=== PATIENT | male | born 1940 | race Caucasian/White ===

== ENCOUNTER 2016-10-21 11:38 | Inpatient (IN) | payer MEDICARE, OTHER ==
--- NOTE | 2016-10-21 12:10 | ER Document Report ---
ED General - General Stated Complaint: DIFFICULTY BREATHING Time seen by provider: 12:08 Mode of Arrival: Wheelchair Information source: Patient Notes: This is a 75-year-old gentleman with a history of COPD exacerbation (status post trach for malignant neoplasm of the larynx), acute on chronic respiratory failure, atrial fibrillation, and diabetes. The patient presents to the emergency room with worsening shortness of breath, wheezing and cough over the past 4 days. Patient states his already had 4 nebulizer treatments today. TRAVEL OUTSIDE OF THE [place] IN LAST 30 DAYS: No - HPI Onset: Last week Onset/Duration: Gradual Quality of pain: No pain Severity: None Pain Level: Denies Associated symptoms: Nonproductive cough, Shortness of breath. denies: Chills, Fever Exacerbated by: Walking Relieved by: Denies Similar symptoms previously: Yes Recently seen / treated by doctor: Yes - Related Data Allergies/Adverse Reactions: Penicillins Allergy (Severe, Verified 11/30/15 10:46) Past Medical History - General Information source: Patient - Social History Smoking Status: Former Smoker Cigarette use (# per day): No Chew tobacco use (# tins/day): No Smoking Education Provided: No Frequency of alcohol use: None Drug Abuse: None Lives with: Alone Family History: DM, Hypertension, Malignancy - Past Medical History Cardiac Medical History: Reports: Hx Atrial Fibrillation Pulmonary Medical History: Reports: Hx Asthma, Hx COPD, Hx Pneumonia Endocrine Medical History: Reports: Hx Diabetes Mellitus Type 1, Hx Hyperthyroidism Past Surgical History: Reports: Hx Abdominal Surgery - G-tube, Hx Oral Surgery - Trach - Immunizations Hx Diphtheria, Pertussis, Tetanus Vaccination: Yes Hx Pneumococcal Vaccination: 10/18/11 Review of Systems - Review of Systems Constitutional: denies: Chills, Fever EENT: No symptoms reported Cardiovascular: See HPI Respiratory: No symptoms reported Gastrointestinal: No symptoms reported Genitourinary: No symptoms reported Male Genitourinary: No symptoms reported Musculoskeletal: No symptoms reported Skin: No symptoms reported Hematologic/Lymphatic: No symptoms reported Neurological/Psychological: No symptoms reported Physical Exam - Vital signs Vitals: Resp BP Pulse Ox 28 H 165/106 H 96 10/21/16 11:42 10/21/16 11:42 10/21/16 11:42 Notes: Physical exam: GENERAL: 76-year-old man, alert and oriented 3, moderate respiratory distress HEAD: Atraumatic, normocephalic. EYES: Pupils equal round and reactive to light, extraocular movements intact, sclera anicteric, conjunctiva are normal. ENT: oropharynx clear without exudates. Moist mucous membranes. NECK: Trach site clear and unobstructed, no stridor. LUNGS: Diffuse bilateral wheezing, moderate respiratory distress HEART: Regular rate and rhythm without murmurs, rubs or gallops. ABDOMEN: Soft, nontender, normoactive bowel sounds. No guarding, no rebound. No masses appreciated. EXTREMITIES: Normal range of motion, no pitting or edema. No clubbing or cyanosis. NEUROLOGICAL: Cranial nerves II through XII grossly intact. Patient is nonverbal but communicates well by writing on a pad. PSYCH: Normal mood, normal affect. SKIN: Warm, Dry, normal turgor, no rashes or lesions noted. Course - Re-evaluation Re-evalutation: 10/21/16 12:39 Patient given albuterol nebulizers and IV Solu-Medrol by EMS Albuterol and Atrovent nebulizer given in the emergency room. IV magnesium given in the emergency room 10/21/16 17:00 Note: EKG shows atrial fibrillation with a ventricular rate of [address]ressions in V2 through V5. I think this is strain secondary to his respiratory status is a hole. He denies any chest pain. We did repeat the EKG and this no significant changes. His troponin level is negative. His respiratory symptoms have been improving with treatment of his acute COPD exacerbation. 10/21/16 18:28 - Vital Signs Vital signs: Temp Pulse Resp BP Pulse Ox 99 F 113 H 26 H 138/88 H 97 10/21/16 11:45 10/21/16 11:45 10/21/16 12:01 10/21/16 12:01 10/21/16 12:01 - Laboratory Result Diagrams: 10/21/16 11:50 10/21/16 11:50 Laboratory results interpreted by me: 10/21/16 10/21/16 10/21/16 11:50 11:50 11:50 WBC 12.2 H RBC 4.30 L Hgb 13.4 L Lymphocytes % 11.8 L Eosinophils % 8.7 H Absolute Neutrophils 8.6 H Absolute Eosinophils 1.1 H VBG pH 7.27 L VBG pCO2 66.4 H* Glucose 137 H Creatine Kinase 36 L - Diagnostic Test Radiology reviewed: Image reviewed, Reports reviewed - No infiltrates - EKG Interpretation by Me Rhythm: A.Fib Critical Care Note - Critical Care Note Total time excluding time spent on procedures (mins): 60 Discharge - Discharge Clinical Impression: acute COPD exacerbation Condition: Serious Disposition: ADMITTED INPATIENT Admitting Provider: [facility] Admitted: [facility]
[2016-10-21] MEDS ORDERED: IPRATROPIUM/ALBUTEROL 0.5-2.5 MG/3 ML AMPUL NEB ONE (12:12)
[2016-10-21] MEDS ORDERED: LEVOFLOXACIN 750 MG/D5W RTU 150 ML IV ONE (12:13)
[2016-10-21 12:22] LABS: VENOUS BLOOD BASE EXCESS 1.1 mmol/L; VENOUS BLOOD HCO3 29.9 mmol/L (20-32); VENOUS BLOOD PH 7.27 (7.30-7.42)
[2016-10-21 12:23] LABS: VENOUS BLOOD PCO2 66.4 mmHg (35-63)
[2016-10-21 12:24] LABS: ABSOLUTE BASOPHILS # (AUTO) 0.2 10^3/uL (0.0-0.2); ABSOLUTE EOSINOPHILS # (AUTO) 1.1 10^3/uL (0.0-0.6); ABSOLUTE LYMPHOCYTES (AUTO) 1.4 10^3/uL (0.5-4.7); ABSOLUTE MONOCYTES (AUTO) 0.9 10^3/uL (0.1-1.4); ABSOLUTE NEUT (AUTO) 8.6 10^3/uL (1.7-8.2); BASOPHILS % (AUTO) 1.4 % (0-2); EOSINOPHILS % (AUTO) 8.7 % (0-6); HEMATOCRIT 41.2 % (37.9-51.0); HEMOGLOBIN 13.4 g/dL (13.5-17.0); LYMPHOCYTES % (AUTO) 11.8 % (13-45); MEAN CORPUSCULAR HEMOGLOBIN 31.3 pg (27.0-33.4); MEAN CORPUSCULAR HGB CONC 32.6 g/dL (32.0-36.0); MEAN CORPUSCULAR VOLUME 96 fl (80-97); MONOCYTES % (AUTO) 7.5 % (3-13); RED CELL DISTRIBUTION WIDTH 13.7 % (11.5-14.0); SEGMENTED NEUTROPHILS % (AUTO) 70.6 % (42-78); WHITE BLOOD COUNT 12.2 10^3/uL (4.0-10.5)
[2016-10-21 12:29] LABS: ALANINE AMINOTRANSFERASE 37 U/L (21-72); ALKALINE PHOSPHATASE 87 U/L (38-126); ANION GAP 13 (5-19); ASPARTATE AMINO TRANSFERASE 23 U/L (17-59); BILIRUBIN,TOTAL 0.7 mg/dL (0.2-1.3); BLOOD UREA NITROGEN 16 mg/dL (7-20); CALCIUM 9.3 mg/dL (8.4-10.2); CARBON DIOXIDE 28 mmol/L (22-30); CHLORIDE 101 mmol/L (98-107); CREATINE KINASE 36 U/L (55-170); CREATININE RESULT 0.76 mg/dL (0.52-1.25); GLUCOSE 137 mg/dL (75-110); POTASSIUM 4.7 mmol/L (3.6-5.0); SODIUM 141.8 mmol/L (137-145); TOTAL PROTEIN 6.7 g/dL (6.3-8.2)
[2016-10-21] MEDS: MAGNESIUM SULFATE/D5W 100 ML IV SCH ×2 (12:32→13:10)
[2016-10-21 12:41] LABS: CREATINE KINASE MB 2.28 ng/mL (<4.55)
[2016-10-21 12:47] LABS: TROPONIN I 0.056 ng/mL
[2016-10-21] MEDS ORDERED: NITROGLYCERIN 2% OINTMENT 1 GM PACKET TP ONE (12:54)
--- NOTE | 2016-10-21 15:41 | EKG REPORT ---
SEVERITY:- ABNORMAL ECG - ATRIAL FIBRILLATION VENTRICULAR PREMATURE COMPLEX LOW VOLTAGE IN FRONTAL LEADS REPOL ABNRM SUGGESTS ISCHEMIA, DIFFUSE LEADS : Confirmed by: Gerard Maldonado 21-Oct-2016 15:41:10
--- NOTE | 2016-10-21 15:42 | EKG REPORT ---
SEVERITY:- ABNORMAL ECG - ATRIAL FIBRILLATION LOW VOLTAGE IN FRONTAL LEADS REPOL ABNRM SUGGESTS ISCHEMIA, DIFFUSE LEADS VPC : Confirmed by: Gerard Maldonado 21-Oct-2016 15:41:37
[2016-10-21] MEDS ORDERED: ACETAMINOPHEN 325 MG TABLET PO PRN (18:03)
--- NOTE | 2016-10-21 18:24 | PDOC H&P ---
History of Present Illness Admission Date/PCP: 10/21/16 17:43 WENDY AYALA, Patient complains of: Shortness of breath with difficulty coughing up mucus. History of Present Illness: KARLA PARADA is a 76 year old male Past medical history of severe COPD atrial fibrillation diabetes and laryngeal cancer status post tracheostomy who was in his usual state of health until apparently 3 days ago when started having some shortness of breath with difficulty coughing up some mucus and some wheezing. He came into the emergency room to be evaluated. Past Medical History Cardiac Medical History: Reports: Atrial Fibrillation Pulmonary Medical History: Reports: Asthma, Chronic Obstructive Pulmonary Disease (COPD), Pneumonia, Respiratory Failure EENT Medical History: Reports: Throat EENT History Note: Laryngeal cancer status post tracheostomy Endocrine Medical History: Reports: Diabetes Mellitus Type 1, Hypothyroidism Malignancy Medical History: Reports: Other Malignancy History Note: Laryngeal cancer Hematology: Denies: Anemia, Sickle Cell Disease Past Surgical History Past Surgical History: Reports: Other - Laryngeal cancer resection with tracheostomy Social History Lives with: Alone Smoking Status: Former Smoker Frequency of Alcohol Use: Heavy Hx Recreational Drug Use: No Drugs: None Hx Prescription Drug Abuse: No - Advance Directive Resuscitation Status: Do Not Resuscitate Family History Family History: DM, Hypertension, Malignancy Parental Family History Reviewed: Yes Children Family History Reviewed: Yes Sibling(s) Family History Reviewed.: Yes Medication/Allergy Home Medications: Metformin HCl [Glucophage 500 mg Tablet] 1,000 mg PO QPM 03/05/12 Levothyroxine Sodium 150 mcg PO DAILY 11/30/15 Tramadol HCl 50 mg PO TID 01/19/16 Digoxin [Lanoxin 0.125 mg Tablet] 0.125 mg PO DAILY #30 tablet 03/28/16 Acetaminophen [Tylenol 325 mg Tablet] 650 mg PO Q4HP PRN #0 tablet 07/23/16 Diltiazem HCl [Cardizem 30 mg Tablet] 30 mg PO Q6 #0 tablet 07/23/16 Guaifenesin [Mucinex Sr 600 mg Tablet.sa] 600 mg PO Q12 #0 tablet.sa 07/23/16 Ipratropium/Albuterol Sulfate [Duoneb 3 ml Ampul] 3 ml NEB [id number] #0 vial.neb 07/23/16 Prednisone [Deltasone 20 mg Tablet] 40 mg PO DAILY #0 tablet 07/23/16 Tramadol HCl [Ultram 50 mg Tablet] 50 mg PO Q6HP PRN #0 tablet 07/23/16 Allergies/Adverse Reactions: Penicillins Allergy (Severe, Verified 11/30/15 10:46) Review of Systems All systems: reviewed and no additional remarkable complaints except as stated Physical Exam Vital Signs: Temp Pulse Resp BP Pulse Ox 99 F 113 H 26 H 138/88 H 97 10/21/16 11:45 10/21/16 11:45 10/21/16 12:01 10/21/16 12:01 10/21/16 12:01 General appearance: PRESENT: severe distress Head exam: PRESENT: other Eye exam: PRESENT: conjunctival injection Throat exam: PRESENT: other Neck exam: ABSENT: JVD Respiratory exam: PRESENT: accessory muscle use, decreased breath sounds, wheezes Cardiovascular exam: PRESENT: irregular rhythm Pulses: PRESENT: +1 pedal pulses bilateral GI/Abdominal exam: PRESENT: normal bowel sounds, soft Extremities exam: PRESENT: full ROM Musculoskeletal exam: PRESENT: ambulatory Neurological exam: PRESENT: alert, oriented to time Results Impressions: Chest X-Ray 10/21/16 12:11 IMPRESSION: Obstructive lung disease. No acute consolidations are identified. Other findings as noted above Assessment & Plan - Diagnosis (1) Diabetes mellitus Qualifiers: Diabetes mellitus type: type 2 Is this a current diagnosis for this admission?: YesPlan: We'll consider using insulin sliding scale due to steroid use (2) Acute on chronic respiratory failure with hypoxemia Is this a current diagnosis for this admission?: YesPlan: We'll start IV steroids, nebulization treatments and antibiotics (3) Atrial fibrillation Qualifiers: Atrial fibrillation type: chronic Qualified Code(s): I48.2 - Chronic atrial fibrillation Is this a current diagnosis for this admission?: YesPlan: We will continue with medications. (4) COPD exacerbation Is this a current diagnosis for this admission?: YesPlan: We'll use nebulization treatments and IV steroids and antibiotics (5) Do not resuscitate Is this a current diagnosis for this admission?: Yes (6) Abnormal laboratory test Is this a current diagnosis for this admission?: YesPlan: Elevated troponins with some EKG changes most probably ischemic due to an acute COPD exacerbation (7) Bacterial pneumonia Plan: Continue IV antibiotics
[2016-10-21] MEDS ORDERED: DEXTROSE 50%-WATER 25 GM/50 ML DISP.SYRIN IV PRN ×2 (18:25)
[2016-10-21] MEDS ORDERED: INSULIN LISPRO 100 UNIT/ML 3 ML VIAL SUBCUT PRN (18:25)
[2016-10-21] MEDS ORDERED: GLUCAGON,HUMAN RECOMB 1 MG INJ IM PRN (18:25)
[2016-10-21] MEDS ORDERED: DEXTROSE 40% GEL 15 GM TUBE PO PRN ×2 (18:25)
[2016-10-21 19:30] LABS: CREATINE KINASE MB 3.9 ng/mL (<4.55)
[2016-10-21 19:37] LABS: TROPONIN I 0.063 ng/mL
[2016-10-21] MEDS: IPRATROPIUM/ALBUTEROL 0.5-2.5 MG/3 ML AMPUL NEB SCH (19:48)
[2016-10-21] MEDS ORDERED: IPRATROPIUM/ALBUTEROL 0.5-2.5 MG/3 ML AMPUL NEB SCH (20:00)
[2016-10-21] MEDS: GUAIFENESIN 600 MG TABLET.SA PO SCH (21:35)
[2016-10-21] MEDS: METHYLPREDNISOLONE INJ 125 MG/2 ML SDV IV SCH (21:35)
[2016-10-21] MEDS: AZTREONAM 1 GM in DEXTROSE 5%-WATER 50 ML IV SCH (21:36)
[2016-10-22] MEDS ORDERED: METHYLPREDNISOLONE INJ 40 MG/1 ML SDV IV SCH
[2016-10-22] MEDS: DILTIAZEM HCL 30 MG TABLET PO SCH ×5 (00:25→23:21)
[2016-10-22] MEDS: NITROGLYCERIN 2% OINTMENT 1 GM PACKET TP SCH ×5 (00:25→23:22)
[2016-10-22 01:57] LABS: CREATINE KINASE MB 5.01 ng/mL (<4.55); TROPONIN I 0.053 ng/mL
[2016-10-22] MEDS: METHYLPREDNISOLONE INJ 125 MG/2 ML SDV IV SCH ×4 (02:50→21:05)
[2016-10-22] MEDS: IPRATROPIUM/ALBUTEROL 0.5-2.5 MG/3 ML AMPUL NEB PRN (04:03)
[2016-10-22] MEDS ORDERED: LACTULOSE SYRUP 20 GM/30 ML UDCUP PO ONE (04:15)
[2016-10-22] MEDS ORDERED: ONDANSETRON HCL INJ/PF 4 MG/2 ML SDV IV PRN (05:37)
[2016-10-22] MEDS ORDERED: ONDANSETRON HCL INJ/PF 4 MG/2 ML SDV ONE (05:41)
[2016-10-22] MEDS: LANSOPRAZOLE 30 MG TAB.RAP.DR PO SCH (05:57)
[2016-10-22] MEDS: AZTREONAM 1 GM in DEXTROSE 5%-WATER 50 ML IV SCH ×3 (05:57→21:05)
--- NOTE | 2016-10-22 07:55 | EKG REPORT ---
SEVERITY:- ABNORMAL ECG - ATRIAL FIBRILLATION VENTRICULAR PREMATURE COMPLEX REPOL ABNRM SUGGESTS ISCHEMIA, DIFFUSE LEADS : Confirmed by: Gerard Maldonado 22-Oct-2016 07:53:50
[2016-10-22 07:59] LABS: HEMATOCRIT 40.3 % (37.9-51.0); HEMOGLOBIN 13.7 g/dL (13.5-17.0); HGB HCT DIFFERENCE 0.8; MEAN CORPUSCULAR HEMOGLOBIN 31.8 pg (27.0-33.4); MEAN CORPUSCULAR HGB CONC 33.9 g/dL (32.0-36.0); MEAN CORPUSCULAR VOLUME 94 fl (80-97); RED CELL DISTRIBUTION WIDTH 13.5 % (11.5-14.0); WHITE BLOOD COUNT 12.4 10^3/uL (4.0-10.5)
[2016-10-22] MEDS ORDERED: MINERAL OIL ENEMA 133 ML PR ONE (08:00)
[2016-10-22 08:27] LABS: ANION GAP 14 (5-19); BLOOD UREA NITROGEN 25 mg/dL (7-20); CALCIUM 10.2 mg/dL (8.4-10.2); CARBON DIOXIDE 31 mmol/L (22-30); CHLORIDE 98 mmol/L (98-107); CREATINE KINASE 139 U/L (55-170); CREATININE RESULT 0.92 mg/dL (0.52-1.25); DIGOXIN 1.87 ng/mL (0.8-2.0); GLUCOSE 154 mg/dL (75-110); POTASSIUM 4.7 mmol/L (3.6-5.0); SODIUM 142.5 mmol/L (137-145)
[2016-10-22 08:30] LABS: BAND NEUTROPHILS % (MANUAL) 1 % (3-5); BASOPHILS % (MANUAL) 0 % (0-2); EOSINOPHILS % (MANUAL) 0 % (0-6); LYMPHOCYTES % (MANUAL) 4 % (13-45); RBC MORPHOLOGY COMMENT NORMO-CYTIC/CHROMIC; TOTAL CELLS COUNTED 100; TOXIC GRANULATION SLIGHT
[2016-10-22 08:36] LABS: CREATINE KINASE MB 6.66 ng/mL (<4.55); TROPONIN I 0.082 ng/mL
[2016-10-22] MEDS: IPRATROPIUM/ALBUTEROL 0.5-2.5 MG/3 ML AMPUL NEB SCH ×4 (08:48→19:53)
[2016-10-22] MEDS: TRAMADOL HCL 50 MG TABLET PO PRN ×2 (09:45→16:31)
[2016-10-22] MEDS: GUAIFENESIN 600 MG TABLET.SA PO SCH ×2 (09:46→21:05)
[2016-10-22] MEDS: DIGOXIN 0.25 MG TABLET PO SCH (09:46)
[2016-10-22] MEDS: LEVOTHYROXINE SODIUM 0.15 MG TABLET PO SCH (09:47)
[2016-10-22] MEDS: LEVOFLOXACIN 500 MG/D5W RTU 100 ML IV SCH (09:47)
[2016-10-22] MEDS: ENOXAPARIN SODIUM INJ 30 MG/0.3 ML DISP.SYRIN SUBCUT SCH (09:48)
[2016-10-22] MEDS ORDERED: LEVOTHYROXINE SODIUM 0.15 MG TABLET PO SCH (10:00)
[2016-10-22] MEDS ORDERED: TRAMADOL HCL 50 MG TABLET PO SCH (10:00)
[2016-10-22] MEDS ORDERED: DIGOXIN 0.125 MG TABLET PO SCH (10:00)
[2016-10-22] MEDS ORDERED: DILTIAZEM HCL 30 MG TABLET PO SCH (12:00)
--- NOTE | 2016-10-22 12:09 | PDOC PROGRESS REPORT ---
Subjective Progress Note for:: 10/22/16 Subjective:: The patient states to feel slightly better this morning. He had abdominal pain during the night and has been given some Zofran for vomiting. His x-ray showed him to be constipated. He did have a couple of bowel movements and has been given a mineral oil enema. Physical Exam Vital Signs: Temp Pulse Resp BP Pulse Ox 98.8 F 94 21 H 129/71 H 96 10/22/16 07:38 10/22/16 08:48 10/22/16 08:48 10/22/16 07:38 10/22/16 08:48 Intake & Output 10/21/16 10/22/16 10/23/16 06:59 06:59 06:59 Intake Total 225 Balance 225 Weight 67.5 kg General appearance: PRESENT: mild distress Eye exam: PRESENT: conjunctival injection Throat exam: PRESENT: other Neck exam: PRESENT: tracheostomy. ABSENT: carotid bruit, JVD Respiratory exam: PRESENT: accessory muscle use, decreased breath sounds, prolonged expiratory phas, wheezes Cardiovascular exam: PRESENT: irregular rhythm Pulses: PRESENT: +1 pedal pulses bilateral GI/Abdominal exam: PRESENT: normal bowel sounds, soft Musculoskeletal exam: PRESENT: ambulatory Neurological exam: PRESENT: alert, oriented to time Results Laboratory Results: 10/22/16 07:24 10/22/16 07:24 10/22/16 10/22/16 07:24 07:24 WBC 12.4 H RBC 4.30 L Hgb 13.7 Hct 40.3 MCV 94 MCH 31.8 MCHC 33.9 RDW 13.5 Plt Count 217 Seg Neutrophils % Not Reportable Lymphocytes % Not Reportable Monocytes % Not Reportable Eosinophils % Not Reportable Basophils % Not Reportable Absolute Neutrophils Not Reportable Absolute Lymphocytes Not Reportable Absolute Monocytes Not Reportable Absolute Eosinophils Not Reportable Absolute Basophils Not Reportable Sodium 142.5 Potassium 4.7 Chloride 98 Carbon Dioxide 31 H Anion Gap 14 BUN 25 H Creatinine 0.92 Est GFR ( Amer) > 60 Est GFR (Non-Af Amer) > 60 Glucose 154 H Calcium 10.2 10/21/16 10/21/16 10/22/16 19:00 19:00 01:00 Creatine Kinase 66 82 CK-MB (CK-2) 3.90 Troponin I 0.063 NT-Pro-B Natriuret Pep 10/22/16 10/22/16 10/22/16 01:00 07:24 07:24 Creatine Kinase 139 CK-MB (CK-2) 5.01 H 6.66 H Troponin I 0.053 0.082 NT-Pro-B Natriuret Pep 1530 H Impressions: Chest X-Ray 10/21/16 12:11 IMPRESSION: Obstructive lung disease. No acute consolidations are identified. Other findings as noted above Abdomen X-Ray 10/22/16 00:00 IMPRESSION: Fecal retention. No obstruction Assessment & Plan - Diagnosis (1) Diabetes mellitus Qualifiers: Diabetes mellitus type: type 2 Is this a current diagnosis for this admission?: Yes (2) Acute on chronic respiratory failure with hypoxemia Is this a current diagnosis for this admission?: YesPlan: Improved slightly and continue with steroids and nebulization treatments (3) Atrial fibrillation Qualifiers: Atrial fibrillation type: chronic Qualified Code(s): I48.2 - Chronic atrial fibrillation Is this a current diagnosis for this admission?: YesPlan: Stable continue present medications. (4) COPD exacerbation Plan: We'll use nebulization treatments and IV steroids and antibiotics (6) Abnormal laboratory test Plan: Improving her labs continue same treatment (7) Bacterial pneumonia Is this a current diagnosis for this admission?: YesPlan: Continue current antibiotics awaiting culture (8) Abdominal pain Qualifiers: Abdominal location: generalized Qualified Code(s): R10.84 - Generalized abdominal pain Is this a current diagnosis for this admission?: YesPlan: Reviewduetoconstipation.Wewillcontinuewithenemaandclearliquids (9) Vomiting Qualifiers: Nausea presence: with nausea Is this a current diagnosis for this admission?: YesPlan: We will continue with Zofran and place patient on clear liquids. The vomiting might have been secondary to fecal impaction and constipation
[2016-10-22] MEDS: METFORMIN HCL 500 MG TABLET PO SCH (17:29)
[2016-10-22] MEDS ORDERED: METFORMIN HCL 500 MG TABLET PO SCH ×2 (18:00→22:00)
[2016-10-22] MEDS: NORMAL SALINE 1000 ML 1,000 ML IV PRN (23:29)
[2016-10-23] MEDS: METHYLPREDNISOLONE INJ 125 MG/2 ML SDV IV SCH (02:35)
[2016-10-23] MEDS: LANSOPRAZOLE 30 MG TAB.RAP.DR PO SCH (05:32)
[2016-10-23] MEDS: AZTREONAM 1 GM in DEXTROSE 5%-WATER 50 ML IV SCH ×3 (05:32→22:03)
[2016-10-23] MEDS: NITROGLYCERIN 2% OINTMENT 1 GM PACKET TP SCH ×3 (05:32→17:51)
[2016-10-23] MEDS: DILTIAZEM HCL 30 MG TABLET PO SCH ×3 (05:33→17:51)
[2016-10-23 05:38] LABS: HEMATOCRIT 36.8 % (37.9-51.0); HEMOGLOBIN 12.3 g/dL (13.5-17.0); HGB HCT DIFFERENCE 0.1; MEAN CORPUSCULAR HEMOGLOBIN 31.6 pg (27.0-33.4); MEAN CORPUSCULAR HGB CONC 33.4 g/dL (32.0-36.0); MEAN CORPUSCULAR VOLUME 95 fl (80-97); RED CELL DISTRIBUTION WIDTH 13.7 % (11.5-14.0); WHITE BLOOD COUNT 20.6 10^3/uL (4.0-10.5)
[2016-10-23 05:41] LABS: ANION GAP 9 (5-19); BLOOD UREA NITROGEN 30 mg/dL (7-20); CALCIUM 9.2 mg/dL (8.4-10.2); CARBON DIOXIDE 29 mmol/L (22-30); CHLORIDE 102 mmol/L (98-107); CREATININE RESULT 0.85 mg/dL (0.52-1.25); GLUCOSE 135 mg/dL (75-110); POTASSIUM 4.2 mmol/L (3.6-5.0); SODIUM 140.1 mmol/L (137-145)
[2016-10-23 06:25] LABS: BASOPHILS % (MANUAL) 0 % (0-2); EOSINOPHILS % (MANUAL) 0 % (0-6); LYMPHOCYTES % (MANUAL) 5 % (13-45); TOTAL CELLS COUNTED 100
[2016-10-23 06:27] LABS: RBC MORPHOLOGY COMMENT NORMO-CYTIC/CHROMIC
[2016-10-23] MEDS: IPRATROPIUM/ALBUTEROL 0.5-2.5 MG/3 ML AMPUL NEB SCH ×4 (08:22→20:29)
[2016-10-23] MEDS: TRAMADOL HCL 50 MG TABLET PO PRN ×2 (09:26→17:49)
[2016-10-23] MEDS: LEVOTHYROXINE SODIUM 0.15 MG TABLET PO SCH (09:27)
[2016-10-23] MEDS: DIGOXIN 0.25 MG TABLET PO SCH (09:27)
[2016-10-23] MEDS: PREDNISONE 20 MG TABLET PO SCH ×2 (09:27→17:50)
[2016-10-23] MEDS: GUAIFENESIN 600 MG TABLET.SA PO SCH ×2 (09:27→22:03)
[2016-10-23] MEDS: ENOXAPARIN SODIUM INJ 30 MG/0.3 ML DISP.SYRIN SUBCUT SCH (09:28)
[2016-10-23] MEDS: LEVOFLOXACIN 500 MG/D5W RTU 100 ML IV SCH (09:28)
--- NOTE | 2016-10-23 10:31 | PDOC PROGRESS REPORT ---
Subjective Progress Note for:: 10/23/16 Subjective:: The patient states to feel better. He still have some shortness of breath. He had a couple of good bowel movements. He denies any nausea vomiting or abdominal pain Physical Exam Vital Signs: Temp Pulse Resp BP Pulse Ox 97.5 F 54 L 22 H 94/45 L 100 10/23/16 07:17 10/23/16 07:17 10/23/16 07:17 10/23/16 07:17 10/23/16 07:17 Intake & Output 10/22/16 10/23/16 10/24/16 06:59 06:59 06:59 Intake Total 225 1487 Balance 225 1487 Weight 67.5 kg 67.6 kg General appearance: PRESENT: mild distress Head exam: PRESENT: atraumatic Eye exam: PRESENT: conjunctival injection Neck exam: PRESENT: tracheostomy Respiratory exam: PRESENT: decreased breath sounds, wheezes Cardiovascular exam: PRESENT: irregular rhythm Pulses: PRESENT: +1 pedal pulses bilateral GI/Abdominal exam: PRESENT: normal bowel sounds, soft Extremities exam: PRESENT: full ROM Musculoskeletal exam: PRESENT: ambulatory Neurological exam: PRESENT: alert Results Laboratory Results: 10/23/16 04:56 10/23/16 04:56 10/23/16 10/23/16 04:56 04:56 WBC 20.6 H RBC 3.90 L Hgb 12.3 L Hct 36.8 L MCV 95 MCH 31.6 MCHC 33.4 RDW 13.7 Plt Count 215 Seg Neutrophils % Not Reportable Lymphocytes % Not Reportable Monocytes % Not Reportable Eosinophils % Not Reportable Basophils % Not Reportable Absolute Neutrophils Not Reportable Absolute Lymphocytes Not Reportable Absolute Monocytes Not Reportable Absolute Eosinophils Not Reportable Absolute Basophils Not Reportable Sodium 140.1 Potassium 4.2 Chloride 102 Carbon Dioxide 29 Anion Gap 9 BUN 30 H Creatinine 0.85 Est GFR ( Amer) > 60 Est GFR (Non-Af Amer) > 60 Glucose 135 H Calcium 9.2 10/21/16 10/21/16 10/22/16 19:00 19:00 01:00 Creatine Kinase 66 82 CK-MB (CK-2) 3.90 Troponin I 0.063 NT-Pro-B Natriuret Pep 10/22/16 10/22/16 10/22/16 01:00 07:24 07:24 Creatine Kinase 139 CK-MB (CK-2) 5.01 H 6.66 H Troponin I 0.053 0.082 NT-Pro-B Natriuret Pep 1530 H Impressions: Chest X-Ray 10/21/16 12:11 IMPRESSION: Obstructive lung disease. No acute consolidations are identified. Other findings as noted above Abdomen X-Ray 10/22/16 00:00 IMPRESSION: Fecal retention. No obstruction Assessment & Plan - Diagnosis (1) Diabetes mellitus Qualifiers: Diabetes mellitus type: type 2 Is this a current diagnosis for this admission?: YesPlan: We'll consider using insulin sliding scale due to steroid use (2) Acute on chronic respiratory failure with hypoxemia Is this a current diagnosis for this admission?: YesPlan: Improved slightly and continue with steroids and nebulization treatments (3) Atrial fibrillation Qualifiers: Atrial fibrillation type: chronic Qualified Code(s): I48.2 - Chronic atrial fibrillation Is this a current diagnosis for this admission?: YesPlan: Stable continue present medications. (4) COPD exacerbation Is this a current diagnosis for this admission?: YesPlan: We'll use nebulization treatments and IV steroids and antibiotics (5) Do not resuscitate Is this a current diagnosis for this admission?: Yes (6) Abnormal laboratory test Is this a current diagnosis for this admission?: Yes (7) Bacterial pneumonia Is this a current diagnosis for this admission?: YesPlan: Continue current antibiotics awaiting culture (8) Abdominal pain Qualifiers: Abdominal location: generalized Qualified Code(s): R10.84 - Generalized abdominal pain Is this a current diagnosis for this admission?: YesPlan: Resolved with good bowel movements and no more nausea vomiting (9) Vomiting Qualifiers: Nausea presence: with nausea Is this a current diagnosis for this admission?: Yes
[2016-10-23] MEDS: METFORMIN HCL 500 MG TABLET PO SCH (17:50)
[2016-10-23] MEDS: ACETYLCYSTEINE 20% SOLN 800 MG/4 ML VIAL.NEB IH SCH (20:28)
--- NOTE | 2016-10-23 21:08 | PROGRESS NOTE E ---
Progress Note NAME: KARLA PARADA : 1940 AGE: 76Y DATE: 10/23/2016 ROOM: 331 SUBJECTIVE: The patient states that he has no further abdominal pain, nausea, or vomiting. These symptoms, which were present yesterday, resolved after the patient had a couple of good bowel movements. The patient continues to be in atrial fibrillation with controlled ventricular response. There is no pedal edema. There is no PND. The patient still has orthopnea. He still has some shortness of breath which is slightly better. There are no TIA or CVA symptoms. OBJECTIVE: GENERAL: On examination, the patient appears to be chronically ill, of her normal build, but chronically ill. VITAL SIGNS: He is afebrile with a temperature of 98 degrees Fahrenheit. Pulse of 76 beats per minute. Blood pressure is 91/55. Respirations are 22 per minute. O2 sat is 100% on trachea collar with FiO2 of 40%. HEENT: Head is atraumatic, normocephalic. Eyes: Pupils are equal, round, regular, and reactive to light and accommodation. Extraocular movements are normal. There is no conjunctival pallor. There is no scleral icterus. ENT is negative except for a tracheostomy wound that is open. The patient is not able to talk but he can whisper and he can understand when spoken to. Trachea central. LUNGS: Show diminished air entry, prolonged expiration, and there is rhonchi and wheezing scattered all over. There are no rales of CHF. There is hyperresonance on percussion. HEART: S1 and S2 are heard. S1 is of a variable intensity. There is no S3 gallop. There is no S4 gallop. There is a systolic murmur in the left sternal border and the apex. There is no rub. ABDOMEN: Soft and nontender. There is no hepatosplenomegaly. Bowel sounds are well heard. EXTREMITIES: Femorals are diminished. There are no femoral bruits. Leg pulses are diminished. There is no pedal edema. There is no DVT or cellulitis. CENTRAL NERVOUS SYSTEM: The patient is conscious, awake, alert, and oriented x3 with no focal deficit. PSYCHIATRIC: The patient's judgment and insight seem to be intact. His affect is normal. LABORATORY DATA: The patient's white count is 20,600, hemoglobin 12.3, hematocrit 36.8, platelet count 215,000. The patient's sodium is 140.1, potassium 4.2, chloride 102, CO2 29. The patient's BUN is 30. Creatinine 0.85. GFR is greater than 60. His calcium is 9.2. IMPRESSION AND PLAN: 1. COPD WITH ACUTE EXACERBATION. The patient is on antibiotics. Continue antibiotics and continue nebulizer treatments. 2. CHRONIC ATRIAL FIBRILLATION WITH CONTROLLED VENTRICULAR RESPONSE. Note that the patient is not a candidate for long-term anticoagulation therapy since he had significant bleeding with anticoagulants the last admission. There are no TIA or CVA symptoms. Continue the patient's digoxin and Cardizem. 3. DIABETES MELLITUS, TYPE-2, [id number]. 4. ABDOMINAL PAIN WITH NAUSEA AND VOMITING, RELIEVED AFTER GOOD BOWEL MOVEMENT. 5. DNR. Note that the patient is a DNR. His son is the surrogate healthcare decision maker. Note, 30 minutes spent on this patient with more than 50% of time spent on direct patient care and reviewing the patient's medications and discussion with the patient and discussion with his attending physician, Dr. Grimes. We will follow with you. DICTATING PHYSICIAN: RADAMES GIRON M.D. [id number] PHY#: [id number] ID: [id number] JOB#: [id number] ACCT: [id number] cc: >
[2016-10-23] MEDS: NORMAL SALINE 1000 ML 1,000 ML IV PRN (22:03)
[2016-10-24] MEDS: DILTIAZEM HCL 30 MG TABLET PO SCH ×4 (01:07→17:25)
[2016-10-24] MEDS: NITROGLYCERIN 2% OINTMENT 1 GM PACKET TP SCH ×2 (01:09→05:03)
[2016-10-24] MEDS: AZTREONAM 1 GM in DEXTROSE 5%-WATER 50 ML IV SCH ×3 (05:03→21:33)
[2016-10-24] MEDS: LANSOPRAZOLE 30 MG TAB.RAP.DR PO SCH (05:03)
[2016-10-24] MEDS: IPRATROPIUM/ALBUTEROL 0.5-2.5 MG/3 ML AMPUL NEB PRN (06:08)
[2016-10-24 06:40] LABS: HEMATOCRIT 37.1 % (37.9-51.0); HEMOGLOBIN 12.4 g/dL (13.5-17.0); HGB HCT DIFFERENCE 0.1; MEAN CORPUSCULAR HEMOGLOBIN 31.5 pg (27.0-33.4); MEAN CORPUSCULAR HGB CONC 33.5 g/dL (32.0-36.0); MEAN CORPUSCULAR VOLUME 94 fl (80-97); RED BLOOD COUNT 3.95 10^6/uL (4.35-5.55); RED CELL DISTRIBUTION WIDTH 13.9 % (11.5-14.0); WHITE BLOOD COUNT 17.4 10^3/uL (4.0-10.5)
[2016-10-24 06:51] LABS: ANION GAP 10 (5-19); BLOOD UREA NITROGEN 35 mg/dL (7-20); CALCIUM 9.2 mg/dL (8.4-10.2); CARBON DIOXIDE 27 mmol/L (22-30); CHLORIDE 104 mmol/L (98-107); CREATININE RESULT 0.78 mg/dL (0.52-1.25); GLUCOSE 147 mg/dL (75-110); POTASSIUM 3.9 mmol/L (3.6-5.0); SODIUM 140.7 mmol/L (137-145)
[2016-10-24 07:19] LABS: BAND NEUTROPHILS % (MANUAL) 2 % (3-5); BASOPHILS % (MANUAL) 0 % (0-2); BURR CELLS SLIGHT; EOSINOPHILS % (MANUAL) 0 % (0-6); LYMPHOCYTES % (MANUAL) 3 % (13-45); OVALOCYTES SLIGHT; POIKILOCYTOSIS SLIGHT; TOTAL CELLS COUNTED 100; TOXIC GRANULATION 1+; TOXIC VACUOLATION PRESENT
[2016-10-24] MEDS: ACETYLCYSTEINE 20% SOLN 800 MG/4 ML VIAL.NEB IH SCH ×2 (08:22→20:01)
[2016-10-24] MEDS: IPRATROPIUM/ALBUTEROL 0.5-2.5 MG/3 ML AMPUL NEB SCH ×4 (08:23→20:02)
[2016-10-24] MEDS: LEVOFLOXACIN 500 MG/D5W RTU 100 ML IV SCH (09:14)
[2016-10-24] MEDS: ENOXAPARIN SODIUM INJ 30 MG/0.3 ML DISP.SYRIN SUBCUT SCH (09:14)
[2016-10-24] MEDS: LEVOTHYROXINE SODIUM 0.15 MG TABLET PO SCH (09:20)
[2016-10-24] MEDS: DIGOXIN 0.25 MG TABLET PO SCH (09:20)
[2016-10-24] MEDS: PREDNISONE 20 MG TABLET PO SCH ×2 (09:22→17:28)
[2016-10-24] MEDS: GUAIFENESIN 600 MG TABLET.SA PO SCH ×2 (09:22→21:30)
[2016-10-24] MEDS: TRAMADOL HCL 50 MG TABLET PO PRN (09:22)
[2016-10-24] MEDS ORDERED: BISACODYL 5 MG TABEC PO PRN (10:11)
--- NOTE | 2016-10-24 12:14 | PDOC PROGRESS REPORT ---
Subjective Progress Note for:: 10/24/16 Subjective:: Patient is still having thick tenacious secretions. Patient denies chest pain, abdominal pain, nausea, vomiting, fevers, chills, diarrhea, constipation, headache, new onset weakness. Patient had very small bowel movement today without hematochezia or melena. Denies new complaints. Physical Exam Vital Signs: Temp Pulse Resp BP Pulse Ox 97.8 F 76 18 110/56 L 92 10/24/16 03:54 10/24/16 06:10 10/24/16 06:10 10/24/16 03:54 10/24/16 03:54 Intake & Output 10/23/16 10/24/16 10/25/16 06:59 06:59 06:59 Intake Total 1487 1207 Balance 1487 1207 Weight 67.6 kg 69.3 kg Exam: General: Awake alert and oriented x3, no acute distress HEENT: AT/NC, PERRL, EOMI, oropharynx is moist, pink, no scleral icterus, no conjunctival injection Neck: No JVD, tracheostomy midline, creamy yellow secretions Chest: Rhonchi bilaterally CV: IRR, normal S1 and S2, no rub or gallop, 2/6 sm llsb Abdomen: Soft, nontender to palpation, nondistended, active bowel sounds; no rebound, rigidity, or guarding Extremities: No cyanosis; mild clubbing; trace edema Neuro: Cranial nerves II through XII are grossly intact without focal deficits; awake alert and oriented x3 Psych: Normal mood and affect Results Laboratory Results: 10/24/16 06:20 10/24/16 06:20 10/24/16 10/24/16 06:20 06:20 WBC 17.4 H RBC 3.95 L Hgb 12.4 L Hct 37.1 L MCV 94 MCH 31.5 MCHC 33.5 RDW 13.9 Plt Count 199 Seg Neutrophils % Not Reportable Lymphocytes % Not Reportable Monocytes % Not Reportable Eosinophils % Not Reportable Basophils % Not Reportable Absolute Neutrophils Not Reportable Absolute Lymphocytes Not Reportable Absolute Monocytes Not Reportable Absolute Eosinophils Not Reportable Absolute Basophils Not Reportable Sodium 140.7 Potassium 3.9 Chloride 104 Carbon Dioxide 27 Anion Gap 10 BUN 35 H Creatinine 0.78 Est GFR ( Amer) > 60 Est GFR (Non-Af Amer) > 60 Glucose 147 H Calcium 9.2 10/21/16 10/21/16 10/22/16 19:00 19:00 01:00 Creatine Kinase 66 82 CK-MB (CK-2) 3.90 Troponin I 0.063 NT-Pro-B Natriuret Pep 10/22/16 10/22/16 10/22/16 01:00 07:24 07:24 Creatine Kinase 139 CK-MB (CK-2) 5.01 H 6.66 H Troponin I 0.053 0.082 NT-Pro-B Natriuret Pep 1530 H Impressions: Chest X-Ray 10/21/16 12:11 IMPRESSION: Obstructive lung disease. No acute consolidations are identified. Other findings as noted above Abdomen X-Ray 10/22/16 00:00 IMPRESSION: Fecal retention. No obstruction Assessment & Plan - Diagnosis (1) Acute on chronic respiratory failure with hypoxemia Is this a current diagnosis for this admission?: YesPlan: Patient using trach collar. Copious secretions. (2) Bacterial pneumonia Is this a current diagnosis for this admission?: YesPlan: Continue patient on aztreonam and Levaquin secondary to his penicillin allergy. Yeast non-Kaela. Will obtain a repeat sputum. Continue aggressive pulmonary toileting. Patient's pneumonia is complicated by his previous history of laryngeal cancer and current tracheostomy status. (3) Diabetes mellitus Qualifiers: Diabetes mellitus type: type 2 Is this a current diagnosis for this admission?: YesPlan: On sliding scale and metformin. Blood sugars currently well-controlled. (4) Atrial fibrillation Qualifiers: Atrial fibrillation type: chronic Qualified Code(s): I48.2 - Chronic atrial fibrillation Is this a current diagnosis for this admission?: YesPlan: Continue diltiazem. Appreciate cardiology input. Patient is not a candidate for anticoagulation based on previous bleeding. (5) COPD exacerbation Is this a current diagnosis for this admission?: YesPlan: Feel that patient may benefit from a slight increase in his prednisone. Will increase to 30 mg by mouth twice a day. Will monitor for any changes in patient 's symptomatology. Continue scheduled nebulized treatments and aggressive pulmonary toileting. (6) Constipation Qualifiers: Constipation type: unspecified constipation type Qualified Code(s): K59.00 - Constipation, unspecified Is this a current diagnosis for this admission?: YesPlan: Dulcolax when necessary (7) Do not resuscitate Is this a current diagnosis for this admission?: Yes - Time Time Spent with patient: 25-34 minutes Medications reviewed and adjusted accordingly: Yes
[2016-10-24] MEDS: METFORMIN HCL 500 MG TABLET PO SCH (17:29)
--- NOTE | 2016-10-24 21:48 | PROGRESS NOTE E ---
Progress Note NAME: KARLA PARADA : 1940 AGE: 76Y DATE: 10/24/2016 ROOM: 331 SUBJECTIVE: Note that the patient has no further abdominal pain. There is no chest pain. The patient does have some shortness of breath and orthopnea. He states his breathing is slightly better but still the patient does have wheezing. There is no PND. There is no leg edema. The patient is in atrial fibrillation with controlled ventricular response. There is no ventricular arrhythmia seen. There is no chest pain or discomfort. OBJECTIVE: GENERAL: The patient is of normal build but appears chronically ill. VITAL SIGNS: He is afebrile with a temperature of 98.1 degrees Fahrenheit, pulse is 63 beats per minute, blood pressure is 98/57, respirations are 19 per minute, O2 saturations are 100% on tracheal collar with an FiO2 of 35%. HEAD: Atraumatic, normocephalic. EYES: Pupils are equal, round, regular, reactive to light and accommodation. Extraocular movements are normal. There is no conjunctival pallor. There is no scleral icterus. ENT is negative except for tracheostomy wound that is open. The patient is not able to talk but he can whisper and he can understand when spoken to and also he writes answers. Trachea is central. LUNGS: Show diminished air entry, prolonged expiration. There is rhonchi and wheezing scattered all over. There are no rales of CHF. There is hyperresonance on percussion. CARDIOVASCULAR: S1 and S2 are heard. S1 is of variable intensity. There is no S3 gallop. There is no S4 present. There is a systolic murmur in the left sternal border and the apex. There is no rub. ABDOMEN: Soft, nontender. There is no hepatosplenomegaly. Bowel sounds are well heard. EXTREMITIES: Femorals are diminished. There are no femoral bruits. Leg pulses are diminished. There is no pedal edema. There is no DVT or cellulitis. CENTRAL NERVOUS SYSTEM: The patient is conscious, awake, alert, oriented x3 with no focal deficits. PSYCHIATRIC: The patient's judgment and insight are intact. His affect is normal. LABORATORY: The patient's white count is 17,400, hemoglobin is 12.4, hematocrit is 37.1, and his platelet count is 199,000. The patient's sodium is 140.7, potassium is 3.9, chloride 104, CO2 is 27. The patient's BUN is 35, creatinine is 0.78. GFR is greater than 60, glucose is 147 and his calcium is 9.2. IMPRESSION/RECOMMENDATION: 1. COPD WITH ACUTE EXACERBATION. The patient is on antibiotics. 2. CHRONIC ATRIAL FIBRILLATION WITH CONTROLLED VENTRICULAR RESPONSE. The patient is not a candidate for long-term anticoagulation since he had significant GI bleed the last admission with the patient being on Coumadin; hence, Coumadin contraindicated. There are no TIA or CVA symptoms. Continue the patient's digoxin and Cardizem. We will check a digoxin level in the a.m. 3. DIABETES MELLITUS TYPE 2, NON-INSULIN DEPENDENT DIABETES. Blood sugar is slightly elevated. 4. ABDOMINAL PAIN, NAUSEA AND VOMITING, RELIVED AFTER A GOOD BOWEL MOVEMENT. No recurrence. 5. DNR. Note that the patient's son is his surrogate healthcare decision maker. The patient's cardiac status is stable. Will sign off. Please call me if my assistance is required. NOTE: Thirty five minutes spent on this patient with more than 50% of the time spent in direct patient care and reviewing the patient's medications and discussions with the patient and discussions with the hospitalist coverage, Dr. Grimes. Thanking you. DICTATING PHYSICIAN: RADAMES GIRON M.D. [id number] ALBERTOY#: [id number] ID: [id number] JOB#: [id number] ACCT: [id number] cc: >
[2016-10-25] MEDS: DILTIAZEM HCL 30 MG TABLET PO SCH ×4 (00:40→21:36)
[2016-10-25 06:27] LABS: HEMATOCRIT 40.5 % (37.9-51.0); HEMOGLOBIN 13.1 g/dL (13.5-17.0); HGB HCT DIFFERENCE -1.2; MEAN CORPUSCULAR HEMOGLOBIN 31.2 pg (27.0-33.4); MEAN CORPUSCULAR HGB CONC 32.5 g/dL (32.0-36.0); MEAN CORPUSCULAR VOLUME 96 fl (80-97); RED BLOOD COUNT 4.22 10^6/uL (4.35-5.55); WHITE BLOOD COUNT 14.3 10^3/uL (4.0-10.5)
[2016-10-25 06:45] LABS: ANION GAP 10 (5-19); BLOOD UREA NITROGEN 36 mg/dL (7-20); CALCIUM 9.5 mg/dL (8.4-10.2); CARBON DIOXIDE 26 mmol/L (22-30); CHLORIDE 106 mmol/L (98-107); CREATININE RESULT 0.74 mg/dL (0.52-1.25); GLUCOSE 110 mg/dL (75-110); MAGNESIUM 2.4 mg/dL (1.6-2.3); POTASSIUM 4.4 mmol/L (3.6-5.0); SODIUM 142.2 mmol/L (137-145)
[2016-10-25] MEDS: LANSOPRAZOLE 30 MG TAB.RAP.DR PO SCH (06:53)
[2016-10-25] MEDS: AZTREONAM 1 GM in DEXTROSE 5%-WATER 50 ML IV SCH ×3 (06:54→21:29)
[2016-10-25 06:57] LABS: BASOPHILS % (MANUAL) 0 % (0-2); EOSINOPHILS % (MANUAL) 1 % (0-6); LYMPHOCYTES % (MANUAL) 2 % (13-45); TOTAL CELLS COUNTED 100; TOXIC GRANULATION SLIGHT
[2016-10-25 06:58] LABS: ANISOCYTOSIS SLIGHT; PLATELET CLUMPS PRESENT
[2016-10-25] MEDS: IPRATROPIUM/ALBUTEROL 0.5-2.5 MG/3 ML AMPUL NEB SCH ×4 (08:16→20:40)
[2016-10-25] MEDS: ACETYLCYSTEINE 20% SOLN 800 MG/4 ML VIAL.NEB IH SCH ×2 (08:16→20:40)
[2016-10-25] MEDS: LEVOTHYROXINE SODIUM 0.15 MG TABLET PO SCH (11:35)
[2016-10-25] MEDS: GUAIFENESIN 600 MG TABLET.SA PO SCH ×2 (11:35→21:28)
[2016-10-25] MEDS: DIGOXIN 0.25 MG TABLET PO SCH (11:36)
[2016-10-25] MEDS: PREDNISONE 20 MG TABLET PO SCH ×2 (11:36→18:46)
[2016-10-25] MEDS: LEVOFLOXACIN 500 MG/D5W RTU 100 ML IV SCH (11:37)
[2016-10-25] MEDS: ENOXAPARIN SODIUM INJ 30 MG/0.3 ML DISP.SYRIN SUBCUT SCH (11:38)
[2016-10-25] MEDS: METFORMIN HCL 500 MG TABLET PO SCH (18:46)
[2016-10-25] MEDS: TRAMADOL HCL 50 MG TABLET PO PRN (18:54)
[2016-10-26] MEDS: AZTREONAM 1 GM in DEXTROSE 5%-WATER 50 ML IV SCH (05:42)
[2016-10-26] MEDS: LANSOPRAZOLE 30 MG TAB.RAP.DR PO SCH (05:45)
[2016-10-26] MEDS: DILTIAZEM HCL 30 MG TABLET PO SCH ×3 (05:52→21:37)
[2016-10-26] MEDS: IPRATROPIUM/ALBUTEROL 0.5-2.5 MG/3 ML AMPUL NEB SCH ×4 (08:34→20:44)
[2016-10-26] MEDS: ACETYLCYSTEINE 20% SOLN 800 MG/4 ML VIAL.NEB IH SCH ×2 (08:34→20:44)
--- NOTE | 2016-10-26 08:55 | PDOC PROGRESS REPORT ---
Subjective Progress Note for:: 10/26/16 Subjective:: The patient states to feel much better. He still has some thick mucus. She denies any shortness of breath. He is complaining of hematoma on his left elbow. We have stopped his anticoagulation in the past. He had a retroperitoneal hematoma Physical Exam Vital Signs: Temp Pulse Resp BP Pulse Ox 98.1 F 69 19 134/70 H 100 10/26/16 07:57 10/26/16 07:57 10/26/16 07:57 10/26/16 07:57 10/26/16 07:57 Intake & Output 10/25/16 10/26/16 10/27/16 06:59 06:59 06:59 Intake Total 1204 800 Balance 1204 800 Weight 69.7 kg 70 kg General appearance: PRESENT: mild distress Head exam: PRESENT: atraumatic Eye exam: PRESENT: conjunctival injection Neck exam: PRESENT: tracheostomy Respiratory exam: PRESENT: decreased breath sounds, rhonchi. ABSENT: wheezes Cardiovascular exam: PRESENT: irregular rhythm Pulses: PRESENT: +1 pedal pulses bilateral GI/Abdominal exam: PRESENT: normal bowel sounds, soft Extremities exam: PRESENT: full ROM Musculoskeletal exam: PRESENT: ambulatory Neurological exam: PRESENT: alert, oriented to person, oriented to time Skin exam: PRESENT: other Additional comments: Subcutaneous hematoma left elbow Results Laboratory Results: 10/25/16 06:12 10/25/16 06:12 10/21/16 10/21/16 10/22/16 19:00 19:00 01:00 Creatine Kinase 66 82 CK-MB (CK-2) 3.90 Troponin I 0.063 NT-Pro-B Natriuret Pep 10/22/16 10/22/16 10/22/16 01:00 07:24 07:24 Creatine Kinase 139 CK-MB (CK-2) 5.01 H 6.66 H Troponin I 0.053 0.082 NT-Pro-B Natriuret Pep 1530 H Impressions: Chest X-Ray 10/21/16 12:11 IMPRESSION: Obstructive lung disease. No acute consolidations are identified. Other findings as noted above Abdomen X-Ray 10/22/16 00:00 IMPRESSION: Fecal retention. No obstruction Assessment & Plan - Diagnosis (1) Diabetes mellitus Qualifiers: Diabetes mellitus type: type 2 Is this a current diagnosis for this admission?: YesPlan: Controlled with insulin. Might be slightly elevated because of use of prednisone (2) Acute on chronic respiratory failure with hypoxemia Is this a current diagnosis for this admission?: YesPlan: Improving with steroids nebulization and antibiotics. We will stop the IV and start by mouth medication (3) Atrial fibrillation Qualifiers: Atrial fibrillation type: chronic Qualified Code(s): I48.2 - Chronic atrial fibrillation Is this a current diagnosis for this admission?: YesPlan: The patient is slightly bradycardic during sleep. The Cardizem has been decreased to 30 mg every 8. His digoxin level is normal (4) COPD exacerbation Is this a current diagnosis for this admission?: YesPlan: Stable with nebulization and steroid treatments. (5) Do not resuscitate Is this a current diagnosis for this admission?: Yes (6) Abnormal laboratory test Is this a current diagnosis for this admission?: Yes (7) Bacterial pneumonia Is this a current diagnosis for this admission?: YesPlan: Continue current antibiotics awaiting culture (8) Abdominal pain Qualifiers: Abdominal location: generalized Qualified Code(s): R10.84 - Generalized abdominal pain Is this a current diagnosis for this admission?: Yes (9) Vomiting Qualifiers: Nausea presence: with nausea Is this a current diagnosis for this admission?: Yes
[2016-10-26] MEDS: DIGOXIN 0.25 MG TABLET PO SCH (10:38)
[2016-10-26] MEDS: LEVOTHYROXINE SODIUM 0.15 MG TABLET PO SCH (10:39)
[2016-10-26] MEDS: PREDNISONE 20 MG TABLET PO SCH ×2 (10:39→17:05)
[2016-10-26] MEDS: GUAIFENESIN 600 MG TABLET.SA PO SCH ×2 (10:40→21:27)
[2016-10-26] MEDS: LEVOFLOXACIN 500 MG TABLET PO SCH (10:40)
--- NOTE | 2016-10-26 10:44 | CONSULTATION REPORT E ---
Consultation Report NAME: KARLA PARADA : 1940 AGE: 76Y DATE: 10/22/2015 331 A TO: RADAMES GIRON M.D. FROM: WENDY AYALA M.D. Requesting Physician HISTORY: Patient is a 76-year-old male with known history of chronic atrial fibrillation, diabetes mellitus, hypothyroidism, and COPD admitted with a 4-day history of increasing shortness of breath, orthopnea without any PND or leg edema or chest pain, with a cough productive of yellow sputum. The patient has a history of COPD. He denies any palpitations, although he has chronic atrial fibrillation. Note that the patient is not on anticoagulation due to significant pelvic hematoma and rectus sheath hematoma in the past on Coumadin. He denies any chest pain or discomfort. There is no pleuritic chest pain. There is no hemoptysis. The patient denies any fever, chills or rigors. There are no TIA or CVA symptoms. There is no dizziness or syncope. PAST MEDICAL HISTORY: Positive for a history of COPD. The patient quit smoking a long time ago. There is no history of sleep apnea. There is no history of pulmonary embolism. He has no history of hypertension. There is no history of coronary artery disease, NC or anginal symptoms. There is no history of valvular heart disease. There is no history of rheumatic fever. He has a history of chronic atrial fibrillation. In 03/2016, he was admitted with significant drop in his hemoglobin when on Coumadin and was found to have a rectus sheath hematoma and also a pelvic hematoma, and hence the patient is off any anticoagulation. There is no history of TIA or CVA. The patient has a history of diabetes mellitus type 2, [id number]. He also has a history of hypothyroidism. No history of anxiety or depression. No history of chronic kidney disease. The patient has a past history of laryngeal cancer for which he has had tracheostomy, and there is a tracheostomy stoma present. PAST SURGICAL HISTORY: Positive for laryngectomy and tracheostomy. He has also had a G-tube placement in the past. He has also had vasectomy. ALLERGIES: He is allergic to PENICILLIN. SOCIAL HISTORY: He quit smoking many years ago. There is no history of ETOH abuse. FAMILY HISTORY: Positive for diabetes mellitus and hypertension and malignancy. No history of coronary artery disease. MEDICATIONS: Include Levaquin 750 mg IV piggyback x1. He is on digoxin 0.125 mg p.o. daily which has been increased to digoxin 0.25 mg p.o. daily. He is on Lovenox 30 mg subcutaneously q.a.m. He is on Mucinex 600 mg p.o. q. 12 hours. He did receive nitroglycerin 1 gm topically x1 and topically q. 6 hours, which has been discontinued. He is on Prevacid 30 mg p.o. q. 6:00 a.m. He is on methylprednisolone 60 mg IV q. 6 hours. He is on levothyroxine 0.15 mg p.o. daily. He is on tramadol 50 mg p.o. 3 times daily. He is on Zofran 4 mg IV p.r.n. nausea. He is on Levaquin 500 mg IV piggyback daily. He is on Accu-Cheks before meals 3 times daily and daily at bedtime with sliding-scale insulin coverage. He is on ipratropium/albuterol 3-mL nebulizer treatment q. 6 hours p.r.n. He is on ipratropium/albuterol 3-mL nebulizer treatment q. 4 hours while awake. He is on metformin 1000 mg p.o. every evening. He is also on hypoglycemic precautions with glutose 40% gel 15 gm p.o. p.r.n. hypoglycemia. He is also on hypoglycemic precautions with dextrose 50% 25 gm in 12.5 gm IV piggyback p.r.n. hypoglycemia. He is also on glucagon 1 mg IM p.r.n. hypoglycemia. REVIEW OF SYMPTOMS: CONSTITUTIONAL: Denies any fever, chills or rigors but complains of generalized weakness and fatigue. HEAD: Denies any headaches or head injury. No dizziness. EYES: No history of amblyopia or diplopia. No history of amaurosis fugax. EARS: No history of hearing loss. No history of tinnitus. No history of recurrent ear infections. NOSE: No history of nosebleed. No history of nasal polyps. No history of hay fever. MOUTH: No history of altered taste sensation. No history of ulcers in the mouth. No history of bleeding from the gums. THROAT: No history of odynophagia or dysphagia. No history of recurrent sore throats. SKIN: There is no pruritus. No yellowish discoloration of the skin. No psoriasis. NECK: There is no swelling in the neck. The patient has had a tracheostomy, and there is a tracheostomy stoma present which is open. This is after laryngectomy for laryngeal cancer. He also had a tracheostomy after that. There is no goiter. LUNGS: There is a history of COPD present. The patient quit smoking some time ago. The patient's recent symptoms suggest some orthopnea and also cough with sputum production which is yellowish in color and also wheezing, dyspnea on exertion to rest shortness of breath. Symptoms suggestive of acute exacerbation of COPD. Cannot exclude pneumonia, although the chest x-ray does not show pneumonia. There is no history of sleep apnea. No history of pulmonary embolism. No history of pleuritic chest pain. No history of hemoptysis. CARDIAC: No history of coronary artery disease, NC or anginal symptoms. History of chronic atrial fibrillation, not on anticoagulation due to significant bleeding complications of Coumadin in the past. No history of hypertension. No history of congestive heart failure. No history of leg edema. No history of PND. History of orthopnea present. No palpitations or rapid ventricular response to atrial fibrillation. No syncope. GASTROINTESTINAL: No history of GERD. No history of GI bleed, but the patient has had a pelvic hematoma and rectus sheath hematoma secondary to him being on Coumadin. Hence, he is not on any anticoagulation. No fatty food intolerance. There is a past history of G-tube placement present, but that has been taken out. There is no diarrhea. There is no jaundice. MUSCULOSKELETAL: Denies arthritis or collagen vascular disease. ENDOCRINE: History of diabetes mellitus type 2, [id number]. No history of polydipsia or polyuria. No history of heat or cold intolerance. History of hypothyroidism on replacement. RENAL: No history of renal insufficiency. No symptoms of enlarged prostate. No hematuria, pyuria or dysuria. No history of recurrent UTIs. CENTRAL NERVOUS SYSTEM: No history of TIA or CVA. No history of sleep apnea. No history of headaches, migraines or seizures. PSYCHIATRIC: No history of anxiety or depression. DISPOSITION: Note that the patient is a DNR. His son is his surrogate healthcare decision maker. PHYSICAL EXAMINATION: GENERAL: At present, the patient is in mild distress due to his shortness of breath, although there are no accessory muscles of respiration in use. He is well built and well nourished. VITAL SIGNS: He is afebrile with a temperature of 98.3 degrees Fahrenheit. His pulse is 84 beats per minute. Blood pressure 115/64. Respirations are 22 per minute. O2 sat is 100% on 40% FIO2 given through a tracheal collar. HEENT: Head is atraumatic and normocephalic. Eyes: Pupils are equal, round, regular, reactive to light and accommodation. Extraocular movements are normal. There is no conjunctival pallor. There is no scleral icterus. Ears: Tympanic membranes are intact. External auditory canals are clear. Nose: There is no deviated nasal septum. There is no inflammation of the nasal mucous membranes. Mouth: Mucous membranes of the mouth are moist. Tongue is moist. There are no ulcers. There is no bleeding from the gums. Throat: There is no redness of the oropharynx. There are no exudates. SKIN: There are no skin rashes. There are no petechiae or ecchymoses. There are no skin lesions. NECK: Supple. There is no JVD. Carotids are equal. There is no bruit. There is a tracheostomy stoma present. There is no lymphadenopathy. There is no goiter. LUNGS: No accessory muscles of respiration in use. There is diminished air entry, prolonged expiration, scattered rhonchi and wheezing bilaterally. There is hyperresonance on percussion. HEART: S1 and S2 are heard. S1 is of variable intensity. There is no S3 gallop. There is no S4 gallop. There is systolic murmur at left sternal border and the apex. There is no rub. ABDOMEN: Soft, nontender. There is no hepatosplenomegaly. Bowel sounds are well heard. There are no tender areas or masses. EXTREMITIES: Femorals are slightly diminished. Leg pulses are 1+. There is no pedal edema. There is no DVT or cellulitis. There are no femoral bruits. There is no cyanosis or clubbing. There is no calf tenderness. CENTRAL NERVOUS SYSTEM: The patient is conscious, awake, alert, oriented x3. Although the patient cannot talk, he can whisper and also nod his head for questions appropriately and also write answers on a paper with a pen if asked questions. Hence, he is very appropriate and oriented x3. There are no focal deficits. PSYCHIATRIC: The patient's judgment and insight are intact. His affect is normal. DIAGNOSTIC TEST RESULTS: The patient's chest x-ray is consistent with COPD with no evidence of pneumonia. His EKG shows atrial fibrillation with a ventricular response of 108 beats per minute. There is 1 PVC. Repolarization abnormalities suggest ischemia in diffuse leads. This may be rate related to the atrial fibrillation also. His abdomen x-ray shows no abnormal gas collections, abundant fecal material throughout the nondilated colon, no suspicious calcification, no gross mass or suggestion of organomegaly. No acute fracture in the bones. No worrisome bone lesions. No other significant findings. The patient's white count is 12,400. Hemoglobin is 13.7. Hematocrit is 40.3. His platelet count is 217,000. The patient's sodium is 142.5. Potassium is 4.7. Chloride is 98. CO2 is 31. The patient's BUN is 25. Creatinine 0.92. GFR is greater than 60. Glucose is 154. His NT-proBNP is 1530. His CPK-MB is elevated at 6.6. His troponin I is 0.082, which is indeterminate, and earlier was 0.056, 0.063, and 0.053, hence indeterminate/negative. IMPRESSION AND PLAN: 1. COPD with acute exacerbation. Continue respiratory treatments. Continue antibiotics. Chest x-ray does not show any evidence of pneumonia at present. 2. Chronic atrial fibrillation with fairly well controlled ventricular response. Note that the patient is not a candidate for long-term anticoagulation since the patient has had significant bleeding with Coumadin in the past. No TIA or CVA symptoms. Continue the patient's digoxin and the patient's Cardizem. 3. Diabetes mellitus type 2, [id number]. 4. Hypothyroidism. On replacement. Continue replacement. 5. History of laryngeal cancer status post laryngectomy and tracheostomy. The patient states that the cancer is cured. 6. DNR. Continue DNR status. Note: Forty minutes spent on this patient with more than 50% of time spent on direct patient care and reviewing the patient's medications, also discussions with the patient, and also discussions with the attending physician on the case. Will follow with you. DICTATING PHYSICIAN: RADAMES GIRON M.D. [id number] PHY#: [id number] ID: [id number] JOB#: [id number] ACCT: [id number] cc:RADAMES GIRON M.D. >
[2016-10-26] MEDS: METFORMIN HCL 500 MG TABLET PO SCH (17:06)
[2016-10-26] MEDS: TRAMADOL HCL 50 MG TABLET PO PRN (20:09)
[2016-10-27] MEDS: LANSOPRAZOLE 30 MG TAB.RAP.DR PO SCH (05:26)
[2016-10-27] MEDS: DILTIAZEM HCL 30 MG TABLET PO SCH (05:28)
[2016-10-27 08:12] VITALS: BP 120/64
[2016-10-27] MEDS: IPRATROPIUM/ALBUTEROL 0.5-2.5 MG/3 ML AMPUL NEB SCH (08:50)
[2016-10-27] MEDS: ACETYLCYSTEINE 20% SOLN 800 MG/4 ML VIAL.NEB IH SCH (08:51)
[2016-10-27] MEDS: GUAIFENESIN 600 MG TABLET.SA PO SCH (09:02)
[2016-10-27] MEDS: PREDNISONE 20 MG TABLET PO SCH (09:03)
[2016-10-27] MEDS: DIGOXIN 0.25 MG TABLET PO SCH (09:03)
[2016-10-27] MEDS: LEVOFLOXACIN 500 MG TABLET PO SCH (09:03)
[2016-10-27] MEDS: LEVOTHYROXINE SODIUM 0.15 MG TABLET PO SCH (09:03)
--- NOTE | 2016-10-27 13:03 | PDOC DISCHARGE SUMMARY ---
General - Admit/Disc Date/PCP Admission Date/Primary Care Provider: 10/21/16 17:58 WENDY PRASADRISHABHJOSE, Discharge Date: 10/27/16 - Discharge Diagnosis (1) Diabetes mellitus Is this a current diagnosis for this admission?: Yes (2) Acute on chronic respiratory failure with hypoxemia Is this a current diagnosis for this admission?: Yes (3) Atrial fibrillation Is this a current diagnosis for this admission?: Yes (4) COPD exacerbation Is this a current diagnosis for this admission?: YesSummary: We'll continue on discharge with nebulization treatments steroids and antibiotics (5) Do not resuscitate Is this a current diagnosis for this admission?: Yes (6) Abnormal laboratory test Is this a current diagnosis for this admission?: Yes (7) Bacterial pneumonia Is this a current diagnosis for this admission?: YesSummary: Continue antibiotics (8) Abdominal pain Is this a current diagnosis for this admission?: Yes (9) Vomiting Is this a current diagnosis for this admission?: Yes - Additional Information Resuscitation Status: Do Not Resuscitate Discharge Diet: As Tolerated Discharge Activity: Activity As Tolerated Home Medications: Digoxin [Lanoxin 0.25 mg Tablet] 1 tab PO DAILY 10/21/16 Diltiazem HCl [Cardizem 30 mg Tablet] 1 tab PO Q6 10/21/16 Ipratropium/Albuterol Sulfate [Duoneb 3 ml Ampul] 1 vial NEB Q4HWA 10/21/16 Levothyroxine Sodium [Synthroid 0.15 mg Tablet] 1 tab PO DAILY 10/21/16 Metformin HCl 2 tab PO QHS 10/21/16 Diltiazem HCl [Cardizem 30 mg Tablet] 30 mg PO Q8 #0 tablet 10/27/16 Levofloxacin [Levaquin 500 mg Tablet] 500 mg PO DAILY #7 tablet 10/27/16 Prednisone [Deltasone 20 mg Tablet] 30 mg PO BID #60 tablet 10/27/16 History of Present Illness History of Present Illness: KARLA PARADA is a 76 year old male Past medical history of severe COPD atrial fibrillation diabetes and laryngeal cancer status post tracheostomy who was in his usual state of health until apparently 3 days ago when started having some shortness of breath with difficulty coughing up some mucus and some wheezing. He came into the emergency room to be evaluated. Physical Exam Vital Signs: Temp Pulse Resp BP Pulse Ox 97.7 F 67 18 120/64 100 10/27/16 09:24 10/27/16 09:24 10/27/16 09:24 10/27/16 09:24 10/27/16 09:24 Intake & Output 10/26/16 10/27/16 10/28/16 06:59 06:59 06:59 Intake Total 800 759 Balance 800 759 Weight 70 kg 68.8 kg General appearance: PRESENT: mild distress Head exam: PRESENT: atraumatic Neck exam: PRESENT: tracheostomy Respiratory exam: PRESENT: rhonchi. ABSENT: wheezes Cardiovascular exam: PRESENT: irregular rhythm Pulses: PRESENT: +1 pedal pulses bilateral GI/Abdominal exam: PRESENT: normal bowel sounds, soft Musculoskeletal exam: PRESENT: ambulatory, full ROM Results Laboratory Results: 10/25/16 06:12 10/25/16 06:12 10/22/16 00:35 Tracheal Aspirate Gram Stain - Final 10/22/16 00:35 Tracheal Aspirate Sputum Culture - Final Yeast, Not Kaela Albicans Normal Nuria 10/21/16 10/21/16 10/22/16 19:00 19:00 01:00 Creatine Kinase 66 82 CK-MB (CK-2) 3.90 Troponin I 0.063 NT-Pro-B Natriuret Pep 10/22/16 10/22/16 10/22/16 01:00 07:24 07:24 Creatine Kinase 139 CK-MB (CK-2) 5.01 H 6.66 H Troponin I 0.053 0.082 NT-Pro-B Natriuret Pep 1530 H Impressions: Chest X-Ray 10/21/16 12:11 IMPRESSION: Obstructive lung disease. No acute consolidations are identified. Other findings as noted above Abdomen X-Ray 10/22/16 00:00 IMPRESSION: Fecal retention. No obstruction Plan Time Spent: Greater than 30 Minutes
== END 2016-10-27 10:00 | disposition home or self-care (01) | DRG 190 ==
LOC: ER 11:38 → UNDOADMIN 17:43 → EH 17:43 → 3S 10-22 03:13
PROVIDERS: ADMIT Internal Medicine; ATTEND Internal Medicine
PROC: 3E0F73Z Introduction of Anti-inflammatory into Respiratory Tract, Via Natural or Artificial Opening (ICD-10-PCS; principal; 2016-10-21)
DX: J44.1 Chronic obstructive pulmonary disease with (acute) exacerbation (principal); J96.21 Acute and chronic respiratory failure with hypoxia; J15.9 Unspecified bacterial pneumonia; E03.9 Hypothyroidism, unspecified; Z66 Do not resuscitate; I48.2 Chronic atrial fibrillation; K59.00 Constipation, unspecified; J45.909 Unspecified asthma, uncomplicated; E11.9 Type 2 diabetes mellitus without complications; Z93.0 Tracheostomy status; Z79.84 Long term (current) use of oral hypoglycemic drugs; Z79.899 Other long term (current) drug therapy; Z90.02 Acquired absence of larynx; Z87.891 Personal history of nicotine dependence; Z82.49 Family history of ischemic heart disease and other diseases of the circulatory system; Z88.0 Allergy status to penicillin; Z85.21 Personal history of malignant neoplasm of larynx
CPT/HCPCS: 36415; 71010; 74020; 80048; 80053; 80162; 82550; 82553; 82803; 82962; 83735; 83880; 84484; 85025; 87040; 87070; 87205; 93005; 93010; 94640; 96365; 96367; 99291; J1650; J1956; J2405; J2930; J3475; J3490; J7030; J7512; J7620

== ENCOUNTER → 2016-12-09 | Outpatient (CLI) | payer MEDICARE, OTHER ==
[2016-12-09 17:13] LABS: ABSOLUTE BASOPHILS # (AUTO) 0.3 10^3/uL (0.0-0.2); ABSOLUTE EOSINOPHILS # (AUTO) 0.7 10^3/uL (0.0-0.6); ABSOLUTE LYMPHOCYTES (AUTO) 1.5 10^3/uL (0.5-4.7); ABSOLUTE MONOCYTES (AUTO) 1.1 10^3/uL (0.1-1.4); ABSOLUTE NEUT (AUTO) 8.5 10^3/uL (1.7-8.2); BASOPHILS % (AUTO) 2.6 % (0-2); EOSINOPHILS % (AUTO) 5.7 % (0-6); HEMATOCRIT 44.6 % (37.9-51.0); HGB HCT DIFFERENCE 0.4; LYMPHOCYTES % (AUTO) 12.4 % (13-45); MEAN CORPUSCULAR HEMOGLOBIN 31.6 pg (27.0-33.4); MEAN CORPUSCULAR HGB CONC 33.6 g/dL (32.0-36.0); MEAN CORPUSCULAR VOLUME 94 fl (80-97); MONOCYTES % (AUTO) 8.7 % (3-13); RED BLOOD COUNT 4.75 10^6/uL (4.35-5.55); RED CELL DISTRIBUTION WIDTH 13.8 % (11.5-14.0); SEGMENTED NEUTROPHILS % (AUTO) 70.6 % (42-78); WHITE BLOOD COUNT 12.1 10^3/uL (4.0-10.5)
[2016-12-09 17:52] LABS: ERYTHROCYTE SEDIMENTATION RATE 43 mm/hr (0-20)
== END ==
LOC: OD 15:59
PROVIDERS: ATTEND Ophthalmology
DX: H47.012 Ischemic optic neuropathy, left eye (principal)
CPT/HCPCS: 36415; 85025; 85652; 86140

== ENCOUNTER 2016-12-15 08:21 | Day surgery (SDC) | payer MEDICARE, OTHER ==
[~2016-12-15 08:21] MED LIST: BUPIVACAINE HCL 0.25 % INJ/PF (2.5 MG/1 ML) 30 ML VIAL ONE; CLINDAMYCIN 300 MG/D5W RTU 300 MG/50 ML RTUPB IV PRN; DEXTROSE 5%-1/2 NORMAL SALINE 1,000 ML IV PRN; LIDOCAINE 0.5% INJ-PF (5 MG/ML) 50 ML SDV ONE
[2016-12-15] MEDS ORDERED: METOCLOPRAMIDE HCL INJ/PF 10 MG/2 ML SDV ONE (09:25)
[2016-12-15] MEDS ORDERED: ALBUTEROL SULFATE 0.083% NEB 2.5 MG/3 ML AMPUL NEB ONE (09:25)
[2016-12-15 09:32] LABS: HEMATOCRIT 42.2 % (37.9-51.0); HGB HCT DIFFERENCE -0.2; MEAN CORPUSCULAR HGB CONC 33.3 g/dL (32.0-36.0); MEAN CORPUSCULAR VOLUME 93 fl (80-97); RED BLOOD COUNT 4.53 10^6/uL (4.35-5.55); RED CELL DISTRIBUTION WIDTH 13.7 % (11.5-14.0); WHITE BLOOD COUNT 13.3 10^3/uL (4.0-10.5)
[2016-12-15 09:49] LABS: ANION GAP 12 (5-19); BLOOD UREA NITROGEN 25 mg/dL (7-20); CALCIUM 9.9 mg/dL (8.4-10.2); CARBON DIOXIDE 29 mmol/L (22-30); CHLORIDE 96 mmol/L (98-107); CREATININE RESULT 0.88 mg/dL (0.52-1.25); GLUCOSE 76 mg/dL (75-110); POTASSIUM 4.1 mmol/L (3.6-5.0); SODIUM 137.1 mmol/L (137-145)
[2016-12-15] MEDS ORDERED: MIDAZOLAM 2 MG/2 ML INJ ONE (10:14)
[2016-12-15] MEDS ORDERED: PROPOFOL INJ 200 MG/20 ML VIAL IV ONE (10:14)
[2016-12-15] MEDS ORDERED: FENTANYL CITRATE INJ/PF 100 MCG/2 ML AMPUL ONE (10:14)
[2016-12-15] MEDS ORDERED: DEXMEDETOMIDINE INJ 80 MCG/20 ML VIAL IV ONE (10:15)
--- NOTE | 2016-12-15 11:20 | PDOC DISCHARGE SUMMARY ---
Discharge Summary (SDC) - Discharge Final Diagnosis: #1 chronic left-sided headache. #2 diabetes mellitus. #3 atrial fibrillation. Date of Surgery: 12/15/16 Discharge Date: 12/15/16 Condition: Poor Treatment or Instructions: #1 activities within moderation encouraged. #2 follow up in my office by appointment in about 1 week. Call for appointment. #3 the wounds covered clean and dry until office visit. #4 hold off on school/work until evaluation in office. #5 may shower in 48 hours, keep operated area as dry as possible. #6 discharge from ambulatory when ASU criteria met. #7 medications per medication reconciliation sheet. #8 May have one Percocet up to every 2 hours when necessary for pain greater than 4 out of 10 while in the ASU Discharge Diet: As Tolerated Respiratory Treatments at Home: Deep Breathing/Coughing Report the Following to Your Physician Immediately: Unusual Bleeding
--- NOTE | 2016-12-15 11:22 | Operative Report ---
Operative Report DATE OF SURGERY: 12/15/16 PREOPERATIVE DIAGNOSIS: #1 chronic left-sided headache. #2 diabetes mellitus. #3 atrial fibrillation. POSTOPERATIVE DIAGNOSIS: #1 chronic left-sided headache. #2 diabetes mellitus. #3 atrial fibrillation. OPERATION: Left temporal artery biopsy. SURGEON: PIA WILLOUGHBY FLIGHT OPERATION COORDINATOR: TYRESE SALCEDO ANESTHESIA: LMAC TISSUE REMOVED OR ALTERED: Portion of left temporal artery about 1.5 cm long. COMPLICATIONS: None ESTIMATED BLOOD LOSS: 2 mL. INTRAOPERATIVE FINDINGS: Of a pulsatile, firm left temporal artery. Identified mostly with Doppler, difficult to palpate. Nice enrollment representative segment sent. PROCEDURE: PROCEDURE: The left temporal area was prepared with [chlorhexidine] and draped out with sterile linen. After the"universal time-out", in which it was confirmed that the patient [did not need antibiotic], the procedure commenced. The patient was appropriately anesthetized. The topographic location of the temporal artery was identified using a Doppler instrument and also palpation. It was marked in ink.. A dilute solution of local anesthesia was generously infiltrated in the skin and subcutaneous tissues above and around the area. An incision was made as marked. This went through to the subcutaneous tissues. Dissection now proceeded By spreading a hemostat to reveal the artery beneath the fascia. The artery was dissected out for a distance of about 2 cm. Both ends were clamped. The intervening section was excised and carefully submitted for pathology in formalin. Both ends were now suture ligated using 5-0 Prolene suture The wound was now closed using [a single layer of interrupted sutures. These were of 5-0 Prolene. A sterile dressing was applied and the procedure concluded. The assistant chief train dispatcher provided retraction, thus facilitating the operative view. Controlled bleeding. The assistant chief train dispatcher also followed the suturing, thus facilitating accurate suture placement. Sutured skin and applied dressings.
[2016-12-15] MEDS ORDERED: MORPHINE SULFATE 10 MG/ML INJ IV PRN (11:37)
[2016-12-15] MEDS ORDERED: FENTANYL CITRATE INJ/PF 100 MCG/2 ML AMPUL IV PRN ×3 (11:37)
[2016-12-15] MEDS ORDERED: PROMETHAZINE HCL INJ 25 MG/1 ML VIAL IV PRN ×2 (11:37)
[2016-12-15] MEDS ORDERED: MEPERIDINE HCL/PF INJ 25 MG/1 ML DISP.SYRIN IV PRN (11:37)
[2016-12-15] MEDS ORDERED: DIPHENHYDRAMINE HCL 50 MG/ML VIAL IV PRN (11:37)
[2016-12-15] MEDS ORDERED: OXYCODONE-ACETAMINOPHEN 5-325 MG TABLET PO PRN ×2 (11:37)
[2016-12-15] MEDS ORDERED: DEXAMETHASONE SOD PHOSPHATE INJ 4 MG/1 ML VIAL ONE (12:23)
[2016-12-15] MEDS ORDERED: ONDANSETRON HCL INJ/PF 4 MG/2 ML SDV ONE (12:23)
[2016-12-15 13:06] VITALS: BP 110/62
== END 2016-12-15 13:05 | disposition home or self-care (01) ==
LOC: OROUT 08:21
PROVIDERS: ATTEND Surgery
PROC: 03BT0ZX Excision of Left Temporal Artery, Open Approach, Diagnostic (ICD-10-PCS; principal; 2016-12-15 11:00)
DX: H53.9 Unspecified visual disturbance (principal); R51 Headache; E11.9 Type 2 diabetes mellitus without complications; I48.91 Unspecified atrial fibrillation; E05.90 Thyrotoxicosis, unspecified without thyrotoxic crisis or storm; M19.90 Unspecified osteoarthritis, unspecified site; Z85.21 Personal history of malignant neoplasm of larynx; Z93.0 Tracheostomy status; Z99.3 Dependence on wheelchair; Z79.899 Other long term (current) drug therapy; Z79.84 Long term (current) use of oral hypoglycemic drugs; Z87.891 Personal history of nicotine dependence; Z88.0 Allergy status to penicillin
CPT/HCPCS: 36415; 82962; 85027; 80048; 88305 ×2; 71010; 94640; 37609; J2250; J3490 ×3; J1100; J3010; J2765; J2405; J2704; A9270

== ENCOUNTER → 2017-03-04 | Outpatient (CLI) | payer MEDICARE, OTHER ==
[2017-03-04 10:15] LABS: ABSOLUTE BASOPHILS # (AUTO) 0.1 10^3/uL (0.0-0.2); ABSOLUTE EOSINOPHILS # (AUTO) 0.8 10^3/uL (0.0-0.6); ABSOLUTE LYMPHOCYTES (AUTO) 2.3 10^3/uL (0.5-4.7); ABSOLUTE MONOCYTES (AUTO) 0.9 10^3/uL (0.1-1.4); ABSOLUTE NEUT (AUTO) 4.5 10^3/uL (1.7-8.2); BASOPHILS % (AUTO) 1.3 % (0-2); EOSINOPHILS % (AUTO) 8.9 % (0-6); HEMATOCRIT 40.8 % (37.9-51.0); HEMOGLOBIN 13.6 g/dL (13.5-17.0); LYMPHOCYTES % (AUTO) 26.8 % (13-45); MEAN CORPUSCULAR HEMOGLOBIN 31.1 pg (27.0-33.4); MEAN CORPUSCULAR HGB CONC 33.3 g/dL (32.0-36.0); MEAN CORPUSCULAR VOLUME 93 fl (80-97); MONOCYTES % (AUTO) 10.5 % (3-13); RED BLOOD COUNT 4.37 10^6/uL (4.35-5.55); RED CELL DISTRIBUTION WIDTH 18.3 % (11.5-14.0); SEGMENTED NEUTROPHILS % (AUTO) 52.5 % (42-78); WHITE BLOOD COUNT 8.5 10^3/uL (4.0-10.5)
[2017-03-04 10:41] LABS: ALANINE AMINOTRANSFERASE 28 U/L (21-72); ALBUMIN 3.7 g/dL (3.5-5.0); ALKALINE PHOSPHATASE 74 U/L (38-126); ANION GAP 11 (5-19); ASPARTATE AMINO TRANSFERASE 18 U/L (17-59); BILIRUBIN,DIRECT 0.4 mg/dL (0.0-0.4); BILIRUBIN,TOTAL 0.7 mg/dL (0.2-1.3); BLOOD UREA NITROGEN 24 mg/dL (7-20); CALCIUM 9.5 mg/dL (8.4-10.2); CARBON DIOXIDE 26 mmol/L (22-30); CHLORIDE 100 mmol/L (98-107); CREATININE RESULT 0.96 mg/dL (0.52-1.25); Direct HDL 62 mg/dL (>40); GLUCOSE 92 mg/dL (75-110); MAGNESIUM 2.2 mg/dL (1.6-2.3); POTASSIUM 5.3 mmol/L (3.6-5.0); SODIUM 137.2 mmol/L (137-145); TOTAL PROTEIN 6.7 g/dL (6.3-8.2); TRIGLYCERIDES 63 mg/dL (<150)
[2017-03-04 10:52] LABS: DIRECT LDL 47 mg/dL (<100)
== END ==
LOC: OD 08:57
PROVIDERS: ATTEND Internal Medicine
DX: E11.9 Type 2 diabetes mellitus without complications (principal); R53.82 Chronic fatigue, unspecified; I48.0 Paroxysmal atrial fibrillation; N18.9 Chronic kidney disease, unspecified; J44.9 Chronic obstructive pulmonary disease, unspecified; R79.89 Other specified abnormal findings of blood chemistry
CPT/HCPCS: 36415; 80053; 80061; 83036; 83735; 84443; 85025

== ENCOUNTER 2017-04-17 11:47 | Inpatient (IN) | payer MEDICARE, OTHER ==
--- NOTE | 2017-04-17 12:06 | ER Document Report ---
ED Fever - General Stated Complaint: RESPIRATORY DISTRESS Time Seen by Provider: 04/17/17 11:53 Mode of Arrival: Medic Information source: Patient TRAVEL OUTSIDE OF THE [place] IN LAST 30 DAYS: No - HPI Patient complains to provider of: Fever, productive cough, urinary retention Onset: Other - 3 days Onset/Duration: Persistent Quality of pain: Fullness, Pressure Severity: Moderate Pain Level: 3 Associated symptoms: Productive cough, Fever, Shortness of breath Similar symptoms previously: Yes Recently seen / treated by doctor: No Notes: Patient is a 76-year-old male with a history of diabetes, COPD, atrial fibrillation, laryngectomy, hypothyroidism, who presents to the emergency room today via EMS for 24 hour history of urinary retention, with pain and pressure in the lower abdomen, a productive cough, with hypoxia on EMS arrival, and fever of 100.5 - Related Data Allergies/Adverse Reactions: Penicillins Allergy (Severe, Verified 11/30/15 10:46) Past Medical History - General Information source: Patient - Social History Smoking Status: Unknown if Ever Smoked Family History: DM, Hypertension, Malignancy - Past Medical History Cardiac Medical History: Reports: Hx Atrial Fibrillation, Hx Coronary Artery Disease Denies: Hx Heart Attack, Hx Hypertension Pulmonary Medical History: Reports: Hx Asthma, Hx COPD, Hx Pneumonia, Hx Respiratory Failure Denies: Hx Bronchitis Neurological Medical History: Denies: Hx Cerebrovascular Accident, Hx Seizures Endocrine Medical History: Reports: Hx Diabetes Mellitus Type 1, Hx Hyperthyroidism, Hx Hypothyroidism Musculoskeltal Medical History: Reports Hx Arthritis - GENERALIZED Past Surgical History: Reports: Hx Abdominal Surgery - G-tube, Hx Oral Surgery - Trach, Other - Laryngeal cancer resection with tracheostomy - Immunizations Hx Diphtheria, Pertussis, Tetanus Vaccination: Yes Hx Pneumococcal Vaccination: 10/18/11 Review of Systems - Review of Systems Constitutional: Fever EENT: No symptoms reported Cardiovascular: No symptoms reported Respiratory: See HPI Gastrointestinal: No symptoms reported Genitourinary: See HPI Male Genitourinary: No symptoms reported Musculoskeletal: No symptoms reported Skin: No symptoms reported Hematologic/Lymphatic: No symptoms reported Neurological/Psychological: No symptoms reported -: Yes All other systems reviewed and negative Physical Exam - Vital signs Vitals: Pulse Ox 100 04/17/17 11:49 Interpretation: Tachycardic - General General appearance: Alert In distress: None - HEENT Head: Normocephalic, Atraumatic Eyes: Normal Conjunctiva: Normal Eyelashes: Normal Pupils: PERRL Neck: Other - tracheostomy - Respiratory Respiratory status: No respiratory distress Chest status: Nontender Breath sounds: Normal Chest palpation: Normal - Cardiovascular Rhythm: Regular Heart sounds: Normal auscultation Murmur: No - Abdominal Inspection: Normal Distension: No distension Bowel sounds: Normal Tenderness: Tender - suprapubic fullness Organomegaly: No organomegaly - Back Back: Normal, Nontender - Extremities General upper extremity: Normal inspection, Nontender, Normal color, Normal ROM , Normal temperature General lower extremity: Normal inspection, Nontender, Edema, Normal color, Normal ROM, Normal temperature, Normal weight bearing. No: Akosua's sign - Neurological Neuro grossly intact: Yes Cognition: Normal Orientation: AAOx4 Katelyn Coma Scale Eye Opening: Spontaneous Katelyn Coma Scale Verbal: Oriented Katelyn Coma Scale Motor: Obeys Commands [place] Coma Scale Total: 15 Speech: Normal Motor strength normal: LUE, RUE, LLE, RLE Sensory: Normal - Psychological Associated symptoms: Normal affect, Normal mood - Skin Skin Temperature: Warm Skin Moisture: Dry Skin Color: Normal Course - Vital Signs Vital signs: Temp Pulse Resp BP Pulse Ox 99.5 F 75 23 H 111/75 95 04/17/17 11:52 04/17/17 11:52 04/17/17 15:01 04/17/17 15:00 04/17/17 15:01 - Laboratory Result Diagrams: 04/17/17 12:30 04/17/17 12:30 Laboratory results interpreted by me: 04/17/17 04/17/17 12:30 12:30 WBC 11.4 H RDW 16.4 H Seg Neutrophils % 79.4 H Lymphocytes % 8.9 L Absolute Neutrophils 9.0 H BUN 21 H Glucose 149 H Creatine Kinase 38 L - Diagnostic Test Radiology reviewed: Image reviewed, Reports reviewed - EKG Interpretation by Me Rate: Tachycardia Rhythm: A.Fib - Transfer of Care Care transferred to following provider: Dr Roman Discharge - Discharge Clinical Impression: Bacterial pneumonia, Acute urinary retention, pelvic seroma Atrial fibrillation Qualifiers: Atrial fibrillation type: chronic Qualified Code(s): I48.2 - Chronic atrial fibrillation Condition: Fair Disposition: ADMITTED INPATIENT Admitting Provider: Hospitalist Unit Admitted: IMCU Referrals: WENDY AYALA MD [Primary Care Provider] - Follow up as needed
--- NOTE | 2017-04-17 12:43 | RADIOLOGY REPORT (SQ) ---
EXAM DESCRIPTION: CHEST SINGLE VIEW COMPLETED DATE/TIME: 04/17/2017 12:09 pm REASON FOR STUDY: bed 12 db COMPARISON: 12/15/2016. NUMBER OF VIEWS: One view. TECHNIQUE: Single frontal radiographic view of the chest acquired. LIMITATIONS: None. FINDINGS: LUNGS AND PLEURA: Hyperinflated lungs. COPD. Chronic basilar scarring is suggested. Pro nounced bullous changes particularly in the right upper lobe, with some worsening right upper lobe as sociated airspace opacity. New since November. No discrete mass. No pneumothorax. No pleural flui d. MEDIASTINUM AND HILAR STRUCTURES: No masses. Contour normal. HEART AND VASCULAR STRUCTURES: Heart normal in size. Normal vasculature. BONES: No acute findings. HARDWARE: None in the chest. OTHER: No other significant finding. IMPRESSION: COPD. Bullous disease with some worsening airspace opacity in the right upper lobe, lik florence related to superimposed infection. Surveillance followup with treatment recommended. TECHNICAL DOCUMENTATION: JOB ID: [id number] [employer]- All Rights Reserved
[2017-04-17 12:50] LABS: ABSOLUTE BASOPHILS # (AUTO) 0.1 10^3/uL (0.0-0.2); ABSOLUTE EOSINOPHILS # (AUTO) 0.5 10^3/uL (0.0-0.6); ABSOLUTE MONOCYTES (AUTO) 0.8 10^3/uL (0.1-1.4); HEMATOCRIT 47.1 % (37.9-51.0); HEMOGLOBIN 15.4 g/dL (13.5-17.0); HGB HCT DIFFERENCE -0.9; LYMPHOCYTES % (AUTO) 8.9 % (13-45); MEAN CORPUSCULAR HEMOGLOBIN 31.3 pg (27.0-33.4); MEAN CORPUSCULAR HGB CONC 32.7 g/dL (32.0-36.0); MEAN CORPUSCULAR VOLUME 96 fl (80-97); MONOCYTES % (AUTO) 6.7 % (3-13); RED BLOOD COUNT 4.91 10^6/uL (4.35-5.55); RED CELL DISTRIBUTION WIDTH 16.4 % (11.5-14.0); SEGMENTED NEUTROPHILS % (AUTO) 79.4 % (42-78); VENOUS BLOOD BASE EXCESS 2.6 mmol/L; VENOUS BLOOD HCO3 28.7 mmol/L (20-32); VENOUS BLOOD PCO2 48.9 mmHg (35-63); VENOUS BLOOD PH 7.39 (7.30-7.42); WHITE BLOOD COUNT 11.4 10^3/uL (4.0-10.5)
[2017-04-17 12:54] LABS: PROTHROMBIN TIME 13.7 SEC (11.4-15.4)
[2017-04-17 13:12] LABS: ALANINE AMINOTRANSFERASE 34 U/L (21-72); ALBUMIN 4.2 g/dL (3.5-5.0); ALKALINE PHOSPHATASE 65 U/L (38-126); ANION GAP 13 (5-19); ASPARTATE AMINO TRANSFERASE 22 U/L (17-59); BILIRUBIN,DIRECT 0.3 mg/dL (0.0-0.4); BLOOD UREA NITROGEN 21 mg/dL (7-20); CARBON DIOXIDE 28 mmol/L (22-30); CHLORIDE 99 mmol/L (98-107); CREATINE KINASE 38 U/L (55-170); CREATININE RESULT 1.04 mg/dL (0.52-1.25); DIGOXIN 1.39 ng/mL (0.8-2.0); GLUCOSE 149 mg/dL (75-110); POTASSIUM 4.3 mmol/L (3.6-5.0); SODIUM 139.9 mmol/L (137-145); TOTAL PROTEIN 7.2 g/dL (6.3-8.2)
[2017-04-17 13:16] LABS: APPEARANCE,URINE CLEAR; BILIRUBIN,URINE NEGATIVE (NEGATIVE); GLUCOSE, URINE NEGATIVE (NEGATIVE); KETONES,URINE NEGATIVE (NEGATIVE); LEUKOCYTE ESTERASE,URINE NEGATIVE (NEGATIVE); NITRITE,URINE NEGATIVE (NEGATIVE); PROTEIN,URINE NEGATIVE (NEGATIVE); URINE SPECIFIC GRAVITY 1.008; UROBILINOGEN,URINE NEGATIVE mg/dL (<2.0)
[2017-04-17] MEDS ORDERED: LEVOFLOXACIN 750 MG/D5W RTU 150 ML IV ONE (13:24)
[2017-04-17 13:25] LABS: CREATINE KINASE MB 2.26 ng/mL (<4.55); TROPONIN I 0.033 ng/mL
--- NOTE | 2017-04-17 13:40 | EKG REPORT ---
SEVERITY:- ABNORMAL ECG - ATRIAL FIBRILLATION NONSPECIFIC REPOL ABNORMALITY, DIFFUSE LEADS : Confirmed by: Gerard Maldonado 17-Apr-2017 13:39:20
[2017-04-17] MEDS ORDERED: TRAMADOL HCL 50 MG TABLET PO ONE (13:57)
[2017-04-17] MEDS ORDERED: DILTIAZEM HCL INJ 25 MG/5 ML VIAL IV ONE (13:57)
--- NOTE | 2017-04-17 15:10 | RADIOLOGY REPORT (SQ) ---
EXAM DESCRIPTION: CT ABD/PELVIS WITH IV ONLY COMPLETED DATE/TIME: 04/17/2017 2:48 pm REASON FOR STUDY: urinary retention COMPARISON: 03/21/2016. TECHNIQUE: CT scan of the abdomen and pelvis performed using helical scanning technique with dynamic intravenous contrast injection. No oral contrast. Images reviewed with lung, soft tissue, and bone windows. Reconstructed coronal and sagittal MPR images reviewed. Delayed images for evaluation of the urinary system also acquired. All images stored on PACS. All CT scanners at this facility use dose modulation, iterative reconstruction, and/or weight based d osing when appropriate to reduce radiation dose to as low as reasonably achievable (ALARA). [facility]: Dose Right [facility]: CareDose [facility]: Dose Right [facility]: Teradose 4D [facility]: scanR CONTRAST TYPE AND DOSE: contrast/concentration: Isovue 370.00 mg/ml; Total Contrast Delivered: 79.0 ml; Total Saline Delivered: 68.0 ml RENAL FUNCTION: GFR > 60. RADIATION DOSE: Up-to-date CT equipment and radiation dose reduction techniques were employed. CTDIv ol: 8.3 - 12.5 mGy. DLP: 988 mGy-cm.. LIMITATIONS: None. FINDINGS: LOWER CHEST: Chronic changes, likely COPD and scar. LIVER: Normal size. No masses. No dilated ducts. SPLEEN: Normal size. No focal lesions. PANCREAS: No masses. No significant calcifications. No adjacent inflammation or peripancreatic fluid collections. Pancreatic duct not dilated. GALLBLADDER: No calcified stones. Mild distention. ADRENAL GLANDS: No significant masses or asymmetry. RIGHT KIDNEY AND URETER: No solid masses. No significant calcification. No hydronephrosis or hydroure ter. LEFT KIDNEY AND URETER: No solid masses. No significant calcification. No hydronephrosis or hydrouret er. AORTA AND VESSELS: No aneurysm. No dissection. Renal arteries, SMA, celiac without stenosis. RETROPERITONEUM: No retroperitoneal adenopathy, hemorrhage or masses. BOWEL AND PERITONEAL CAVITY: Moderate colonic stool. Mild fluid dilatation of left abdominal small b owel loops. No definitive point of transition to suggest mechanical obstruction, however. APPENDIX: Normal. PELVIS: Smith catheter largely decompresses the bladder. Ovoid 7 cm left cecilia pelvic potential compl icated cyst. This may represent a chronic seroma given the extensive previous pelvic hematoma noted last year. No significant mass effect on regional structures. ABDOMINAL WALL: No masses. No hernias. BONES: No significant or acute findings. OTHER: No other significant finding. IMPRESSION: 1. Probable mild ileus. No overt mechanical obstruction detected. 2. Patient appears to have history of significant pelvic hematoma. Probable persistent left cecilia pelvic small seroma. TECHNICAL DOCUMENTATION: JOB ID: [id number] Quality ID # [id number]: Final reports with documentation of one or more dose reduction techniques (e.g., Au tomated exposure control, adjustment of the mA and/or kV according to patient size, use of iterative reconstruction technique) 2010 [employer]- All Rights Reserved
[2017-04-17] MEDS ORDERED: TRAMADOL HCL 50 MG TABLET PO PRN (16:03)
[2017-04-17] MEDS ORDERED: ALBUTEROL SULFATE 0.083% NEB 2.5 MG/3 ML AMPUL NEB PRN (16:04)
[2017-04-17] MEDS ORDERED: ACETAMINOPHEN 325 MG TABLET PO PRN (16:04)
[2017-04-17] MEDS ORDERED: DEXTROSE 40% GEL 15 GM TUBE PO PRN ×2 (16:10)
[2017-04-17] MEDS ORDERED: INSULIN LISPRO 100 UNIT/ML 3 ML VIAL SUBCUT PRN (16:10)
[2017-04-17] MEDS ORDERED: DEXTROSE 50%-WATER 25 GM/50 ML DISP.SYRIN IV PRN ×2 (16:10)
[2017-04-17] MEDS ORDERED: GLUCAGON,HUMAN RECOMB 1 MG INJ IM PRN (16:10)
--- NOTE | 2017-04-17 16:43 | PDOC H&P ---
History of Present Illness Admission Date/PCP: 04/17/17 15:27 WENDY AYALA, Patient complains of: Urinary retention History of Present Illness: KARLA PARADA is a 76 year old male with past medical history of COPD-oxygen dependent, laryngeal cancer status post laryngectomy and tracheostomy, atrial fibrillation, diabetes, hypothyroid presents with 2 primary complaints. First complaint is of cough and increasing shortness of breath. Second complaint is of urinary retention. He has never had any prior urologic issues. He has felt feverish at times. Past Medical History Cardiac Medical History: Reports: Atrial Fibrillation, Coronary Artery Disease Denies: Myocardial Infarction, Hypertension Pulmonary Medical History: Reports: Asthma, Chronic Obstructive Pulmonary Disease (COPD), Pneumonia, Respiratory Failure Denies: Bronchitis Neurological Medical History: Denies: Seizures Endocrine Medical History: Reports: Diabetes Mellitus Type 2, Hypothyroidism Malignancy Medical History: Reports: Other - Laryngeal cancer Musculoskeltal Medical History: Reports: Arthritis - GENERALIZED Hematology: Denies: Anemia, Sickle Cell Disease Past Surgical History Past Surgical History: Reports: Other - Laryngeal cancer resection with tracheostomy Social History Information Source: Patient Lives with: Family Smoking Status: Former Smoker Frequency of Alcohol Use: Occasional Hx Recreational Drug Use: No Drugs: None Hx Prescription Drug Abuse: No - Advance Directive Resuscitation Status: Do Not Resuscitate Family History Family History: DM, Hypertension, Malignancy Parental Family History Reviewed: Yes Children Family History Reviewed: Yes Sibling(s) Family History Reviewed.: Yes Medication/Allergy Home Medications: Digoxin [Lanoxin 0.25 mg Tablet] 0.25 mg PO DAILY 04/17/17 Diltiazem HCl [Cardizem 60 mg Tablet] 60 mg PO Q8 04/17/17 Furosemide [Lasix] 40 mg PO DAILY 04/17/17 Levothyroxine Sodium [Synthroid] 150 mcg PO DAILY 04/17/17 Metformin HCl [Glucophage] 1,000 mg PO QHS 04/17/17 Simvastatin [Zocor 10 mg Tablet] 10 mg PO DAILY 04/17/17 Tramadol HCl [Ultram 50 mg Tablet] 50 mg PO TIDP PRN 04/17/17 Allergies/Adverse Reactions: Penicillins Allergy (Severe, Verified 11/30/15 10:46) Review of Systems Constitutional: PRESENT: chills, fatigue, fever(s). ABSENT: headache(s), weight gain, weight loss Eyes: ABSENT: visual disturbances Ears: ABSENT: hearing changes Cardiovascular: ABSENT: chest pain, dyspnea on exertion, edema, orthropnea, palpitations Respiratory: PRESENT: cough, dyspnea. ABSENT: hemoptysis Gastrointestinal: PRESENT: abdominal pain. ABSENT: constipation, diarrhea, hematemesis, hematochezia, nausea, vomiting Genitourinary: PRESENT: difficulty urinating. ABSENT: dysuria, hematuria Musculoskeletal: ABSENT: joint swelling Integumentary: ABSENT: rash, wounds Neurological: ABSENT: abnormal gait, abnormal speech, confusion, dizziness, focal weakness, syncope Psychiatric: ABSENT: anxiety, depression, homidical ideation, suicidal ideation Endocrine: ABSENT: cold intolerance, heat intolerance, polydipsia, polyuria Hematologic/Lymphatic: ABSENT: easy bleeding, easy bruising Physical Exam Vital Signs: Temp Pulse Resp BP Pulse Ox 98.7 F 75 20 110/69 96 04/17/17 15:40 04/17/17 11:52 04/17/17 16:00 04/17/17 16:00 04/17/17 15:59 PHYSICAL EXAM: GENERAL: Appears well, no acute distress HEENT: Normocephalic, no scleral icterus, conjunctiva clear, EOEM intact, PERRLA , moist mucous membranes, status post laryngectomy with tracheostomy NECK: trachea midline, no thyromegally RESPIRATORY: Rhonchi and wheezes in bilateral lung gray CARDIAC: Regular rate and rhythm, no murmur/marv/rub ABDOMEN: Soft, no distension, no tenderness, no guarding, normal bowel sounds, negative Rosas sign RECTAL: deferred : Smith catheter in place EXTREMITIES: No edema, cyanosis, clubbing MUSCULOSKELETAL: No joint swelling or deformity VASCULAR: normal peripheral pulses NEUROLOGIC: Alert, oriented to person/place/time, normal speech, cranial nerves grossly intact, 5/5 strength in all extremities, tactile sensation intact in all extremities SKIN: No rash, no wounds, no worrisome skin lesions PSYCHIATRIC: Normal mood, normal affect Results Laboratory Results: Labs- All tests 24 hr 04/17/17 04/17/17 04/17/17 12:30 12:30 12:30 WBC 11.4 H RBC 4.91 Hgb 15.4 Hct 47.1 MCV 96 MCH 31.3 MCHC 32.7 RDW 16.4 H Plt Count 253 Seg Neutrophils % 79.4 H Lymphocytes % 8.9 L Monocytes % 6.7 Eosinophils % 4.0 Basophils % 1.0 Absolute Neutrophils 9.0 H Absolute Lymphocytes 1.0 Absolute Monocytes 0.8 Absolute Eosinophils 0.5 Absolute Basophils 0.1 PT INR VBG pH VBG pCO2 VBG HCO3 VBG Base Excess Sodium 139.9 Potassium 4.3 Chloride 99 Carbon Dioxide 28 Anion Gap 13 BUN 21 H Creatinine 1.04 Est GFR ( Amer) > 60 Est GFR (Non-Af Amer) > 60 Glucose 149 H Lactic Acid Calcium 10.0 Total Bilirubin 1.0 Direct Bilirubin 0.3 Indirect Bilirubin Not Reportable Neonat Total Bilirubin Not Reportable AST 22 ALT 34 Alkaline Phosphatase 65 Creatine Kinase 38 L CK-MB (CK-2) 2.26 Troponin I 0.033 Total Protein 7.2 Albumin 4.2 TSH Urine Color Urine Appearance Urine pH Ur Specific [place] Urine Protein Urine Glucose (UA) Urine Ketones Urine Blood Urine Nitrite Urine Bilirubin Urine Urobilinogen Ur Leukocyte Esterase Urine WBC (Auto) Urine RBC (Auto) Urine Bacteria (Auto) Squamous Epi Cells Auto Urine Mucus (Auto) Urine Ascorbic Acid Digoxin 1.39 04/17/17 04/17/17 04/17/17 12:30 12:30 12:30 WBC RBC Hgb Hct MCV MCH MCHC RDW Plt Count Seg Neutrophils % Lymphocytes % Monocytes % Eosinophils % Basophils % Absolute Neutrophils Absolute Lymphocytes Absolute Monocytes Absolute Eosinophils Absolute Basophils PT 13.7 INR 0.98 VBG pH 7.39 VBG pCO2 48.9 VBG HCO3 28.7 VBG Base Excess 2.6 Sodium Potassium Chloride Carbon Dioxide Anion Gap BUN Creatinine Est GFR ( Amer) Est GFR (Non-Af Amer) Glucose Lactic Acid 2.0 Calcium Total Bilirubin Direct Bilirubin Indirect Bilirubin Neonat Total Bilirubin AST ALT Alkaline Phosphatase Creatine Kinase CK-MB (CK-2) Troponin I Total Protein Albumin TSH Urine Color Urine Appearance Urine pH Ur Specific [place] Urine Protein Urine Glucose (UA) Urine Ketones Urine Blood Urine Nitrite Urine Bilirubin Urine Urobilinogen Ur Leukocyte Esterase Urine WBC (Auto) Urine RBC (Auto) Urine Bacteria (Auto) Squamous Epi Cells Auto Urine Mucus (Auto) Urine Ascorbic Acid Digoxin 04/17/17 04/17/17 12:30 12:30 WBC RBC Hgb Hct MCV MCH MCHC RDW Plt Count Seg Neutrophils % Lymphocytes % Monocytes % Eosinophils % Basophils % Absolute Neutrophils Absolute Lymphocytes Absolute Monocytes Absolute Eosinophils Absolute Basophils PT INR VBG pH VBG pCO2 VBG HCO3 VBG Base Excess Sodium Potassium Chloride Carbon Dioxide Anion Gap BUN Creatinine Est GFR ( Amer) Est GFR (Non-Af Amer) Glucose Lactic Acid Calcium Total Bilirubin Direct Bilirubin Indirect Bilirubin Neonat Total Bilirubin AST ALT Alkaline Phosphatase Creatine Kinase CK-MB (CK-2) Troponin I Total Protein Albumin TSH 0.67 Urine Color YELLOW Urine Appearance CLEAR Urine pH 7.0 Ur Specific [place] 1.008 Urine Protein NEGATIVE Urine Glucose (UA) NEGATIVE Urine Ketones NEGATIVE Urine Blood NEGATIVE Urine Nitrite NEGATIVE Urine Bilirubin NEGATIVE Urine Urobilinogen NEGATIVE Ur Leukocyte Esterase NEGATIVE Urine WBC (Auto) 1 Urine RBC (Auto) 0 Urine Bacteria (Auto) TRACE Squamous Epi Cells Auto <1 Urine Mucus (Auto) RARE Urine Ascorbic Acid NEGATIVE Digoxin Impressions: Chest X-Ray 04/17/17 11:49 IMPRESSION: COPD. Bullous disease with some worsening airspace opacity in the right upper lobe, likely related to superimposed infection. Surveillance followup with treatment recommended. Abdomen/Pelvis CT 04/17/17 14:01 IMPRESSION: 1. Probable mild ileus. No overt mechanical obstruction detected. 2. Patient appears to have history of significant pelvic hematoma. Probable persistent left cecilia pelvic small seroma. Assessment & Plan - Diagnosis (1) Acute on chronic respiratory failure with hypoxemia Is this a current diagnosis for this admission?: YesPlan: Continue oxygen supplementation via aerosol trach collar. (2) Bacterial pneumonia Is this a current diagnosis for this admission?: YesPlan: Likely bacterial. Start patient on IV Levaquin and IV aztreonam. Check sputum culture and blood cultures. (3) COPD exacerbation Is this a current diagnosis for this admission?: YesPlan: IV Solu-Medrol. Bronchodilators. (4) Atrial fibrillation with RVR Is this a current diagnosis for this admission?: YesPlan: Continue home doses of digoxin and Cardizem. Check TSH. (5) Pelvic hematoma Is this a current diagnosis for this admission?: YesPlan: Continue Smith catheter. Avoid pharmacologic DVT prophylaxis. (6) Acute urinary retention Is this a current diagnosis for this admission?: YesPlan: Continue Smith catheter. Possibly secondary to pelvic hematoma. Outpatient urology evaluation. (7) Diabetes mellitus Qualifiers: Diabetes mellitus type: type 2 Is this a current diagnosis for this admission?: YesPlan: Hold metformin for now. Sliding scale insulin coverage. (8) Do not resuscitate Is this a current diagnosis for this admission?: Yes - Time Time Spent: Greater than 70 Minutes Anticipated discharge: Home with Homehealth
[2017-04-17] MEDS ORDERED: AZTREONAM 1 GM in DEXTROSE 5%-WATER 50 ML IV ONE (16:45)
[2017-04-17] MEDS ORDERED: DILTIAZEM HCL 60 MG TABLET PO ONE (16:45)
[2017-04-17] MEDS ORDERED: DIGOXIN 0.25 MG TABLET PO ONE (17:00)
[2017-04-17] MEDS ORDERED: LEVOTHYROXINE SODIUM 0.15 MG TABLET PO ONE (17:00)
[2017-04-17] MEDS ORDERED: METHYLPREDNISOLONE INJ 40 MG/1 ML SDV IV ONE (17:00)
[2017-04-17] MEDS: IPRATROPIUM/ALBUTEROL 0.5-2.5 MG/3 ML AMPUL NEB SCH (20:16)
[2017-04-17] MEDS: GUAIFENESIN 600 MG TABLET.SA PO SCH (22:37)
[2017-04-17] MEDS: DILTIAZEM HCL 60 MG TABLET PO SCH (22:37)
[2017-04-17] MEDS: SIMVASTATIN 10 MG TABLET PO SCH (22:38)
[2017-04-17] MEDS: METHYLPREDNISOLONE INJ 40 MG/1 ML SDV IV SCH (22:38)
[2017-04-17] MEDS: AZTREONAM 1 GM in DEXTROSE 5%-WATER 50 ML IV SCH (22:39)
[2017-04-18 05:13] LABS: ABSOLUTE MONOCYTES (AUTO) 0.3 10^3/uL (0.1-1.4); ABSOLUTE NEUT (AUTO) 11.8 10^3/uL (1.7-8.2); BASOPHILS % (AUTO) 0.2 % (0-2); EOSINOPHILS % (AUTO) 0.2 % (0-6); HEMATOCRIT 45.2 % (37.9-51.0); HEMOGLOBIN 14.6 g/dL (13.5-17.0); HGB HCT DIFFERENCE -1.4; LYMPHOCYTES % (AUTO) 7.3 % (13-45); MEAN CORPUSCULAR HEMOGLOBIN 31.3 pg (27.0-33.4); MEAN CORPUSCULAR HGB CONC 32.3 g/dL (32.0-36.0); MEAN CORPUSCULAR VOLUME 97 fl (80-97); MONOCYTES % (AUTO) 2.6 % (3-13); RED BLOOD COUNT 4.67 10^6/uL (4.35-5.55); SEGMENTED NEUTROPHILS % (AUTO) 89.7 % (42-78); WHITE BLOOD COUNT 13.1 10^3/uL (4.0-10.5)
[2017-04-18 05:25] LABS: ANION GAP 10 (5-19); BLOOD UREA NITROGEN 27 mg/dL (7-20); CARBON DIOXIDE 28 mmol/L (22-30); CHLORIDE 101 mmol/L (98-107); CREATININE RESULT 1.02 mg/dL (0.52-1.25); GLUCOSE 153 mg/dL (75-110); SODIUM 139.1 mmol/L (137-145)
[2017-04-18 05:55] LABS: POTASSIUM 5.5 mmol/L (3.6-5.0)
[2017-04-18] MEDS: AZTREONAM 1 GM in DEXTROSE 5%-WATER 50 ML IV SCH ×3 (06:37→21:21)
[2017-04-18] MEDS: DILTIAZEM HCL 60 MG TABLET PO SCH ×3 (06:37→21:23)
[2017-04-18] MEDS: METHYLPREDNISOLONE INJ 40 MG/1 ML SDV IV SCH ×3 (06:40→21:24)
[2017-04-18] MEDS: IPRATROPIUM/ALBUTEROL 0.5-2.5 MG/3 ML AMPUL NEB SCH ×3 (08:00→20:12)
--- NOTE | 2017-04-18 08:32 | PDOC PROGRESS REPORT ---
Subjective Progress Note for:: 04/18/17 Subjective:: Patient is no better or worse than yesterday. He continues to have dyspnea and purulent secretions from tracheostomy. Patient denies fever, chills, headache, new focal weakness, chest pain, abdominal pain, nausea, vomiting, diarrhea, constipation. Physical Exam Vital Signs: Temp Pulse Resp BP Pulse Ox 98.0 F 57 L 24 H 108/67 100 04/18/17 04:33 04/18/17 04:33 04/18/17 04:33 04/18/17 04:33 04/18/17 04:33 Intake & Output 04/17/17 04/18/17 04/19/17 06:59 06:59 06:59 Intake Total 447 Output Total 1075 Balance -628 Weight 78.2 kg GENERAL: Appears well, no acute distress HEENT: Normocephalic, no scleral icterus, conjunctiva clear, EOEM intact, PERRLA , moist mucous membranes, status post laryngectomy with tracheostomy NECK: tracheostomy midline, no thyromegally RESPIRATORY: Rhonchi and wheezes in bilateral lung gray CARDIAC: Regular rate and rhythm, no murmur/marv/rub ABDOMEN: Soft, no distension, no tenderness, no guarding, normal bowel sounds, negative Rosas sign : Smith catheter in place EXTREMITIES: No edema, cyanosis, clubbing NEUROLOGIC: Alert, oriented to person/place/time, normal speech, cranial nerves grossly intact, 5/5 strength in all extremities, tactile sensation intact in all extremities SKIN: No rash, no wounds, no worrisome skin lesions PSYCHIATRIC: Normal mood, normal affect Results Laboratory Results: 04/18/17 05:00 04/18/17 05:00 04/18/17 04/18/17 05:00 05:00 WBC 13.1 H RBC 4.67 Hgb 14.6 Hct 45.2 MCV 97 MCH 31.3 MCHC 32.3 RDW 16.0 H Plt Count 236 Seg Neutrophils % 89.7 H Lymphocytes % 7.3 L Monocytes % 2.6 L Eosinophils % 0.2 Basophils % 0.2 Absolute Neutrophils 11.8 H Absolute Lymphocytes 1.0 Absolute Monocytes 0.3 Absolute Eosinophils 0.0 Absolute Basophils 0.0 Sodium 139.1 Potassium 5.5 H D Chloride 101 Carbon Dioxide 28 Anion Gap 10 BUN 27 H Creatinine 1.02 Est GFR ( Amer) > 60 Est GFR (Non-Af Amer) > 60 Glucose 153 H Calcium 10.0 Impressions: Chest X-Ray 04/17/17 11:49 IMPRESSION: COPD. Bullous disease with some worsening airspace opacity in the right upper lobe, likely related to superimposed infection. Surveillance followup with treatment recommended. Abdomen/Pelvis CT 04/17/17 14:01 IMPRESSION: 1. Probable mild ileus. No overt mechanical obstruction detected. 2. Patient appears to have history of significant pelvic hematoma. Probable persistent left cecilia pelvic small seroma. Assessment & Plan - Diagnosis (1) Acute on chronic respiratory failure with hypoxemia Is this a current diagnosis for this admission?: YesPlan: Continue oxygen supplementation via aerosol trach collar. (2) Bacterial pneumonia Is this a current diagnosis for this admission?: YesPlan: Likely bacterial. Continue IV Levaquin and IV aztreonam pending sputum culture and blood cultures. (3) COPD exacerbation Is this a current diagnosis for this admission?: YesPlan: IV Solu-Medrol. Bronchodilators. (4) Atrial fibrillation with RVR Is this a current diagnosis for this admission?: YesPlan: Continue home doses of digoxin and Cardizem. Currently not on anticoagulation secondary to pelvic hematoma. (5) Pelvic hematoma Is this a current diagnosis for this admission?: YesPlan: Continue Smith catheter. Avoid pharmacologic DVT prophylaxis and other anticoagulation. This was present on prior CT scan. Patient will need outpatient urology follow-up. (6) Acute urinary retention Is this a current diagnosis for this admission?: YesPlan: Continue Smith catheter. Possibly secondary to pelvic hematoma. Outpatient urology evaluation. (7) Diabetes mellitus Qualifiers: Diabetes mellitus type: type 2 Is this a current diagnosis for this admission?: YesPlan: Hold metformin for now secondary to IV contrast administration on 04/17/2017, restarted on 04/19/2017. Sliding scale insulin coverage. (8) Do not resuscitate Is this a current diagnosis for this admission?: Yes - Time Time Spent with patient: 35 or more minutes
[2017-04-18] MEDS ORDERED: DIGOXIN 0.25 MG TABLET PO SCH (10:00)
[2017-04-18] MEDS ORDERED: ENOXAPARIN SODIUM INJ 40 MG/0.4 ML DISP.SYRIN SUBCUT SCH (10:00)
[2017-04-18] MEDS: GUAIFENESIN 600 MG TABLET.SA PO SCH ×2 (11:34→21:22)
[2017-04-18] MEDS: LEVOTHYROXINE SODIUM 0.15 MG TABLET PO SCH (11:34)
[2017-04-18] MEDS: FUROSEMIDE 40 MG TABLET PO SCH (11:34)
[2017-04-18] MEDS ORDERED: LEVOFLOXACIN 750 MG/D5W RTU 150 ML IV SCH (14:00)
[2017-04-18] MEDS: METFORMIN HCL 500 MG TABLET PO SCH (21:22)
[2017-04-18] MEDS: SIMVASTATIN 10 MG TABLET PO SCH (21:22)
[2017-04-19] MEDS: DILTIAZEM HCL 60 MG TABLET PO SCH (05:16)
[2017-04-19] MEDS: AZTREONAM 1 GM in DEXTROSE 5%-WATER 50 ML IV SCH ×2 (05:18→14:04)
[2017-04-19 05:24] LABS: ANION GAP 11 (5-19); BLOOD UREA NITROGEN 45 mg/dL (7-20); CALCIUM 9.5 mg/dL (8.4-10.2); CARBON DIOXIDE 24 mmol/L (22-30); CHLORIDE 103 mmol/L (98-107); CREATININE RESULT 1.22 mg/dL (0.52-1.25); GLUCOSE 147 mg/dL (75-110); POTASSIUM 4.9 mmol/L (3.6-5.0); SODIUM 137.9 mmol/L (137-145)
[2017-04-19 05:37] LABS: HEMATOCRIT 42.3 % (37.9-51.0); HEMOGLOBIN 13.7 g/dL (13.5-17.0); HGB HCT DIFFERENCE -1.2; MEAN CORPUSCULAR HEMOGLOBIN 31.2 pg (27.0-33.4); MEAN CORPUSCULAR HGB CONC 32.3 g/dL (32.0-36.0); MEAN CORPUSCULAR VOLUME 97 fl (80-97); RED BLOOD COUNT 4.38 10^6/uL (4.35-5.55); RED CELL DISTRIBUTION WIDTH 16.3 % (11.5-14.0); WHITE BLOOD COUNT 16.2 10^3/uL (4.0-10.5)
[2017-04-19 05:40] LABS: BAND NEUTROPHILS % (MANUAL) 1 % (3-5); BASOPHILS % (MANUAL) 0 % (0-2); EOSINOPHILS % (MANUAL) 0 % (0-6); LYMPHOCYTES % (MANUAL) 7 % (13-45); TOTAL CELLS COUNTED 100
[2017-04-19 05:41] LABS: ANISOCYTOSIS SLIGHT
[2017-04-19] MEDS: IPRATROPIUM/ALBUTEROL 0.5-2.5 MG/3 ML AMPUL NEB SCH ×3 (08:00→19:47)
[2017-04-19] MEDS: LEVOTHYROXINE SODIUM 0.15 MG TABLET PO SCH (08:20)
[2017-04-19] MEDS ORDERED: DILTIAZEM HCL 120 MG CAP.SR.24H PO SCH (10:00)
[2017-04-19] MEDS: DIGOXIN 0.25 MG TABLET PO SCH (10:50)
[2017-04-19] MEDS: METHYLPREDNISOLONE INJ 40 MG/1 ML SDV IV SCH (10:53)
[2017-04-19] MEDS: DILTIAZEM HCL 120 MG CAP.SR.24H PO SCH (10:53)
[2017-04-19] MEDS: GUAIFENESIN 600 MG TABLET.SA PO SCH ×2 (10:54→21:17)
[2017-04-19] MEDS: FUROSEMIDE 40 MG TABLET PO SCH (10:54)
--- NOTE | 2017-04-19 17:16 | PDOC PROGRESS REPORT ---
Subjective Progress Note for:: 04/19/17 Subjective:: Patient feels much better today in terms of dyspnea. Tracheal secretions are improving. Patient denies fever, chills, headache, new focal weakness, chest pain, abdominal pain, nausea, vomiting, diarrhea, constipation. Physical Exam Vital Signs: Temp Pulse Resp BP Pulse Ox 98.4 F 71 16 104/56 L 100 04/19/17 16:26 04/19/17 16:26 04/19/17 16:26 04/19/17 16:26 04/19/17 16:26 Intake & Output 04/18/17 04/19/17 04/20/17 06:59 06:59 06:59 Intake Total 447 1227 400 Output Total 1075 1650 300 Balance -628 -423 100 Weight 78.2 kg 77.2 kg GENERAL: Appears well, no acute distress HEENT: Normocephalic, no scleral icterus, conjunctiva clear, EOEM intact, PERRLA , moist mucous membranes, status post laryngectomy with tracheostomy NECK: tracheostomy midline, no thyromegally RESPIRATORY: Rhonchi and wheezes in bilateral lung gray CARDIAC: Regular rate and rhythm, no murmur/marv/rub ABDOMEN: Soft, no distension, no tenderness, no guarding, normal bowel sounds, negative Rosas sign : Smith catheter in place EXTREMITIES: No edema, cyanosis, clubbing NEUROLOGIC: Alert, oriented to person/place/time, normal speech, cranial nerves grossly intact, 5/5 strength in all extremities, tactile sensation intact in all extremities SKIN: No rash, no wounds, no worrisome skin lesions PSYCHIATRIC: Normal mood, normal affect Results Laboratory Results: 04/19/17 04:03 04/19/17 04:03 04/19/17 04/19/17 04:03 04:03 WBC 16.2 H RBC 4.38 Hgb 13.7 Hct 42.3 MCV 97 MCH 31.2 MCHC 32.3 RDW 16.3 H Plt Count 233 Seg Neutrophils % Not Reportable Lymphocytes % Not Reportable Monocytes % Not Reportable Eosinophils % Not Reportable Basophils % Not Reportable Absolute Neutrophils Not Reportable Absolute Lymphocytes Not Reportable Absolute Monocytes Not Reportable Absolute Eosinophils Not Reportable Absolute Basophils Not Reportable Sodium 137.9 Potassium 4.9 Chloride 103 Carbon Dioxide 24 Anion Gap 11 BUN 45 H Creatinine 1.22 Est GFR ( Amer) > 60 Est GFR (Non-Af Amer) 58 L Glucose 147 H Calcium 9.5 Impressions: Chest X-Ray 04/17/17 11:49 IMPRESSION: COPD. Bullous disease with some worsening airspace opacity in the right upper lobe, likely related to superimposed infection. Surveillance followup with treatment recommended. Abdomen/Pelvis CT 04/17/17 14:01 IMPRESSION: 1. Probable mild ileus. No overt mechanical obstruction detected. 2. Patient appears to have history of significant pelvic hematoma. Probable persistent left cecilia pelvic small seroma. Assessment & Plan - Diagnosis (1) Acute on chronic respiratory failure with hypoxemia Is this a current diagnosis for this admission?: YesPlan: Continue oxygen supplementation via aerosol trach collar. (2) Bacterial pneumonia Is this a current diagnosis for this admission?: YesPlan: Likely bacterial. Cultures negative. Patient afebrile and clinically improving. Discontinue IV antibiotics. Start oral Levaquin. Discharge home in a.m. if stable. (3) COPD exacerbation Is this a current diagnosis for this admission?: YesPlan: Discontinue IV Solu-Medrol. Start prednisone 40 mg daily. Bronchodilators. (4) Atrial fibrillation with RVR Is this a current diagnosis for this admission?: YesPlan: Continue home doses of digoxin and Cardizem. Currently not on anticoagulation secondary to pelvic hematoma. (5) Pelvic hematoma Is this a current diagnosis for this admission?: YesPlan: Continue Smith catheter. Avoid pharmacologic DVT prophylaxis and other anticoagulation. This was present on prior CT scan. Patient will need outpatient urology follow-up. (6) Acute urinary retention Is this a current diagnosis for this admission?: YesPlan: Continue Smith catheter. Possibly secondary to pelvic hematoma. Outpatient urology evaluation. (7) Diabetes mellitus Qualifiers: Diabetes mellitus type: type 2 Is this a current diagnosis for this admission?: YesPlan: Resume metformin. Sliding scale insulin coverage. (8) Do not resuscitate Is this a current diagnosis for this admission?: Yes - Time Time Spent with patient: 35 or more minutes Anticipated discharge: Home Within: within 24 hours
[2017-04-19] MEDS: METFORMIN HCL 500 MG TABLET PO SCH (21:17)
[2017-04-19] MEDS: SIMVASTATIN 10 MG TABLET PO SCH (21:17)
[2017-04-20] MEDS: IPRATROPIUM/ALBUTEROL 0.5-2.5 MG/3 ML AMPUL NEB SCH (07:50)
[2017-04-20] MEDS: LEVOTHYROXINE SODIUM 0.15 MG TABLET PO SCH (08:21)
[2017-04-20 09:24] LABS: ANION GAP 10 (5-19); BLOOD UREA NITROGEN 52 mg/dL (7-20); CALCIUM 9.9 mg/dL (8.4-10.2); CARBON DIOXIDE 29 mmol/L (22-30); CHLORIDE 102 mmol/L (98-107); CREATININE RESULT 0.94 mg/dL (0.52-1.25); GLUCOSE 131 mg/dL (75-110); POTASSIUM 4.2 mmol/L (3.6-5.0); SODIUM 141.3 mmol/L (137-145)
[2017-04-20] MEDS: FUROSEMIDE 40 MG TABLET PO SCH (09:58)
[2017-04-20] MEDS: DIGOXIN 0.25 MG TABLET PO SCH (09:58)
[2017-04-20] MEDS ORDERED: LEVOFLOXACIN 750 MG TABLET PO SCH (10:00)
[2017-04-20] MEDS ORDERED: MAGNESIUM CITRATE 296 ML BOTTLE PO ONE (10:00)
[2017-04-20] MEDS ORDERED: PREDNISONE 20 MG TABLET PO SCH ×2 (10:00)
[2017-04-20] MEDS: DILTIAZEM HCL 120 MG CAP.SR.24H PO SCH (10:03)
[2017-04-20] MEDS: GUAIFENESIN 600 MG TABLET.SA PO SCH (10:03)
[2017-04-20 12:51] VITALS: BP 93/60
--- NOTE | 2017-04-20 14:46 | PDOC DISCHARGE SUMMARY ---
General - Admit/Disc Date/PCP Admission Date/Primary Care Provider: 04/17/17 16:04 WENDY PRASADRISHABHJOSE, Discharge Date: 04/20/17 - Discharge Diagnosis (1) Acute urinary retention Is this a current diagnosis for this admission?: Yes (2) Bacterial pneumonia Is this a current diagnosis for this admission?: Yes (3) Pelvic hematoma Is this a current diagnosis for this admission?: Yes (4) Acute on chronic respiratory failure with hypoxemia Is this a current diagnosis for this admission?: Yes (5) Atrial fibrillation with RVR Is this a current diagnosis for this admission?: Yes (6) COPD exacerbation Is this a current diagnosis for this admission?: Yes (7) Diabetes mellitus Is this a current diagnosis for this admission?: Yes (8) Do not resuscitate Is this a current diagnosis for this admission?: Yes - Additional Information Resuscitation Status: Do Not Resuscitate Discharge Diet: Regular Discharge Activity: Activity As Tolerated Home Medications: Digoxin [Lanoxin 0.25 mg Tablet] 0.25 mg PO DAILY 04/17/17 Diltiazem HCl [Cardizem 60 mg Tablet] 60 mg PO Q8 04/17/17 Furosemide [Lasix] 40 mg PO DAILY 04/17/17 Levothyroxine Sodium [Synthroid] 150 mcg PO DAILY 04/17/17 Metformin HCl [Glucophage] 1,000 mg PO QHS 04/17/17 Simvastatin [Zocor 10 mg Tablet] 10 mg PO DAILY 04/17/17 Tramadol HCl [Ultram 50 mg Tablet] 50 mg PO TIDP PRN 04/17/17 Levofloxacin [Levaquin 750 mg Tablet] 750 mg PO DAILY #7 tablet 04/20/17 Prednisone [Deltasone 20 mg Tablet] 40 mg PO BID #21 tablet 04/20/17 History of Present Illness History of Present Illness: KARLA PARADA is a 76 year old male with past medical history of COPD-oxygen dependent, laryngeal cancer status post laryngectomy and tracheostomy, atrial fibrillation, diabetes, hypothyroid presents with 2 primary complaints. First complaint is of cough and increasing shortness of breath. Second complaint is of urinary retention. He has never had any prior urologic issues. He has felt feverish at times. Hospital Course Hospital Course: Patient was initially placed on IV Solu-Medrol which was transitioned to oral prednisone. Placed on Levaquin with improvement of his symptoms. Patient had a Smith catheter placed which relieved his acute urinary retention. CT of the abdomen was performed on presentation on 04/17/2017 which revealed a pelvic hematoma which was likely the cause of his acute urinary retention. Previously been on Coumadin and had been found to be supratherapeutic prior to this admission according to patient. His coumadin had been stopped prior to admission and he has been advised not to resume this medication. Has been instructed to continue using Smith catheter and home health has been set up for him until he is able to see urology as an outpatient. Patient is also instructed to follow with his primary care physician within 1 week of discharge. Patient overall felt that his breathing was about the same. No complaints and feels stable for discharge. Physical Exam Vital Signs: Temp Pulse Resp BP Pulse Ox 98.2 F 63 20 93/60 L 100 04/20/17 11:15 04/20/17 11:15 04/20/17 11:15 04/20/17 11:15 04/20/17 11:15 Intake & Output 04/19/17 04/20/17 04/21/17 06:59 06:59 06:59 Intake Total 1227 1180 50 Output Total 1650 1625 400 Balance -423 -445 -350 Weight 77.2 kg 77.1 kg Exam: GENERAL: Appears well, no acute distress HEENT: Normocephalic, no scleral icterus, conjunctiva clear, EOEM intact, PERRLA , moist mucous membranes, status post laryngectomy with tracheostomy NECK: tracheostomy midline, no thyromegally RESPIRATORY: Expiratory phase, prolonged; coarse bilaterally CARDIAC: IRR, +2/6 SM LLSB ABDOMEN: Soft, no distension, no tenderness, no guarding, normal bowel sounds, negative Rosas sign : Smith catheter in place EXTREMITIES: No edema, cyanosis, clubbing NEUROLOGIC: Alert, oriented to person/place/time, CN grossly intact without focal deficits (unable to test speech) SKIN: No rash, no wounds, no worrisome skin lesions PSYCHIATRIC: Normal mood, normal affect Results Laboratory Results: 04/19/17 04:03 04/20/17 08:42 04/20/17 08:42 Sodium 141.3 Potassium 4.2 Chloride 102 Carbon Dioxide 29 Anion Gap 10 BUN 52 H Creatinine 0.94 Est GFR ( Amer) > 60 Est GFR (Non-Af Amer) > 60 Glucose 131 H Calcium 9.9 Impressions: Chest X-Ray 04/17/17 11:49 IMPRESSION: COPD. Bullous disease with some worsening airspace opacity in the right upper lobe, likely related to superimposed infection. Surveillance followup with treatment recommended. Abdomen/Pelvis CT 04/17/17 14:01 IMPRESSION: 1. Probable mild ileus. No overt mechanical obstruction detected. 2. Patient appears to have history of significant pelvic hematoma. Probable persistent left cecilia pelvic small seroma. Qualifiers PATEINT BEING DISCHARGED WITH ANY OF THE FOLLOWING DIAGNOSIS?: No Plan Discharge Plan: 35 minutes of time including review of electronic medical record, evaluation of patient, discussion with patient, physical exam, and formulation of this plan. Time Spent: Greater than 30 Minutes
== END 2017-04-20 14:00 | disposition home or self-care (01) | DRG 190 ==
LOC: ER 11:47 → EH 15:27 → UNDOADMIN 15:27 → EH 16:04 → 3N 17:03
DX: J44.0 Chronic obstructive pulmonary disease with (acute) lower respiratory infection (principal); J15.9 Unspecified bacterial pneumonia; J44.1 Chronic obstructive pulmonary disease with (acute) exacerbation; I48.91 Unspecified atrial fibrillation; R33.8 Other retention of urine; E03.9 Hypothyroidism, unspecified; T45.515A Adverse effect of anticoagulants, initial encounter; N50.1 Vascular disorders of male genital organs; E11.9 Type 2 diabetes mellitus without complications; M19.90 Unspecified osteoarthritis, unspecified site; I25.10 Atherosclerotic heart disease of native coronary artery without angina pectoris; Z80.9 Family history of malignant neoplasm, unspecified; Z79.84 Long term (current) use of oral hypoglycemic drugs; Z88.0 Allergy status to penicillin; Z66 Do not resuscitate; Z99.81 Dependence on supplemental oxygen; Z85.21 Personal history of malignant neoplasm of larynx; Z87.891 Personal history of nicotine dependence; Z93.0 Tracheostomy status; Z90.02 Acquired absence of larynx; Z82.49 Family history of ischemic heart disease and other diseases of the circulatory system; Z83.3 Family history of diabetes mellitus
CPT/HCPCS: 36415; 51702; 71010; 74177; 80048; 80053; 80162; 81001; 82550; 82553; 82803; 82962; 83605; 84443; 84484; 85025; 85610; 87040; 87086; 93005; 93010; 94640; 96365; 96375; 99285; J1956; J2920; J3490; J7512; J7620

== ENCOUNTER → 2017-05-28 | Outpatient (CLI) | payer MEDICARE, OTHER ==
[2017-05-28 09:08] LABS: HEMATOCRIT 45.8 % (37.9-51.0); HEMOGLOBIN 15.1 g/dL (13.5-17.0); HGB HCT DIFFERENCE -0.5; MEAN CORPUSCULAR HEMOGLOBIN 31.6 pg (27.0-33.4); MEAN CORPUSCULAR VOLUME 96 fl (80-97); RED BLOOD COUNT 4.78 10^6/uL (4.35-5.55); RED CELL DISTRIBUTION WIDTH 14.9 % (11.5-14.0); WHITE BLOOD COUNT 16.5 10^3/uL (4.0-10.5)
[2017-05-28 09:31] LABS: BASOPHILS % (MANUAL) 0 % (0-2); EOSINOPHILS % (MANUAL) 1 % (0-6); LYMPHOCYTES % (MANUAL) 22 % (13-45); TOTAL CELLS COUNTED 100
[2017-05-28 09:35] LABS: ANISOCYTOSIS 1+
[2017-05-28 09:41] LABS: ALANINE AMINOTRANSFERASE 26 U/L (21-72); ALBUMIN 3.8 g/dL (3.5-5.0); ALKALINE PHOSPHATASE 77 U/L (38-126); ANION GAP 12 (5-19); ASPARTATE AMINO TRANSFERASE 19 U/L (17-59); BILIRUBIN,DIRECT 0.4 mg/dL (0.0-0.4); BILIRUBIN,TOTAL 0.5 mg/dL (0.2-1.3); BLOOD UREA NITROGEN 16 mg/dL (7-20); CALCIUM 9.4 mg/dL (8.4-10.2); CARBON DIOXIDE 29 mmol/L (22-30); CHLORIDE 101 mmol/L (98-107); CREATININE RESULT 0.86 mg/dL (0.52-1.25); GLUCOSE 90 mg/dL (75-110); MAGNESIUM 2.1 mg/dL (1.6-2.3); POTASSIUM 4.1 mmol/L (3.6-5.0); SODIUM 142.4 mmol/L (137-145); TOTAL PROTEIN 6.4 g/dL (6.3-8.2)
== END ==
LOC: OD 07:48
PROVIDERS: ATTEND Internal Medicine
DX: E87.70 Fluid overload, unspecified (principal); E11.9 Type 2 diabetes mellitus without complications; I48.0 Paroxysmal atrial fibrillation; I12.9 Hypertensive chronic kidney disease with stage 1 through stage 4 chronic kidney disease, or unspecified chronic kidney disease; N18.9 Chronic kidney disease, unspecified
CPT/HCPCS: 36415; 80053; 83036; 83735; 84443; 85025

== ENCOUNTER 2017-07-12 08:42 | Emergency (ER) | payer MEDICARE, OTHER ==
[2017-07-12] MEDS ORDERED: ALBUTEROL SULFATE 0.083% NEB 2.5 MG/3 ML AMPUL NEB ONE ×2 (08:58→10:49)
--- NOTE | 2017-07-12 08:59 | ER Document Report ---
ED Respiratory Problem - General Mode of Arrival: Medic Information source: Patient, Emergency Med Personnel TRAVEL OUTSIDE OF THE [place] IN LAST 30 DAYS: No - HPI Patient complains to provider of: Short of breath Onset: Other - x2 days Duration: Worse/persistent Associated symptoms: Other - see narrative <CINTHYA BOCANEGRA - Last Filed: 07/12/17 15:51> <MARISSA EDUARDO - Last Filed: 07/12/17 16:11> - General Stated Complaint: SHORTNESS OF BREATH Time Seen by Provider: 07/12/17 08:45 Notes: Patient is a 76-year-old male that presents to the emergency department today with complaints of shortness of breath 2 days. Patient has a past medical history significant for laryngeal cancer with history of trach placement. Patient states that he is on 6L of home oxygen daily. EMS states on their arrival, the patient was saturating at 98% with oxygen, without oxygen saturating at 92%. Patient mentions that he has not had a bowel movement in 2 days and has not urinated in 1 day. Patient states he has a history of urinary retention and has had to be catheterized in the past and has been sent home with a Smith cath in place in the past. Patient does take Flomax daily and states he has not missed any dosages. Patient denies a history of small bowel obstruction. Patient states he has been passing gas. Patient was given 1 albuterol and Atrovent and 125 mg Solu-Medrol in route. Patient mentions he has had a non-productive cough with associated sweats and chills. Patient denies any abdominal pain or chest pain. (CINTHYA BOCANEGRA) - Related Data Allergies/Adverse Reactions: Penicillins Allergy (Severe, Verified 07/12/17 11:51) Home Medications: Current Home Medications Besifloxacin HCl [Besivance 0.6% Oph Susp 5 ml] 1 drop OU Q12 07/12/17 [History] Digoxin [Lanoxin] 250 mcg PO DAILY 07/12/17 [History] Furosemide [Lasix 40 mg Tablet] 40 mg PO DAILY 07/12/17 [History] Levothyroxine Sodium [Synthroid] 200 mcg PO DAILY 07/12/17 [History] Metformin HCl [Metformin HCl ER] 1,000 mg PO QHS 07/12/17 [History] Simvastatin [Zocor 10 mg Tablet] 10 mg PO DAILY 07/12/17 [History] Past Medical History - General Information source: Patient, Emergency Med Personnel, [facility], [facility] Records - Social History Smoking Status: Former Smoker Cigarette use (# per day): No Frequency of alcohol use: None Drug Abuse: None Lives with: Family Family History: DM, Hypertension, Malignancy - Past Medical History Cardiac Medical History: Reports: Hx Atrial Fibrillation, Hx Coronary Artery Disease Pulmonary Medical History: Reports: Hx Asthma, Hx COPD, Hx Pneumonia, Hx Respiratory Failure Endocrine Medical History: Reports: Hx Diabetes Mellitus Type 1, Hx Diabetes Mellitus Type 2, Hx Hyperthyroidism, Hx Hypothyroidism Musculoskeltal Medical History: Reports Hx Arthritis - GENERALIZED Past Surgical History: Reports: Hx Abdominal Surgery - G-tube, Hx Oral Surgery - Trach, Other - Laryngeal cancer resection with tracheostomy - Immunizations Hx Diphtheria, Pertussis, Tetanus Vaccination: Yes Hx Pneumococcal Vaccination: 10/18/11 <CINTHYA BOCANEGRA - Last Filed: 07/12/17 15:51> Review of Systems - Review of Systems Constitutional: See HPI, Chills, Diaphoresis EENT: No symptoms reported Cardiovascular: denies: Chest pain Respiratory: See HPI, Cough, Short of breath, Wheezing Gastrointestinal: See HPI, Constipation. denies: Abdominal pain Genitourinary: See HPI, Retention Male Genitourinary: No symptoms reported Musculoskeletal: No symptoms reported Skin: No symptoms reported Hematologic/Lymphatic: No symptoms reported Neurological/Psychological: No symptoms reported -: Yes All other systems reviewed and negative <CINTHYA BOCANEGRA - Last Filed: 07/12/17 15:51> Physical Exam <CINTHYA BOCANEGRA - Last Filed: 07/12/17 15:51> <MARISSA EDUARDO - Last Filed: 07/12/17 16:11> - Vital signs Vitals: Resp Pulse Ox 29 H 98 07/12/17 08:57 07/12/17 08:57 - Notes Notes: PHYSICAL EXAM GENERAL: Alert, interacts well by writing on white board which is baseline for patient, consistent with history of laryngeal cancer. Appears mildly uncomfortable. HEAD: Normocephalic, atraumatic. EYES: Pupils equal, round, and reactive to light. Extraocular movements intact. ENT: Oral mucosa moist, tongue midline. NECK: Full range of motion. Supple. Trachea midline, stoma patent and well- healed. LUNGS: Diffuse expiratory wheezing bilaterally, tachypneic, rhonchi in the right lower lobe, appears short of breath, no rales. Mild respiratory distress. HEART: Slightly tachycardic, regular rhythm. No murmurs, gallops, or rubs. ABDOMEN: Bladder distension, generalized mild abdominal tenderness with palpation. Bowel sounds present in all 4 quadrants. EXTREMITIES: Moves all 4 extremities spontaneously. No cyanosis. 2+ pitting edema at the level of the ankles bilaterally. NEUROLOGICAL: Alert and oriented x3. Does not speak, communicates by writing on white board consistent with history. PSYCH: Normal affect, normal mood. SKIN: Warm, dry, normal turgor. No rashes or lesions noted. (CINTHYA BOCANEGRA) Course - Laboratory Result Diagrams: 07/12/17 09:07 07/12/17 09:07 <CINTHYA BOCANEGRA - Last Filed: 07/12/17 15:51> - Laboratory Result Diagrams: 07/12/17 09:07 07/12/17 09:07 <MARISSA EDUARDO - Last Filed: 07/12/17 16:11> - Re-evaluation Re-evalutation: 07/12/17 10:[address] draining clear orange urine. Continues to wheeze. 07/12/17 12:44 Patient reexamined, states he is feeling better, still wheezing, main complaint is now lower abdominal pain which feels like his constipation. Patient requesting an enema. (CINTHYA BOCANEGRA) 07/12/17 14:54 CBC shows leukocytosis of 14.6, otherwise unremarkable, CMP shows elevated glucose otherwise unremarkable, no renal failure, and lactic acid normal, venous blood gas unremarkable, urinalysis unremarkable, acute abdominal series shows a large amount of stool, chest x-ray shows obstructive lung disease and mildly increased interstitial markings at both bases, on physical examination there are no crackles, no evidence of interstitial edema. Patient feels much better after a Smith catheter has been placed, after he has had an enema with a bowel movement and 3 breathing treatments have been given. He was given Solu-Medrol via EMS and has also had prednisone here. Which he is he has now completely resolved. Patient is agreeable to going home with antibiotics and steroids for an acute bacterial exacerbation of COPD, a leg bag for his Smith and he artery takes Flomax and magnesium citrate for the constipation. (MARISSA EDUARDO) - Vital Signs Vital signs: Temp Pulse Resp BP Pulse Ox 26 H 138/91 H 96 07/12/17 12:01 07/12/17 12:01 07/12/17 12:01 - Laboratory Laboratory results interpreted by me: 07/12/17 07/12/17 07/12/17 09:07 09:07 10:30 WBC 14.6 H RDW 15.7 H Lymphocytes % 12.8 L Eosinophils % 13.2 H Absolute Neutrophils 9.7 H Absolute Eosinophils 1.9 H Glucose 130 H Calcium 10.3 H AST 15 L Urine Ascorbic Acid 20 H Discharge <CINTHYA BOCANEGRA - Last Filed: 07/12/17 15:51> <MARISSA EDUARDO - Last Filed: 07/12/17 16:11> - Discharge Clinical Impression: Acute urinary retention, COPD exacerbation Constipation Qualifiers: Constipation type: drug induced constipation Qualified Code(s): K59.03 - Drug induced constipation Hypertension Qualifiers: Hypertension type: essential hypertension Qualified Code(s): I10 - Essential ( primary) hypertension Condition: Stable Disposition: HOME, SELF-CARE Additional Instructions: Take the prednisone 3 tabs a day until it is gone. Use your breathing treatments every 4 hours as needed. Take the azithromycin as directed for your breathing trouble. Please dissolve 1 scoop of MiraLAX in a glass of water once a day to treat constipation. You may increase to twice a day if needed to create soft bowel movements and you may decrease to every other day if you develop diarrhea. Prescriptions: Azithromycin 250 mg PO DAILY #4 tablet Magnesium Citrate 296 ml PO NOW #1 solution Prednisone [Deltasone 20 mg Tablet] 60 mg PO DAILY #12 tablet Scribe Attestation: 07/12/17 16:11 I personally performed the services described in the documentation, reviewed and edited the documentation which was dictated to the scribe in my presence, and it accurately records my words and actions. (MARISSA EDUARDO) Scribe Documentation - Scribe Written by Omari:: omari Pfeiffer, 07/12/2017 0933 acting as scribe for :: Darek <CINTHYA BOCANEGRA - Last Filed: 07/12/17 15:51>
[2017-07-12 09:25] LABS: ABSOLUTE BASOPHILS # (AUTO) 0.2 10^3/uL (0.0-0.2); ABSOLUTE EOSINOPHILS # (AUTO) 1.9 10^3/uL (0.0-0.6); ABSOLUTE LYMPHOCYTES (AUTO) 1.9 10^3/uL (0.5-4.7); ABSOLUTE MONOCYTES (AUTO) 0.9 10^3/uL (0.1-1.4); ABSOLUTE NEUT (AUTO) 9.7 10^3/uL (1.7-8.2); BASOPHILS % (AUTO) 1.1 % (0-2); EOSINOPHILS % (AUTO) 13.2 % (0-6); HEMATOCRIT 44.3 % (37.9-51.0); HEMOGLOBIN 14.9 g/dL (13.5-17.0); HGB HCT DIFFERENCE 0.4; LYMPHOCYTES % (AUTO) 12.8 % (13-45); MEAN CORPUSCULAR HEMOGLOBIN 31.8 pg (27.0-33.4); MEAN CORPUSCULAR HGB CONC 33.5 g/dL (32.0-36.0); MEAN CORPUSCULAR VOLUME 95 fl (80-97); MONOCYTES % (AUTO) 6.1 % (3-13); RED BLOOD COUNT 4.68 10^6/uL (4.35-5.55); RED CELL DISTRIBUTION WIDTH 15.7 % (11.5-14.0); SEGMENTED NEUTROPHILS % (AUTO) 66.8 % (42-78); WHITE BLOOD COUNT 14.6 10^3/uL (4.0-10.5)
[2017-07-12 09:26] LABS: VENOUS BLOOD BASE EXCESS -2.2 mmol/L; VENOUS BLOOD HCO3 22.5 mmol/L (20-32); VENOUS BLOOD PCO2 38.8 mmHg (35-63); VENOUS BLOOD PH 7.38 (7.30-7.42)
[2017-07-12 09:39] LABS: ALANINE AMINOTRANSFERASE 23 U/L (21-72); ALBUMIN 3.9 g/dL (3.5-5.0); ALKALINE PHOSPHATASE 81 U/L (38-126); ANION GAP 13 (5-19); ASPARTATE AMINO TRANSFERASE 15 U/L (17-59); BILIRUBIN,DIRECT 0.4 mg/dL (0.0-0.4); BILIRUBIN,TOTAL 0.9 mg/dL (0.2-1.3); BLOOD UREA NITROGEN 15 mg/dL (7-20); CALCIUM 10.3 mg/dL (8.4-10.2); CARBON DIOXIDE 23 mmol/L (22-30); CHLORIDE 105 mmol/L (98-107); CREATININE RESULT 0.92 mg/dL (0.52-1.25); GLUCOSE 130 mg/dL (75-110); POTASSIUM 4.2 mmol/L (3.6-5.0); SODIUM 140.7 mmol/L (137-145); TOTAL PROTEIN 6.6 g/dL (6.3-8.2)
--- NOTE | 2017-07-12 09:55 | RADIOLOGY REPORT (SQ) ---
EXAM DESCRIPTION: ABDOMEN 2 VIEWS COMPLETED DATE/TIME: 07/12/2017 9:42 am REASON FOR STUDY: no BM x 2 days COMPARISON: Supine and erect views of the abdomen 10/22/2016 KUB 03/21/2016 CT abdomen pelvis 04/17/2017 NUMBER OF VIEWS: Two views. TECHNIQUE: Supine and upright radiographic images of the abdomen acquired. LIMITATIONS: None. FINDINGS: FREE AIR: None. No abnormal gas collections. LUNG BASES: Clear. BOWEL GAS PATTERN: Large amount of stool in the ascending colon, splenic flexure and descending colon . No dilated small bowel loops. Stomach decompressed. CALCIFICATIONS: No suspicious calcifications. SOFT TISSUES: No gross mass or suggestion of organomegaly. HARDWARE: None in the abdomen. BONES: Advanced arthritis both hips. OTHER: No other significant finding. IMPRESSION: Constipation TECHNICAL DOCUMENTATION: JOB ID: [id number] [employer]- All Rights Reserved
--- NOTE | 2017-07-12 09:57 | RADIOLOGY REPORT (SQ) ---
EXAM DESCRIPTION: CHEST PA/LAT COMPLETED DATE/TIME: 07/12/2017 9:42 am REASON FOR STUDY: cough, SOB, wheeze COMPARISON: Chest films 04/27/2017, 12/15/2016, 10/21/2016, 08/13/2016 EXAM PARAMETERS: NUMBER OF VIEWS: two views TECHNIQUE: Digital Frontal and Lateral radiographic views of the chest acquired. RADIATION DOSE: NA LIMITATIONS: none FINDINGS: LUNGS AND PLEURA: Obstructive lung disease with enlarged airspaces in the upper lobes bila terally. There is airspace disease in the right upper lobe, along the right upper lobe bulla or bleb. This is less prominent than on 04/17/2017. There are increased interstitial markings in the right and left lateral costophrenic sulci, which may represent interstitial pulmonary edema rather than pulmonary fibrosis. No pneumothorax. No pleural effusions. No dense lobar consolidation. MEDIASTINUM AND HILAR STRUCTURES: No masses or contour abnormalities. HEART AND VASCULAR STRUCTURES: Heart normal size. No evidence for failure. BONES: No acute findings. HARDWARE: None in the chest. OTHER: No other significant finding. IMPRESSION: Obstructive lung disease Mild increased interstitial markings at both bases, question mild interstitial edema versus underlyin g pulmonary fibrosis Bandlike airspace disease in the right upper lobe is less prominent than on 04/17/2017, likely atelecta sis or scarring on today's study. TECHNICAL DOCUMENTATION: JOB ID: [id number]- All Rights Reserved
[2017-07-12 10:57] LABS: APPEARANCE,URINE CLEAR; BILIRUBIN,URINE NEGATIVE (NEGATIVE); GLUCOSE, URINE NEGATIVE (NEGATIVE); KETONES,URINE NEGATIVE (NEGATIVE); LEUKOCYTE ESTERASE,URINE NEGATIVE (NEGATIVE); NITRITE,URINE NEGATIVE (NEGATIVE); PROTEIN,URINE NEGATIVE (NEGATIVE); URINE SPECIFIC GRAVITY 1.014; UROBILINOGEN,URINE NEGATIVE mg/dL (<2.0)
[2017-07-12] MEDS ORDERED: MINERAL OIL 30 ML UDCUP PR ONE (12:40)
[2017-07-12] MEDS ORDERED: IPRATROPIUM/ALBUTEROL 0.5-2.5 MG/3 ML AMPUL NEB ONE (12:41)
[2017-07-12] MEDS ORDERED: PREDNISONE 20 MG TABLET PO ONE (12:42)
[2017-07-12] MEDS ORDERED: TRAMADOL HCL 50 MG TABLET PO ONE (13:32)
[2017-07-12] MEDS ORDERED: AZITHROMYCIN 250 MG TABLET PO ONE (15:03)
[2017-07-12 16:15] VITALS: BP 124/89
== END 2017-07-12 15:45 | disposition home or self-care (01) ==
LOC: ER 08:42
DX: J44.1 Chronic obstructive pulmonary disease with (acute) exacerbation (principal); R33.9 Retention of urine, unspecified; K59.03 Drug induced constipation; I10 Essential (primary) hypertension; R06.02 Shortness of breath; Z99.81 Dependence on supplemental oxygen; Z79.899 Other long term (current) drug therapy; Z87.891 Personal history of nicotine dependence
CPT/HCPCS: 94640 ×2; 99285; 51702; 36415; 87040; 85025; 80053; 81001; 82803; 83605; 74020; 71020; A9270 ×5; J3490; J7512; J7620

== ENCOUNTER 2017-11-08 23:58 | Inpatient (IN) | payer MEDICARE, OTHER ==
[2017-11-09] MEDS ORDERED: ALBUTEROL SULFATE 0.083% NEB 2.5 MG/3 ML AMPUL NEB ONE (00:08)
[2017-11-09] MEDS ORDERED: NORMAL SALINE 1000 ML 1,000 ML IV ONE (00:09)
--- NOTE | 2017-11-09 00:11 | ER Document Report ---
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 History is difficult to obtain as patient is nonverbal, only able to write with a marker board and pen. EMS reports that when they arrived the patient was saturating 95% on 5 L via trach collar. In route to the hospital he received Solu-Medrol as well as several nebulizers but continued to have respiratory distress. At time of arrival patient states that he continues to feel very short of breath, has not felt any significant improvement after the albuterol treatment provided by EMS. He denies any ongoing smoking. He is uncertain what triggered his exacerbation today but states it feels very similar to when he has had a very severe COPD exacerbation in the past. He has not seen his primary doctor regarding today's concerns. He denies any fever, vomiting or diarrhea. He has been taking all her medications as prescribed. TRAVEL OUTSIDE OF THE [place] IN LAST 30 DAYS: No - Related Data Allergies/Adverse Reactions: ceftriaxone [From Rocephin] Allergy (Severe, Verified 08/19/17 02:07) Penicillins Allergy (Severe, Verified 07/12/17 11:51) Past Medical History - General Information source: Patient, Emergency Med Personnel - Social History Smoking Status: Former Smoker Frequency of alcohol use: None Drug Abuse: None Lives with: Family Family History: DM, Hypertension, Malignancy - Past Medical History Cardiac Medical History: Reports: Hx Atrial Fibrillation, Hx Coronary Artery Disease Denies: Hx Heart Attack, Hx Hypertension Pulmonary Medical History: Reports: Hx Asthma, Hx COPD, Hx Pneumonia, Hx Respiratory Failure Denies: Hx Bronchitis Neurological Medical History: Denies: Hx Cerebrovascular Accident, Hx Seizures Endocrine Medical History: Reports: Hx Diabetes Mellitus Type 1, Hx Diabetes Mellitus Type 2, Hx Hyperthyroidism, Hx Hypothyroidism Musculoskeltal Medical History: Reports Hx Arthritis - GENERALIZED Psychiatric Medical History: Denies: Hx Depression Past Surgical History: Reports: Hx Abdominal Surgery - G-tube, Hx Oral Surgery - Trach, Other - Laryngeal cancer resection with tracheostomy - Immunizations Hx Diphtheria, Pertussis, Tetanus Vaccination: Yes Hx Pneumococcal Vaccination: 10/18/11 Review of Systems - Review of Systems Notes: Constitutional: Negative for fever. HENT: Negative for sore throat. Eyes: Negative for visual changes. Cardiovascular: Negative for chest pain. Respiratory: Positive for shortness of breath. Gastrointestinal: Negative for abdominal pain, vomiting or diarrhea. Genitourinary: Negative for dysuria. Musculoskeletal: Negative for back pain. Skin: Negative for rash. Neurological: Negative for headaches, weakness or numbness. 10 point ROS negative except as marked above and in HPI. Physical Exam - Vital signs Vitals: Temp Pulse Resp BP Pulse Ox 99.5 F 117 H 21 H 176/126 H 99 11/09/17 00:01 11/09/17 00:01 11/09/17 00:01 11/09/17 00:01 11/09/17 00:01 Interpretation: Tachycardic, Tachypneic Notes: PHYSICAL EXAMINATION: GENERAL: Chronically ill in appearance, in moderate respiratory distress HEAD: Atraumatic, normocephalic. EYES: Pupils equal round and reactive to light, extraocular movements intact, sclera anicteric, conjunctiva are normal. ENT: nares patent, oropharynx clear without exudates. Dry mucous membranes. NECK: Tracheostomy present with a high-pitched wheezing LUNGS: Poor air movement in all lung gray with diffuse expiratory wheezing throughout. Intercostal and subclavicular retractions. HEART: Regular tachycardia without murmurs ABDOMEN: Soft, nontender, normoactive bowel sounds. No guarding, no rebound. No masses appreciated. EXTREMITIES: Normal range of motion, no pitting or edema. No cyanosis. NEUROLOGICAL: No focal neurological deficits. Moves all extremities spontaneously and on command. PSYCH: Normal mood, normal affect. SKIN: Warm, Dry, normal turgor, no rashes or lesions noted. Course - Re-evaluation Re-evalutation: 11/09/17 00:10 Patient presents in moderate respiratory distress, breathing approximately 30 times per minute with pronounced wheezing and diminished air movement in all lung gray. He has a tracheostomy does not currently have a trach tube in place. He states he removed it himself because he feels like it worsens his breathing in the setting of an acute COPD exacerbation. He received Solu- Medrol and one nebulizer prior to arrival which EMS reports has improved his work of breathing and respiratory rate but the patient himself states that he continues to feel very poorly. Continuous nebulizers will be started. He continues on trach collar at this time 5 L of oxygen which is normal home level of oxygen and maintaining sats at 98-100%. Will also begin IV magnesium. Also start IV fluids for rehydration in the setting. Patient is critically ill given his work of breathing will require frequent reassessments. 11/09/17 0030 Patient continues with pronounced wheezing, moderate respiratory distress, retractions but is maintaining saturations at 98% on a trach collar. Will continue to reassess frequently. 0100-patient continues with increased work of breathing, breathing approximately 25 times per minute at this time, overall much improved but continues with some mild respiratory distress 11/09/17 02:06 Patient's work of breathing is overall much improved, no further signs of distress although he remains tachycardic and tight with associated wheezing. He is no longer having retractions. He remains slightly tachycardic at 116 bpm. Patient's received a total of 20 mg of albuterol, 2 g of magnesium and 125 mg of Solu-Medrol. Given his active wheezing and tachycardia he will be hospitalized. I discussed with Dr. Johnson who is accepted the patient for admission - Vital Signs Vital signs: Temp Pulse Resp BP Pulse Ox 99.5 F 117 H 24 H 160/99 H 99 11/09/17 00:01 11/09/17 00:01 11/09/17 01:01 11/09/17 01:01 11/09/17 01:01 - Laboratory Result Diagrams: 11/09/17 00:09 11/09/17 00:09 Laboratory results interpreted by me: 11/09/17 11/09/17 00:09 00:09 WBC 14.0 H RDW 16.0 H Eosinophils % 6.1 H Absolute Neutrophils 9.1 H Absolute Eosinophils 0.9 H Potassium 5.1 H Chloride 95 L BUN 23 H Glucose 143 H - Diagnostic Test Radiology reviewed: Image reviewed, Reports reviewed Radiology results interpreted by me: 11/09/17 02:09 Chest x-ray: No acute infiltrate or pneumothorax - EKG Interpretation by Me Additional EKG results interpreted by me: 11/09/17 02:14 Sinus tachycardia. Rate 118. No ST elevations or depressions. QTC is 365. Critical Care Note - Critical Care Note Total time excluding time spent on procedures (mins): 36 Comments: Critical care time spent obtaining history from patient or surrogate, discussions with consultants, development of treatment plan with patient or surrogate, evaluation of patient's response to treatment, examination of patient , ordering and performing treatments and interventions, ordering and review of laboratory studies, re-evaluation of patient's condition, ordering and review of radiographic studies and review of old charts Discharge - Discharge Clinical Impression: Respiratory distress, COPD exacerbation Condition: Fair Disposition: ADMITTED INPATIENT Admitting Provider: [place] [facility] Unit Admitted: Telemetry
[2017-11-09 00:24] LABS: ABSOLUTE BASOPHILS # (AUTO) 0.1 10^3/uL (0.0-0.2); ABSOLUTE EOSINOPHILS # (AUTO) 0.9 10^3/uL (0.0-0.6); ABSOLUTE LYMPHOCYTES (AUTO) 2.6 10^3/uL (0.5-4.7); ABSOLUTE MONOCYTES (AUTO) 1.4 10^3/uL (0.1-1.4); ABSOLUTE NEUT (AUTO) 9.1 10^3/uL (1.7-8.2); BASOPHILS % (AUTO) 0.9 % (0-2); EOSINOPHILS % (AUTO) 6.1 % (0-6); HEMATOCRIT 49.3 % (37.9-51.0); LYMPHOCYTES % (AUTO) 18.3 % (13-45); MEAN CORPUSCULAR HEMOGLOBIN 30.7 pg (27.0-33.4); MEAN CORPUSCULAR HGB CONC 32.5 g/dL (32.0-36.0); MEAN CORPUSCULAR VOLUME 94 fl (80-97); MONOCYTES % (AUTO) 9.6 % (3-13); PLATELET COUNT 297 10^3/uL (150-450); RED BLOOD COUNT 5.23 10^6/uL (4.35-5.55); SEGMENTED NEUTROPHILS % (AUTO) 65.1 % (42-78); TOTAL CELLS COUNTED % (AUTO) 100 %
[2017-11-09] MEDS: MAGNESIUM SULFATE/D5W 1 GM/100 ML RTUPB IV SCH ×2 (00:28→01:07)
--- NOTE | 2017-11-09 00:43 | RADIOLOGY REPORT (SQ) ---
EXAM DESCRIPTION: CHEST SINGLE VIEW CLINICAL HISTORY: sob COMPARISON: 08/18/2017 FINDINGS: Single frontal view of the chest. Atherosclerotic calcification and tortuosity of the thoracic aorta. Heart is not enlarged. No consolidation, pneumothorax, or pleural effusion. No acute osseous abnormality. Leads overlie the chest. Upper abdominal soft tissues are unremarkable. Bullous changes in the right lung apex are stable. IMPRESSION: 1. No acute pulmonary process identified.
[2017-11-09 00:49] LABS: BLOOD UREA NITROGEN 23 mg/dL (7-20); CALCIUM 9.6 mg/dL (8.4-10.2); CHLORIDE 95 mmol/L (98-107); GLUCOSE 143 mg/dL (75-110)
[2017-11-09 00:51] LABS: VENOUS BLOOD BASE EXCESS -3.5 mmol/L; VENOUS BLOOD HCO3 22.7 mmol/L (20-32); VENOUS BLOOD PH 7.32 (7.30-7.42)
[2017-11-09 00:56] LABS: ANION GAP 17 (5-19); CARBON DIOXIDE 25 mmol/L (22-30); POTASSIUM 5.1 mmol/L (3.6-5.0); SODIUM 137.3 mmol/L (137-145)
[2017-11-09] MEDS ORDERED: ACETAMINOPHEN 325 MG TABLET PO PRN (02:06)
[2017-11-09] MEDS ORDERED: HYDRALAZINE HCL INJ/PF 20 MG/1 ML SDV IV PRN (02:06)
[2017-11-09] MEDS ORDERED: TRAMADOL HCL 50 MG TABLET PO PRN (02:07)
[2017-11-09] MEDS ORDERED: GLUCAGON,HUMAN RECOMB 1 MG INJ IM PRN (02:08)
[2017-11-09] MEDS ORDERED: DEXTROSE 50%-WATER 25 GM/50 ML DISP.SYRIN IV PRN ×2 (02:08)
[2017-11-09] MEDS ORDERED: DEXTROSE 40% GEL 15 GM TUBE PO PRN ×2 (02:08)
[2017-11-09] MEDS ORDERED: IPRATROPIUM/ALBUTEROL 0.5-2.5 MG/3 ML AMPUL NEB PRN (02:08)
[2017-11-09] MEDS ORDERED: GUAIFENESIN SYRP 200 MG/10 ML UDC PO PRN (02:08)
[2017-11-09] MEDS ORDERED: INSULIN LISPRO 100 UNIT/ML 3 ML VIAL SUBCUT PRN (02:08)
[2017-11-09] MEDS ORDERED: LACTULOSE SYRUP 20 GM/30 ML UDCUP PO ONE (02:30)
[2017-11-09] MEDS ORDERED: DIGOXIN 0.25 MG TABLET PO ONE (02:30)
[2017-11-09] MEDS ORDERED: FLUTICASONE NASAL SPRAY 50 MCG/SPRY 120 SPRAY/16 GM NASL ONE (02:30)
[2017-11-09] MEDS ORDERED: CHLORPHENIRAMINE MALEATE 4 MG TABLET PO ONE (02:30)
[2017-11-09] MEDS ORDERED: METHYLPREDNISOLONE INJ 125 MG/2 ML SDV IV ONE (02:30)
[2017-11-09 02:37] LABS: CREATINE KINASE MB 7.17 ng/mL (<4.55); TROPONIN I 0.025 ng/mL
--- NOTE | 2017-11-09 03:25 | PDOC H&P ---
History of Present Illness Admission Date/PCP: 11/09/17 02:17 Patient complains of: Shortness of breath History of Present Illness: KARLA PARADA is a 77 year old male with a past medical history of oxygen dependent COPD, laryngeal cancer status post laryngectomy and tracheostomy, paroxysmal atrial fibrillation, diabetes and hypothyroidism. Patient presents after 3 days of wheeze, shortness of breath, rhinorrhea and productive cough with trach suctioning. In the emergency room he is found to have uncontrolled hypertension, tachycardia, tachypnea and leukocytosis. He receives albuterol, Atrovent, supplemental oxygen via mask to trach and referred to the hospitalist for admission. Patient denies recent antibiotic use or infectious contacts. Past Medical History Cardiac Medical History: Reports: Atrial Fibrillation, Coronary Artery Disease Denies: Myocardial Infarction, Hypertension Pulmonary Medical History: Reports: Asthma, Chronic Obstructive Pulmonary Disease (COPD), Pneumonia, Respiratory Failure Denies: Bronchitis Neurological Medical History: Denies: Seizures Endocrine Medical History: Reports: Diabetes Mellitus Type 1, Diabetes Mellitus Type 2, Hyperthyroidism, Hypothyroidism Musculoskeltal Medical History: Reports: Arthritis - GENERALIZED Psychiatric Medical History: Denies: Depression, Tobacco Dependency Hematology: Denies: Anemia, Sickle Cell Disease Past Surgical History Past Surgical History: Reports: Other - Laryngeal cancer resection with tracheostomy Social History Information Source: Patient, [facility] Records Lives with: Family Smoking Status: Former Smoker Frequency of Alcohol Use: None Hx Recreational Drug Use: No Drugs: None Hx Prescription Drug Abuse: No - Advance Directive Resuscitation Status: Full Code Family History Family History: DM, Hypertension, Malignancy Parental Family History Reviewed: Yes Children Family History Reviewed: Yes Sibling(s) Family History Reviewed.: Yes Medication/Allergy Home Medications: Digoxin [Lanoxin] 250 mcg PO DAILY 08/18/17 Diltiazem HCl [Cardizem 60 mg Tablet] 60 mg PO Q8 08/18/17 Finasteride [Proscar 5 mg Tablet] 5 mg PO DAILY 08/18/17 Furosemide [Lasix 40 mg Tablet] 40 mg PO DAILY 08/18/17 Gabapentin [Neurontin 300 mg Capsule] 300 mg PO Q8 08/18/17 Levothyroxine Sodium [Synthroid] 200 mcg PO DAILY 08/18/17 Metformin HCl [Metformin HCl ER] 1,000 mg PO QHS 08/18/17 Simvastatin [Zocor 10 mg Tablet] 10 mg PO DAILY 08/18/17 Tramadol HCl [Ultram 50 mg Tablet] 50 mg PO Q8HP PRN 08/18/17 Levofloxacin [Levaquin 500 mg Tablet] 500 mg PO DAILY #7 tablet 08/23/17 Prednisone [Deltasone 20 mg Tablet] 20 mg PO BID #20 tablet 08/23/17 Allergies/Adverse Reactions: ceftriaxone [From Rocephin] Allergy (Severe, Verified 08/19/17 02:07) Penicillins Allergy (Severe, Verified 07/12/17 11:51) Review of Systems Constitutional: PRESENT: as per HPI, fatigue Eyes: ABSENT: visual disturbances Ears: ABSENT: hearing changes Cardiovascular: PRESENT: dyspnea on exertion, other. ABSENT: chest pain, edema , orthropnea, palpitations Respiratory: PRESENT: as per HPI, cough, dyspnea, sputum Gastrointestinal: ABSENT: abdominal pain, constipation, diarrhea, hematemesis, hematochezia, nausea, vomiting Genitourinary: ABSENT: dysuria, hematuria Musculoskeletal: ABSENT: joint swelling Integumentary: ABSENT: rash, wounds Neurological: ABSENT: abnormal gait, abnormal speech, confusion, dizziness, focal weakness, syncope Psychiatric: ABSENT: anxiety, depression, homidical ideation, suicidal ideation Endocrine: ABSENT: cold intolerance, heat intolerance, polydipsia, polyuria Hematologic/Lymphatic: ABSENT: easy bleeding, easy bruising Physical Exam Vital Signs: Temp Pulse Resp BP Pulse Ox 99.5 F 117 H 24 H 149/97 H 97 11/09/17 00:01 11/09/17 00:01 11/09/17 02:01 11/09/17 02:01 11/09/17 02:01 General appearance: PRESENT: cooperative, disheveled, severe distress, thin Head exam: PRESENT: atraumatic, normocephalic Eye exam: PRESENT: conjunctiva pink, EOMI, PERRLA. ABSENT: scleral icterus Ear exam: PRESENT: normal external ear exam Mouth exam: PRESENT: moist, tongue midline Neck exam: PRESENT: tracheostomy. ABSENT: carotid bruit, JVD, lymphadenopathy, thyromegaly Respiratory exam: PRESENT: accessory muscle use, decreased breath sounds, prolonged expiratory phas, rales, retraction, symmetrical, tachypnea, wheezes Cardiovascular exam: PRESENT: RRR. ABSENT: diastolic murmur, rubs, systolic murmur Pulses: PRESENT: normal dorsalis pedis pul Vascular exam: PRESENT: normal capillary refill GI/Abdominal exam: PRESENT: normal bowel sounds, soft. ABSENT: distended, guarding, mass, organolmegaly, rebound, tenderness Rectal exam: PRESENT: deferred Extremities exam: PRESENT: full ROM. ABSENT: calf tenderness, clubbing, pedal edema Neurological exam: PRESENT: alert, awake, oriented to person, oriented to place , oriented to time, oriented to situation, CN II-XII grossly intact. ABSENT: motor sensory deficit Psychiatric exam: PRESENT: appropriate affect, normal mood. ABSENT: homicidal ideation, suicidal ideation Skin exam: PRESENT: dry, intact, warm. ABSENT: cyanosis, rash Results Impressions: Chest X-Ray 11/09/17 00:09 IMPRESSION: 1. No acute pulmonary process identified. Assessment & Plan - Diagnosis (1) COPD exacerbation Is this a current diagnosis for this admission?: Yes Plan: Supplemental oxygen mask to trach, albuterol and Atrovent, trial prednisone. Patient requires Shiley valve at bedside in case of emergent need for ventilator support. (2) Acute exacerbation of chronic bronchitis Is this a current diagnosis for this admission?: Yes Plan: Empiric antibiotics, follow-up culture, aggressive pulmonary toilet, consider additional imaging. (3) Constipation Is this a current diagnosis for this admission?: Yes Plan: Lactulose and bowel regiment (4) Hyperkalemia Is this a current diagnosis for this admission?: Yes Plan: Lactulose and follow-up chemistry. - Time Time Spent: 30 to 50 Minutes - Inpatient Certification Medical Necessity: Need Close Monitoring Due to Risk of Patient Decompensation
[2017-11-09] MEDS ORDERED: CHLORPHENIRAMINE MALEATE 4 MG TABLET ONE (03:40)
[2017-11-09] MEDS: DILTIAZEM HCL 60 MG TABLET PO SCH ×3 (04:12→17:16)
[2017-11-09] MEDS ORDERED: HEPARIN SOD (PORCINE) 5,000 UNIT/ML 1 ML SYRINGE SUBCUT SCH (06:00)
[2017-11-09] MEDS ORDERED: LEVOTHYROXINE SODIUM 0.1 MG TABLET PO SCH (06:00)
[2017-11-09] MEDS: HEPARIN SOD (PORCINE) 5,000 UNIT/ML 1 ML SYRINGE SUBCUT SCH ×3 (06:08→21:58)
[2017-11-09] MEDS: LANSOPRAZOLE 30 MG TAB.RAP.DR PO SCH ×2 (06:08→17:16)
[2017-11-09] MEDS: GABAPENTIN 300 MG CAPSULE PO SCH ×3 (06:08→21:57)
[2017-11-09 06:28] LABS: CREATINE KINASE MB 10.1 ng/mL (<4.55); TROPONIN I 0.028 ng/mL
[2017-11-09] MEDS: LEVOTHYROXINE SODIUM 0.1 MG TABLET PO SCH (06:36)
[2017-11-09] MEDS: IPRATROPIUM/ALBUTEROL 0.5-2.5 MG/3 ML AMPUL NEB SCH ×3 (08:17→23:44)
[2017-11-09] MEDS: FLUTICASONE NASAL SPRAY 50 MCG/SPRY 120 SPRAY/16 GM NASL SCH ×2 (09:52→23:27)
[2017-11-09] MEDS: FUROSEMIDE 40 MG TABLET PO SCH (10:03)
[2017-11-09] MEDS: FINASTERIDE 5 MG TABLET PO SCH (10:03)
[2017-11-09] MEDS: DIGOXIN 0.25 MG TABLET PO SCH (10:03)
[2017-11-09] MEDS: GUAIFENESIN 600 MG TABLET.SA PO SCH ×2 (10:04→21:56)
[2017-11-09] MEDS: PREDNISONE 20 MG TABLET PO SCH ×2 (10:04→17:16)
[2017-11-09] MEDS: LEVOFLOXACIN 750 MG/D5W RTU 750 MG/150 ML RTUPB IV SCH (10:05)
--- NOTE | 2017-11-09 13:14 | EKG REPORT ---
SEVERITY:- ABNORMAL ECG - SINUS TACHYCARDIA REPOL ABNRM SUGGESTS ISCHEMIA, DIFFUSE LEADS : Confirmed by: Dang Ferreira MD 09-Nov-2017 13:13:50
[2017-11-09 13:15] LABS: CREATINE KINASE MB 9.97 ng/mL (<4.55); TROPONIN I 0.022 ng/mL
--- NOTE | 2017-11-09 15:36 | Physician Advisory Note ---
Physician Advisor ProgressNote .: Pursuant to the plan for [facility], I have reviewed the medical record for this patient. Physician Advisor Statement: Please consider documenting, if you agree: 1. "Chronic Hypoxemic Respiratory Failure, requiring 2L O2 at baseline" 2. Medical necessity: Please continue to document, each day including today, the clinical reasons pt cannot be safely d/c'd home later that day, such as: "respiratory status not back to baseline", "continued hemodynamic instability/ tachycardia/tachypnea", "continuing to need more O2 than at baseline", "I AM CONCERNED about " Status determination: 77yo Medicare pt with chr resp failure, trach due to laryngeal CA, CAD, paroxysmal [employer], DM, ... presented in severe distress just after MN. This is not just a typical routine COPD exacerbation that has a reasonable chance of d/c home after 1MN of hospital care. The attending is so concerned, he has documented this pt "requires Shiley valve at bedside in case of emergent need for vent support" - indicating strong chance for enough further decompensation in the next 1-2 days that pt may need artificial ventilator support. This pt is severely ill, with no reasonable chance of quick response & d/c within the next 24-36 hrs, prior to 2 MNs. Appropriate for Inpatient status. Thanks for all you do! CK
[2017-11-09] MEDS: SIMVASTATIN 10 MG TABLET PO SCH (21:56)
[2017-11-10] MEDS: DILTIAZEM HCL 60 MG TABLET PO SCH ×3 (01:40→18:12)
[2017-11-10] MEDS: LEVOTHYROXINE SODIUM 0.1 MG TABLET PO SCH (06:22)
[2017-11-10] MEDS: LANSOPRAZOLE 30 MG TAB.RAP.DR PO SCH ×2 (06:23→18:12)
[2017-11-10] MEDS: GABAPENTIN 300 MG CAPSULE PO SCH ×3 (06:23→21:35)
[2017-11-10] MEDS: HEPARIN SOD (PORCINE) 5,000 UNIT/ML 1 ML SYRINGE SUBCUT SCH ×3 (06:26→21:35)
[2017-11-10 07:22] LABS: HEMOGLOBIN 14.9 g/dL (13.5-17.0); MEAN CORPUSCULAR HEMOGLOBIN 30.8 pg (27.0-33.4); MEAN CORPUSCULAR HGB CONC 33.2 g/dL (32.0-36.0); MEAN CORPUSCULAR VOLUME 93 fl (80-97); PLATELET COUNT 276 10^3/uL (150-450); RED BLOOD COUNT 4.84 10^6/uL (4.35-5.55); RED CELL DISTRIBUTION WIDTH 16.2 % (11.5-14.0); WHITE BLOOD COUNT 18.4 10^3/uL (4.0-10.5)
[2017-11-10 07:33] LABS: ANION GAP 8 (5-19); BLOOD UREA NITROGEN 33 mg/dL (7-20); CALCIUM 9.7 mg/dL (8.4-10.2); CARBON DIOXIDE 27 mmol/L (22-30); CHLORIDE 103 mmol/L (98-107); GLUCOSE 157 mg/dL (75-110); POTASSIUM 4.7 mmol/L (3.6-5.0); SODIUM 138.2 mmol/L (137-145)
[2017-11-10 07:50] LABS: ABSOLUTE LYMPHOCYTES# (MANUAL) 0.7 10^3/uL (0.5-4.7); ABSOLUTE MONOCYTES # (MANUAL) 1.1 10^3/uL (0.1-1.4); ABSOLUTE NEUTROPHILS# (MANUAL) 16.4 10^3/uL (1.7-8.2); ANISOCYTOSIS 1+; BAND NEUTROPHILS % (MANUAL) 2 % (3-5); BASOPHILS % (MANUAL) 0 % (0-2); EOSINOPHILS % (MANUAL) 1 % (0-6); HYPOCHROMASIA SLIGHT; LYMPHOCYTES % (MANUAL) 2 % (13-45); MONOCYTES % (MANUAL) 6 % (3-13); PLATELET COMMENT ADEQUATE; SEGMENTED NEUTROPHILS % (MAN) 87 % (42-78); TOTAL CELLS COUNTED 100; TOXIC GRANULATION SLIGHT; TOXIC VACUOLATION PRESENT
[2017-11-10] MEDS: IPRATROPIUM/ALBUTEROL 0.5-2.5 MG/3 ML AMPUL NEB SCH ×2 (08:24→16:36)
[2017-11-10] MEDS: LEVOFLOXACIN 750 MG/D5W RTU 750 MG/150 ML RTUPB IV SCH (10:05)
[2017-11-10] MEDS: FINASTERIDE 5 MG TABLET PO SCH (10:11)
[2017-11-10] MEDS: PREDNISONE 20 MG TABLET PO SCH ×2 (10:12→18:14)
[2017-11-10] MEDS: FUROSEMIDE 40 MG TABLET PO SCH (10:12)
[2017-11-10] MEDS: DIGOXIN 0.25 MG TABLET PO SCH (10:12)
[2017-11-10] MEDS: GUAIFENESIN 600 MG TABLET.SA PO SCH ×2 (10:13→21:35)
[2017-11-10] MEDS: FLUTICASONE NASAL SPRAY 50 MCG/SPRY 120 SPRAY/16 GM NASL SCH ×2 (10:14→21:35)
[2017-11-10] MEDS: SIMVASTATIN 10 MG TABLET PO SCH (21:35)
[2017-11-11] MEDS: IPRATROPIUM/ALBUTEROL 0.5-2.5 MG/3 ML AMPUL NEB SCH ×4 (00:15→23:42)
[2017-11-11] MEDS: DILTIAZEM HCL 60 MG TABLET PO SCH ×3 (01:34→18:09)
[2017-11-11] MEDS: LEVOTHYROXINE SODIUM 0.1 MG TABLET PO SCH (05:21)
[2017-11-11] MEDS: HEPARIN SOD (PORCINE) 5,000 UNIT/ML 1 ML SYRINGE SUBCUT SCH ×3 (05:21→22:15)
[2017-11-11] MEDS: GABAPENTIN 300 MG CAPSULE PO SCH ×3 (05:21→22:15)
[2017-11-11] MEDS: LANSOPRAZOLE 30 MG TAB.RAP.DR PO SCH ×2 (05:21→18:09)
[2017-11-11] MEDS: FINASTERIDE 5 MG TABLET PO SCH (10:57)
[2017-11-11] MEDS: GUAIFENESIN 600 MG TABLET.SA PO SCH ×2 (10:57→22:15)
[2017-11-11] MEDS: LEVOFLOXACIN 750 MG/D5W RTU 750 MG/150 ML RTUPB IV SCH (10:58)
[2017-11-11] MEDS: PREDNISONE 20 MG TABLET PO SCH ×2 (10:58→18:09)
[2017-11-11] MEDS: FUROSEMIDE 40 MG TABLET PO SCH (10:58)
[2017-11-11] MEDS: DIGOXIN 0.25 MG TABLET PO SCH (11:00)
[2017-11-11] MEDS: FLUTICASONE NASAL SPRAY 50 MCG/SPRY 120 SPRAY/16 GM NASL SCH ×2 (11:00→22:10)
--- NOTE | 2017-11-11 12:37 | Physician Advisory Note ---
Physician Advisor ProgressNote .: Pursuant to the plan for [facility], I have reviewed the medical record for this patient. Physician Advisor Statement: A note should be available on the chart for each patient each day. - If wanting to avoid signing a note temporarily, please save it as a "DRAFT" ( which allows others to read it) rather than "pending" (which makes it look to all others like there is no note yet done). This will help covering providers in an emergency, and help support Inpatient status without unnecessary calls. Thanks for your help! CK
[2017-11-11] MEDS: SIMVASTATIN 10 MG TABLET PO SCH (22:14)
[2017-11-12] MEDS: DILTIAZEM HCL 60 MG TABLET PO SCH ×3 (01:58→18:19)
[2017-11-12] MEDS: HEPARIN SOD (PORCINE) 5,000 UNIT/ML 1 ML SYRINGE SUBCUT SCH ×3 (06:28→22:54)
[2017-11-12] MEDS: LANSOPRAZOLE 30 MG TAB.RAP.DR PO SCH ×2 (06:28→18:15)
[2017-11-12] MEDS: LEVOTHYROXINE SODIUM 0.1 MG TABLET PO SCH (06:28)
[2017-11-12] MEDS: GABAPENTIN 300 MG CAPSULE PO SCH ×3 (06:28→22:54)
[2017-11-12] MEDS: IPRATROPIUM/ALBUTEROL 0.5-2.5 MG/3 ML AMPUL NEB SCH ×2 (08:34→16:25)
[2017-11-12] MEDS: LEVOFLOXACIN 750 MG/D5W RTU 750 MG/150 ML RTUPB IV SCH (10:03)
[2017-11-12] MEDS: PREDNISONE 20 MG TABLET PO SCH ×2 (10:05→18:15)
[2017-11-12] MEDS: GUAIFENESIN 600 MG TABLET.SA PO SCH ×2 (10:06→22:54)
[2017-11-12] MEDS: FUROSEMIDE 40 MG TABLET PO SCH (10:06)
[2017-11-12] MEDS: FINASTERIDE 5 MG TABLET PO SCH (10:06)
[2017-11-12] MEDS: FLUTICASONE NASAL SPRAY 50 MCG/SPRY 120 SPRAY/16 GM NASL SCH ×2 (10:10→23:57)
[2017-11-12] MEDS: DIGOXIN 0.25 MG TABLET PO SCH (10:10)
--- NOTE | 2017-11-12 12:12 | PDOC PROGRESS REPORT ---
Subjective Progress Note for:: 11/12/17 Subjective:: The patient states to feel better. His breathing has improved with supplemental oxygen and neb treatments. Reason For Visit: COPD EXACERBATION ACUTE ON CHRONIC BRONCHITIS Physical Exam Vital Signs: Temp Pulse Resp BP Pulse Ox 97.7 F 56 L 18 119/71 96 11/12/17 08:21 11/12/17 08:34 11/12/17 08:34 11/12/17 08:21 11/12/17 08:34 Intake & Output 11/11/17 11/12/17 11/13/17 06:59 06:59 06:59 Intake Total 1289 1280 Balance 1289 1280 Weight 79.7 kg 79.9 kg General appearance: PRESENT: mild distress Head exam: PRESENT: atraumatic Eye exam: PRESENT: conjunctival injection Neck exam: PRESENT: tracheostomy Respiratory exam: PRESENT: rhonchi, wheezes Cardiovascular exam: PRESENT: irregular rhythm, +S1, +S2 GI/Abdominal exam: PRESENT: normal bowel sounds, soft Extremities exam: PRESENT: tenderness Musculoskeletal exam: PRESENT: tenderness Neurological exam: PRESENT: alert, awake Results Laboratory Results: 11/10/17 07:07 11/10/17 07:07 11/09/17 11/09/17 11/09/17 05:45 05:45 12:33 Creatine Kinase 219 H 186 H CK-MB (CK-2) 10.10 H Troponin I 0.028 11/09/17 12:33 Creatine Kinase CK-MB (CK-2) 9.97 H Troponin I 0.022 Impressions: Chest X-Ray 11/09/17 00:09 IMPRESSION: 1. No acute pulmonary process identified. Assessment & Plan - Diagnosis (1) Acute exacerbation of chronic bronchitis Is this a current diagnosis for this admission?: Yes Plan: We will continue steroids and nebulization treatments (2) COPD exacerbation Is this a current diagnosis for this admission?: Yes Plan: Continue steroids nebulization treatments and antibiotics (3) Acute on chronic respiratory failure with hypoxemia Is this a current diagnosis for this admission?: Yes Plan: Continue O2 and steroids (4) Atrial fibrillation with RVR Is this a current diagnosis for this admission?: Yes Plan: Continue current medications. (5) Diabetes mellitus Qualifiers: Diabetes mellitus type: type 2 Diabetes mellitus complication status: with neurologic complications Diabetes mellitus complication detail: with unspecified neuropathy Is this a current diagnosis for this admission?: Yes Plan: Continue sliding-scale insulin (6) Do not resuscitate Is this a current diagnosis for this admission?: Yes Plan: Because of patient's prior history he does not want CPR or any life support.
[2017-11-12] MEDS: SIMVASTATIN 10 MG TABLET PO SCH (22:54)
[2017-11-13] MEDS: IPRATROPIUM/ALBUTEROL 0.5-2.5 MG/3 ML AMPUL NEB SCH ×3 (00:26→16:03)
[2017-11-13] MEDS: DILTIAZEM HCL 60 MG TABLET PO SCH ×3 (02:34→17:40)
[2017-11-13] MEDS: LANSOPRAZOLE 30 MG TAB.RAP.DR PO SCH ×2 (06:09→17:40)
[2017-11-13] MEDS: GABAPENTIN 300 MG CAPSULE PO SCH ×3 (06:09→21:32)
[2017-11-13] MEDS: LEVOTHYROXINE SODIUM 0.1 MG TABLET PO SCH (06:09)
[2017-11-13] MEDS: HEPARIN SOD (PORCINE) 5,000 UNIT/ML 1 ML SYRINGE SUBCUT SCH ×3 (06:10→21:32)
[2017-11-13 07:19] LABS: ALANINE AMINOTRANSFERASE 42 U/L (21-72); ALBUMIN 3.9 g/dL (3.5-5.0); ALKALINE PHOSPHATASE 72 U/L (38-126); ANION GAP 9 (5-19); ASPARTATE AMINO TRANSFERASE 21 U/L (17-59); BILIRUBIN,DIRECT 0.2 mg/dL (0.0-0.4); BILIRUBIN,TOTAL 0.6 mg/dL (0.2-1.3); BLOOD UREA NITROGEN 42 mg/dL (7-20); CALCIUM 10.1 mg/dL (8.4-10.2); CARBON DIOXIDE 29 mmol/L (22-30); CHLORIDE 98 mmol/L (98-107); GLUCOSE 145 mg/dL (75-110); MAGNESIUM 2.3 mg/dL (1.6-2.3); POTASSIUM 4.8 mmol/L (3.6-5.0); SODIUM 136.2 mmol/L (137-145); TOTAL PROTEIN 6.5 g/dL (6.3-8.2)
--- NOTE | 2017-11-13 10:10 | RADIOLOGY REPORT (SQ) ---
EXAM DESCRIPTION: CHEST PA/LAT COMPLETED DATE/TIME: 11/13/2017 9:56 am REASON FOR STUDY: copd COMPARISON: Chest x-ray 11/09/2017, 07/12/2017. EXAM PARAMETERS: NUMBER OF VIEWS: two views TECHNIQUE: Digital Frontal and Lateral radiographic views of the chest acquired. RADIATION DOSE: NA LIMITATIONS: none FINDINGS: LUNGS AND PLEURA: Hyperlucent lungs, suggestive of emphysema. Mild ground-glass opacities are seen at the lung bases. No sizable pleural effusion or pneumothorax. MEDIASTINUM AND HILAR STRUCTURES: No masses or contour abnormalities. HEART AND VASCULAR STRUCTURES: Heart normal size. No evidence for failure. BONES: No acute findings. HARDWARE: None in the chest. IMPRESSION: Emphysema. Mild bibasilar ground-glass opacities, may represent atelectasis or pneumoni a. TECHNICAL DOCUMENTATION: JOB ID: [id number] 2010 [employer]- All Rights Reserved
[2017-11-13] MEDS: FINASTERIDE 5 MG TABLET PO SCH (10:18)
[2017-11-13] MEDS: DIGOXIN 0.25 MG TABLET PO SCH (10:18)
[2017-11-13] MEDS: FUROSEMIDE 40 MG TABLET PO SCH (10:18)
[2017-11-13] MEDS: AZITHROMYCIN 250 MG TABLET PO SCH (10:18)
[2017-11-13] MEDS: PREDNISONE 20 MG TABLET PO SCH ×2 (10:18→17:40)
[2017-11-13] MEDS: GUAIFENESIN 600 MG TABLET.SA PO SCH ×2 (10:19→21:32)
[2017-11-13] MEDS: LEVOFLOXACIN 750 MG/D5W RTU 750 MG/150 ML RTUPB IV SCH (10:19)
[2017-11-13] MEDS: FLUTICASONE NASAL SPRAY 50 MCG/SPRY 120 SPRAY/16 GM NASL SCH ×2 (10:23→23:33)
--- NOTE | 2017-11-13 20:16 | PDOC PROGRESS REPORT ---
Subjective Progress Note for:: 11/13/17 Subjective:: Pt states that he is having right side chest pain. Reason For Visit: COPD EXACERBATION ACUTE ON CHRONIC BRONCHITIS Physical Exam Vital Signs: Temp Pulse Resp BP Pulse Ox 98.7 F 61 22 H 109/59 L 98 11/13/17 16:32 11/13/17 16:32 11/13/17 16:32 11/13/17 16:32 11/13/17 16:32 Intake & Output 11/12/17 11/13/17 11/14/17 06:59 06:59 06:59 Intake Total 1280 1005 1412 Output Total 2 Balance 1280 1003 1412 Weight 79.9 kg 78.7 kg General appearance: PRESENT: no acute distress, well-developed, well-nourished Head exam: PRESENT: atraumatic, normocephalic Eye exam: PRESENT: conjunctiva pink, EOMI. ABSENT: scleral icterus Ear exam: PRESENT: normal external ear exam Mouth exam: PRESENT: moist, tongue midline Neck exam: ABSENT: carotid bruit, JVD, lymphadenopathy, thyromegaly Respiratory exam: PRESENT: rhonchi, wheezes Cardiovascular exam: PRESENT: RRR. ABSENT: diastolic murmur, rubs, systolic murmur Pulses: PRESENT: normal dorsalis pedis pul Vascular exam: PRESENT: normal capillary refill GI/Abdominal exam: PRESENT: normal bowel sounds, soft. ABSENT: distended, guarding, mass, organolmegaly, rebound, tenderness Rectal exam: PRESENT: deferred Extremities exam: PRESENT: full ROM. ABSENT: calf tenderness, clubbing, pedal edema Neurological exam: PRESENT: alert, awake, oriented to person, oriented to place , oriented to time. ABSENT: motor sensory deficit Psychiatric exam: PRESENT: appropriate affect, normal mood. ABSENT: homicidal ideation, suicidal ideation Skin exam: PRESENT: dry, intact, warm. ABSENT: cyanosis, rash Results Laboratory Results: 11/10/17 07:07 11/13/17 05:59 11/13/17 05:59 Sodium 136.2 L Potassium 4.8 Chloride 98 Carbon Dioxide 29 Anion Gap 9 BUN 42 H Creatinine 1.10 Est GFR ( Amer) > 60 Est GFR (Non-Af Amer) > 60 Glucose 145 H Calcium 10.1 Magnesium 2.3 Total Bilirubin 0.6 AST 21 ALT 42 Alkaline Phosphatase 72 Total Protein 6.5 Albumin 3.9 11/09/17 11/09/17 11/09/17 05:45 05:45 12:33 Creatine Kinase 219 H 186 H CK-MB (CK-2) 10.10 H Troponin I 0.028 11/09/17 12:33 Creatine Kinase CK-MB (CK-2) 9.97 H Troponin I 0.022 Impressions: Chest X-Ray 11/13/17 00:00 IMPRESSION: Emphysema. Mild bibasilar ground-glass opacities, may represent atelectasis or pneumonia. Assessment & Plan - Diagnosis (1) Acute exacerbation of chronic bronchitis Is this a current diagnosis for this admission?: Yes Plan: Will continue current treatment. (2) COPD exacerbation Is this a current diagnosis for this admission?: Yes Plan: Will continue current treatment. (3) Atrial fibrillation with RVR Is this a current diagnosis for this admission?: Yes (4) Diabetes mellitus Qualifiers: Diabetes mellitus type: type 2 Diabetes mellitus complication status: with neurologic complications Diabetes mellitus complication detail: with unspecified neuropathy Is this a current diagnosis for this admission?: Yes Plan: Will continue current treatment. (5) Hyponatremia Is this a current diagnosis for this admission?: Yes Plan: Will continue to monitor. (6) Do not resuscitate Is this a current diagnosis for this admission?: Yes - Time Time Spent with patient: 15-24 minutes
[2017-11-13] MEDS: SIMVASTATIN 10 MG TABLET PO SCH (21:32)
[2017-11-14] MEDS: IPRATROPIUM/ALBUTEROL 0.5-2.5 MG/3 ML AMPUL NEB SCH ×3 (00:28→16:24)
[2017-11-14] MEDS: DILTIAZEM HCL 60 MG TABLET PO SCH ×3 (02:20→18:26)
[2017-11-14] MEDS: LEVOTHYROXINE SODIUM 0.1 MG TABLET PO SCH (06:19)
[2017-11-14] MEDS: HEPARIN SOD (PORCINE) 5,000 UNIT/ML 1 ML SYRINGE SUBCUT SCH ×3 (06:19→22:23)
[2017-11-14] MEDS: GABAPENTIN 300 MG CAPSULE PO SCH ×3 (06:19→22:23)
[2017-11-14] MEDS: LANSOPRAZOLE 30 MG TAB.RAP.DR PO SCH ×2 (06:19→18:25)
[2017-11-14] MEDS: LEVOFLOXACIN 750 MG/D5W RTU 750 MG/150 ML RTUPB IV SCH (10:41)
[2017-11-14] MEDS: AZITHROMYCIN 250 MG TABLET PO SCH (10:45)
[2017-11-14] MEDS: DIGOXIN 0.25 MG TABLET PO SCH (10:46)
[2017-11-14] MEDS: GUAIFENESIN 600 MG TABLET.SA PO SCH ×2 (10:46→22:23)
[2017-11-14] MEDS: FINASTERIDE 5 MG TABLET PO SCH (10:46)
[2017-11-14] MEDS: PREDNISONE 20 MG TABLET PO SCH ×2 (10:47→18:26)
[2017-11-14] MEDS: FLUTICASONE NASAL SPRAY 50 MCG/SPRY 120 SPRAY/16 GM NASL SCH ×2 (10:51→22:39)
[2017-11-14] MEDS: FUROSEMIDE 40 MG TABLET PO SCH (13:08)
[2017-11-14] MEDS ORDERED: ACETYLCYSTEINE 10% NEB 400 MG/4 ML VIAL NEB PRN (13:39)
[2017-11-14 15:08] LABS: HEMATOCRIT 50.8 % (37.9-51.0); HEMOGLOBIN 16.8 g/dL (13.5-17.0); MEAN CORPUSCULAR HEMOGLOBIN 31.1 pg (27.0-33.4); MEAN CORPUSCULAR HGB CONC 33.1 g/dL (32.0-36.0); MEAN CORPUSCULAR VOLUME 94 fl (80-97); PLATELET COUNT 257 10^3/uL (150-450); RED BLOOD COUNT 5.41 10^6/uL (4.35-5.55); RED CELL DISTRIBUTION WIDTH 16.5 % (11.5-14.0); WHITE BLOOD COUNT 17.8 10^3/uL (4.0-10.5)
--- NOTE | 2017-11-14 18:03 | PDOC PROGRESS REPORT ---
Subjective Progress Note for:: 11/14/17 Subjective:: Patient states that he is having a difficult time coughing up phlegm. Reason For Visit: COPD EXACERBATION ACUTE ON CHRONIC BRONCHITIS Physical Exam Vital Signs: Temp Pulse Resp BP Pulse Ox 98.6 F 72 18 112/73 96 11/14/17 15:30 11/14/17 16:24 11/14/17 16:24 11/14/17 15:30 11/14/17 16:24 Intake & Output 11/13/17 11/14/17 11/15/17 06:59 06:59 06:59 Intake Total 1005 1896 150 Output Total 2 1400 Balance 1003 496 150 Weight 78.7 kg 78.7 kg General appearance: PRESENT: no acute distress, thin Eye exam: PRESENT: conjunctiva pink, EOMI. ABSENT: scleral icterus Ear exam: PRESENT: normal external ear exam Mouth exam: PRESENT: dry mucosa Neck exam: PRESENT: other - Trach in place Respiratory exam: PRESENT: prolonged expiratory phas, rhonchi, wheezes. ABSENT : rales Cardiovascular exam: PRESENT: RRR. ABSENT: diastolic murmur, rubs, systolic murmur Pulses: PRESENT: normal dorsalis pedis pul Vascular exam: PRESENT: normal capillary refill GI/Abdominal exam: PRESENT: normal bowel sounds, soft. ABSENT: distended, guarding, mass, organolmegaly, rebound, tenderness Rectal exam: PRESENT: deferred Extremities exam: PRESENT: full ROM. ABSENT: calf tenderness, clubbing, pedal edema Musculoskeletal exam: PRESENT: full ROM Neurological exam: PRESENT: alert, awake, oriented to person, oriented to place , oriented to time, oriented to situation, CN II-XII grossly intact. ABSENT: motor sensory deficit Psychiatric exam: PRESENT: appropriate affect, normal mood. ABSENT: homicidal ideation, suicidal ideation Skin exam: PRESENT: dry, intact, warm. ABSENT: cyanosis, rash Results Laboratory Results: 11/14/17 14:10 11/13/17 05:59 11/14/17 14:10 WBC 17.8 H RBC 5.41 Hgb 16.8 Hct 50.8 MCV 94 MCH 31.1 MCHC 33.1 RDW 16.5 H Plt Count 257 11/09/17 11/09/17 11/09/17 05:45 05:45 12:33 Creatine Kinase 219 H 186 H CK-MB (CK-2) 10.10 H Troponin I 0.028 11/09/17 12:33 Creatine Kinase CK-MB (CK-2) 9.97 H Troponin I 0.022 Impressions: Chest X-Ray 11/13/17 00:00 IMPRESSION: Emphysema. Mild bibasilar ground-glass opacities, may represent atelectasis or pneumonia. Assessment & Plan - Diagnosis (1) Acute exacerbation of chronic bronchitis Is this a current diagnosis for this admission?: Yes Plan: Will continue current treatment. (2) COPD exacerbation Is this a current diagnosis for this admission?: Yes Plan: Will continue current treatment. (3) Atrial fibrillation with RVR Is this a current diagnosis for this admission?: Yes Plan: Patient's diltiazem has been held due to low blood pressure. Have given parameters to give if blood pressure is 110 mmHg (4) Diabetes mellitus Qualifiers: Diabetes mellitus type: type 2 Diabetes mellitus complication status: with neurologic complications Diabetes mellitus complication detail: with unspecified neuropathy Is this a current diagnosis for this admission?: Yes Plan: Will continue current treatment. (5) Hyponatremia Is this a current diagnosis for this admission?: Yes Plan: Will continue to monitor. (6) Hypotension Qualifiers: Hypotension type: unspecified hypotension type Qualified Code(s): I95.9 - Hypotension, unspecified Is this a current diagnosis for this admission?: Yes Plan: Patient has had episodes of hypotension therefore Lasix has been held. Patient' s diltiazem has orders to give if SBP greater than 110 mmHg. (7) Do not resuscitate Is this a current diagnosis for this admission?: Yes - Time Time Spent with patient: 15-24 minutes
[2017-11-14] MEDS: SIMVASTATIN 10 MG TABLET PO SCH (22:23)
[2017-11-15] MEDS: IPRATROPIUM/ALBUTEROL 0.5-2.5 MG/3 ML AMPUL NEB SCH ×2 (00:44→08:03)
[2017-11-15] MEDS: DILTIAZEM HCL 60 MG TABLET PO SCH ×2 (02:37→09:04)
[2017-11-15] MEDS: LEVOTHYROXINE SODIUM 0.1 MG TABLET PO SCH (05:27)
[2017-11-15] MEDS: LANSOPRAZOLE 30 MG TAB.RAP.DR PO SCH (05:27)
[2017-11-15] MEDS: GABAPENTIN 300 MG CAPSULE PO SCH (05:27)
[2017-11-15] MEDS: HEPARIN SOD (PORCINE) 5,000 UNIT/ML 1 ML SYRINGE SUBCUT SCH (05:28)
[2017-11-15 06:28] LABS: HEMATOCRIT 49.2 % (37.9-51.0); HEMOGLOBIN 16.2 g/dL (13.5-17.0); MEAN CORPUSCULAR VOLUME 94 fl (80-97); PLATELET COUNT 215 10^3/uL (150-450); RED BLOOD COUNT 5.23 10^6/uL (4.35-5.55); WHITE BLOOD COUNT 15.9 10^3/uL (4.0-10.5)
[2017-11-15 06:40] LABS: ALANINE AMINOTRANSFERASE 45 U/L (21-72); ALBUMIN 3.6 g/dL (3.5-5.0); ALKALINE PHOSPHATASE 73 U/L (38-126); ANION GAP 8 (5-19); ASPARTATE AMINO TRANSFERASE 28 U/L (17-59); BILIRUBIN,DIRECT 0.3 mg/dL (0.0-0.4); BILIRUBIN,TOTAL 0.7 mg/dL (0.2-1.3); BLOOD UREA NITROGEN 49 mg/dL (7-20); CALCIUM 9.7 mg/dL (8.4-10.2); CARBON DIOXIDE 27 mmol/L (22-30); CHLORIDE 99 mmol/L (98-107); GLUCOSE 171 mg/dL (75-110); MAGNESIUM 2.2 mg/dL (1.6-2.3); POTASSIUM 4.9 mmol/L (3.6-5.0); SODIUM 134.1 mmol/L (137-145); TOTAL PROTEIN 6.1 g/dL (6.3-8.2)
[2017-11-15 06:52] LABS: ABSOLUTE LYMPHOCYTES# (MANUAL) 1.1 10^3/uL (0.5-4.7); ABSOLUTE MONOCYTES # (MANUAL) 0.6 10^3/uL (0.1-1.4); ABSOLUTE NEUTROPHILS# (MANUAL) 14.2 10^3/uL (1.7-8.2); BASOPHILS % (MANUAL) 0 % (0-2); EOSINOPHILS % (MANUAL) 0 % (0-6); LYMPHOCYTES % (MANUAL) 7 % (13-45); MONOCYTES % (MANUAL) 4 % (3-13); SEGMENTED NEUTROPHILS % (MAN) 89 % (42-78); TOTAL CELLS COUNTED 100
[2017-11-15 06:54] LABS: ANISOCYTOSIS 1+; POIKILOCYTOSIS 1+; TOXIC GRANULATION 1+
[2017-11-15 06:55] LABS: BURR CELLS SLIGHT; OVALOCYTES SLIGHT; PLATELET COMMENT ADEQUATE; SCHISTOCYTES 1+; TEAR DROP CELLS SLIGHT
--- NOTE | 2017-11-15 08:39 | PDOC DISCHARGE SUMMARY ---
General - Admit/Disc Date/PCP Admission Date/Primary Care Provider: 11/09/17 02:17 Discharge Date: 11/15/17 - Discharge Diagnosis (1) Acute exacerbation of chronic bronchitis Is this a current diagnosis for this admission?: Yes Summary: Continue nebulization treatments and steroids (2) COPD exacerbation Is this a current diagnosis for this admission?: Yes Summary: Continue nebulization treatment and steroids (3) Acute on chronic respiratory failure with hypoxemia Is this a current diagnosis for this admission?: Yes (4) Atrial fibrillation with RVR Is this a current diagnosis for this admission?: Yes Summary: Continue current treatment (5) Diabetes mellitus Is this a current diagnosis for this admission?: Yes Summary: Continue current treatment (6) Do not resuscitate Is this a current diagnosis for this admission?: Yes Summary: Continue DNR status - Additional Information Resuscitation Status: Full Code Discharge Activity: Activity As Tolerated Prescriptions: Prednisone [Deltasone 20 mg Tablet] 10 mg PO BID #60 tablet Home Medications: Digoxin [Lanoxin] 0.25 mg PO DAILY 11/09/17 Diltiazem HCl [Cardizem 60 mg Tablet] 60 mg PO Q8 11/09/17 Finasteride [Proscar 5 mg Tablet] 5 mg PO DAILY 11/09/17 Furosemide [Lasix 40 mg Tablet] 40 mg PO DAILY 11/09/17 Gabapentin [Neurontin 300 mg Capsule] 300 mg PO Q8 11/09/17 Levothyroxine Sodium [Synthroid] 0.2 mg PO DAILY 11/09/17 Metformin HCl [Metformin HCl ER] 1,000 mg PO QHS 11/09/17 Simvastatin 10 mg PO QHS 11/09/17 Tramadol HCl [Ultram 50 mg Tablet] 50 mg PO Q8HP PRN 11/09/17 Prednisone [Deltasone 20 mg Tablet] 10 mg PO BID #60 tablet 11/15/17 History of Present Illness History of Present Illness: KARLA PARADA is a 77 year old male Hospital Course Hospital Course: The patient did well after the hospitalization. He was placed on high dose of steroids and nebulization treatments. His symptomatology has improved. He was slowly weaned off the IV steroids and placed on p.o. steroids. He is tolerating medications well. On the day of discharge he appeared comfortable in no acute distress Physical Exam Vital Signs: Temp Pulse Resp BP Pulse Ox 97.9 F 75 16 116/68 94 11/15/17 03:42 11/15/17 08:03 11/15/17 08:03 11/15/17 03:42 11/15/17 08:03 Intake & Output 11/14/17 11/15/17 11/16/17 06:59 06:59 06:59 Intake Total 1896 1903 Output Total 1400 900 Balance 496 1003 Weight 78.7 kg 79.4 kg General appearance: PRESENT: no acute distress Head exam: PRESENT: atraumatic Eye exam: PRESENT: conjunctiva pink Neck exam: PRESENT: tracheostomy Respiratory exam: PRESENT: rhonchi. ABSENT: wheezes Cardiovascular exam: PRESENT: irregular rhythm, +S1, +S2 Pulses: PRESENT: +1 pedal pulses bilateral GI/Abdominal exam: PRESENT: normal bowel sounds, soft Extremities exam: PRESENT: full ROM, pedal edema Musculoskeletal exam: PRESENT: tenderness. ABSENT: ambulatory Neurological exam: PRESENT: alert Results Laboratory Results: 11/15/17 05:53 11/15/17 05:53 11/14/17 11/15/17 11/15/17 14:10 05:53 05:53 WBC 17.8 H 15.9 H RBC 5.41 5.23 Hgb 16.8 16.2 Hct 50.8 49.2 MCV 94 94 MCH 31.1 31.0 MCHC 33.1 33.0 RDW 16.5 H 16.0 H Plt Count 257 215 Seg Neutrophils % Not Reportable Lymphocytes % Not Reportable Monocytes % Not Reportable Eosinophils % Not Reportable Basophils % Not Reportable Absolute Neutrophils Not Reportable Absolute Lymphocytes Not Reportable Absolute Monocytes Not Reportable Absolute Eosinophils Not Reportable Absolute Basophils Not Reportable Sodium 134.1 L Potassium 4.9 Chloride 99 Carbon Dioxide 27 Anion Gap 8 BUN 49 H Creatinine 1.15 Est GFR ( Amer) > 60 Est GFR (Non-Af Amer) > 60 Glucose 171 H Calcium 9.7 Magnesium 2.2 Total Bilirubin 0.7 AST 28 ALT 45 Alkaline Phosphatase 73 Total Protein 6.1 L Albumin 3.6 11/09/17 11/09/17 11/09/17 05:45 05:45 12:33 Creatine Kinase 219 H 186 H CK-MB (CK-2) 10.10 H Troponin I 0.028 11/09/17 12:33 Creatine Kinase CK-MB (CK-2) 9.97 H Troponin I 0.022 Impressions: Chest X-Ray 11/13/17 00:00 IMPRESSION: Emphysema. Mild bibasilar ground-glass opacities, may represent atelectasis or pneumonia.
[2017-11-15 08:43] VITALS: BP 105/63
[2017-11-15] MEDS: AZITHROMYCIN 250 MG TABLET PO SCH (09:02)
[2017-11-15] MEDS: FINASTERIDE 5 MG TABLET PO SCH (09:02)
[2017-11-15] MEDS: DIGOXIN 0.25 MG TABLET PO SCH (09:02)
[2017-11-15] MEDS: PREDNISONE 20 MG TABLET PO SCH (09:02)
[2017-11-15] MEDS: GUAIFENESIN 600 MG TABLET.SA PO SCH (09:02)
[2017-11-15] MEDS: FLUTICASONE NASAL SPRAY 50 MCG/SPRY 120 SPRAY/16 GM NASL SCH (09:04)
== END 2017-11-15 11:13 | disposition home or self-care (01) | DRG 190 ==
LOC: ER 23:58 → EH 11-09 02:17 → 3W 11-10 11:13
PROVIDERS: ADMIT Internal Medicine; ATTEND Internal Medicine
PROC: 3E0F73Z Introduction of Anti-inflammatory into Respiratory Tract, Via Natural or Artificial Opening (ICD-10-PCS; principal; 2017-11-09)
DX: J44.1 Chronic obstructive pulmonary disease with (acute) exacerbation (principal); J96.21 Acute and chronic respiratory failure with hypoxia; E87.1 Hypo-osmolality and hyponatremia; I48.0 Paroxysmal atrial fibrillation; E11.9 Type 2 diabetes mellitus without complications; Z66 Do not resuscitate; Z93.0 Tracheostomy status; K59.00 Constipation, unspecified; I25.10 Atherosclerotic heart disease of native coronary artery without angina pectoris; E03.9 Hypothyroidism, unspecified; E87.5 Hyperkalemia; M19.90 Unspecified osteoarthritis, unspecified site; Z85.21 Personal history of malignant neoplasm of larynx; Z79.84 Long term (current) use of oral hypoglycemic drugs; Z79.899 Other long term (current) drug therapy; Z99.81 Dependence on supplemental oxygen; Z90.49 Acquired absence of other specified parts of digestive tract; Z87.891 Personal history of nicotine dependence; Z83.3 Family history of diabetes mellitus; Z80.9 Family history of malignant neoplasm, unspecified; Z82.49 Family history of ischemic heart disease and other diseases of the circulatory system
CPT/HCPCS: 36415; 71045; 71046; 80048; 80053; 82550; 82553; 82803; 82962; 83735; 84484; 85025; 85027; 93005; 93010; 94640; 96365; 99291; J1644; J1815; J1956; J2930; J3475; J3490; J7030; J7512; J7620

== ENCOUNTER 2017-12-12 09:44 | Inpatient (IN) | payer MEDICARE, OTHER ==
[2017-12-12] MEDS ORDERED: VANCOMYCIN HCL INJ 1000 MG VIAL IV ONE (10:01)
[2017-12-12] MEDS ORDERED: CLINDAMYCIN 900 MG/D5W RTU 50 ML IV ONE (10:02)
[2017-12-12] MEDS ORDERED: NORMAL SALINE 1000 ML 1,000 ML IV ONE (10:02)
--- NOTE | 2017-12-12 10:09 | ER Document Report ---
ED General - General Stated Complaint: RESPIRATORY DISTRESS Time Seen by Provider: 12/12/17 10:00 Mode of Arrival: Medic Information source: Patient, Emergency Med Personnel, [facility] Records Notes: Patient is a 75-year-old male with a trach who supposedly lives alone at home who presents by EMS with complaints of pain and swelling and redness to his left leg that he states started yesterday as well as some mild shortness of breath with a fast heart rate. Patient has an extensive past medical history. This includes trach, COPD, and diabetes. Temperature of 103.7. Patient is able to nod his head yes and no and denies any headache, neck pain, chest pain, abdominal pain, back pain, or nausea. He states all his pain is to his left lower leg. TRAVEL OUTSIDE OF THE [place] IN LAST 30 DAYS: No - HPI Onset: Other - See above Onset/Duration: Gradual Quality of pain: Achy Severity: Moderate Pain Level: 2 Associated symptoms: Other - See above Exacerbated by: Movement Relieved by: Denies Similar symptoms previously: No Recently seen / treated by doctor: Yes - Related Data Allergies/Adverse Reactions: ceftriaxone [From Rocephin] Allergy (Severe, Verified 08/19/17 02:07) Penicillins Allergy (Severe, Verified 07/12/17 11:51) Past Medical History - General Information source: Patient - Social History Smoking Status: Former Smoker Cigarette use (# per day): No Chew tobacco use (# tins/day): No Smoking Education Provided: No Frequency of alcohol use: None Drug Abuse: None Family History: DM, Hypertension, Malignancy - Past Medical History Cardiac Medical History: Reports: Hx Atrial Fibrillation, Hx Coronary Artery Disease Denies: Hx Heart Attack, Hx Hypertension Pulmonary Medical History: Reports: Hx Asthma, Hx COPD, Hx Pneumonia, Hx Respiratory Failure Denies: Hx Bronchitis Neurological Medical History: Denies: Hx Cerebrovascular Accident, Hx Seizures Endocrine Medical History: Reports: Hx Diabetes Mellitus Type 1, Hx Diabetes Mellitus Type 2, Hx Hyperthyroidism, Hx Hypothyroidism Renal/ Medical History: Denies: Hx Peritoneal Dialysis Musculoskeltal Medical History: Reports Hx Arthritis - GENERALIZED Psychiatric Medical History: Denies: Hx Depression Past Surgical History: Reports: Hx Abdominal Surgery - G-tube, Hx Oral Surgery - Trach, Other - Laryngeal cancer resection with tracheostomy - Immunizations Hx Diphtheria, Pertussis, Tetanus Vaccination: Yes Hx Pneumococcal Vaccination: 10/18/11 Review of Systems - Review of Systems Constitutional: Fever EENT: denies: Eye discharge, Nose discharge Cardiovascular: denies: Chest pain Respiratory: Short of breath. denies: Cough Gastrointestinal: Vomiting. denies: Diarrhea, Nausea Genitourinary: denies: Flank pain Musculoskeletal: Leg swelling Skin: Rash Neurological/Psychological: Other - no slurred speech -: Yes All other systems reviewed and negative Physical Exam - Vital signs Vitals: Temp 103.2 F H 12/12/17 09:51 Notes: Reviewed vital signs and nursing note as charted by RN. CONSTITUTIONAL: Alert and nods head appropriately HEAD: Normocephalic; atraumatic EYES: PERRL ENT: Normal nose; no rhinorrhea; moist mucous membranes; trach in place with no obvious exudate or discharge NECK: Supple without meningismus CARD: Tachycardic and irregular; no cardiac murmurs present RESP: Mild tachypnea. Wheezing bilaterally. No appreciated rhonchi ABD/GI: Normal bowel sounds; non-distended; soft, non-tender BACK: The back appears normal and is non-tender to palpation EXT: Patient has some redness and tenderness to the left distal lateral fibular region. Very tender to touch. Edema to the foot. No calf pain or swelling SKIN: See above NEURO: Moves all extremities equally; Motor and sensory function intact PSYCH: The patient's mood and manner are appropriate. Grooming and personal hygiene are appropriate. Course - Re-evaluation Re-evalutation: 12/12/17 10:08 Given the history and physical examination in this very complicated patient, we will obtain basic labs, sepsis labs, provide liquid Tylenol, obtain an x-ray of the chest, and x-ray of the tibia/fibular region to evaluate for osteomyelitis, and reassess. I will attempt antipyretics and fluids before providing any heart lowering medications given that the patient may be tachycardic secondary also to his sepsis. Patient has an allergic reaction to penicillin so I will provide vancomycin and clindamycin initially. 12/12/17 10:18 EKG shows a heart rate of 152, atrial fibrillation with rapid ventricular response, normal axis, no obvious ST elevation, minimal ST depression V3 through V6 as well as II, III. 12/12/17 10:40 White blood cell count and coagulation profile as recorded. Labs as recorded thus far. Chemistry and lactic acid are pending. X-ray of the chest on my preliminary read shows a normal heart size with no increased lung markings with no obvious infiltrates present. Patient is still wheezing. I have ordered another repeat duoneb. 12/12/17 10:55 Labs as recorded. Lactic acid as recorded. Initial liter of fluid has been infused. I have ordered a second liter of fluid. I started the patient on a small bolus of Cardizem with a Cardizem drip. A duo nebulizer has been provided. Formal x-ray of the chest shows no obvious infiltrates. X-ray of the leg shows no obvious osteomyelitis. Patient will be admitted to the ICU. 12/12/17 11:02 Patient has a strong dopplerable pulse to the left lower foot. Extensive edema present. Antibiotics have been provided. - Vital Signs Vital signs: Temp Pulse Resp BP Pulse Ox 103.2 F H 12/12/17 09:51 - Laboratory Result Diagrams: 12/12/17 09:50 12/12/17 09:50 Laboratory results interpreted by me: 12/12/17 12/12/17 12/12/17 09:50 09:50 09:50 RDW 17.2 H VBG pH Sodium 134.6 L Chloride 94 L Glucose 111 H Lactic Acid 2.9 H Total Protein 6.2 L 12/12/17 09:50 RDW VBG pH 7.43 H Sodium Chloride Glucose Lactic Acid Total Protein Critical Care Note - Critical Care Note Total time excluding time spent on procedures (mins): 35 Discharge - Discharge Clinical Impression: Sepsis affecting skin, Atrial fibrillation with rapid ventricular response, Tachycardia Dyspnea Qualifiers: Dyspnea type: unspecified Qualified Code(s): R06.00 - Dyspnea, unspecified
[2017-12-12] MEDS ORDERED: HYDROMORPHONE HCL INJ/PF 2 MG/ML AMPULE IV ONE ×2 (10:13→10:53)
[2017-12-12] MEDS ORDERED: MORPHINE SULFATE 10 MG/ML INJ IV ONE (10:13)
[2017-12-12 10:21] LABS: ABSOLUTE BASOPHILS # (AUTO) 0.1 10^3/uL (0.0-0.2); ABSOLUTE LYMPHOCYTES (AUTO) 2.5 10^3/uL (0.5-4.7); ABSOLUTE MONOCYTES (AUTO) 0.4 10^3/uL (0.1-1.4); BASOPHILS % (AUTO) 0.7 % (0-2); EOSINOPHILS % (AUTO) 0.4 % (0-6); HEMATOCRIT 50.9 % (37.9-51.0); HEMOGLOBIN 16.9 g/dL (13.5-17.0); LYMPHOCYTES % (AUTO) 24.9 % (13-45); MEAN CORPUSCULAR HEMOGLOBIN 31.8 pg (27.0-33.4); MEAN CORPUSCULAR HGB CONC 33.2 g/dL (32.0-36.0); MEAN CORPUSCULAR VOLUME 96 fl (80-97); MONOCYTES % (AUTO) 4.4 % (3-13); PLATELET COUNT 187 10^3/uL (150-450); RED BLOOD COUNT 5.32 10^6/uL (4.35-5.55); RED CELL DISTRIBUTION WIDTH 17.2 % (11.5-14.0); SEGMENTED NEUTROPHILS % (AUTO) 69.6 % (42-78); TOTAL CELLS COUNTED % (AUTO) 100 %; WHITE BLOOD COUNT 10.1 10^3/uL (4.0-10.5)
[2017-12-12 10:22] LABS: VENOUS BLOOD BASE EXCESS 2.4 mmol/L; VENOUS BLOOD HCO3 26.9 mmol/L (20-32); VENOUS BLOOD PCO2 41.1 mmHg (35-63); VENOUS BLOOD PH 7.43 (7.30-7.42)
[2017-12-12 10:24] LABS: INTERNATIONAL RATION (INR) 0.89; PROTHROMBIN TIME 12.7 SEC (11.4-15.4)
[2017-12-12 10:43] LABS: ALANINE AMINOTRANSFERASE 51 U/L (21-72); ALBUMIN 3.9 g/dL (3.5-5.0); ALKALINE PHOSPHATASE 62 U/L (38-126); ANION GAP 14 (5-19); ASPARTATE AMINO TRANSFERASE 28 U/L (17-59); BILIRUBIN,DIRECT 0.4 mg/dL (0.0-0.4); BILIRUBIN,TOTAL 0.8 mg/dL (0.2-1.3); BLOOD UREA NITROGEN 19 mg/dL (7-20); CALCIUM 9.1 mg/dL (8.4-10.2); CARBON DIOXIDE 27 mmol/L (22-30); CHLORIDE 94 mmol/L (98-107); GLUCOSE 111 mg/dL (75-110); POTASSIUM 4.8 mmol/L (3.6-5.0); SODIUM 134.6 mmol/L (137-145); TOTAL PROTEIN 6.2 g/dL (6.3-8.2)
--- NOTE | 2017-12-12 10:46 | RADIOLOGY REPORT (SQ) ---
EXAM DESCRIPTION: CHEST SINGLE VIEW COMPLETED DATE/TIME: 12/12/2017 10:38 am REASON FOR STUDY: bed 9 sepsis protocol COMPARISON: 11/13/2017 EXAM PARAMETERS: NUMBER OF VIEWS: One view. TECHNIQUE: Single frontal radiographic view of the chest acquired. RADIATION DOSE: NA LIMITATIONS: None. FINDINGS: LUNGS AND PLEURA: Stable chronic lung change without new opacities, masses or pneumothorax . No pleural effusion. MEDIASTINUM AND HILAR STRUCTURES: No masses. Contour normal. HEART AND VASCULAR STRUCTURES: Heart stable in size. Normal vasculature. BONES: No acute findings. HARDWARE: None in the chest. OTHER: No other significant finding. IMPRESSION: NO ACUTE RADIOGRAPHIC FINDING IN THE CHEST. TECHNICAL DOCUMENTATION: JOB ID: [id number] [employer]- All Rights Reserved Reading location - IP/workstation name: [email or web address]
--- NOTE | 2017-12-12 10:46 | RADIOLOGY REPORT (SQ) ---
EXAM DESCRIPTION: TIBIA FIBULA RIGHT COMPLETED DATE/TIME: 12/12/2017 10:38 am REASON FOR STUDY: 9; redness and swelling COMPARISON: None. NUMBER OF VIEWS: Two views. TECHNIQUE: Two radiographic images acquired of the right tibia and fibula to include the knee and an kle in at least one projection. LIMITATIONS: None. FINDINGS: MINERALIZATION: Normal. BONES: No acute fracture or dislocation. No worrisome bone lesions. SOFT TISSUES: No obvious swelling or foreign body. OTHER: No other significant finding. IMPRESSION: NEGATIVE STUDY OF THE RIGHT TIBIA AND FIBULA. NO RADIOGRAPHIC EVIDENCE OF ACUTE INJURY. TECHNICAL DOCUMENTATION: JOB ID: [id number] [employer]- All Rights Reserved Reading location - IP/workstation name: [email or web address]
[2017-12-12] MEDS ORDERED: DILTIAZEM HCL INJ 25 MG/5 ML VIAL IV ONE (10:48)
[2017-12-12] MEDS ORDERED: DILTIAZEM HCL/D5W 125 MG/125 ML RTUINJ IV PRN ×2 (10:49→11:23)
[2017-12-12] MEDS: IPRATROPIUM/ALBUTEROL 0.5-2.5 MG/3 ML AMPUL NEB SCH ×4 (10:51→19:31)
[2017-12-12] MEDS ORDERED: ALBUTEROL SULFATE 0.083% NEB 2.5 MG/3 ML AMPUL NEB PRN (11:23)
[2017-12-12] MEDS ORDERED: ONDANSETRON HCL INJ/PF 4 MG/2 ML SDV IV PRN (11:23)
[2017-12-12] MEDS ORDERED: ACETAMINOPHEN 325 MG TABLET PO PRN (11:23)
[2017-12-12] MEDS ORDERED: ZOLPIDEM TARTRATE 5 MG TABLET PO PRN (11:23)
[2017-12-12] MEDS ORDERED: METHYLPREDNISOLONE INJ 40 MG/1 ML SDV IV SCH (11:30)
[2017-12-12] MEDS ORDERED: DEXTROSE 40% GEL 15 GM TUBE PO PRN ×2 (11:33)
[2017-12-12] MEDS ORDERED: GLUCAGON,HUMAN RECOMB 1 MG INJ IM PRN (11:33)
[2017-12-12] MEDS ORDERED: DEXTROSE 50%-WATER 25 GM/50 ML DISP.SYRIN IV PRN ×2 (11:33)
[2017-12-12] MEDS: OXYCODONE-ACETAMINOPHEN 5-325 MG TABLET PO PRN ×3 (12:00→22:34)
[2017-12-12 12:11] LABS: APPEARANCE,URINE SLIGHTLY-CLOUDY; BILIRUBIN,URINE NEGATIVE (NEGATIVE); COLOR,URINE YELLOW; GLUCOSE, URINE NEGATIVE (NEGATIVE); KETONES,URINE NEGATIVE (NEGATIVE); LEUKOCYTE ESTERASE,URINE MODERATE (NEGATIVE); NITRITE,URINE NEGATIVE (NEGATIVE); PROTEIN,URINE NEGATIVE (NEGATIVE); URINE SPECIFIC GRAVITY 1.011; UROBILINOGEN,URINE NEGATIVE mg/dL (<2.0)
[2017-12-12] MEDS: FUROSEMIDE INJ/PF 20 MG/2 ML SDV IV SCH ×2 (13:46→22:38)
[2017-12-12] MEDS ORDERED: CLINDAMYCIN 600 MG/D5W RTU 600 MG/50 ML RTUPB IV SCH (14:00)
[2017-12-12] MEDS: METHYLPREDNISOLONE INJ 40 MG/1 ML SDV IV SCH ×2 (15:10→22:35)
[2017-12-12] MEDS: HEPARIN SOD (PORCINE) 5,000 UNIT/ML 1 ML SYRINGE SUBCUT SCH ×2 (15:11→22:35)
--- NOTE | 2017-12-12 15:46 | PDOC H&P ---
History of Present Illness Admission Date/PCP: December 12, [address] Grimes Patient complains of: Shortness of breath and leg swelling for the past 5 days worse today History of Present Illness: KARLA PARADA is a 77 year old maleArrived to ED via ambulance complaining of worsening shortness of breath today. Patient states that he has been having shortness of breath for the past 5 days as well he noticed a swelling of his legs. Patient denies fever, chills, chest pain. While in route he was administered DuoNeb's. On arrival to emergency room he was found to be febrile and he was on atrial fibrillation with rapid ventricular response. Rate was 143. It is not worth it to mention that he does suffer from paroxysmal atrial fibrillation and is treated for that purpose as outpatient.Patient also has a history of laryngeal cancer status post laryngectomy and tracheostomy. Communication is difficult because he does not have a voice box. I was notified by the ED physician that he started patient on vancomycin and clindamycin and was administered 2 L of IV fluids and Cardizem drip. Due to presentation our service was contacted since we are covering for Dr. Grimes Past Medical History Cardiac Medical History: Reports: Atrial Fibrillation, Coronary Artery Disease Denies: Myocardial Infarction, Hypertension Pulmonary Medical History: Reports: Asthma, Chronic Obstructive Pulmonary Disease (COPD), Pneumonia, Respiratory Failure Denies: Bronchitis EENT Medical History: Reports: None Neurological Medical History: Reports: None Denies: Seizures Endocrine Medical History: Reports: Diabetes Mellitus Type 2, Hypothyroidism Renal/ Medical History: Reports: None Malignancy Medical History: Reports: None GI Medical History: Reports: None Musculoskeltal Medical History: Reports: Arthritis - GENERALIZED Skin Medical History: Reports: None Psychiatric Medical History: Denies: Depression Traumatic Medical History: Reports: None Hematology: Denies: Anemia, Sickle Cell Disease Infectious Medical History: Reports: None Past Surgical History Past Surgical History: Reports: Other - Laryngeal cancer resection with tracheostomy Social History Information Source: Patient Smoking Status: Former Smoker Frequency of Alcohol Use: None Hx Recreational Drug Use: No Drugs: None Hx Prescription Drug Abuse: No - Advance Directive Resuscitation Status: Full Code Family History Family History: DM, Hypertension, Malignancy Parental Family History Reviewed: Yes Children Family History Reviewed: Yes Sibling(s) Family History Reviewed.: Yes Medication/Allergy Home Medications: Diltiazem HCl [Cardizem 30 mg Tablet] 30 mg PO Q6 12/12/17 Levothyroxine Sodium [Synthroid] 150 mcg PO DAILY 12/12/17 Metformin HCl [Glucophage] 1,000 mg PO QHS 12/12/17 Prednisone [Deltasone 10 mg Tablet] 10 mg PO BID 12/12/17 Tramadol HCl [Ultram 50 mg Tablet] 50 mg PO Q8HP PRN 12/12/17 Allergies/Adverse Reactions: ceftriaxone [From Rocephin] Allergy (Severe, Verified 08/19/17 02:07) Penicillins Allergy (Severe, Verified 07/12/17 11:51) Review of Systems Constitutional: ABSENT: fatigue, fever(s), headache(s), weakness Eyes: ABSENT: visual disturbances Ears: ABSENT: hearing changes Nose, Mouth, and Throat: ABSENT: mouth pain, sore throat Cardiovascular: ABSENT: chest pain Respiratory: PRESENT: dyspnea Gastrointestinal: ABSENT: nausea, vomiting Neurological: PRESENT: dizziness Physical Exam Vital Signs: Temp Pulse Resp BP Pulse Ox 103.2 F H 15 98/74 L 80 L 12/12/17 09:51 12/12/17 11:02 12/12/17 11:02 12/12/17 11:02 Intake & Output 12/11/17 12/12/17 12/13/17 06:59 06:59 06:59 Weight 91.671 kg General appearance: PRESENT: cooperative, thin Head exam: PRESENT: atraumatic, normocephalic Eye exam: PRESENT: conjunctiva pink, EOMI, PERRLA Ear exam: PRESENT: normal external ear exam Mouth exam: PRESENT: moist Neck exam: PRESENT: full ROM. ABSENT: JVD, lymphadenopathy, tenderness Respiratory exam: PRESENT: crackles, decreased breath sounds, tachypnea, wheezes Cardiovascular exam: PRESENT: irregular rhythm. ABSENT: diastolic murmur, systolic murmur Vascular exam: PRESENT: normal capillary refill GI/Abdominal exam: PRESENT: normal bowel sounds, soft. ABSENT: tenderness Extremities exam: PRESENT: full ROM, other - 4+ pitting edema bilaterally. There is erythema noted to left lower extremity Musculoskeletal exam: PRESENT: ambulatory Neurological exam: PRESENT: alert, awake, oriented to person, oriented to place , oriented to time, oriented to situation, CN II-XII grossly intact Psychiatric exam: PRESENT: appropriate affect, normal mood Skin exam: PRESENT: erythema - To left lower extremity Results Laboratory Results: 12/12/17 09:50 12/12/17 09:50 12/12/17 12/12/17 12/12/17 09:50 09:50 09:50 WBC 10.1 RBC 5.32 Hgb 16.9 Hct 50.9 MCV 96 MCH 31.8 MCHC 33.2 RDW 17.2 H Plt Count 187 Seg Neutrophils % 69.6 Lymphocytes % 24.9 Monocytes % 4.4 Eosinophils % 0.4 Basophils % 0.7 Absolute Neutrophils 7.0 Absolute Lymphocytes 2.5 Absolute Monocytes 0.4 Absolute Eosinophils 0.0 Absolute Basophils 0.1 VBG pH VBG pCO2 VBG HCO3 VBG Base Excess Sodium 134.6 L Potassium 4.8 Chloride 94 L Carbon Dioxide 27 Anion Gap 14 BUN 19 Creatinine 1.16 Est GFR ( Amer) > 60 Est GFR (Non-Af Amer) > 60 Glucose 111 H Lactic Acid 2.9 H Calcium 9.1 Total Bilirubin 0.8 AST 28 ALT 51 Alkaline Phosphatase 62 Total Protein 6.2 L Albumin 3.9 12/12/17 09:50 WBC RBC Hgb Hct MCV MCH MCHC RDW Plt Count Seg Neutrophils % Lymphocytes % Monocytes % Eosinophils % Basophils % Absolute Neutrophils Absolute Lymphocytes Absolute Monocytes Absolute Eosinophils Absolute Basophils VBG pH 7.43 H VBG pCO2 41.1 VBG HCO3 26.9 VBG Base Excess 2.4 Sodium Potassium Chloride Carbon Dioxide Anion Gap BUN Creatinine Est GFR ( Amer) Est GFR (Non-Af Amer) Glucose Lactic Acid Calcium Total Bilirubin AST ALT Alkaline Phosphatase Total Protein Albumin Impressions: Chest X-Ray 12/12/17 09:46 IMPRESSION: NO ACUTE RADIOGRAPHIC FINDING IN THE CHEST. Tibia/Fibula X-Ray 12/12/17 10:00 IMPRESSION: NEGATIVE STUDY OF THE RIGHT TIBIA AND FIBULA. NO RADIOGRAPHIC EVIDENCE OF ACUTE INJURY. Assessment & Plan - Diagnosis (1) Acute and chronic respiratory failure Qualifiers: Respiratory failure complication: hypoxia Qualified Code(s): J96.21 - Acute and chronic respiratory failure with hypoxia Is this a current diagnosis for this admission?: Yes Plan: Will continue oxygen supplementation. (2) Cellulitis of left lower extremity Is this a current diagnosis for this admission?: Yes Plan: Will place on Zyvox IV and Levaquin oral due to good oral absorption (3) Acute exacerbation of chronic obstructive pulmonary disease (COPD) Is this a current diagnosis for this admission?: Yes Plan: Patient will be placed on nebulizer treatments, IV steroids and Mucomyst (4) Pulmonary hypertension Is this a current diagnosis for this admission?: Yes Plan: Will place patient on Lasix IV and will watch blood pressure closely since had been placed on Cardizem drip. Will order echocardiogram (5) Atrial fibrillation with RVR Is this a current diagnosis for this admission?: Yes Plan: Rate improve and will start digoxin IV 1 dose and low-dose Cardizem oral. Will defer to primary to consider anticoagulation for stroke prevention (6) Sepsis affecting skin Is this a current diagnosis for this admission?: Yes Plan: Lactic acid elevated however I am concerned that would be spuriously elevated due to tissue hypoxia due to respiratory issues. Will trend (7) Diabetes Qualifiers: Diabetes mellitus type: type 2 Diabetes mellitus complication status: with unspecified complications Diabetes mellitus senior care insulin use: without senior care use Qualified Code(s): E11.8 - Type 2 diabetes mellitus with unspecified complications Is this a current diagnosis for this admission?: Yes Plan: Will place patient on bedside glucose before meals at bedtime and cover with Humalog sliding scale - Time Time Spent: 50 to 70 Minutes Medications reviewed and adjusted accordingly: Yes Anticipated discharge: Home with Homehealth Within: within 72 hours - Inpatient Certification Based on my medical assessment, after consideration of the patient's comorbidities, presenting symptoms, or acuity I expect that the services needed warrant INPATIENT care.: Yes I certify that my determination is in accordance with my understanding of Medicare's requirements for reasonable and necessary INPATIENT services [42 CFR 412.3e].: Yes Medical Necessity: Need Close Monitoring Due to Risk of Patient Decompensation, Need For Continuous Telemetry Monitoring, Need for Nebulizer Therapy and Monitoring of Response, Need for IV Antibiotics
--- NOTE | 2017-12-12 16:05 | EKG REPORT ---
SEVERITY:- ABNORMAL ECG - ATRIAL FIBRILLATION WITH RAPID V-RATE REPOLARIZATION ABNORMALITY, PROB RATE RELATED : Confirmed by: Marin Madera MD 12-Dec-2017 16:05:01
--- NOTE | 2017-12-12 16:06 | RADIOLOGY REPORT (SQ) ---
EXAM DESCRIPTION: CT CHEST WITH COMPLETED DATE/TIME: 12/12/2017 3:54 pm REASON FOR STUDY: dyspnea COMPARISON: Correlation made to chest radiographs from 12/12/2017, 11/09/2017, and 08/18/2017. TECHNIQUE: CT scan of the chest performed using helical scanning technique with dynamic intravenous contrast injection. Images reviewed with lung, soft tissue and bone windows. Reconstructed coronal and sagittal MPR images reviewed. All images stored on PACS. All CT scanners at this facility use dose modulation, iterative reconstruction, and/or weight based d osing when appropriate to reduce radiation dose to as low as reasonably achievable (ALARA). [facility]: Dose Right [facility]: CareDose [facility]: Dose Right [facility]: Teradose 4D [facility]: [employer] CONTRAST TYPE AND DOSE: contrast/concentration: Isovue 370.00 mg/ml; Total Contrast Delivered: 80.0 ml; Total Saline Delivered: 55.0 ml RENAL FUNCTION: Creatinine measures 1.16 RADIATION DOSE: CT Rad equipment meets quality standard of care and radiation dose reduction techniq ues were employed. CTDIvol: 9.8 mGy. DLP: 434 mGy-cm. . LIMITATIONS: None. FINDINGS: LUNGS AND PLEURA: Severe centrilobular emphysema most notably involving the upper lobes wi th stable scarring in the right upper lobe. HILAR AND MEDIASTINAL STRUCTURES: No identified masses or abnormal nodes. HEART AND VASCULAR STRUCTURES: Atherosclerotic calcifications including coronary artery calcification s. No aneurysm or dissection. No central pulmonary emboli. No pericardial effusion. HARDWARE: None in the chest. UPPER ABDOMEN: No significant findings. Limited exam. THYROID AND OTHER SOFT TISSUES: No masses. No adenopathy. BONES: No significant finding. OTHER: No other significant finding. IMPRESSION: NO ACUTE INTRATHORACIC PROCESS. EMPHYSEMA WITH SCARRING RIGHT UPPER LOBE. CORONARY ARTERY DISEASE. TECHNICAL DOCUMENTATION: JOB ID: [id number] Quality ID # [id number]: Final reports with documentation of one or more dose reduction techniques (e.g., Au tomated exposure control, adjustment of the mA and/or kV according to patient size, use of iterative reconstruction technique) 2010 [employer]- All Rights Reserved Reading location - IP/workstation name: [email or web address]
[2017-12-12] MEDS ORDERED: DIGOXIN INJ 0.5 MG/2 ML AMPULE IV ONE (16:45)
[2017-12-12] MEDS ORDERED: DILTIAZEM HCL 30 MG TABLET PO ONE (16:45)
[2017-12-12] MEDS: ACETYLCYSTEINE 20% SOLN 800 MG/4 ML VIAL.NEB NEB SCH (19:32)
[2017-12-12] MEDS ORDERED: LINEZOLID IV ONE (19:35)
[2017-12-12] MEDS: LINEZOLID 300 ML IV SCH (19:49)
[2017-12-12] MEDS ORDERED: OXYCODONE-ACETAMINOPHEN 5-325 MG TABLET PO PRN (21:38)
[2017-12-13 05:03] LABS: ANION GAP 14 (5-19); BLOOD UREA NITROGEN 27 mg/dL (7-20); CALCIUM 8.5 mg/dL (8.4-10.2); CARBON DIOXIDE 25 mmol/L (22-30); CHLORIDE 93 mmol/L (98-107); GLUCOSE 202 mg/dL (75-110); PHOSPHORUS 4.5 mg/dL (2.5-4.5); POTASSIUM 4.5 mmol/L (3.6-5.0); SODIUM 131.7 mmol/L (137-145)
[2017-12-13 05:08] LABS: HEMATOCRIT 44.3 % (37.9-51.0); HEMOGLOBIN 14.8 g/dL (13.5-17.0); MEAN CORPUSCULAR HEMOGLOBIN 31.7 pg (27.0-33.4); MEAN CORPUSCULAR HGB CONC 33.4 g/dL (32.0-36.0); MEAN CORPUSCULAR VOLUME 95 fl (80-97); PLATELET COUNT 150 10^3/uL (150-450); RED BLOOD COUNT 4.67 10^6/uL (4.35-5.55); RED CELL DISTRIBUTION WIDTH 17.4 % (11.5-14.0); WHITE BLOOD COUNT 16.8 10^3/uL (4.0-10.5)
[2017-12-13 05:11] LABS: ABSOLUTE LYMPHOCYTES# (MANUAL) 0.8 10^3/uL (0.5-4.7); ABSOLUTE MONOCYTES # (MANUAL) 1.2 10^3/uL (0.1-1.4); ABSOLUTE NEUTROPHILS# (MANUAL) 14.8 10^3/uL (1.7-8.2); BAND NEUTROPHILS % (MANUAL) 2 % (3-5); BASOPHILS % (MANUAL) 0 % (0-2); EOSINOPHILS % (MANUAL) 0 % (0-6); LYMPHOCYTES % (MANUAL) 5 % (13-45); MONOCYTES % (MANUAL) 7 % (3-13); SEGMENTED NEUTROPHILS % (MAN) 86 % (42-78); TOTAL CELLS COUNTED 100
[2017-12-13 05:12] LABS: ANISOCYTOSIS 1+; PLATELET COMMENT ADEQUATE; PLATELET LARGE PRESENT; SCHISTOCYTES SLIGHT; TOXIC GRANULATION 2+
[2017-12-13] MEDS: IPRATROPIUM/ALBUTEROL 0.5-2.5 MG/3 ML AMPUL NEB SCH ×4 (07:31→19:53)
[2017-12-13] MEDS: HEPARIN SOD (PORCINE) 5,000 UNIT/ML 1 ML SYRINGE SUBCUT SCH ×3 (07:34→21:04)
[2017-12-13] MEDS: METHYLPREDNISOLONE INJ 40 MG/1 ML SDV IV SCH ×3 (07:34→21:05)
[2017-12-13] MEDS: LINEZOLID 300 ML IV SCH ×2 (07:34→17:33)
[2017-12-13] MEDS: ACETYLCYSTEINE 20% SOLN 800 MG/4 ML VIAL.NEB NEB SCH ×3 (08:52→19:51)
[2017-12-13] MEDS: LEVOFLOXACIN 750 MG TABLET PO SCH (09:27)
[2017-12-13] MEDS: OXYCODONE-ACETAMINOPHEN 5-325 MG TABLET PO PRN (10:27)
--- NOTE | 2017-12-13 11:42 | PDOC PROGRESS REPORT ---
Subjective Progress Note for:: 12/13/17 Subjective:: The patient is still having a lot of pain and swelling in his left lower extremity. He is having difficulty coughing up sputum because of it being very thick. He is presently getting nebulization treatments. Reason For Visit: ACUTE RESPIRATORY FAILURE,CHF Physical Exam Vital Signs: Temp Pulse Resp BP Pulse Ox 97.7 F 66 18 98/55 L 95 12/13/17 03:38 12/13/17 07:32 12/13/17 07:32 12/13/17 03:38 12/13/17 07:32 Intake & Output 12/12/17 12/13/17 12/14/17 06:59 06:59 06:59 Intake Total 110 Output Total 1775 Balance -1665 Weight 89.7 kg General appearance: PRESENT: severe distress Head exam: PRESENT: atraumatic Eye exam: PRESENT: conjunctival injection Mouth exam: PRESENT: dry mucosa Neck exam: PRESENT: carotid bruit, JVD Respiratory exam: PRESENT: decreased breath sounds, rhonchi Cardiovascular exam: PRESENT: irregular rhythm, +S1, +S2 Extremities exam: PRESENT: tenderness Additional comments: Left lower extremity mid tibial shaft erythema swelling and tenderness Results Laboratory Results: 12/13/17 03:54 12/13/17 03:54 12/12/17 12/12/17 12/13/17 14:21 16:02 03:54 WBC 16.8 H RBC 4.67 Hgb 14.8 D Hct 44.3 MCV 95 MCH 31.7 MCHC 33.4 RDW 17.4 H Plt Count 150 Seg Neutrophils % Not Reportable Lymphocytes % Not Reportable Monocytes % Not Reportable Eosinophils % Not Reportable Basophils % Not Reportable Absolute Neutrophils Not Reportable Absolute Lymphocytes Not Reportable Absolute Monocytes Not Reportable Absolute Eosinophils Not Reportable Absolute Basophils Not Reportable Sodium Potassium Chloride Carbon Dioxide Anion Gap BUN Creatinine Est GFR ( Amer) Est GFR (Non-Af Amer) Glucose Lactic Acid 3.6 H 8.7 H Calcium Phosphorus Magnesium 12/13/17 03:54 WBC RBC Hgb Hct MCV MCH MCHC RDW Plt Count Seg Neutrophils % Lymphocytes % Monocytes % Eosinophils % Basophils % Absolute Neutrophils Absolute Lymphocytes Absolute Monocytes Absolute Eosinophils Absolute Basophils Sodium 131.7 L Potassium 4.5 Chloride 93 L Carbon Dioxide 25 Anion Gap 14 BUN 27 H Creatinine 1.15 Est GFR ( Amer) > 60 Est GFR (Non-Af Amer) > 60 Glucose 202 H Lactic Acid Calcium 8.5 Phosphorus 4.5 Magnesium 2.2 12/12/17 12/12/17 16:02 16:42 Troponin I Cancelled 0.049 Impressions: Chest CT 12/12/17 00:00 IMPRESSION: NO ACUTE INTRATHORACIC PROCESS. EMPHYSEMA WITH SCARRING RIGHT UPPER LOBE. CORONARY ARTERY DISEASE. Chest X-Ray 12/12/17 09:46 IMPRESSION: NO ACUTE RADIOGRAPHIC FINDING IN THE CHEST. Tibia/Fibula X-Ray 12/12/17 10:00 IMPRESSION: NEGATIVE STUDY OF THE RIGHT TIBIA AND FIBULA. NO RADIOGRAPHIC EVIDENCE OF ACUTE INJURY. Assessment & Plan - Diagnosis (1) Acute exacerbation of chronic obstructive pulmonary disease (COPD) Is this a current diagnosis for this admission?: Yes Plan: We will continue with nebulization treatment and steroids and consult pulmonology (2) Atrial fibrillation with RVR Is this a current diagnosis for this admission?: Yes Plan: Presently off the Cardizem drip rate controlled. Will continue with Cardizem p.o. (3) Cellulitis of left lower extremity Is this a current diagnosis for this admission?: Yes Plan: Keep leg elevated. Will obtain a venous Doppler. Will consult surgery (4) Diabetes Qualifiers: Diabetes mellitus type: type 2 Diabetes mellitus complication status: with unspecified complications Diabetes mellitus extermination inspector insulin use: without residential use Qualified Code(s): E11.8 - Type 2 diabetes mellitus with unspecified complications Is this a current diagnosis for this admission?: Yes Plan: Continue current coverage (5) Sepsis affecting skin Is this a current diagnosis for this admission?: Yes Plan: Continue antibiotics and fluids keep elevated.
[2017-12-13] MEDS: FUROSEMIDE INJ/PF 20 MG/2 ML SDV IV SCH ×2 (12:44→22:40)
[2017-12-13] MEDS: DILTIAZEM HCL 30 MG TABLET PO SCH ×3 (12:44→23:34)
--- NOTE | 2017-12-13 14:38 | RADIOLOGY REPORT (SQ) ---
EXAM DESCRIPTION: VENOUS UNILATERAL LOWER COMPLETED DATE/TIME: 12/13/2017 2:14 pm REASON FOR STUDY: LLE swelling COMPARISON: CT chest 12/12/2017 TECHNIQUE: Dynamic and static moreno scale and color images acquired of the left leg venous system. Se lected spectral images acquired with additional compression and augmentation maneuvers. The contralat eral common femoral vein and saphenofemoral junction were also imaged. Images stored on PACS. LIMITATIONS: None. FINDINGS: LEFT COMMON FEMORAL: Normal phasicity, compression and augmentation. No visualized echogenic material on g ray scale. No defects on color images. FEMORAL: Normal compression and augmentation. No visualized echogenic material on moreno scale. No defe cts on color images. POPLITEAL: Normal compression, augmentation. No visualized echogenic material on moreno scale. No defec ts on color images. CALF VESSELS: Normal compression, augmentation. No visualized echogenic material on moreno scale. No de fects on color images. GSV and SSV: Normal compression, augmentation. No visualized echogenic material on moreno scale. No def ects on color images. ANY DEEP VENOUS INSUFFICIENCY: Not evaluated. ANY EVIDENCE OF POPLITEAL CYST: No. OTHER: No other significant finding. RIGHT COMMON FEMORAL VEIN AND SAPHENOFEMORAL JUNCTION: Normal phasicity, compression and augmentation. No visualized echogenic material on moreno scale. No de fects on color images. IMPRESSION: NO EVIDENCE OF DVT OR SVT IN THE LEFT LEG. TECHNICAL DOCUMENTATION: JOB ID: [id number] [employer]- All Rights Reserved Reading location - IP/workstation name: [facility] [[email or web address]]
--- NOTE | 2017-12-13 20:38 | XCELERA REPORT ---
[address] [address] Transthoracic Echocardiogram Report Name: KARLA PARADA Age: 77 yrs Gender: Male : 1940 Patient Status: Inpatient Patient Location: [address] [place], [place] [address] Study Date: 12/13/2017 11:56 AM Height: 74 in Weight: 202 lb BSA: 2.2 m2 Procedure: A complete two-dimensional transthoracic echocardiogram was performed (2D, M-mode, spectral and color flow Doppler). The study was technically difficult with many images being suboptimal in quality. Reason For Study: chf Ordering Physician: CELESTE DENNY Performed By: Sveta Lujan Interpretation Summary The study was technically difficult with many images being suboptimal in quality. The left ventricular ejection fraction is normal. There is borderline concentric left ventricular hypertrophy. The left ventricle is grossly normal size. Wall motion cannot be accurately commented on, but no definite regional wall motion abnormalities noted. LV diastolic function could not be adequately assessed due to atrial fibrilation. The right ventricle is mild to moderately dilated. The right ventricular systolic function is normal. The right atrium is mildly dilated. The left atrium is moderately dilated. There is no mitral valve stenosis. There is a trace to mild amount of mitral regurgitation No aortic regurgitation is present. There is no aortic valve stenosis There is a trace or physiologic amount of tricuspid regurgitation Tricuspid regurgitation jet envelope not well defined to measure RV systolic pressure accurately. The aortic root is not well visualized but is probably normal size. The inferior vena cava was not well visualized There is no pericardial effusion. MMode/2D Measurements & Calculations RVDd: 3.3 cm LVIDd: 5.2 cm FS: 30.3 % Ao root diam: 3.6 cm IVSd: 0.88 cm LVIDs: 3.6 cm EDV(Teich): 129.0 ml LVPWd: 0.90 cm ESV(Teich): 55.2 ml Ao root area: 10.0 cm2 EF(Teich): 57.3 % LA dimension: 4.9 cm LVOT diam: 2.2 cm LVOT area: 3.9 cm2 Doppler Measurements & Calculations MV E max ross: MV P1/2t max ross: Ao V2 max: LV V1 max P.9 cm/sec 67.6 cm/sec 93.0 cm/sec 2.0 mmHg MV P1/2t: 76.0 msec Ao max PG: LV V1 max: MVA(P1/2t): 2.9 cm2 3.5 mmHg 71.6 cm/sec MV dec slope: JENNIE(V,D): 3.0 cm2 260.4 cm/sec2 PA V2 max: TR max ross: 112.5 cm/sec 236.7 cm/sec PA max P.1 mmHgTR max P.4 mmHg Left Ventricle The left ventricle is grossly normal size. There is borderline concentric left ventricular hypertrophy. The left ventricular ejection fraction is normal. LV diastolic function could not be adequately assessed due to atrial fibrilation. Wall motion cannot be accurately commented on, but no definite regional wall motion abnormalities noted. Right Ventricle The right ventricle is mild to moderately dilated. There is normal right ventricular wall thickness. The right ventricular systolic function is normal. Atria The right atrium is mildly dilated. The left atrium is moderately dilated. Interarterial septum not well visualized and not well dopplered. Cannot comment on ASD/PFO presence. Mitral Valve The mitral valve is grossly normal. There is no mitral valve stenosis. There is a trace to mild amount of mitral regurgitation. Aortic Valve The aortic valve is not well visualized secondary to technical limitations. There is no aortic valve stenosis. No aortic regurgitation is present. Tricuspid Valve The tricuspid valve is not well visualized secondary to technical limitations. There is no tricuspid stenosis. There is a trace or physiologic amount of tricuspid regurgitation. Tricuspid regurgitation jet envelope not well defined to measure RV systolic pressure accurately. Pulmonic Valve The pulmonic valve is not well visualized. Great Vessels The aortic root is not well visualized but is probably normal size. The inferior vena cava was not well visualized. Effusions There is no pericardial effusion. : CELESTE DENNY > Gerard Maldonado
[2017-12-13] MEDS: METFORMIN HCL 500 MG TABLET PO SCH (21:05)
[2017-12-13] MEDS: TRAMADOL HCL 50 MG TABLET PO PRN (22:40)
[2017-12-14] MEDS: OXYCODONE-ACETAMINOPHEN 5-325 MG TABLET PO PRN (03:48)
[2017-12-14] MEDS: DILTIAZEM HCL 30 MG TABLET PO SCH ×4 (05:00→23:23)
[2017-12-14] MEDS: LEVOTHYROXINE SODIUM 0.15 MG TABLET PO SCH (05:00)
[2017-12-14] MEDS: LINEZOLID 300 ML IV SCH ×2 (05:00→18:53)
[2017-12-14] MEDS: METHYLPREDNISOLONE INJ 40 MG/1 ML SDV IV SCH ×3 (05:01→22:06)
[2017-12-14] MEDS: HEPARIN SOD (PORCINE) 5,000 UNIT/ML 1 ML SYRINGE SUBCUT SCH ×3 (05:01→22:04)
[2017-12-14 05:57] LABS: HEMATOCRIT 43.6 % (37.9-51.0); HEMOGLOBIN 14.4 g/dL (13.5-17.0); MEAN CORPUSCULAR HEMOGLOBIN 31.5 pg (27.0-33.4); MEAN CORPUSCULAR HGB CONC 33.1 g/dL (32.0-36.0); MEAN CORPUSCULAR VOLUME 95 fl (80-97); PLATELET COUNT 170 10^3/uL (150-450); RED BLOOD COUNT 4.58 10^6/uL (4.35-5.55); RED CELL DISTRIBUTION WIDTH 17.3 % (11.5-14.0); WHITE BLOOD COUNT 20.8 10^3/uL (4.0-10.5)
[2017-12-14 06:24] LABS: ALANINE AMINOTRANSFERASE 47 U/L (21-72); ALBUMIN 3.4 g/dL (3.5-5.0); ALKALINE PHOSPHATASE 55 U/L (38-126); ANION GAP 8 (5-19); ASPARTATE AMINO TRANSFERASE 29 U/L (17-59); BILIRUBIN,DIRECT 0.4 mg/dL (0.0-0.4); BILIRUBIN,TOTAL 0.5 mg/dL (0.2-1.3); BLOOD UREA NITROGEN 37 mg/dL (7-20); CALCIUM 8.7 mg/dL (8.4-10.2); CARBON DIOXIDE 27 mmol/L (22-30); CHLORIDE 101 mmol/L (98-107); GLUCOSE 189 mg/dL (75-110); SODIUM 135.6 mmol/L (137-145); TOTAL PROTEIN 6.1 g/dL (6.3-8.2)
[2017-12-14 06:47] LABS: ABSOLUTE LYMPHOCYTES# (MANUAL) 0.6 10^3/uL (0.5-4.7); ABSOLUTE MONOCYTES # (MANUAL) 0.6 10^3/uL (0.1-1.4); ABSOLUTE NEUTROPHILS# (MANUAL) 19.6 10^3/uL (1.7-8.2); BAND NEUTROPHILS % (MANUAL) 1 % (3-5); BASOPHILS % (MANUAL) 0 % (0-2); EOSINOPHILS % (MANUAL) 0 % (0-6); LYMPHOCYTES % (MANUAL) 3 % (13-45); MONOCYTES % (MANUAL) 3 % (3-13); SEGMENTED NEUTROPHILS % (MAN) 93 % (42-78); TOTAL CELLS COUNTED 100
[2017-12-14 06:49] LABS: TOXIC GRANULATION 2+
[2017-12-14 06:50] LABS: ANISOCYTOSIS 1+; PLATELET COMMENT ADEQUATE; PLATELET LARGE PRESENT; POIKILOCYTOSIS SLIGHT; TEAR DROP CELLS SLIGHT
[2017-12-14] MEDS: IPRATROPIUM/ALBUTEROL 0.5-2.5 MG/3 ML AMPUL NEB SCH ×4 (07:51→20:02)
--- NOTE | 2017-12-14 08:37 | PDOC PROGRESS REPORT ---
Subjective Progress Note for:: 12/14/17 Subjective:: The patient states to feel slightly better. The venous Doppler of the left lower extremity was negative. His breathing has improved slightly. Reason For Visit: ACUTE RESPIRATORY FAILURE,CHF Physical Exam Vital Signs: Temp Pulse Resp BP Pulse Ox 98.7 F 77 21 H 107/71 98 12/14/17 03:43 12/14/17 03:43 12/14/17 03:43 12/14/17 03:43 12/14/17 00:00 Intake & Output 12/13/17 12/14/17 12/15/17 06:59 06:59 06:59 Intake Total 110 2114 Output Total 1775 3500 Balance -1665 -1386 Weight 89.7 kg 88.2 kg General appearance: PRESENT: mild distress Head exam: PRESENT: atraumatic Eye exam: PRESENT: conjunctival injection Respiratory exam: PRESENT: rhonchi. ABSENT: wheezes Cardiovascular exam: PRESENT: irregular rhythm, +S2 GI/Abdominal exam: PRESENT: normal bowel sounds, soft Extremities exam: PRESENT: other Musculoskeletal exam: PRESENT: other Neurological exam: PRESENT: alert, awake Results Laboratory Results: 12/14/17 04:49 12/14/17 04:49 12/14/17 12/14/17 12/14/17 04:49 04:49 04:49 WBC 20.8 H RBC 4.58 Hgb 14.4 Hct 43.6 MCV 95 MCH 31.5 MCHC 33.1 RDW 17.3 H Plt Count 170 Seg Neutrophils % Not Reportable Lymphocytes % Not Reportable Monocytes % Not Reportable Eosinophils % Not Reportable Basophils % Not Reportable Absolute Neutrophils Not Reportable Absolute Lymphocytes Not Reportable Absolute Monocytes Not Reportable Absolute Eosinophils Not Reportable Absolute Basophils Not Reportable Sodium 135.6 L Potassium 4.0 Chloride 101 Carbon Dioxide 27 Anion Gap 8 BUN 37 H Creatinine 1.07 Est GFR ( Amer) > 60 Est GFR (Non-Af Amer) > 60 Glucose 189 H Calcium 8.7 Total Bilirubin 0.5 AST 29 ALT 47 Alkaline Phosphatase 55 Total Protein 6.1 L Albumin 3.4 L TSH 0.30 L 12/12/17 12/12/17 16:02 16:42 Troponin I Cancelled 0.049 Impressions: Chest CT 12/12/17 00:00 IMPRESSION: NO ACUTE INTRATHORACIC PROCESS. EMPHYSEMA WITH SCARRING RIGHT UPPER LOBE. CORONARY ARTERY DISEASE. Chest X-Ray 12/12/17 09:46 IMPRESSION: NO ACUTE RADIOGRAPHIC FINDING IN THE CHEST. Tibia/Fibula X-Ray 12/12/17 10:00 IMPRESSION: NEGATIVE STUDY OF THE RIGHT TIBIA AND FIBULA. NO RADIOGRAPHIC EVIDENCE OF ACUTE INJURY. Venous Doppler Study 12/13/17 00:00 IMPRESSION: NO EVIDENCE OF DVT OR SVT IN THE LEFT LEG. Assessment & Plan - Diagnosis (1) Acute exacerbation of chronic obstructive pulmonary disease (COPD) Is this a current diagnosis for this admission?: Yes Plan: We will continue with nebulization treatment and steroids and consult pulmonology (2) Atrial fibrillation with RVR Is this a current diagnosis for this admission?: Yes Plan: Presently off the Cardizem drip rate controlled. Will continue with Cardizem p.o. (3) Cellulitis of left lower extremity Is this a current diagnosis for this admission?: Yes Plan: Keep leg elevated. Will obtain a venous Doppler. Will consult surgery (4) Diabetes Qualifiers: Diabetes mellitus type: type 2 Diabetes mellitus complication status: with unspecified complications Diabetes mellitus fci insulin use: without fci use Qualified Code(s): E11.8 - Type 2 diabetes mellitus with unspecified complications Is this a current diagnosis for this admission?: Yes Plan: Continue current coverage (5) Sepsis affecting skin Is this a current diagnosis for this admission?: Yes Plan: Continue antibiotics and fluids keep elevated.
[2017-12-14] MEDS: LEVOFLOXACIN 750 MG TABLET PO SCH (10:03)
[2017-12-14] MEDS: TRAMADOL HCL 50 MG TABLET PO PRN ×2 (14:11→22:05)
--- NOTE | 2017-12-14 14:18 | PDOC CONSULTATION ---
Consultation Consult Date: 12/13/17 Attending physician:: WENDY AYALA Consult reason:: Bronchitis/pneumonia History of Present Illness Admission Date/PCP: 12/12/17 13:09 History of Present Illness: KARLA PARADA is a 77 year old male. Patient states that he has been having shortness of breath for the past 5 days as well he noticed a swelling of his legs. Patient denies fever, chills, chest pain. While in route he was administered DuoNeb's. On arrival to emergency room he was in atrial fibrillation with rapid ventricular response. Rate was 143. 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 Past Medical History Cardiac Medical History: Reports: Atrial Fibrillation, Coronary Artery Disease Denies: Myocardial Infarction, Hypertension Pulmonary Medical History: Reports: Asthma, Chronic Obstructive Pulmonary Disease (COPD), Pneumonia, Respiratory Failure Denies: Bronchitis EENT Medical History: Reports: None Neurological Medical History: Reports: None Denies: Seizures Endocrine Medical History: Reports: Diabetes Mellitus Type 1, Diabetes Mellitus Type 2, Hyperthyroidism, Hypothyroidism Renal/ Medical History: Reports: None Malignancy Medical History: Reports: None GI Medical History: Reports: None Musculoskeltal Medical History: Reports: Arthritis - GENERALIZED Skin Medical History: Reports: None Psychiatric Medical History: Denies: Depression Traumatic Medical History: Reports: None Hematology: Denies: Anemia, Sickle Cell Disease Infectious Medical History: Reports: None Past Surgical History Past Surgical History: Reports: Other - Laryngeal cancer resection with tracheostomy Social History Smoking Status: Former Smoker Last Time Smoked: 3 Passive smoke exposure as: Both Frequency of Alcohol Use: None Hx Recreational Drug Use: No Drugs: None Hx Prescription Drug Abuse: No - Advance Directive Resuscitation Status: Full Code Family History Family History: DM, Hypertension, Malignancy Parental Family History Reviewed: No Children Family History Reviewed: No Sibling(s) Family History Reviewed.: No Medication/Allergy Home Medications: Diltiazem HCl [Cardizem 30 mg Tablet] 30 mg PO Q6 12/12/17 Levothyroxine Sodium [Synthroid] 150 mcg PO DAILY 12/12/17 Metformin HCl [Glucophage] 1,000 mg PO QHS 12/12/17 Prednisone [Deltasone 10 mg Tablet] 10 mg PO BID 12/12/17 Tramadol HCl [Ultram 50 mg Tablet] 50 mg PO Q8HP PRN 12/12/17 Allergies/Adverse Reactions: ceftriaxone [From Rocephin] Allergy (Severe, Verified 08/19/17 02:07) Penicillins Allergy (Severe, Verified 07/12/17 11:51) Review of Systems ROS unobtainable: Other - Physical disability Physical Exam Vital Signs: Temp Pulse Resp BP Pulse Ox 98.0 F 66 20 90/52 L 100 12/13/17 15:32 12/13/17 15:32 12/13/17 15:32 12/13/17 15:32 12/13/17 15:32 Intake & Output 12/12/17 12/13/17 12/14/17 06:59 06:59 06:59 Intake Total 110 350 Output Total 1775 500 Balance -1665 -150 Weight 89.7 kg General appearance: PRESENT: no acute distress, cooperative, disheveled, thin Head exam: PRESENT: atraumatic, normocephalic Eye exam: PRESENT: conjunctiva pale, EOMI. ABSENT: nystagmus, periorbital swelling, scleral icterus Mouth exam: PRESENT: dry mucosa, neck supple, tongue midline Neck exam: PRESENT: tracheostomy - Recently placed. ABSENT: carotid bruit, JVD , lymphadenopathy, thyromegaly, tracheal deviation Respiratory exam: PRESENT: decreased breath sounds, prolonged expiratory phas, rhonchi, symmetrical, unlabored. ABSENT: rales, retraction, stridor, tachypnea , wheezes Cardiovascular exam: PRESENT: RRR, +S1, +S2, tachycardia Pulses: PRESENT: normal radial pulses GI/Abdominal exam: PRESENT: diminished bowel sounds, soft Extremities exam: PRESENT: full ROM. ABSENT: calf tenderness, clubbing Musculoskeletal exam: PRESENT: full ROM. ABSENT: deformity, dislocation Neurological exam: PRESENT: alert, awake Skin exam: PRESENT: dry, warm Results Laboratory Results: 12/13/17 03:54 12/13/17 03:54 12/12/17 12/13/17 12/13/17 16:02 03:54 03:54 WBC 16.8 H RBC 4.67 Hgb 14.8 D Hct 44.3 MCV 95 MCH 31.7 MCHC 33.4 RDW 17.4 H Plt Count 150 Seg Neutrophils % Not Reportable Lymphocytes % Not Reportable Monocytes % Not Reportable Eosinophils % Not Reportable Basophils % Not Reportable Absolute Neutrophils Not Reportable Absolute Lymphocytes Not Reportable Absolute Monocytes Not Reportable Absolute Eosinophils Not Reportable Absolute Basophils Not Reportable Sodium 131.7 L Potassium 4.5 Chloride 93 L Carbon Dioxide 25 Anion Gap 14 BUN 27 H Creatinine 1.15 Est GFR ( Amer) > 60 Est GFR (Non-Af Amer) > 60 Glucose 202 H Lactic Acid 8.7 H Calcium 8.5 Phosphorus 4.5 Magnesium 2.2 12/12/17 12/12/17 16:02 16:42 Troponin I Cancelled 0.049 Impressions: Chest CT 12/12/17 00:00 IMPRESSION: NO ACUTE INTRATHORACIC PROCESS. EMPHYSEMA WITH SCARRING RIGHT UPPER LOBE. CORONARY ARTERY DISEASE. Chest X-Ray 12/12/17 09:46 IMPRESSION: NO ACUTE RADIOGRAPHIC FINDING IN THE CHEST. Tibia/Fibula X-Ray 12/12/17 10:00 IMPRESSION: NEGATIVE STUDY OF THE RIGHT TIBIA AND FIBULA. NO RADIOGRAPHIC EVIDENCE OF ACUTE INJURY. Venous Doppler Study 12/13/17 00:00 IMPRESSION: NO EVIDENCE OF DVT OR SVT IN THE LEFT LEG. Assessment & Plan - Diagnosis (1) Acute and chronic respiratory failure Qualifiers: Respiratory failure complication: hypoxia Qualified Code(s): J96.21 - Acute and chronic respiratory failure with hypoxia Is this a current diagnosis for this admission?: Yes Plan: Stable no wheezing currently no need for supplemental intervention (2) Atrial fibrillation with RVR Is this a current diagnosis for this admission?: Yes Plan: Controlled currently in normal sinus (3) Pulmonary hypertension Is this a current diagnosis for this admission?: Yes Plan: Stable (4) Acute exacerbation of chronic obstructive pulmonary disease (COPD) Is this a current diagnosis for this admission?: Yes Plan: Antibiotics and bronchodilators as well as a mucolytic agent which you are doing initiate chest percussion and postural drainage
[2017-12-14] MEDS: FUROSEMIDE INJ/PF 20 MG/2 ML SDV IV SCH ×2 (14:20→22:55)
--- NOTE | 2017-12-14 14:23 | PDOC PROGRESS REPORT ---
Subjective Progress Note for:: 12/14/17 Subjective:: Appears to be feeling about the same Reason For Visit: ACUTE RESPIRATORY FAILURE,CHF Physical Exam Vital Signs: Temp Pulse Resp BP Pulse Ox 99.0 F 43 L 16 91/46 L 98 12/14/17 12:52 12/14/17 12:52 12/14/17 12:52 12/14/17 12:52 12/14/17 12:52 Intake & Output 12/13/17 12/14/17 12/15/17 06:59 06:59 06:59 Intake Total 110 2114 750 Output Total 1775 3500 350 Balance -8462 -3913 400 Weight 89.7 kg 88.2 kg General appearance: PRESENT: no acute distress, cooperative, disheveled, thin Head exam: PRESENT: normocephalic Eye exam: PRESENT: conjunctiva pale, EOMI. ABSENT: nystagmus, periorbital swelling Mouth exam: PRESENT: dry mucosa, neck supple, tongue midline Neck exam: PRESENT: tracheostomy. ABSENT: carotid bruit, JVD, lymphadenopathy, thyromegaly, tracheal deviation Respiratory exam: PRESENT: decreased breath sounds, prolonged expiratory phas, rhonchi, symmetrical, unlabored. ABSENT: crackles, rales, retraction, stridor, tachypnea Cardiovascular exam: PRESENT: RRR, +S1, +S2, tachycardia Pulses: PRESENT: normal radial pulses GI/Abdominal exam: PRESENT: diminished bowel sounds, soft Extremities exam: ABSENT: calf tenderness, clubbing, joint swelling Musculoskeletal exam: ABSENT: deformity, dislocation Neurological exam: PRESENT: alert, awake Skin exam: PRESENT: dry, warm Results Laboratory Results: 12/14/17 04:49 12/14/17 04:49 12/14/17 12/14/17 12/14/17 04:49 04:49 04:49 WBC 20.8 H RBC 4.58 Hgb 14.4 Hct 43.6 MCV 95 MCH 31.5 MCHC 33.1 RDW 17.3 H Plt Count 170 Seg Neutrophils % Not Reportable Lymphocytes % Not Reportable Monocytes % Not Reportable Eosinophils % Not Reportable Basophils % Not Reportable Absolute Neutrophils Not Reportable Absolute Lymphocytes Not Reportable Absolute Monocytes Not Reportable Absolute Eosinophils Not Reportable Absolute Basophils Not Reportable Sodium 135.6 L Potassium 4.0 Chloride 101 Carbon Dioxide 27 Anion Gap 8 BUN 37 H Creatinine 1.07 Est GFR ( Amer) > 60 Est GFR (Non-Af Amer) > 60 Glucose 189 H Calcium 8.7 Total Bilirubin 0.5 AST 29 ALT 47 Alkaline Phosphatase 55 Total Protein 6.1 L Albumin 3.4 L TSH 0.30 L 12/12/17 12/12/17 16:02 16:42 Troponin I Cancelled 0.049 Impressions: Chest CT 12/12/17 00:00 IMPRESSION: NO ACUTE INTRATHORACIC PROCESS. EMPHYSEMA WITH SCARRING RIGHT UPPER LOBE. CORONARY ARTERY DISEASE. Chest X-Ray 12/12/17 09:46 IMPRESSION: NO ACUTE RADIOGRAPHIC FINDING IN THE CHEST. Tibia/Fibula X-Ray 12/12/17 10:00 IMPRESSION: NEGATIVE STUDY OF THE RIGHT TIBIA AND FIBULA. NO RADIOGRAPHIC EVIDENCE OF ACUTE INJURY. Venous Doppler Study 12/13/17 00:00 IMPRESSION: NO EVIDENCE OF DVT OR SVT IN THE LEFT LEG. Assessment & Plan - Diagnosis (1) Acute and chronic respiratory failure Qualifiers: Respiratory failure complication: hypoxia Qualified Code(s): J96.21 - Acute and chronic respiratory failure with hypoxia Is this a current diagnosis for this admission?: Yes Plan: Stable no wheezing currently no need for supplemental intervention (2) Atrial fibrillation with RVR Is this a current diagnosis for this admission?: Yes Plan: Controlled currently in normal sinus (3) Pulmonary hypertension Is this a current diagnosis for this admission?: Yes Plan: Stable (4) Acute exacerbation of chronic obstructive pulmonary disease (COPD) Is this a current diagnosis for this admission?: Yes Plan: Antibiotics and bronchodilators as well as a mucolytic agent which you are doing initiate chest percussion and postural drainage
[2017-12-14] MEDS: ACETYLCYSTEINE 20% SOLN 800 MG/4 ML VIAL.NEB NEB SCH (20:02)
[2017-12-14] MEDS: INSULIN LISPRO 100 UNIT/ML 3 ML VIAL SUBCUT PRN (22:01)
[2017-12-14] MEDS: METFORMIN HCL 500 MG TABLET PO SCH (22:06)
[2017-12-15] MEDS: OXYCODONE-ACETAMINOPHEN 5-325 MG TABLET PO PRN ×2 (03:35→14:47)
[2017-12-15] MEDS: HEPARIN SOD (PORCINE) 5,000 UNIT/ML 1 ML SYRINGE SUBCUT SCH ×3 (05:07→21:03)
[2017-12-15] MEDS: DILTIAZEM HCL 30 MG TABLET PO SCH ×4 (05:08→23:41)
[2017-12-15] MEDS: LEVOTHYROXINE SODIUM 0.15 MG TABLET PO SCH (05:08)
[2017-12-15] MEDS: METHYLPREDNISOLONE INJ 40 MG/1 ML SDV IV SCH (05:08)
[2017-12-15] MEDS: LINEZOLID 300 ML IV SCH ×2 (05:09→17:47)
[2017-12-15] MEDS: INSULIN LISPRO 100 UNIT/ML 3 ML VIAL SUBCUT PRN ×2 (07:37→22:31)
[2017-12-15] MEDS ORDERED: ONDANSETRON 4 MG TAB.RAPDIS PO PRN (08:13)
--- NOTE | 2017-12-15 08:20 | PDOC PROGRESS REPORT ---
Subjective Progress Note for:: 12/15/17 Subjective:: The patient states to feel better. He still having pain in his left foot. The swelling and the redness have improved. His breathing is slightly better. Reason For Visit: ACUTE RESPIRATORY FAILURE,CHF Physical Exam Vital Signs: Temp Pulse Resp BP Pulse Ox 98.6 F 70 18 106/66 99 12/15/17 03:28 12/15/17 07:00 12/15/17 03:28 12/15/17 03:28 12/15/17 03:28 Intake & Output 12/14/17 12/15/17 12/16/17 06:59 06:59 06:59 Intake Total 2114 2633 Output Total 3500 2050 Balance -1386 583 Weight 88.2 kg 89.5 kg General appearance: PRESENT: mild distress Head exam: PRESENT: atraumatic Eye exam: PRESENT: conjunctival injection Neck exam: ABSENT: JVD Respiratory exam: PRESENT: rhonchi. ABSENT: wheezes Cardiovascular exam: PRESENT: irregular rhythm, +S1, +S2 GI/Abdominal exam: PRESENT: normal bowel sounds, soft Extremities exam: PRESENT: tenderness Musculoskeletal exam: PRESENT: tenderness Neurological exam: PRESENT: alert, awake Skin exam: PRESENT: erythema Additional comments: Mid tibia Results Laboratory Results: 12/14/17 04:49 12/14/17 04:49 12/12/17 12/12/17 16:02 16:42 Troponin I Cancelled 0.049 Impressions: Chest CT 12/12/17 00:00 IMPRESSION: NO ACUTE INTRATHORACIC PROCESS. EMPHYSEMA WITH SCARRING RIGHT UPPER LOBE. CORONARY ARTERY DISEASE. Chest X-Ray 12/12/17 09:46 IMPRESSION: NO ACUTE RADIOGRAPHIC FINDING IN THE CHEST. Tibia/Fibula X-Ray 12/12/17 10:00 IMPRESSION: NEGATIVE STUDY OF THE RIGHT TIBIA AND FIBULA. NO RADIOGRAPHIC EVIDENCE OF ACUTE INJURY. Venous Doppler Study 12/13/17 00:00 IMPRESSION: NO EVIDENCE OF DVT OR SVT IN THE LEFT LEG. Assessment & Plan - Diagnosis (1) Acute exacerbation of chronic obstructive pulmonary disease (COPD) Is this a current diagnosis for this admission?: Yes Plan: We will continue with current medications. Will switch from IV steroids to p.o. (2) Atrial fibrillation with RVR Is this a current diagnosis for this admission?: Yes Plan: Continue rate control with Cardizem (3) Cellulitis of left lower extremity Is this a current diagnosis for this admission?: Yes Plan: Continue IV and p.o. antibiotics (4) Diabetes Qualifiers: Diabetes mellitus type: type 2 Diabetes mellitus complication status: with unspecified complications Diabetes mellitus moth exterminator insulin use: without fdc use Qualified Code(s): E11.8 - Type 2 diabetes mellitus with unspecified complications Is this a current diagnosis for this admission?: Yes Plan: Adjust metformin. Will consider starting insulin basal (5) Sepsis affecting skin Is this a current diagnosis for this admission?: Yes Plan: Continue antibiotics and fluids keep elevated.
[2017-12-15] MEDS: ACETYLCYSTEINE 20% SOLN 800 MG/4 ML VIAL.NEB NEB SCH ×2 (08:31→20:38)
[2017-12-15] MEDS: IPRATROPIUM/ALBUTEROL 0.5-2.5 MG/3 ML AMPUL NEB SCH ×4 (08:32→20:38)
[2017-12-15] MEDS: PREDNISONE 20 MG TABLET PO SCH ×2 (09:13→17:46)
[2017-12-15] MEDS: FUROSEMIDE 20 MG TABLET PO SCH (09:13)
[2017-12-15] MEDS: TRAMADOL HCL 50 MG TABLET PO PRN (09:13)
[2017-12-15] MEDS: LEVOFLOXACIN 750 MG TABLET PO SCH (09:13)
[2017-12-15] MEDS ORDERED: METFORMIN HCL 500 MG TABLET PO ONE (10:00)
--- NOTE | 2017-12-15 11:26 | PDOC PROGRESS REPORT ---
Subjective Progress Note for:: 12/15/17 Subjective:: Little better able to cough up more sputum Reason For Visit: ACUTE RESPIRATORY FAILURE,CHF Physical Exam Vital Signs: Temp Pulse Resp BP Pulse Ox 98.5 F 75 20 111/65 97 12/15/17 08:24 12/15/17 08:32 12/15/17 08:32 12/15/17 08:24 12/15/17 08:32 Intake & Output 12/14/17 12/15/17 12/16/17 06:59 06:59 06:59 Intake Total 2114 2633 Output Total 3500 2050 Balance -1386 583 Weight 88.2 kg 89.5 kg General appearance: PRESENT: no acute distress, cooperative, disheveled, thin Head exam: PRESENT: atraumatic, normocephalic Eye exam: PRESENT: conjunctiva pale. ABSENT: nystagmus, periorbital swelling Mouth exam: PRESENT: dry mucosa, neck supple, tongue midline Neck exam: PRESENT: tracheostomy. ABSENT: carotid bruit, JVD, lymphadenopathy, thyromegaly, tracheal deviation Respiratory exam: PRESENT: decreased breath sounds, prolonged expiratory phas, rhonchi, symmetrical, unlabored. ABSENT: retraction, stridor, tachypnea Cardiovascular exam: PRESENT: RRR, +S1, +S2 Pulses: PRESENT: normal radial pulses GI/Abdominal exam: PRESENT: diminished bowel sounds, soft Extremities exam: ABSENT: clubbing, joint swelling Musculoskeletal exam: ABSENT: deformity, dislocation Neurological exam: PRESENT: alert, awake Psychiatric exam: PRESENT: normal mood Skin exam: PRESENT: dry, warm Results Laboratory Results: 12/14/17 04:49 12/14/17 04:49 12/12/17 12/12/17 16:02 16:42 Troponin I Cancelled 0.049 Impressions: Chest CT 12/12/17 00:00 IMPRESSION: NO ACUTE INTRATHORACIC PROCESS. EMPHYSEMA WITH SCARRING RIGHT UPPER LOBE. CORONARY ARTERY DISEASE. Chest X-Ray 12/12/17 09:46 IMPRESSION: NO ACUTE RADIOGRAPHIC FINDING IN THE CHEST. Tibia/Fibula X-Ray 12/12/17 10:00 IMPRESSION: NEGATIVE STUDY OF THE RIGHT TIBIA AND FIBULA. NO RADIOGRAPHIC EVIDENCE OF ACUTE INJURY. Venous Doppler Study 12/13/17 00:00 IMPRESSION: NO EVIDENCE OF DVT OR SVT IN THE LEFT LEG. Assessment & Plan - Diagnosis (1) Acute and chronic respiratory failure Qualifiers: Respiratory failure complication: hypoxia Qualified Code(s): J96.21 - Acute and chronic respiratory failure with hypoxia Is this a current diagnosis for this admission?: Yes Plan: Stable no wheezing currently no need for supplemental intervention (2) Atrial fibrillation with RVR Is this a current diagnosis for this admission?: Yes Plan: Controlled currently in normal sinus (3) Pulmonary hypertension Is this a current diagnosis for this admission?: Yes (4) Acute exacerbation of chronic obstructive pulmonary disease (COPD) Is this a current diagnosis for this admission?: Yes Plan: Improving continue chest physiotherapy
[2017-12-15] MEDS: METFORMIN HCL 500 MG TABLET PO SCH (17:46)
[2017-12-16] MEDS: TRAMADOL HCL 50 MG TABLET PO PRN ×3 (01:31→21:59)
[2017-12-16] MEDS: LINEZOLID 300 ML IV SCH (05:03)
[2017-12-16] MEDS: HEPARIN SOD (PORCINE) 5,000 UNIT/ML 1 ML SYRINGE SUBCUT SCH ×3 (05:04→21:28)
[2017-12-16] MEDS: DILTIAZEM HCL 30 MG TABLET PO SCH ×4 (05:04→23:29)
[2017-12-16] MEDS: LEVOTHYROXINE SODIUM 0.15 MG TABLET PO SCH (05:04)
[2017-12-16 05:14] LABS: HEMATOCRIT 41.7 % (37.9-51.0); HEMOGLOBIN 13.9 g/dL (13.5-17.0); MEAN CORPUSCULAR HEMOGLOBIN 31.7 pg (27.0-33.4); MEAN CORPUSCULAR HGB CONC 33.3 g/dL (32.0-36.0); MEAN CORPUSCULAR VOLUME 95 fl (80-97); PLATELET COUNT 182 10^3/uL (150-450); RED BLOOD COUNT 4.38 10^6/uL (4.35-5.55); RED CELL DISTRIBUTION WIDTH 17.5 % (11.5-14.0); WHITE BLOOD COUNT 12.2 10^3/uL (4.0-10.5)
[2017-12-16 05:53] LABS: ALANINE AMINOTRANSFERASE 47 U/L (21-72); ALBUMIN 3.3 g/dL (3.5-5.0); ALKALINE PHOSPHATASE 53 U/L (38-126); ANION GAP 13 (5-19); ASPARTATE AMINO TRANSFERASE 24 U/L (17-59); BILIRUBIN,DIRECT 0.2 mg/dL (0.0-0.4); BILIRUBIN,TOTAL 0.3 mg/dL (0.2-1.3); BLOOD UREA NITROGEN 42 mg/dL (7-20); CALCIUM 9.6 mg/dL (8.4-10.2); CARBON DIOXIDE 25 mmol/L (22-30); CHLORIDE 100 mmol/L (98-107); GLUCOSE 213 mg/dL (75-110); SODIUM 137.5 mmol/L (137-145); TOTAL PROTEIN 5.7 g/dL (6.3-8.2)
[2017-12-16 06:01] LABS: ABSOLUTE LYMPHOCYTES# (MANUAL) 0.2 10^3/uL (0.5-4.7); ABSOLUTE MONOCYTES # (MANUAL) 0.5 10^3/uL (0.1-1.4); ABSOLUTE NEUTROPHILS# (MANUAL) 11.3 10^3/uL (1.7-8.2); BAND NEUTROPHILS % (MANUAL) 1 % (3-5); BASOPHILS % (MANUAL) 0 % (0-2); EOSINOPHILS % (MANUAL) 1 % (0-6); LYMPHOCYTES % (MANUAL) 2 % (13-45); MONOCYTES % (MANUAL) 4 % (3-13); SEGMENTED NEUTROPHILS % (MAN) 92 % (42-78); TOTAL CELLS COUNTED 100
[2017-12-16 06:03] LABS: OVALOCYTES 1+; PLATELET COMMENT ADEQUATE; POIKILOCYTOSIS SLIGHT; TOXIC GRANULATION SLIGHT; TOXIC VACUOLATION PRESENT
[2017-12-16] MEDS: METFORMIN HCL 500 MG TABLET PO SCH ×2 (08:07→16:40)
[2017-12-16] MEDS: IPRATROPIUM/ALBUTEROL 0.5-2.5 MG/3 ML AMPUL NEB SCH ×4 (08:15→19:34)
[2017-12-16] MEDS: ACETYLCYSTEINE 20% SOLN 800 MG/4 ML VIAL.NEB NEB SCH ×2 (08:15→19:34)
[2017-12-16] MEDS: OXYCODONE-ACETAMINOPHEN 5-325 MG TABLET PO PRN ×2 (08:16→19:36)
--- NOTE | 2017-12-16 08:17 | PDOC PROGRESS REPORT ---
Subjective Progress Note for:: 12/16/17 Subjective:: The patient states to feel better. His left leg cellulitis seem to be improving. His breathing is improving. Reason For Visit: ACUTE RESPIRATORY FAILURE,CHF Physical Exam Vital Signs: Temp Pulse Resp BP Pulse Ox 98.3 F 68 16 102/58 L 98 12/16/17 03:21 12/16/17 07:00 12/16/17 03:21 12/16/17 03:21 12/16/17 04:00 Intake & Output 12/15/17 12/16/17 12/17/17 06:59 06:59 06:59 Intake Total 2633 2815 Output Total 2050 1275 Balance 583 1540 Weight 89.5 kg 90.9 kg General appearance: PRESENT: mild distress Head exam: PRESENT: atraumatic Eye exam: PRESENT: conjunctiva pink Neck exam: PRESENT: tracheostomy Respiratory exam: PRESENT: rhonchi. ABSENT: wheezes Cardiovascular exam: PRESENT: irregular rhythm, +S1, +S2 Pulses: PRESENT: +1 pedal pulses bilateral GI/Abdominal exam: PRESENT: normal bowel sounds, soft Extremities exam: PRESENT: tenderness Neurological exam: PRESENT: awake Results Laboratory Results: 12/16/17 04:14 12/16/17 04:14 12/16/17 12/16/17 04:14 04:14 WBC 12.2 H RBC 4.38 Hgb 13.9 Hct 41.7 MCV 95 MCH 31.7 MCHC 33.3 RDW 17.5 H Plt Count 182 Seg Neutrophils % Not Reportable Lymphocytes % Not Reportable Monocytes % Not Reportable Eosinophils % Not Reportable Basophils % Not Reportable Absolute Neutrophils Not Reportable Absolute Lymphocytes Not Reportable Absolute Monocytes Not Reportable Absolute Eosinophils Not Reportable Absolute Basophils Not Reportable Sodium 137.5 Potassium 4.0 Chloride 100 Carbon Dioxide 25 Anion Gap 13 BUN 42 H Creatinine 1.00 Est GFR ( Amer) > 60 Est GFR (Non-Af Amer) > 60 Glucose 213 H Calcium 9.6 Total Bilirubin 0.3 AST 24 ALT 47 Alkaline Phosphatase 53 Total Protein 5.7 L Albumin 3.3 L 12/12/17 12/12/17 16:02 16:42 Troponin I Cancelled 0.049 Impressions: Chest CT 12/12/17 00:00 IMPRESSION: NO ACUTE INTRATHORACIC PROCESS. EMPHYSEMA WITH SCARRING RIGHT UPPER LOBE. CORONARY ARTERY DISEASE. Chest X-Ray 12/12/17 09:46 IMPRESSION: NO ACUTE RADIOGRAPHIC FINDING IN THE CHEST. Tibia/Fibula X-Ray 12/12/17 10:00 IMPRESSION: NEGATIVE STUDY OF THE RIGHT TIBIA AND FIBULA. NO RADIOGRAPHIC EVIDENCE OF ACUTE INJURY. Venous Doppler Study 12/13/17 00:00 IMPRESSION: NO EVIDENCE OF DVT OR SVT IN THE LEFT LEG. Assessment & Plan - Diagnosis (1) Acute exacerbation of chronic obstructive pulmonary disease (COPD) Is this a current diagnosis for this admission?: Yes Plan: We will continue with current medications. Will switch from IV steroids to p.o. (2) Atrial fibrillation with RVR Is this a current diagnosis for this admission?: Yes Plan: Continue rate control with Cardizem (3) Cellulitis of left lower extremity Is this a current diagnosis for this admission?: Yes Plan: Continue IV and p.o. antibiotics (4) Diabetes Qualifiers: Diabetes mellitus type: type 2 Diabetes mellitus complication status: with unspecified complications Diabetes mellitus terminal operations manager insulin use: without terminal operations manager use Qualified Code(s): E11.8 - Type 2 diabetes mellitus with unspecified complications Is this a current diagnosis for this admission?: Yes Plan: We will add Amaryl (5) Sepsis affecting skin Is this a current diagnosis for this admission?: Yes Plan: Continue antibiotics and fluids keep elevated.
[2017-12-16] MEDS: FUROSEMIDE 20 MG TABLET PO SCH (09:31)
[2017-12-16] MEDS: PREDNISONE 20 MG TABLET PO SCH ×2 (09:31→17:46)
[2017-12-16] MEDS: GLIMEPIRIDE 1 MG TABLET PO SCH (09:32)
[2017-12-16] MEDS: LEVOFLOXACIN 750 MG TABLET PO SCH (09:32)
[2017-12-16] MEDS: LINEZOLID 600 MG TABLET PO SCH (17:45)
[2017-12-17] MEDS: OXYCODONE-ACETAMINOPHEN 5-325 MG TABLET PO PRN ×2 (03:41→18:20)
[2017-12-17] MEDS: HEPARIN SOD (PORCINE) 5,000 UNIT/ML 1 ML SYRINGE SUBCUT SCH ×3 (05:10→21:47)
[2017-12-17] MEDS: DILTIAZEM HCL 30 MG TABLET PO SCH ×3 (05:11→17:00)
[2017-12-17] MEDS: LINEZOLID 600 MG TABLET PO SCH (05:11)
[2017-12-17] MEDS: LEVOTHYROXINE SODIUM 0.15 MG TABLET PO SCH (05:11)
[2017-12-17] MEDS: METFORMIN HCL 500 MG TABLET PO SCH ×2 (07:41→17:01)
--- NOTE | 2017-12-17 08:22 | PDOC PROGRESS REPORT ---
Subjective Progress Note for:: 12/17/17 Subjective:: The patient states to feel relatively the same. He has been out of bed to chair. He is complaining of his chest feeling tight. He is presently in a positive balance of fluid. Discussed the need to readjust the medication and fluid intake. He denies any cough or wheezing Reason For Visit: ACUTE RESPIRATORY FAILURE,CHF Physical Exam Vital Signs: Temp Pulse Resp BP Pulse Ox 98.4 F 69 14 109/54 L 97 12/17/17 03:47 12/17/17 06:59 12/17/17 03:47 12/17/17 03:47 12/17/17 04:00 Intake & Output 12/16/17 12/17/17 12/18/17 06:59 06:59 06:59 Intake Total 2815 1098 Output Total 1275 1400 Balance 1540 -302 Weight 90.9 kg 91.9 kg General appearance: PRESENT: mild distress Head exam: PRESENT: atraumatic Eye exam: PRESENT: conjunctiva pink Neck exam: ABSENT: JVD Respiratory exam: PRESENT: rhonchi. ABSENT: wheezes Cardiovascular exam: PRESENT: irregular rhythm, +S1, +S2 GI/Abdominal exam: PRESENT: normal bowel sounds, soft Extremities exam: PRESENT: tenderness Musculoskeletal exam: ABSENT: ambulatory Neurological exam: PRESENT: alert, awake Results Laboratory Results: 12/16/17 04:14 12/16/17 04:14 12/12/17 12/12/17 16:02 16:42 Troponin I Cancelled 0.049 Impressions: Chest CT 12/12/17 00:00 IMPRESSION: NO ACUTE INTRATHORACIC PROCESS. EMPHYSEMA WITH SCARRING RIGHT UPPER LOBE. CORONARY ARTERY DISEASE. Chest X-Ray 12/12/17 09:46 IMPRESSION: NO ACUTE RADIOGRAPHIC FINDING IN THE CHEST. Tibia/Fibula X-Ray 12/12/17 10:00 IMPRESSION: NEGATIVE STUDY OF THE RIGHT TIBIA AND FIBULA. NO RADIOGRAPHIC EVIDENCE OF ACUTE INJURY. Venous Doppler Study 12/13/17 00:00 IMPRESSION: NO EVIDENCE OF DVT OR SVT IN THE LEFT LEG. Assessment & Plan - Diagnosis (1) Acute exacerbation of chronic obstructive pulmonary disease (COPD) Is this a current diagnosis for this admission?: Yes Plan: Improving we will continue with current medications (2) Atrial fibrillation with RVR Is this a current diagnosis for this admission?: Yes Plan: Continue rate control with Cardizem (3) Cellulitis of left lower extremity Is this a current diagnosis for this admission?: Yes Plan: Improved. Cultures are negative. We will stop the Zyvox (4) Diabetes Qualifiers: Diabetes mellitus type: type 2 Diabetes mellitus complication status: with unspecified complications Diabetes mellitus information director insulin use: without custodial use Qualified Code(s): E11.8 - Type 2 diabetes mellitus with unspecified complications Is this a current diagnosis for this admission?: Yes Plan: We will add Amaryl (5) Sepsis affecting skin Is this a current diagnosis for this admission?: Yes Plan: We will stop Zyvox (6) Physical deconditioning Plan: Because of tracheostomy and multiple medical other problems would consider possibly rehab. The patient categorically refuses to go to the rehab (7) Do not resuscitate Plan: We will continue DNR
[2017-12-17] MEDS: IPRATROPIUM/ALBUTEROL 0.5-2.5 MG/3 ML AMPUL NEB SCH ×4 (08:41→19:46)
[2017-12-17] MEDS: ACETYLCYSTEINE 20% SOLN 800 MG/4 ML VIAL.NEB NEB SCH ×2 (08:41→19:46)
[2017-12-17] MEDS: FUROSEMIDE 20 MG TABLET PO SCH (09:27)
[2017-12-17] MEDS: GLIMEPIRIDE 1 MG TABLET PO SCH (09:27)
[2017-12-17] MEDS: PREDNISONE 20 MG TABLET PO SCH ×2 (09:27→17:01)
[2017-12-17] MEDS: LEVOFLOXACIN 750 MG TABLET PO SCH (09:28)
[2017-12-17] MEDS: TRAMADOL HCL 50 MG TABLET PO PRN (15:18)
[2017-12-18] MEDS: TRAMADOL HCL 50 MG TABLET PO PRN ×3 (00:03→18:42)
[2017-12-18] MEDS: DILTIAZEM HCL 30 MG TABLET PO SCH ×5 (00:03→23:56)
[2017-12-18] MEDS: OXYCODONE-ACETAMINOPHEN 5-325 MG TABLET PO PRN ×2 (03:28→21:28)
[2017-12-18 04:36] LABS: HEMATOCRIT 43.6 % (37.9-51.0); HEMOGLOBIN 14.5 g/dL (13.5-17.0); MEAN CORPUSCULAR HEMOGLOBIN 31.7 pg (27.0-33.4); MEAN CORPUSCULAR HGB CONC 33.4 g/dL (32.0-36.0); MEAN CORPUSCULAR VOLUME 95 fl (80-97); PLATELET COUNT 183 10^3/uL (150-450); RED BLOOD COUNT 4.59 10^6/uL (4.35-5.55); RED CELL DISTRIBUTION WIDTH 17.2 % (11.5-14.0); WHITE BLOOD COUNT 7.7 10^3/uL (4.0-10.5)
[2017-12-18 05:03] LABS: ANION GAP 5 (5-19); BLOOD UREA NITROGEN 48 mg/dL (7-20); CALCIUM 8.9 mg/dL (8.4-10.2); CARBON DIOXIDE 23 mmol/L (22-30); CHLORIDE 103 mmol/L (98-107); GLUCOSE 167 mg/dL (75-110); POTASSIUM 4.6 mmol/L (3.6-5.0); SODIUM 131.1 mmol/L (137-145)
[2017-12-18 05:20] LABS: ABSOLUTE LYMPHOCYTES# (MANUAL) 0.6 10^3/uL (0.5-4.7); ABSOLUTE MONOCYTES # (MANUAL) 0.3 10^3/uL (0.1-1.4); ABSOLUTE NEUTROPHILS# (MANUAL) 6.8 10^3/uL (1.7-8.2); BASOPHILS % (MANUAL) 0 % (0-2); EOSINOPHILS % (MANUAL) 0 % (0-6); LYMPHOCYTES % (MANUAL) 8 % (13-45); MONOCYTES % (MANUAL) 4 % (3-13); SEGMENTED NEUTROPHILS % (MAN) 88 % (42-78); TOTAL CELLS COUNTED 100
[2017-12-18 05:21] LABS: ANISOCYTOSIS 1+; POIKILOCYTOSIS SLIGHT; TOXIC GRANULATION SLIGHT
[2017-12-18 05:22] LABS: OVALOCYTES 1+; PLATELET COMMENT ADEQUATE
[2017-12-18] MEDS: LEVOTHYROXINE SODIUM 0.15 MG TABLET PO SCH (06:35)
[2017-12-18] MEDS: HEPARIN SOD (PORCINE) 5,000 UNIT/ML 1 ML SYRINGE SUBCUT SCH ×3 (06:36→21:28)
[2017-12-18] MEDS: IPRATROPIUM/ALBUTEROL 0.5-2.5 MG/3 ML AMPUL NEB SCH ×4 (08:10→20:36)
[2017-12-18] MEDS: ACETYLCYSTEINE 20% SOLN 800 MG/4 ML VIAL.NEB NEB SCH ×2 (08:10→20:36)
[2017-12-18] MEDS: FUROSEMIDE 20 MG TABLET PO SCH (11:01)
[2017-12-18] MEDS: METFORMIN HCL 500 MG TABLET PO SCH ×2 (11:02→18:42)
[2017-12-18] MEDS: GLIMEPIRIDE 1 MG TABLET PO SCH (11:02)
[2017-12-18] MEDS: LEVOFLOXACIN 750 MG TABLET PO SCH (11:02)
[2017-12-18] MEDS: PREDNISONE 20 MG TABLET PO SCH ×2 (11:02→18:42)
--- NOTE | 2017-12-18 17:10 | PDOC PROGRESS REPORT ---
Subjective Progress Note for:: 12/18/17 Subjective:: Patient feeling relatively well today. A little bit tired. He states that for about a week he has had worsening burning pain in his mouth. Feeling of dryness and burning. Other than that he can give me a better description. No sores in the mouth. No difficulty swallowing. No chest pain. No difficulty breathing. No constipation or diarrhea. No fevers or chills. Reason For Visit: ACUTE RESPIRATORY FAILURE,CHF Physical Exam Vital Signs: Temp Pulse Resp BP Pulse Ox 98.4 F 59 L 18 120/66 100 12/18/17 11:53 12/18/17 16:29 12/18/17 16:29 12/18/17 11:53 12/18/17 16:29 Intake & Output 12/17/17 12/18/17 12/19/17 06:59 06:59 06:59 Intake Total 1098 1194 480 Output Total 1400 3400 600 Balance -302 -2206 -120 Weight 91.9 kg 89.3 kg General appearance: PRESENT: no acute distress, cooperative Head exam: PRESENT: atraumatic Eye exam: PRESENT: conjunctiva pink Ear exam: PRESENT: normal external ear exam Mouth exam: PRESENT: dry mucosa, other - Some whitish and brown discoloration over the tongue. Neck exam: PRESENT: other - Tracheotomy present. Well-healed. Trach collar in place. Respiratory exam: PRESENT: decreased breath sounds, unlabored. ABSENT: rales, rhonchi, wheezes Pulses: PRESENT: normal radial pulses GI/Abdominal exam: PRESENT: normal bowel sounds, soft. ABSENT: distended, tenderness Rectal exam: PRESENT: deferred Extremities exam: ABSENT: pedal edema Neurological exam: PRESENT: alert, awake, oriented to person, oriented to place Psychiatric exam: PRESENT: appropriate affect. ABSENT: anxious Skin exam: PRESENT: dry, warm Results Laboratory Results: 12/18/17 03:43 12/18/17 03:43 12/18/17 12/18/17 03:43 03:43 WBC 7.7 RBC 4.59 Hgb 14.5 Hct 43.6 MCV 95 MCH 31.7 MCHC 33.4 RDW 17.2 H Plt Count 183 Seg Neutrophils % Not Reportable Lymphocytes % Not Reportable Monocytes % Not Reportable Eosinophils % Not Reportable Basophils % Not Reportable Absolute Neutrophils Not Reportable Absolute Lymphocytes Not Reportable Absolute Monocytes Not Reportable Absolute Eosinophils Not Reportable Absolute Basophils Not Reportable Sodium 131.1 L Potassium 4.6 Chloride 103 Carbon Dioxide 23 Anion Gap 5 BUN 48 H Creatinine 0.95 Est GFR ( Amer) > 60 Est GFR (Non-Af Amer) > 60 Glucose 167 H Calcium 8.9 12/12/17 12/12/17 16:02 16:42 Troponin I Cancelled 0.049 Impressions: Chest CT 12/12/17 00:00 IMPRESSION: NO ACUTE INTRATHORACIC PROCESS. EMPHYSEMA WITH SCARRING RIGHT UPPER LOBE. CORONARY ARTERY DISEASE. Chest X-Ray 12/12/17 09:46 IMPRESSION: NO ACUTE RADIOGRAPHIC FINDING IN THE CHEST. Tibia/Fibula X-Ray 12/12/17 10:00 IMPRESSION: NEGATIVE STUDY OF THE RIGHT TIBIA AND FIBULA. NO RADIOGRAPHIC EVIDENCE OF ACUTE INJURY. Venous Doppler Study 12/13/17 00:00 IMPRESSION: NO EVIDENCE OF DVT OR SVT IN THE LEFT LEG. Assessment & Plan - Diagnosis (1) Acute exacerbation of chronic obstructive pulmonary disease (COPD) Is this a current diagnosis for this admission?: Yes Plan: Patient is much improved. No wheezing. One final day of Levaquin and then that medication will be discontinued. (2) Atrial fibrillation with RVR Is this a current diagnosis for this admission?: Yes Plan: Rate is well controlled with diltiazem. Unclear as to why patient is not anticoagulated. Will follow up on that tomorrow. (3) Cellulitis of left lower extremity Is this a current diagnosis for this admission?: Yes Plan: Resolved. Zyvox discontinued. (4) Diabetes Qualifiers: Diabetes mellitus type: type 2 Diabetes mellitus complication status: with unspecified complications Diabetes mellitus assisted insulin use: without intermediate frame tender use Qualified Code(s): E11.8 - Type 2 diabetes mellitus with unspecified complications Is this a current diagnosis for this admission?: Yes Plan: CBGs reasonably well controlled. 129 before lunch. Continue current care. (5) Physical deconditioning Is this a current diagnosis for this admission?: Yes Plan: Patient's primary doctor recommends rehab but patient refuses. Patient states the plan is for discharge on Wednesday. (6) Thrush, oral Is this a current diagnosis for this admission?: Yes Plan: She has some whitish plaquing on his tongue. There is a burning feeling. I am starting nystatin and swallow and will reevaluate tomorrow. - Time Time Spent with patient: 15-24 minutes - Inpatient Certification Based on my medical assessment, after consideration of the patient's comorbidities, presenting symptoms, or acuity I expect that the services needed warrant INPATIENT care.: Yes I certify that my determination is in accordance with my understanding of Medicare's requirements for reasonable and necessary INPATIENT services [42 CFR 412.3e].: Yes Medical Necessity: Significant Comorbidiites Make Outpatient Treatment Too Risky , Need Close Monitoring Due to Risk of Patient Decompensation, Risk of Complication if Not Cared For in Hospital
[2017-12-18] MEDS: NYSTATIN 500000 UNIT/5 ML UDCUP PO SCH (18:57)
[2017-12-19] MEDS: TRAMADOL HCL 50 MG TABLET PO PRN ×2 (04:05→18:09)
[2017-12-19 05:24] LABS: ANION GAP 13 (5-19); BLOOD UREA NITROGEN 49 mg/dL (7-20); CALCIUM 9.3 mg/dL (8.4-10.2); CARBON DIOXIDE 22 mmol/L (22-30); CHLORIDE 100 mmol/L (98-107); GLUCOSE 125 mg/dL (75-110); POTASSIUM 4.7 mmol/L (3.6-5.0); SODIUM 134.9 mmol/L (137-145)
[2017-12-19] MEDS: LEVOTHYROXINE SODIUM 0.15 MG TABLET PO SCH (06:51)
[2017-12-19] MEDS: DILTIAZEM HCL 30 MG TABLET PO SCH ×3 (06:51→18:53)
[2017-12-19] MEDS: HEPARIN SOD (PORCINE) 5,000 UNIT/ML 1 ML SYRINGE SUBCUT SCH ×2 (06:58→14:15)
[2017-12-19] MEDS: ACETYLCYSTEINE 20% SOLN 800 MG/4 ML VIAL.NEB NEB SCH ×2 (07:55→19:37)
[2017-12-19] MEDS: IPRATROPIUM/ALBUTEROL 0.5-2.5 MG/3 ML AMPUL NEB SCH ×4 (07:55→19:38)
[2017-12-19] MEDS: METFORMIN HCL 500 MG TABLET PO SCH ×2 (09:39→18:53)
[2017-12-19] MEDS: PREDNISONE 20 MG TABLET PO SCH ×2 (09:39→18:53)
[2017-12-19] MEDS: GLIMEPIRIDE 1 MG TABLET PO SCH (09:40)
[2017-12-19] MEDS: LEVOFLOXACIN 750 MG TABLET PO SCH (09:40)
[2017-12-19] MEDS: FUROSEMIDE 20 MG TABLET PO SCH (09:41)
[2017-12-19] MEDS: NYSTATIN 500000 UNIT/5 ML UDCUP PO SCH ×3 (11:11→18:53)
[2017-12-19] MEDS ORDERED: ZOLPIDEM TARTRATE 5 MG TABLET PO PRN (12:20)
--- NOTE | 2017-12-19 13:51 | PDOC PROGRESS REPORT ---
Subjective Progress Note for:: 12/19/17 Subjective:: Patient's mouth pain is not worse and may be a little bit better. He is breathing closer to normal. Energy level is improving. Appetite is reasonably good. Reason For Visit: ACUTE RESPIRATORY FAILURE,CHF Physical Exam Vital Signs: Temp Pulse Resp BP Pulse Ox 98.6 F 80 18 120/76 100 12/19/17 11:05 12/19/17 12:00 12/19/17 12:00 12/19/17 11:05 12/19/17 12:00 Intake & Output 12/18/17 12/19/17 12/20/17 06:59 06:59 06:59 Intake Total 1194 620 Output Total 3400 2775 400 Balance -2206 -2155 -400 Weight 89.3 kg 89 kg General appearance: PRESENT: no acute distress, cooperative, thin Eye exam: PRESENT: conjunctiva pink Mouth exam: PRESENT: moist, neck supple Neck exam: PRESENT: other - Tracheotomy well-healed, trach collar in place. ABSENT: lymphadenopathy Respiratory exam: PRESENT: clear to auscultation carmencita, unlabored. ABSENT: rales , rhonchi, wheezes Cardiovascular exam: PRESENT: RRR. ABSENT: systolic murmur Pulses: PRESENT: normal radial pulses GI/Abdominal exam: PRESENT: normal bowel sounds, soft. ABSENT: distended, tenderness Rectal exam: PRESENT: deferred Gentrourinary exam: PRESENT: indwelling catheter Neurological exam: PRESENT: awake, oriented to person, oriented to situation Psychiatric exam: PRESENT: appropriate affect. ABSENT: anxious Skin exam: PRESENT: dry, warm Results Laboratory Results: 12/18/17 03:43 12/19/17 03:59 12/19/17 03:59 Sodium 134.9 L Potassium 4.7 Chloride 100 Carbon Dioxide 22 Anion Gap 13 BUN 49 H Creatinine 0.99 Est GFR ( Amer) > 60 Est GFR (Non-Af Amer) > 60 Glucose 125 H Calcium 9.3 12/12/17 12/12/17 16:02 16:42 Troponin I Cancelled 0.049 Impressions: Chest CT 12/12/17 00:00 IMPRESSION: NO ACUTE INTRATHORACIC PROCESS. EMPHYSEMA WITH SCARRING RIGHT UPPER LOBE. CORONARY ARTERY DISEASE. Chest X-Ray 12/12/17 09:46 IMPRESSION: NO ACUTE RADIOGRAPHIC FINDING IN THE CHEST. Tibia/Fibula X-Ray 12/12/17 10:00 IMPRESSION: NEGATIVE STUDY OF THE RIGHT TIBIA AND FIBULA. NO RADIOGRAPHIC EVIDENCE OF ACUTE INJURY. Venous Doppler Study 12/13/17 00:00 IMPRESSION: NO EVIDENCE OF DVT OR SVT IN THE LEFT LEG. Assessment & Plan - Diagnosis (1) Acute exacerbation of chronic obstructive pulmonary disease (COPD) Is this a current diagnosis for this admission?: Yes Plan: Continue bronchodilators. Continue prednisone 20 mg p.o. twice daily with plan to titrate down to his 10 mg p.o. twice daily hopefully on discharge. Overall improved. (2) Atrial fibrillation with RVR Is this a current diagnosis for this admission?: Yes Plan: Rate has been well controlled. Continue diltiazem. (3) Cellulitis of left lower extremity Is this a current diagnosis for this admission?: Yes Plan: Resolved. Antibiotics discontinued. (4) Diabetes Qualifiers: Diabetes mellitus type: type 2 Diabetes mellitus complication status: with unspecified complications Diabetes mellitus intermediate accountant insulin use: without intermediate accountant use Qualified Code(s): E11.8 - Type 2 diabetes mellitus with unspecified complications Is this a current diagnosis for this admission?: Yes Plan: Blood glucose 112 this morning. Continue glimepiride, metformin, lispro bolus insulin (5) Physical deconditioning Is this a current diagnosis for this admission?: Yes Plan: Patient refuses to go to rehab. Plan appears to be discharged tomorrow per the patient's report given to me. He will likely need physical therapy in the home. (6) Thrush, oral Is this a current diagnosis for this admission?: Yes Plan: Improved on exam. Continue nystatin swish and swallow. - Time Time Spent with patient: 15-24 minutes Medications reviewed and adjusted accordingly: Yes
[2017-12-19] MEDS: OXYCODONE-ACETAMINOPHEN 5-325 MG TABLET PO PRN (21:37)
[2017-12-20] MEDS: HEPARIN SOD (PORCINE) 5,000 UNIT/ML 1 ML SYRINGE SUBCUT SCH ×2 (00:39→05:52)
[2017-12-20] MEDS: DILTIAZEM HCL 30 MG TABLET PO SCH ×2 (00:49→05:52)
[2017-12-20] MEDS: TRAMADOL HCL 50 MG TABLET PO PRN (02:38)
[2017-12-20] MEDS: LEVOTHYROXINE SODIUM 0.15 MG TABLET PO SCH (05:52)
[2017-12-20] MEDS: ACETYLCYSTEINE 20% SOLN 800 MG/4 ML VIAL.NEB NEB SCH (08:09)
[2017-12-20] MEDS: IPRATROPIUM/ALBUTEROL 0.5-2.5 MG/3 ML AMPUL NEB SCH (08:09)
[2017-12-20 08:15] VITALS: BP 124/84
--- NOTE | 2017-12-20 08:34 | PDOC DISCHARGE SUMMARY ---
General - Admit/Disc Date/PCP Admission Date/Primary Care Provider: 12/12/17 13:09 WENDY AYALA, Discharge Date: 12/20/17 - Discharge Diagnosis (1) Acute exacerbation of chronic obstructive pulmonary disease (COPD) Is this a current diagnosis for this admission?: Yes Summary: Continue prednisone at 10 mg twice a day. Continue nebulization treatments and inhalers. Follow-up in the office in 1 week. (2) Atrial fibrillation with RVR Is this a current diagnosis for this admission?: Yes Summary: Stable continue rate control (3) Cellulitis of left lower extremity Is this a current diagnosis for this admission?: Yes Summary: Cellulitis resolve. No need for any further antibiotics. Keep legs elevated. (4) Diabetes Is this a current diagnosis for this admission?: Yes Summary: We will adjust medications. Increase metformin to 1000 twice a day and glimepiride (5) Sepsis affecting skin Is this a current diagnosis for this admission?: Yes (6) Physical deconditioning Is this a current diagnosis for this admission?: Yes Summary: We will need home physical therapy (7) Do not resuscitate Is this a current diagnosis for this admission?: Yes Summary: Continue DNR - Additional Information Resuscitation Status: Full Code Discharge Diet: As Tolerated Discharge Activity: Activity As Tolerated Home Medications: Diltiazem HCl [Cardizem 30 mg Tablet] 30 mg PO Q6 12/12/17 Levothyroxine Sodium [Synthroid] 150 mcg PO DAILY 12/12/17 Prednisone [Deltasone 10 mg Tablet] 10 mg PO BID 12/12/17 Tramadol HCl [Ultram 50 mg Tablet] 50 mg PO Q8HP PRN 12/12/17 Furosemide [Lasix 20 mg Tablet] 40 mg PO DAILY tablet 12/20/17 Metformin HCl [Glucophage] 1,000 mg PO BID #0 12/20/17 History of Present Illness History of Present Illness: KARLA PARADA is a 77 year old male Hospital Course Hospital Course: The patient did well after the hospitalization. He was started on antibiotics for his cellulitis of the left lower extremity. The blood cultures were negative. He was placed in mc boots with leg elevation which has improved his symptomatology. His COPD has remained relatively stable. We had to increase the steroids and add some diuretics. Physical Exam Vital Signs: Temp Pulse Resp BP Pulse Ox 98.6 F 68 18 124/84 100 03/05/18 07:36 12/20/17 07:00 12/20/17 07:36 12/20/17 07:36 12/20/17 04:00 Intake & Output 12/19/17 12/20/17 12/21/17 06:59 06:59 06:59 Intake Total 620 1210 Output Total 277 2600 Balance -2155 -1390 Weight 89 kg 86 kg General appearance: PRESENT: no acute distress Head exam: PRESENT: atraumatic Eye exam: PRESENT: conjunctival injection Mouth exam: PRESENT: other Neck exam: PRESENT: tracheostomy Respiratory exam: PRESENT: rhonchi. ABSENT: wheezes Cardiovascular exam: PRESENT: irregular rhythm, +S1, +S2 Pulses: PRESENT: +1 pedal pulses bilateral GI/Abdominal exam: PRESENT: normal bowel sounds, soft Neurological exam: PRESENT: alert, awake Results Laboratory Results: 12/18/17 03:43 12/19/17 03:59 12/12/17 12/12/17 16:02 16:42 Troponin I Cancelled 0.049 Impressions: Chest CT 12/12/17 00:00 IMPRESSION: NO ACUTE INTRATHORACIC PROCESS. EMPHYSEMA WITH SCARRING RIGHT UPPER LOBE. CORONARY ARTERY DISEASE. Chest X-Ray 12/12/17 09:46 IMPRESSION: NO ACUTE RADIOGRAPHIC FINDING IN THE CHEST. Tibia/Fibula X-Ray 12/12/17 10:00 IMPRESSION: NEGATIVE STUDY OF THE RIGHT TIBIA AND FIBULA. NO RADIOGRAPHIC EVIDENCE OF ACUTE INJURY. Venous Doppler Study 12/13/17 00:00 IMPRESSION: NO EVIDENCE OF DVT OR SVT IN THE LEFT LEG. Qualifiers - * PATEINT BEING DISCHARGED WITH ANY OF THE FOLLOWING DIAGNOSIS?: No VTE patient discharged on overlapping Therapy?: No Reason(s) for not prescribing Overlap Therapy:: Medical Contraindication Stroke Pt being discharged on Anti-thrombolytic therapy?: No Reason(s) for not prescribing Anti-thrombolytic therapy:: Medical Contraindication Stroke Pt being discharged on Anti-coagulation therapy?: No Reason(s) for not prescribing Anti-coagulation therapy:: Tx not tolerated Stroke Pt being discharged on Statins?: No Reason(s) for not prescribing Statins therapy:: Tx not tolerated IN Pt being discharged on Aspirin therapy?: No Reason(s) for not prescribing Aspirin therapy:: Medical Contraindication IN Pt being discharged on Statins?: No Reason(s) for not prescribing Statin therapy:: Tx not tolerated IN Pt discharged ACEI/ARBS?: No Reason(s) for not prescribing ACEI/ARBS:: Tx not tolerated HF Pt being discharged on ACEI for LVEF less than 40%?: No Reason(s) for not prescribing ACEI:: Tx not tolerated HF Pt being discharged on ARBS for LVEF less than 40%?: No Reason(s) for not prescribing ARBS:: Tx not tolerated HF Pt with Afib discharged with Warfarin?: No Reason(s) for not prescribing Warfarin:: Tx not tolerated HF Pt discharged on evidence-based Beta Maulik:: No Reason(s) for not prescribing evidence-based Beta Maulik:: Tx not tolerated Plan Discharge Plan: Discharge home continue current medication
[2017-12-20] MEDS: METFORMIN HCL 500 MG TABLET PO SCH (08:37)
[2017-12-20] MEDS: OXYCODONE-ACETAMINOPHEN 5-325 MG TABLET PO PRN (08:37)
[2017-12-20] MEDS: PREDNISONE 20 MG TABLET PO SCH (09:23)
[2017-12-20] MEDS: FUROSEMIDE 20 MG TABLET PO SCH (09:23)
[2017-12-20] MEDS: NYSTATIN 500000 UNIT/5 ML UDCUP PO SCH (09:23)
[2017-12-20] MEDS: GLIMEPIRIDE 1 MG TABLET PO SCH (09:23)
--- NOTE | 2017-12-25 19:00 | PDOC PROGRESS REPORT ---
Subjective Progress Note for:: 12/16/17 Subjective:: Little better able to cough up more sputum Reason For Visit: ACUTE RESPIRATORY FAILURE,CHF Physical Exam Vital Signs: Temp Pulse Resp BP Pulse Ox 98.5 F 81 18 116/58 L 100 12/16/17 11:35 12/16/17 11:35 12/16/17 11:35 12/16/17 11:35 12/16/17 11:35 Intake & Output 12/15/17 12/16/17 12/17/17 06:59 06:59 06:59 Intake Total 2633 2815 Output Total 2050 1275 Balance 583 1540 Weight 89.5 kg 90.9 kg General appearance: PRESENT: no acute distress, disheveled, well-developed. ABSENT: hard of hearing, mild distress, severe distress Head exam: PRESENT: atraumatic, normocephalic Eye exam: PRESENT: conjunctiva pale, EOMI. ABSENT: nystagmus, periorbital swelling, scleral icterus Mouth exam: PRESENT: dry mucosa, neck supple, tongue midline Neck exam: ABSENT: carotid bruit, JVD, lymphadenopathy, thyromegaly, tracheal deviation, tracheostomy Cardiovascular exam: PRESENT: RRR, +S1, +S2 Pulses: PRESENT: normal radial pulses GI/Abdominal exam: PRESENT: diminished bowel sounds, soft Neurological exam: PRESENT: awake Skin exam: PRESENT: dry, warm Results Laboratory Results: 12/16/17 04:14 12/16/17 04:14 12/16/17 12/16/17 04:14 04:14 WBC 12.2 H RBC 4.38 Hgb 13.9 Hct 41.7 MCV 95 MCH 31.7 MCHC 33.3 RDW 17.5 H Plt Count 182 Seg Neutrophils % Not Reportable Lymphocytes % Not Reportable Monocytes % Not Reportable Eosinophils % Not Reportable Basophils % Not Reportable Absolute Neutrophils Not Reportable Absolute Lymphocytes Not Reportable Absolute Monocytes Not Reportable Absolute Eosinophils Not Reportable Absolute Basophils Not Reportable Sodium 137.5 Potassium 4.0 Chloride 100 Carbon Dioxide 25 Anion Gap 13 BUN 42 H Creatinine 1.00 Est GFR ( Amer) > 60 Est GFR (Non-Af Amer) > 60 Glucose 213 H Calcium 9.6 Total Bilirubin 0.3 AST 24 ALT 47 Alkaline Phosphatase 53 Total Protein 5.7 L Albumin 3.3 L 12/12/17 12/12/17 16:02 16:42 Troponin I Cancelled 0.049 Impressions: Chest CT 12/12/17 00:00 IMPRESSION: NO ACUTE INTRATHORACIC PROCESS. EMPHYSEMA WITH SCARRING RIGHT UPPER LOBE. CORONARY ARTERY DISEASE. Chest X-Ray 12/12/17 09:46 IMPRESSION: NO ACUTE RADIOGRAPHIC FINDING IN THE CHEST. Tibia/Fibula X-Ray 12/12/17 10:00 IMPRESSION: NEGATIVE STUDY OF THE RIGHT TIBIA AND FIBULA. NO RADIOGRAPHIC EVIDENCE OF ACUTE INJURY. Venous Doppler Study 12/13/17 00:00 IMPRESSION: NO EVIDENCE OF DVT OR SVT IN THE LEFT LEG. Assessment & Plan - Diagnosis (1) Acute and chronic respiratory failure Qualifiers: Respiratory failure complication: hypoxia Qualified Code(s): J96.21 - Acute and chronic respiratory failure with hypoxia Is this a current diagnosis for this admission?: Yes Plan: Stable no wheezing currently (2) Atrial fibrillation with RVR Is this a current diagnosis for this admission?: Yes Plan: Controlled currently in normal sinus (3) Pulmonary hypertension Is this a current diagnosis for this admission?: Yes (4) Acute exacerbation of chronic obstructive pulmonary disease (COPD) Is this a current diagnosis for this admission?: Yes Plan: Improving continue chest physiotherapy
--- NOTE | 2017-12-25 19:02 | PDOC PROGRESS REPORT ---
Subjective Progress Note for:: 12/17/17 Subjective:: Little better able to cough up more sputum Reason For Visit: ACUTE RESPIRATORY FAILURE,CHF Physical Exam Vital Signs: Temp Pulse Resp BP Pulse Ox 98.6 F 68 18 124/84 100 12/20/17 11:15 12/20/17 11:15 12/20/17 11:15 12/20/17 11:15 12/20/17 11:15 Intake & Output 12/20/17 12/21/17 12/22/17 06:59 06:59 06:59 Intake Total 1210 Output Total 2600 Balance -1390 Weight 86 kg General appearance: PRESENT: no acute distress, cooperative, disheveled, well- developed Head exam: PRESENT: atraumatic, normocephalic Eye exam: PRESENT: conjunctiva pale, EOMI. ABSENT: nystagmus, periorbital swelling, scleral icterus Mouth exam: PRESENT: dry mucosa, neck supple, tongue midline Neck exam: ABSENT: carotid bruit, JVD, lymphadenopathy, thyromegaly, tracheal deviation, tracheostomy Respiratory exam: PRESENT: decreased breath sounds, prolonged expiratory phas, rhonchi, symmetrical, unlabored. ABSENT: stridor, tachypnea Cardiovascular exam: PRESENT: RRR, +S1, +S2 Pulses: PRESENT: normal radial pulses GI/Abdominal exam: PRESENT: diminished bowel sounds, soft Extremities exam: ABSENT: clubbing, joint swelling Musculoskeletal exam: ABSENT: deformity, dislocation Neurological exam: PRESENT: alert, awake Skin exam: PRESENT: dry, warm Results Laboratory Results: 12/18/17 03:43 12/19/17 03:59 12/12/17 12/12/17 16:02 16:42 Troponin I Cancelled 0.049 Impressions: Chest CT 12/12/17 00:00 IMPRESSION: NO ACUTE INTRATHORACIC PROCESS. EMPHYSEMA WITH SCARRING RIGHT UPPER LOBE. CORONARY ARTERY DISEASE. Chest X-Ray 12/12/17 09:46 IMPRESSION: NO ACUTE RADIOGRAPHIC FINDING IN THE CHEST. Tibia/Fibula X-Ray 12/12/17 10:00 IMPRESSION: NEGATIVE STUDY OF THE RIGHT TIBIA AND FIBULA. NO RADIOGRAPHIC EVIDENCE OF ACUTE INJURY. Venous Doppler Study 12/13/17 00:00 IMPRESSION: NO EVIDENCE OF DVT OR SVT IN THE LEFT LEG. Assessment & Plan - Diagnosis (1) Acute and chronic respiratory failure Qualifiers: Respiratory failure complication: hypoxia Qualified Code(s): J96.21 - Acute and chronic respiratory failure with hypoxia Is this a current diagnosis for this admission?: Yes Plan: Stable no wheezing currently (2) Atrial fibrillation with RVR Is this a current diagnosis for this admission?: Yes Plan: Controlled currently in normal sinus (3) Pulmonary hypertension Is this a current diagnosis for this admission?: Yes Plan: Stable (4) Acute exacerbation of chronic obstructive pulmonary disease (COPD) Is this a current diagnosis for this admission?: Yes Plan: Improving continue chest physiotherapy
--- NOTE | 2017-12-25 19:04 | PDOC PROGRESS REPORT ---
Subjective Progress Note for:: 12/20/17 Subjective:: Little better able to cough up more sputum Reason For Visit: ACUTE RESPIRATORY FAILURE,CHF Physical Exam Vital Signs: Temp Pulse Resp BP Pulse Ox 98.6 F 68 18 124/84 100 12/20/17 11:15 12/20/17 11:15 12/20/17 11:15 12/20/17 11:15 12/20/17 11:15 Intake & Output 12/20/17 12/21/17 12/22/17 06:59 06:59 06:59 Intake Total 1210 Output Total 2600 Balance -1390 Weight 86 kg General appearance: PRESENT: no acute distress, cooperative, well-developed Head exam: PRESENT: atraumatic, normocephalic Eye exam: PRESENT: conjunctiva pale, EOMI. ABSENT: nystagmus, periorbital swelling, scleral icterus Mouth exam: PRESENT: dry mucosa, neck supple, tongue midline Neck exam: ABSENT: carotid bruit, JVD, lymphadenopathy, thyromegaly, tracheal deviation, tracheostomy Respiratory exam: PRESENT: decreased breath sounds, prolonged expiratory phas, rhonchi, symmetrical, unlabored. ABSENT: retraction, stridor, tachypnea Cardiovascular exam: PRESENT: RRR, +S1, +S2 Pulses: PRESENT: normal radial pulses GI/Abdominal exam: PRESENT: diminished bowel sounds, soft Extremities exam: ABSENT: calf tenderness, clubbing Musculoskeletal exam: ABSENT: deformity, dislocation Neurological exam: PRESENT: awake Skin exam: PRESENT: dry, warm Results Laboratory Results: 12/18/17 03:43 12/19/17 03:59 12/12/17 12/12/17 16:02 16:42 Troponin I Cancelled 0.049 Impressions: Chest CT 12/12/17 00:00 IMPRESSION: NO ACUTE INTRATHORACIC PROCESS. EMPHYSEMA WITH SCARRING RIGHT UPPER LOBE. CORONARY ARTERY DISEASE. Chest X-Ray 12/12/17 09:46 IMPRESSION: NO ACUTE RADIOGRAPHIC FINDING IN THE CHEST. Tibia/Fibula X-Ray 12/12/17 10:00 IMPRESSION: NEGATIVE STUDY OF THE RIGHT TIBIA AND FIBULA. NO RADIOGRAPHIC EVIDENCE OF ACUTE INJURY. Venous Doppler Study 12/13/17 00:00 IMPRESSION: NO EVIDENCE OF DVT OR SVT IN THE LEFT LEG. Assessment & Plan - Diagnosis (1) Acute and chronic respiratory failure Qualifiers: Respiratory failure complication: hypoxia Qualified Code(s): J96.21 - Acute and chronic respiratory failure with hypoxia Is this a current diagnosis for this admission?: Yes Plan: Stable no wheezing currently (2) Atrial fibrillation with RVR Is this a current diagnosis for this admission?: Yes Plan: Controlled currently in normal sinus (3) Pulmonary hypertension Is this a current diagnosis for this admission?: Yes Plan: Stable (4) Acute exacerbation of chronic obstructive pulmonary disease (COPD) Is this a current diagnosis for this admission?: Yes Plan: Improving continue chest physiotherapy
== END 2017-12-20 11:51 | disposition home or self-care (01) | DRG 872 ==
LOC: ER 09:44 → EH 13:09 → UNDOADMIN 13:09 → 3N 17:50
PROVIDERS: ADMIT Emergency Medicine; ATTEND Emergency Medicine
PROC: 3E0F73Z Introduction of Anti-inflammatory into Respiratory Tract, Via Natural or Artificial Opening (ICD-10-PCS; principal; 2017-12-12)
DX: A41.9 Sepsis, unspecified organism (principal); J44.1 Chronic obstructive pulmonary disease with (acute) exacerbation; L03.116 Cellulitis of left lower limb; B37.0 Candidal stomatitis; I27.20 Pulmonary hypertension, unspecified; I48.0 Paroxysmal atrial fibrillation; M19.90 Unspecified osteoarthritis, unspecified site; I25.10 Atherosclerotic heart disease of native coronary artery without angina pectoris; E03.9 Hypothyroidism, unspecified; Z66 Do not resuscitate; Z88.0 Allergy status to penicillin; Z88.1 Allergy status to other antibiotic agents; Z78.1 Physical restraint status; Z90.49 Acquired absence of other specified parts of digestive tract; Z85.21 Personal history of malignant neoplasm of larynx; Z93.0 Tracheostomy status; Z90.02 Acquired absence of larynx; Z87.891 Personal history of nicotine dependence; Z82.49 Family history of ischemic heart disease and other diseases of the circulatory system; Z80.9 Family history of malignant neoplasm, unspecified; Z83.3 Family history of diabetes mellitus
CPT/HCPCS: 36415; 51702; 71045; 71260; 80048; 80053; 81001; 82803; 82962; 83605; 83735; 83880; 84100; 84443; 84484; 85025; 85610; 87040; 87086; 93005; 93010; 93306; 93971; 94640; 94667; 94668; 96365; 96366; 96368; 96375; 96376; 99291; J1160; J1170; J1644; J1815; J1940; J2020; J2920; J3370; J3490; J7030; J7512; J7620

== ENCOUNTER 2018-03-07 07:33 | Inpatient (IN) | payer MEDICARE, OTHER ==
[2018-03-07] MEDS ORDERED: METHYLPREDNISOLONE INJ 125 MG/2 ML SDV IV ONE (07:40)
[2018-03-07] MEDS ORDERED: METHYLPREDNISOLONE INJ 125 MG/2 ML SDV ONE (07:41)
[2018-03-07] MEDS ORDERED: IPRATROPIUM/ALBUTEROL 0.5-2.5 MG/3 ML AMPUL NEB ONE (07:41)
[2018-03-07] MEDS ORDERED: MAGNESIUM SULFATE/D5W 2 GM/200 ML RTUPB IV ONE (07:41)
[2018-03-07] MEDS: MAGNESIUM SULFATE/D5W 1 GM/100 ML RTUPB IV SCH ×2 (07:49→08:25)
[2018-03-07 07:59] LABS: ABSOLUTE BASOPHILS # (AUTO) 0.1 10^3/uL (0.0-0.2); ABSOLUTE EOSINOPHILS # (AUTO) 0.6 10^3/uL (0.0-0.6); ABSOLUTE LYMPHOCYTES (AUTO) 1.1 10^3/uL (0.5-4.7); ABSOLUTE MONOCYTES (AUTO) 0.9 10^3/uL (0.1-1.4); ABSOLUTE NEUT (AUTO) 7.1 10^3/uL (1.7-8.2); BASOPHILS % (AUTO) 1.2 % (0-2); EOSINOPHILS % (AUTO) 6.6 % (0-6); HEMATOCRIT 44.5 % (37.9-51.0); HEMOGLOBIN 14.8 g/dL (13.5-17.0); LYMPHOCYTES % (AUTO) 11.1 % (13-45); MEAN CORPUSCULAR HEMOGLOBIN 32.6 pg (27.0-33.4); MEAN CORPUSCULAR HGB CONC 33.2 g/dL (32.0-36.0); MEAN CORPUSCULAR VOLUME 98 fl (80-97); MONOCYTES % (AUTO) 8.9 % (3-13); PLATELET COUNT 242 10^3/uL (150-450); RED BLOOD COUNT 4.53 10^6/uL (4.35-5.55); RED CELL DISTRIBUTION WIDTH 15.5 % (11.5-14.0); SEGMENTED NEUTROPHILS % (AUTO) 72.2 % (42-78); TOTAL CELLS COUNTED % (AUTO) 100 %; WHITE BLOOD COUNT 9.8 10^3/uL (4.0-10.5)
--- NOTE | 2018-03-07 07:59 | ER Document Report ---
ED General - General Chief Complaint: Shortness Of Breath Stated Complaint: RESPIRATORY DISTRESS Time Seen by Provider: 03/07/18 07:33 Mode of Arrival: Medic Information source: Parent, Emergency Med Personnel, [facility] Records Notes: 77-year-old male with COPD, atrial fibrillation, diabetes presents via EMS from home with complaint of shortness of breath. Patient and EMS reports patient has been experiencing worsening shortness of breath over the last 4 days. Patient reports productive cough and increased increased sputum production as well as subjective fever. EMS reports that they found the patient in a hot garage surrounded by neena litter and a strong odor of cat urine. Patient was discharged from [facility] on December 20, 2017. Patient states he has been doing well at home since that time. He is a trach patient who uses 1- 2 L of oxygen continuously. He denies any sick contacts. He does admit to chest tightness. He states that he has been compliant with his medications. TRAVEL OUTSIDE OF THE [place] IN LAST 30 DAYS: No - HPI Onset: Other - 4 days prior to arrival Onset/Duration: Persistent Quality of pain: No pain Severity: Moderate Associated symptoms: Shortness of breath Exacerbated by: Movement Relieved by: Denies Similar symptoms previously: Yes Recently seen / treated by doctor: No - Related Data Allergies/Adverse Reactions: ceftriaxone [From Rocephin] Allergy (Severe, Verified 08/19/17 02:07) Penicillins Allergy (Severe, Verified 12/16/17 15:15) Stiffness in joints Past Medical History - General Information source: Patient, Emergency Med Personnel, [facility] Records - Social History Smoking Status: Former Smoker Frequency of alcohol use: None Drug Abuse: None Lives with: Family Family History: DM, Hypertension, Malignancy - Past Medical History Cardiac Medical History: Reports: Hx Atrial Fibrillation, Hx Coronary Artery Disease Denies: Hx Heart Attack, Hx Hypertension Pulmonary Medical History: Reports: Hx Asthma, Hx COPD, Hx Pneumonia, Hx Respiratory Failure Denies: Hx Bronchitis Neurological Medical History: Denies: Hx Cerebrovascular Accident, Hx Seizures Endocrine Medical History: Reports: Hx Diabetes Mellitus Type 1, Hx Diabetes Mellitus Type 2, Hx Hyperthyroidism, Hx Hypothyroidism Renal/ Medical History: Denies: Hx Peritoneal Dialysis Musculoskeltal Medical History: Reports Hx Arthritis - GENERALIZED Psychiatric Medical History: Denies: Hx Depression Past Surgical History: Reports: Hx Abdominal Surgery - G-tube, Hx Oral Surgery - Trach, Other - Laryngeal cancer resection with tracheostomy - Immunizations Hx Diphtheria, Pertussis, Tetanus Vaccination: Yes Hx Pneumococcal Vaccination: 10/18/11 Review of Systems - Review of Systems Constitutional: Malaise, Weakness Cardiovascular: denies: Chest pain, Edema Respiratory: Short of breath, Wheezing Gastrointestinal: Nausea. denies: Vomiting, Poor appetite Genitourinary: denies: Dysuria Male Genitourinary: denies: Testicular pain Musculoskeletal: denies: Back pain Skin: Dryness Hematologic/Lymphatic: denies: Easy bleeding Neurological/Psychological: Weakness -: Yes All other systems reviewed and negative Physical Exam - Vital signs Vitals: Pulse Ox 98 03/07/18 07:40 - Notes Notes: PHYSICAL EXAMINATION: GENERAL: Well-appearing, well-nourished and in no acute distress. HEAD: Atraumatic, normocephalic. EYES: Pupils equal round and reactive to light, extraocular movements intact, sclera anicteric, conjunctiva are normal. ENT: Nares patent, oropharynx clear without exudates. Moist mucous membranes. NECK: Normal range of motion, supple without lymphadenopathy LUNGS: Diffuse diminished breath sounds with mild expiratory wheezing. Tachypneic HEART: Regular rate and rhythm without murmurs ABDOMEN: Soft, nontender, nondistended abdomen. No guarding, no rebound. No masses appreciated. Musculoskeletal: Normal range of motion, no pitting or edema. No cyanosis. NEUROLOGICAL: Cranial nerves grossly intact. Normal speech, normal gait. Normal sensory, motor exams PSYCH: Normal mood, normal affect. SKIN: Warm, Dry, normal turgor, no rashes or lesions noted. Course - Re-evaluation Re-evalutation: 03/08/18 09:01 Microbiology 03/07/18 08:35 Blood Culture - Preliminary Blood NO GROWTH IN 24 HOURS 03/07/18 07:40 Blood Culture - Preliminary Blood NO GROWTH IN 24 HOURS Laboratory 03/07/18 03/07/18 03/07/18 07:40 07:40 07:40 WBC 9.8 RBC 4.53 Hgb 14.8 Hct 44.5 MCV 98 H MCH 32.6 MCHC 33.2 RDW 15.5 H Plt Count 242 Seg Neutrophils % 72.2 Lymphocytes % 11.1 L Monocytes % 8.9 Eosinophils % 6.6 H Basophils % 1.2 Absolute Neutrophils 7.1 Absolute Lymphocytes 1.1 Absolute Monocytes 0.9 Absolute Eosinophils 0.6 Absolute Basophils 0.1 PT INR APTT Carbonic Acid HCO3/H2CO3 Ratio ABG pH ABG pCO2 ABG pO2 ABG HCO3 ABG Total CO2 ABG O2 Saturation ABG Base Excess FiO2 Sodium 144.5 Potassium 4.8 Chloride 104 Carbon Dioxide 27 Anion Gap 14 BUN 21 H Creatinine 0.88 Est GFR ( Amer) > 60 Est GFR (Non-Af Amer) > 60 Glucose 119 H POC Glucose Lactic Acid Cancelled Calcium 10.0 Total Bilirubin 0.8 Direct Bilirubin 0.4 Neonat Total Bilirubin Not Reportable Neonat Direct Bilirubin Not Reportable Neonat Indirect Bili Not Reportable AST 32 ALT 44 Alkaline Phosphatase 76 Creatine Kinase CK-MB (CK-2) Troponin I Total Protein 7.1 Albumin 4.0 Urine Color Urine Appearance Urine pH Ur Specific Rector Urine Protein Urine Glucose (UA) Urine Ketones Urine Blood Urine Nitrite Urine Bilirubin Urine Urobilinogen Ur Leukocyte Esterase Urine WBC (Auto) Urine RBC (Auto) Calcium Oxalate Cr Auto Urine Mucus (Auto) Urine Ascorbic Acid 03/07/18 03/07/18 03/07/18 07:40 07:40 07:40 WBC RBC Hgb Hct MCV MCH MCHC RDW Plt Count Seg Neutrophils % Lymphocytes % Monocytes % Eosinophils % Basophils % Absolute Neutrophils Absolute Lymphocytes Absolute Monocytes Absolute Eosinophils Absolute Basophils PT INR APTT Carbonic Acid HCO3/H2CO3 Ratio ABG pH ABG pCO2 ABG pO2 ABG HCO3 ABG Total CO2 ABG O2 Saturation ABG Base Excess FiO2 Sodium Potassium Chloride Carbon Dioxide Anion Gap BUN Creatinine Est GFR ( Amer) Est GFR (Non-Af Amer) Glucose POC Glucose Lactic Acid 2.3 H Calcium Total Bilirubin Direct Bilirubin Neonat Total Bilirubin Neonat Direct Bilirubin Neonat Indirect Bili AST ALT Alkaline Phosphatase Creatine Kinase 100 CK-MB (CK-2) 4.49 Troponin I 0.025 Total Protein Albumin Urine Color Urine Appearance Urine pH Ur Specific Rector Urine Protein Urine Glucose (UA) Urine Ketones Urine Blood Urine Nitrite Urine Bilirubin Urine Urobilinogen Ur Leukocyte Esterase Urine WBC (Auto) Urine RBC (Auto) Calcium Oxalate Cr Auto Urine Mucus (Auto) Urine Ascorbic Acid 03/07/18 03/07/18 03/07/18 07:40 08:18 12:26 WBC RBC Hgb Hct MCV MCH MCHC RDW Plt Count Seg Neutrophils % Lymphocytes % Monocytes % Eosinophils % Basophils % Absolute Neutrophils Absolute Lymphocytes Absolute Monocytes Absolute Eosinophils Absolute Basophils PT 14.1 INR 1.04 APTT 35.9 H Carbonic Acid 1.54 H HCO3/H2CO3 Ratio 15:1 ABG pH 7.29 L ABG pCO2 51.0 H ABG pO2 130.5 H ABG HCO3 24.1 ABG Total CO2 25.6 ABG O2 Saturation 98.3 H ABG Base Excess -3.1 FiO2 45% Sodium Potassium Chloride Carbon Dioxide Anion Gap BUN Creatinine Est GFR ( Amer) Est GFR (Non-Af Amer) Glucose POC Glucose Lactic Acid 1.3 Calcium Total Bilirubin Direct Bilirubin Neonat Total Bilirubin Neonat Direct Bilirubin Neonat Indirect Bili AST ALT Alkaline Phosphatase Creatine Kinase CK-MB (CK-2) Troponin I Total Protein Albumin Urine Color Urine Appearance Urine pH Ur Specific Rector Urine Protein Urine Glucose (UA) Urine Ketones Urine Blood Urine Nitrite Urine Bilirubin Urine Urobilinogen Ur Leukocyte Esterase Urine WBC (Auto) Urine RBC (Auto) Calcium Oxalate Cr Auto Urine Mucus (Auto) Urine Ascorbic Acid 03/07/18 03/07/18 03/07/18 14:09 16:17 21:24 WBC RBC Hgb Hct MCV MCH MCHC RDW Plt Count Seg Neutrophils % Lymphocytes % Monocytes % Eosinophils % Basophils % Absolute Neutrophils Absolute Lymphocytes Absolute Monocytes Absolute Eosinophils Absolute Basophils PT INR APTT Carbonic Acid HCO3/H2CO3 Ratio ABG pH ABG pCO2 ABG pO2 ABG HCO3 ABG Total CO2 ABG O2 Saturation ABG Base Excess FiO2 Sodium Potassium Chloride Carbon Dioxide Anion Gap BUN Creatinine Est GFR ( Amer) Est GFR (Non-Af Amer) Glucose POC Glucose 166 H 185 H Lactic Acid Calcium Total Bilirubin Direct Bilirubin Neonat Total Bilirubin Neonat Direct Bilirubin Neonat Indirect Bili AST ALT Alkaline Phosphatase Creatine Kinase CK-MB (CK-2) Troponin I Total Protein Albumin Urine Color YELLOW Urine Appearance SLIGHTLY-CLOUDY Urine pH 5.0 Ur Specific Rector 1.024 Urine Protein NEGATIVE Urine Glucose (UA) NEGATIVE Urine Ketones NEGATIVE Urine Blood LARGE H Urine Nitrite NEGATIVE Urine Bilirubin NEGATIVE Urine Urobilinogen 2.0 H Ur Leukocyte Esterase TRACE H Urine WBC (Auto) 23 Urine RBC (Auto) 102 Calcium Oxalate Cr Auto FEW Urine Mucus (Auto) RARE Urine Ascorbic Acid NEGATIVE 03/08/18 03/08/18 05:38 05:38 WBC 9.0 RBC 4.44 Hgb 14.1 Hct 42.6 MCV 96 MCH 31.7 MCHC 33.1 RDW 15.2 H Plt Count 227 Seg Neutrophils % 88.9 H Lymphocytes % 7.7 L Monocytes % 2.8 L Eosinophils % 0.1 Basophils % 0.5 Absolute Neutrophils 8.0 Absolute Lymphocytes 0.7 Absolute Monocytes 0.3 Absolute Eosinophils 0.0 Absolute Basophils 0.0 PT INR APTT Carbonic Acid HCO3/H2CO3 Ratio ABG pH ABG pCO2 ABG pO2 ABG HCO3 ABG Total CO2 ABG O2 Saturation ABG Base Excess FiO2 Sodium 141.0 Potassium 4.6 Chloride 106 Carbon Dioxide 25 Anion Gap 10 BUN 27 H Creatinine 0.83 Est GFR ( Amer) > 60 Est GFR (Non-Af Amer) > 60 Glucose 155 H POC Glucose Lactic Acid Calcium 9.6 Total Bilirubin 0.7 Direct Bilirubin 0.4 Neonat Total Bilirubin Not Reportable Neonat Direct Bilirubin Not Reportable Neonat Indirect Bili Not Reportable AST 65 H ALT 38 Alkaline Phosphatase 74 Creatine Kinase CK-MB (CK-2) Troponin I Total Protein 7.0 Albumin 3.9 Urine Color Urine Appearance Urine pH Ur Specific Rector Urine Protein Urine Glucose (UA) Urine Ketones Urine Blood Urine Nitrite Urine Bilirubin Urine Urobilinogen Ur Leukocyte Esterase Urine WBC (Auto) Urine RBC (Auto) Calcium Oxalate Cr Auto Urine Mucus (Auto) Urine Ascorbic Acid 77-year-old male with a history of COPD presents via EMS with complaint of 4 days of worsening shortness of breath. Upon arrival patient is tachypneic and in mild respiratory distress. Patient has diffuse diminished lung sounds with mild expiratory wheezing which improves after several breathing treatments. Patient did receive Solu-Medrol, magnesium with minimal improvement. Cardizem was also administered for his elevated heart rate. Patient received aztreonam and Cipro for possible hospital-acquired pneumonia since he has had a recent admission within the last 90 days . EKG showed the patient to be in atrial fibrillation. Patient states that he is a DNR. Patient's vitals remained stable throughout his ED course although the patient still expresses the feeling of shortness of breath. Patient will be admitted to his physician Dr. Jordan. 03/08/18 09:06 - Vital Signs Vital signs: Temp Pulse Resp BP Pulse Ox 98.3 F 108 H 19 123/77 100 03/08/18 07:55 03/08/18 07:55 03/08/18 07:55 03/08/18 07:55 03/08/18 07:55 - Laboratory Result Diagrams: 03/08/18 05:38 03/08/18 05:38 Laboratory results interpreted by me: 03/07/18 03/07/18 03/07/18 07:40 07:40 07:40 MCV 98 H RDW 15.5 H Lymphocytes % 11.1 L Eosinophils % 6.6 H APTT Carbonic Acid ABG pH ABG pCO2 ABG pO2 ABG O2 Saturation BUN 21 H Glucose 119 H Lactic Acid 2.3 H 03/07/18 03/07/18 07:40 08:18 MCV RDW Lymphocytes % Eosinophils % APTT 35.9 H Carbonic Acid 1.54 H ABG pH 7.29 L ABG pCO2 51.0 H ABG pO2 130.5 H ABG O2 Saturation 98.3 H BUN Glucose Lactic Acid - Diagnostic Test Radiology reviewed: Image reviewed, Reports reviewed Discharge - Discharge Clinical Impression: COPD exacerbation, Atrial fibrillation with RVR, Acute on chronic respiratory failure with hypoxemia Condition: Fair Disposition: ADMITTED INPATIENT Admitting Provider: [facility] Unit Admitted: [facility]
[2018-03-07] MEDS ORDERED: DILTIAZEM HCL INJ 25 MG/5 ML VIAL IV ONE (08:00)
[2018-03-07] MEDS ORDERED: DILTIAZEM HCL 60 MG TABLET PO ONE (08:01)
--- NOTE | 2018-03-07 08:04 | RADIOLOGY REPORT (SQ) ---
EXAM DESCRIPTION: CHEST SINGLE VIEW COMPLETED DATE/TIME: 03/07/2018 7:56 am REASON FOR STUDY: sob COMPARISON: Two-view chest 07/12/2017, 08/18/2017, 11/13/2017 CT chest 12/12/2017 EXAM PARAMETERS: NUMBER OF VIEWS: One view. TECHNIQUE: Single frontal radiographic view of the chest acquired. RADIATION DOSE: NA LIMITATIONS: None. FINDINGS: LUNGS AND PLEURA: Bandlike scarring in the right upper lobe is stable. Lungs are hyperlucent and hyperinflated from obstructive disease. No acute infiltrates. No pleural effusion. No pneumothorax. MEDIASTINUM AND HILAR STRUCTURES: No masses. Contour normal. HEART AND VASCULAR STRUCTURES: Mild cardiomegaly, stable BONES: No acute findings. HARDWARE: None in the chest. OTHER: No other significant finding. IMPRESSION: Obstructive lung disease No acute infiltrate TECHNICAL DOCUMENTATION: JOB ID: [id number] [employer]- All Rights Reserved Reading location - IP/workstation name: [email or web address]
[2018-03-07 08:21] LABS: ALANINE AMINOTRANSFERASE 44 U/L (21-72); ALKALINE PHOSPHATASE 76 U/L (38-126); ANION GAP 14 (5-19); ASPARTATE AMINO TRANSFERASE 32 U/L (17-59); BILIRUBIN,DIRECT 0.4 mg/dL (0.0-0.4); BILIRUBIN,TOTAL 0.8 mg/dL (0.2-1.3); BLOOD UREA NITROGEN 21 mg/dL (7-20); CARBON DIOXIDE 27 mmol/L (22-30); CHLORIDE 104 mmol/L (98-107); GLUCOSE 119 mg/dL (75-110); POTASSIUM 4.8 mmol/L (3.6-5.0); SODIUM 144.5 mmol/L (137-145); TOTAL PROTEIN 7.1 g/dL (6.3-8.2)
[2018-03-07] MEDS ORDERED: AZTREONAM INJ 1 GM VIAL IV ONE (08:26)
[2018-03-07] MEDS ORDERED: CIPROFLOXACIN 400 MG/D5W RTU 400 MG/200 ML RTUPB IV ONE (08:27)
[2018-03-07 08:32] LABS: CREATINE KINASE MB 4.49 ng/mL (<4.55); TROPONIN I 0.025 ng/mL
[2018-03-07 08:37] LABS: ARTERIAL BLOOD BASE EXCESS -3.1 mmol/L; ARTERIAL BLOOD H2CO3 1.54 mmol/L (1.05-1.35); ARTERIAL BLOOD HCO3 24.1 mmol/L (20-26); ARTERIAL BLOOD O2 SATURATION 98.3 % (94-98); ARTERIAL BLOOD PH 7.29 (7.35-7.45); ARTERIAL BLOOD PO2 130.5 mmHg (80-100); ARTERIAL BLOOD TOTAL CO2 25.6 mmol/L (23-27)
[2018-03-07 08:38] LABS: ARTERIAL BLOOD FIO2 45%
[2018-03-07 09:52] LABS: INTERNATIONAL RATION (INR) 1.04; PROTHROMBIN TIME 14.1 SEC (11.4-15.4)
[2018-03-07 09:53] LABS: PARTIAL THROMBOPLASTIN TIME 35.9 SEC (23.5-35.8)
[2018-03-07] MEDS ORDERED: GLUCAGON,HUMAN RECOMB 1 MG INJ SUBCUT PRN (12:05)
[2018-03-07] MEDS ORDERED: DEXTROSE 40% GEL 15 GM TUBE PO PRN ×4 (12:05→12:15)
[2018-03-07] MEDS ORDERED: DEXTROSE 50%-WATER 25 GM/50 ML DISP.SYRIN IV PRN ×3 (12:05→12:15)
[2018-03-07] MEDS ORDERED: GLUCAGON,HUMAN RECOMB 1 MG INJ IM PRN (12:15)
[2018-03-07] MEDS ORDERED: INSULIN LISPRO 100 UNIT/ML 3 ML VIAL SUBCUT PRN (12:15)
--- NOTE | 2018-03-07 12:22 | PDOC H&P ---
History of Present Illness Admission Date/PCP: 03/07/18 10:03 WENDY AYALA, Patient complains of: Severe shortness of breath for 4 days History of Present Illness: KARLA PARADA is a 77 year old male Past Medical History Cardiac Medical History: Reports: Atrial Fibrillation, Coronary Artery Disease Denies: Myocardial Infarction, Hypertension Pulmonary Medical History: Reports: Asthma, Chronic Obstructive Pulmonary Disease (COPD), Pneumonia, Respiratory Failure Denies: Bronchitis Neurological Medical History: Denies: Seizures Endocrine Medical History: Reports: Diabetes Mellitus Type 2, Hypothyroidism Malignancy Medical History: Reports: Other GI Medical History: Reports: Peptic Ulcer Disease Musculoskeltal Medical History: Reports: Arthritis - GENERALIZED Psychiatric Medical History: Denies: Depression Hematology: Denies: Anemia, Sickle Cell Disease Past Surgical History Past Surgical History: Reports: Other - Laryngeal cancer resection with tracheostomy Social History Lives with: Family Smoking Status: Former Smoker Frequency of Alcohol Use: None Hx Recreational Drug Use: No Drugs: None Hx Prescription Drug Abuse: No Family History Family History: Reviewed & Not Pertinent, DM, Hypertension, Malignancy Parental Family History Reviewed: Yes Children Family History Reviewed: Yes Sibling(s) Family History Reviewed.: Yes Medication/Allergy Home Medications: Diltiazem HCl [Cardizem 30 mg Tablet] 30 mg PO Q6 03/07/18 Furosemide [Lasix 20 mg Tablet] 40 mg PO DAILY 03/07/18 Levothyroxine Sodium [Synthroid 0.15 mg Tablet] 0.15 mg PO Q6AM 03/07/18 Metformin HCl [Glucophage 500 mg Tablet] 1,000 mg PO BID 03/07/18 Prednisone [Deltasone 10 mg Tablet] 10 mg PO BID 03/07/18 Tramadol HCl [Ultram 50 mg Tablet] 50 mg PO Q8HP PRN 03/07/18 Allergies/Adverse Reactions: ceftriaxone [From Rocephin] Allergy (Severe, Verified 08/19/17 02:07) Penicillins Allergy (Severe, Verified 12/16/17 15:15) Stiffness in joints Physical Exam Vital Signs: Temp Pulse Resp BP Pulse Ox 99.5 F 138 H 28 H 150/85 H 100 03/07/18 11:20 03/07/18 11:23 03/07/18 11:20 03/07/18 11:20 03/07/18 11:20 General appearance: PRESENT: severe distress Head exam: PRESENT: atraumatic Teeth exam: PRESENT: edentulous Neck exam: PRESENT: tracheostomy Respiratory exam: PRESENT: prolonged expiratory phas, tachypnea, wheezes Cardiovascular exam: PRESENT: irregular rhythm, +S1, +S2, tachycardia Pulses: PRESENT: +1 pedal pulses bilateral GI/Abdominal exam: PRESENT: normal bowel sounds, soft Extremities exam: PRESENT: pedal edema Neurological exam: PRESENT: alert, oriented to person Psychiatric exam: PRESENT: anxious Results Impressions: Chest X-Ray 03/07/18 07:43 IMPRESSION: Obstructive lung disease No acute infiltrate Assessment & Plan - Diagnosis (1) Acute exacerbation of chronic obstructive pulmonary disease (COPD) Is this a current diagnosis for this admission?: Yes Plan: We will start steroids. Pulmonary consultation for possible BiPAP on mechanical ventilation (2) Acute on chronic respiratory failure with hypoxemia Is this a current diagnosis for this admission?: Yes Plan: Pulmonary consultation for possible mechanical ventilation through the tracheostomy (3) Atrial fibrillation with RVR Is this a current diagnosis for this admission?: Yes Plan: We will adjust medications and IV hydration (4) Bacterial pneumonia Is this a current diagnosis for this admission?: Yes Plan: Start antibiotics.
[2018-03-07] MEDS ORDERED: LIDOCAINE 1% INJ-PF (10 MG/ML) 30 ML SDV ONE (12:39)
--- NOTE | 2018-03-07 12:50 | EKG REPORT ---
SEVERITY:- ABNORMAL ECG - ATRIAL FIBRILLATION WITH RVR. RIGHT AXIS DEVIATION BORDERLINE PROLONGED QT INTERVAL NONSPECIFIC ST-T CHANGES DIFFUSE : Confirmed by: Marin Madera MD 07-Mar-2018 12:49:43
[2018-03-07] MEDS ORDERED: LIDOCAINE 2% VISCOUS SOLN 20 ML UDCUP PO ONE (13:15)
[2018-03-07] MEDS: DILTIAZEM HCL/D5W 125 MG/125 ML RTUINJ IV PRN ×2 (13:25→21:26)
[2018-03-07] MEDS: NORMAL SALINE 1000 ML 1,000 ML IV PRN (13:31)
[2018-03-07 14:34] LABS: APPEARANCE,URINE SLIGHTLY-CLOUDY; BILIRUBIN,URINE NEGATIVE (NEGATIVE); CALCIUM OXALATE CRYSTALS,URINE FEW /HPF; GLUCOSE, URINE NEGATIVE (NEGATIVE); KETONES,URINE NEGATIVE (NEGATIVE); LEUKOCYTE ESTERASE,URINE TRACE (NEGATIVE); NITRITE,URINE NEGATIVE (NEGATIVE); PROTEIN,URINE NEGATIVE (NEGATIVE); URINE SPECIFIC GRAVITY 1.024
[2018-03-07 14:38] LABS: COLOR,URINE YELLOW
[2018-03-07] MEDS: METHYLPREDNISOLONE INJ 125 MG/2 ML SDV IV SCH ×2 (15:11→20:12)
--- NOTE | 2018-03-07 15:59 | PDOC CONSULTATION ---
Consultation Consult Date: 03/07/18 Attending physician:: MIKHAIL AYALA Consult reason:: Progressive dyspnea History of Present Illness Admission Date/PCP: 03/07/18 10:03 MIKHAIL AYALA, History of Present Illness: KARLA PARADA is a 77 year old male,who is well known to [facility] and was seen at the end of November 2017 for comparable in the event at that time and currently he is complaining of 5 days of cough questionable fevers and chills cough productive of yellow to yellow-green phlegm he denies hemoptysis he has no history of chronic lung disease as a child or adolescent he missed exposure to passive smoke as a child as well as an adult he himself smoked a pack a day for 43 years but has not smoked in the last 15 years he status post laryngectomy and trach permanent tracheostomy due to laryngeal carcinoma. He is able to [employer] for 20 years as well as large amounts of dirt he denies angina-like chest pain Rakan 4-5 pillows occasional PND a patient with nocturnal cough occasional edema. He is unaware of any snoring or restless sleep he has nocturia once or twice a night he denies unrestful sleep or excessive daytime somnolence. Past Medical History Cardiac Medical History: Reports: Atrial Fibrillation, Coronary Artery Disease Denies: Myocardial Infarction, Hypertension Pulmonary Medical History: Reports: Asthma, Chronic Obstructive Pulmonary Disease (COPD), Pneumonia, Respiratory Failure Denies: Bronchitis EENT Medical History: Reports: Throat Neurological Medical History: Denies: Multiple Sclerosis, Seizures Endocrine Medical History: Reports: Diabetes Mellitus Type 1, Diabetes Mellitus Type 2, Hyperthyroidism, Hypothyroidism Renal/ Medical History: Denies: End Stage Renal Disease Malignancy Medical History: Reports: Other - Laryngeal carcinoma GI Medical History: Reports: Peptic Ulcer Disease Musculoskeltal Medical History: Reports: Arthritis - GENERALIZED Skin Medical History: Denies: Psoriasis Psychiatric Medical History: Denies: Depression Traumatic Medical History: Denies: Gunshot Wound, Pneumothorax, Traumatic Brain Injury Hematology: Denies: Anemia, Sickle Cell Disease Infectious Medical History: Denies: Clostridium Difficile Past Surgical History Past Surgical History: Reports: Other - Laryngeal cancer resection with tracheostomy Social History Information Source: Patient, [facility] Records Lives with: Family Smoking Status: Former Smoker Cigarettes Packs Per Day: 1 Number of Years Smokin Frequency of Alcohol Use: None Hx Recreational Drug Use: No Drugs: None Hx Prescription Drug Abuse: No Do you have pets?: No Have you had any respiratory illnesses as a child?: No Have you been exposed to any sick contacts recently?: No Have you had any recent respiratory illnesses?: No Have you travelled outside of [place] in the past 12 months?: No Family History Family History: DM, Hypertension, Malignancy Parental Family History Reviewed: Yes Children Family History Reviewed: Yes Sibling(s) Family History Reviewed.: Yes Medication/Allergy Home Medications: Diltiazem HCl [Cardizem 30 mg Tablet] 30 mg PO Q6 03/07/18 Furosemide [Lasix 20 mg Tablet] 40 mg PO DAILY 03/07/18 Levothyroxine Sodium [Synthroid 0.15 mg Tablet] 0.15 mg PO Q6AM 03/07/18 Metformin HCl [Glucophage 500 mg Tablet] 1,000 mg PO BID 03/07/18 Prednisone [Deltasone 10 mg Tablet] 10 mg PO BID 03/07/18 Tramadol HCl [Ultram 50 mg Tablet] 50 mg PO Q8HP PRN 03/07/18 Allergies/Adverse Reactions: ceftriaxone [From Rocephin] Allergy (Severe, Verified 08/19/17 02:07) Penicillins Allergy (Severe, Verified 12/16/17 15:15) Stiffness in joints Review of Systems Constitutional: ABSENT: chills, fever(s), headache(s) Eyes: ABSENT: visual disturbances Ears: ABSENT: hearing changes Nose, Mouth, and Throat: ABSENT: sore throat Cardiovascular: PRESENT: palpitations. ABSENT: edema Gastrointestinal: ABSENT: abdominal pain, bloating, coffee ground emesis, dysphagia, heartburn, hematemesis, hematochezia, melena Genitourinary: ABSENT: dysuria, hematuria Musculoskeletal: ABSENT: deformity Integumentary: ABSENT: pruritus, rash Neurological: ABSENT: abnormal gait, abnormal movements, abnormal speech, confusion, focal weakness, lack of coordination, memory loss, numbness Psychiatric: ABSENT: hallucinations, homidical ideation, suicidal ideation Endocrine: ABSENT: cold intolerance, heat intolerance Hematologic/Lymphatic: PRESENT: easy bruising. ABSENT: lymphadenopathy Allergic/Immunologic: ABSENT: seasonal rhinorrhea Physical Exam Vital Signs: Temp Pulse Resp BP Pulse Ox 99.5 F 131 H 28 H 138/92 H 100 03/07/18 11:20 03/07/18 13:30 03/07/18 11:20 03/07/18 13:30 03/07/18 11:20 General appearance: PRESENT: no acute distress, cooperative, disheveled Head exam: PRESENT: atraumatic, normocephalic Eye exam: PRESENT: conjunctiva pale, EOMI, PERRLA. ABSENT: nystagmus, periorbital swelling, scleral icterus Mouth exam: PRESENT: dry mucosa, neck supple, tongue midline Neck exam: PRESENT: tracheostomy - No tube just open stoma. ABSENT: carotid bruit, JVD, lymphadenopathy, thyromegaly, tracheal deviation Respiratory exam: PRESENT: decreased breath sounds, prolonged expiratory phas, rales, rhonchi, stridor, unlabored, wheezes. ABSENT: retraction Cardiovascular exam: PRESENT: RRR, +S1, +S2 Pulses: PRESENT: normal radial pulses GI/Abdominal exam: PRESENT: normal bowel sounds, soft Extremities exam: ABSENT: calf tenderness, clubbing, joint swelling, pedal edema Musculoskeletal exam: ABSENT: deformity, dislocation Neurological exam: PRESENT: awake, oriented to person, oriented to place, oriented to time, oriented to situation, other - Can write congestive awaken and speak to the open tracheal stoma Psychiatric exam: PRESENT: normal mood Skin exam: PRESENT: dry, warm Results Laboratory Results: 03/07/18 12:26 Lactic Acid 1.3 Impressions: Chest X-Ray 03/07/18 07:43 IMPRESSION: Obstructive lung disease No acute infiltrate Assessment & Plan - Diagnosis (1) Acute exacerbation of chronic obstructive pulmonary disease (COPD) Is this a current diagnosis for this admission?: Yes (2) Acute and chronic respiratory failure Qualifiers: Respiratory failure complication: hypoxia Qualified Code(s): J96.21 - Acute and chronic respiratory failure with hypoxia Is this a current diagnosis for this admission?: Yes Plan: Supplemental oxygen, Patient is not a candidate for noninvasive positive pressure ventilation he is a DNR so no intubation, Xopenex 0.63 every 4 hours PRN every 6 hours [id number] Pulmicort 0.25 nebulized every 12 refraining from using high-dose Xopenex as this may exacerbate his atrial fibrillation (3) Do not resuscitate Is this a current diagnosis for this admission?: Yes (4) Respiratory distress Is this a current diagnosis for this admission?: Yes (5) Tracheal carcinoma Is this a current diagnosis for this admission?: Yes (6) Atrial fibrillation with RVR Is this a current diagnosis for this admission?: Yes Plan: As per Mikhail Ayala MD and Dr. Ferreira consider diltiazem and amiodarone and digoxin please do not use a beta-billy if at all possible
[2018-03-07] MEDS: LEVALBUTEROL HCL NEB 0.63 MG/3 ML AMPUL NEB PRN (16:31)
[2018-03-07] MEDS: TAMSULOSIN HCL 0.4 MG CAP.SR.24H PO SCH (17:20)
[2018-03-07] MEDS: METFORMIN HCL 500 MG TABLET PO SCH (17:20)
[2018-03-07] MEDS ORDERED: DILTIAZEM HCL 30 MG TABLET PO SCH (18:00)
[2018-03-07] MEDS: TRAMADOL HCL 50 MG TABLET PO PRN (19:35)
[2018-03-07] MEDS: BUDESONIDE NEB 0.25 MG/2 ML AMPUL NEB SCH (20:48)
[2018-03-07] MEDS: LEVALBUTEROL HCL NEB 0.63 MG/3 ML AMPUL NEB SCH (20:49)
--- NOTE | 2018-03-07 22:15 | CONSULTATION REPORT E ---
Consultation Report NAME: KARLA PARADA : 1940 AGE: 77Y DATE: 03/07/2018 ROOM: 326 A TO: RADAMES GIRON M.D. FROM: WENDY AYALA M.D. Requesting Physician REASON FOR CONSULTATION: Atrial fibrillation with a rapid ventricular response. HISTORY OF PRESENT ILLNESS: The patient is a 76-year-old man with known history of chronic atrial fibrillation, diabetes mellitus, hypothyroidism, COPD, and a history of laryngeal cancer who states since the past 4 days he has been having increasing shortness of breath with orthopnea and wheezing and cough productive of pretty scanty darkish red sputum. The patient denies any chest pain or discomfort. He came to the hospital and was found to be in respiratory distress with acute exacerbation of COPD and also in atrial fibrillation with rapid ventricular response. His ABG showed a pCO2 which was elevated at 51 with a pH of 7.29, hence the patient has been admitted for further treatment. The patient denies any chest pain or discomfort. The patient does have cough. He has orthopnea. He has no leg edema. There is no PND. The patient does complain of palpitations due to atrial fibrillation with rapid ventricular response. There is no dizziness or syncope. PAST MEDICAL HISTORY: Positive for a history of COPD and the patient quit smoking a long time ago. There is no history of sleep apnea. There is no history of pulmonary embolism. He has no history of hypertension. There is no history of CAD, RI, anginal symptoms. There is heart disease. There is no history of rheumatic fever. He has a history of chronic atrial fibrillation and in 03/2016 he was admitted with a significant drop in his hemoglobin when on Coumadin and found to have rectus sheath hematoma and also a pelvic hematoma which was significant and requiring blood transfusion and the patient is off any anticoagulation. There is no history of TIA or CVA. He has a history of laryngeal cancer in the past for which he has had tracheostomy and tracheostomy stoma. He has a history of diabetes mellitus type 2 noninsulin dependent. He also has a history of hypothyroidism. There is no history of chronic kidney disease. PAST SURGICAL HISTORY: Positive for laryngectomy and tracheostomy. He has also had a G-tube placement in the past which is removed. He has also had a vasectomy. ALLERGIES: 1. PENICILLINS. 2. CEFTRIAXONE. SOCIAL HISTORY: The patient quit smoking many years ago. There is no history of EtOH abuse. FAMILY HISTORY: Positive for diabetes mellitus, hypertension, and malignancy. No history of coronary artery disease. ADVANCE DIRECTIVES: The patient is a DNR. He states his son is his surrogate healthcare decision maker. MEDICATIONS: 1. Aztreonam 1.5 grams IV x1. 2. Pulmicort nebulizer treatment 0.25 mg q.12 hours. 3. Cipro 400 mg IV x1. 4. Hypoglycemia precautions with Glutose 40% gel 50 grams and 30 grams p.o. respectively. 5. Dextrose 50%, 25 grams and 12.5 grams IV p.r.n. respectively for hypoglycemia. 6. Pepcid 20 mg IV q.12 hours. 7. Lasix 40 mg p.o. daily. 8. Glucagon 1 mg subcutaneously p.r.n. hypoglycemia. 9. Mucinex 600 mg p.o. q.12 hours. 10. *------* 11. Sliding scale insulin coverage with regular insulin. 12. Azithromycin 500 mg IV daily at 1400. 13. Levaquin 750 mg IV daily. 14. Normal saline at 75 mL per hour. 15. Xopenex 0.63 mg nebulizer treatment q.4 hours p.r.n. 16. Xopenex 0.63 mg nebulizer treatment q.6 hours. 17. Synthroid 0.15 mg p.o. q.6 a.m. 18. Magnesium sulfate 2 grams in 200 mL IV. 19. Metformin 1000 mg p.o. b.i.d. 20. Solu-Medrol 125 mg IV q.6 hours, first dose now. 21. Flomax 0.4 mg p.o. post supper. 22. Tramadol/Ultram 50 mg p.o. q.8 hours p.r.n. REVIEW OF SYSTEMS: CONSTITUTIONAL: Does have a low grade fever. Denies any chills or rigors. Complains of generalized fatigue and weakness. HEAD: Denies headaches or head injury. No dizziness. EYES: No history of amblyopia or diplopia. No history of amaurosis fugax. EARS: No history of hearing loss. No history of tinnitus. No history of recurrent ear infections. NOSE: No history of hay fever. No history of nosebleeds. No history of nasal polyps. MOUTH: No history of altered taste sensation. No history of ulcers in the mouth. No history of bleeding from the gums. THROAT: No history of odynophagia or dysphagia. No history of recurrent sore throats. SKIN: There is no pruritus. There is no yellowish discoloration of the skin. No psoriasis. NECK: There is no swelling in the neck. The patient has had tracheostomy and there is a tracheostomy stoma present which is open. This is after laryngectomy for laryngeal cancer. He also had tracheostomy after as mentioned earlier. There is no goiter. LUNGS: There is a history of COPD with symptom of acute exacerbation of COPD with cough with sputum production and wheezing and orthopnea, but no chest pain. No history of sleep apnea or pulmonary embolism. No history of hemoptysis. CARDIAC: There is no history of coronary artery disease, RI, anginal symptom. There is a history of chronic atrial fibrillation, not on anticoagulation due to significant bleeding on Coumadin in the past. There is no history of congestive heart failure. No history of hypertension. No history of leg edema. No history of PND. Complains of palpitation due to rapid atrial fibrillation. He has no syncope. GASTROINTESTINAL: No history of GERD. No history of GI bleed. But, the patient has had pelvic hematoma and rectus sheath hematoma secondary to being on Coumadin in the past and now recent recurrence of bleeding after the patient had stopped the Coumadin. The patient is deemed not to be a candidate for anticoagulation. No abdominal pain. No history of fatty food intolerance. No history of altered bowel movements. No hepatitis. SKIN: No history of skin rashes or skin lesions. No history of pruritus. No yellowish discoloration of the skin. No eczema. MUSCULOSKELETAL: Denies arthritis or collagen vascular disease. RENAL: No history of renal insufficiency or chronic kidney disease. No symptom of any prostate on current medication. No hematuria, pyuria, or dysuria. No history of recurrent UTIs. ENDOCRINE: History of diabetes mellitus type 2 noninsulin dependent. History of hypothyroidism on replacement. The patient has no polydipsia or polyuria. No history of heat or cold intolerance. PSYCHIATRIC: No history of anxiety or depression. CENTRAL NERVOUS SYSTEM: No history of TIA or CVA. No history of sleep apnea. No history of headaches, migraines, or seizures. VASCULAR: No history of calf or buttock claudication. No history of DVT. HEMATOLOGICAL: No history of bleeding diathesis or clotting disorders. PHYSICAL EXAMINATION: GENERAL: On examination the patient does appear to be in respiratory distress. VITAL SIGNS: His temperature is 99.5 degrees Fahrenheit. His heart rate is 133 beats per minute, blood pressure is 150/85 and respirations are 24 per minute, O2 saturations are 100% on tracheal collar with an O2 flow rate of 6 liters per minute. HEENT: Head is atraumatic, normocephalic. Eyes: Pupils are equal, round and regular, reactive to light and accommodation. Extraocular movements are normal. There is no conjunctival pallor. There is no scleral icterus. Ears: Tympanic membranes are intact. External auditory canals are clear. Nose: There is no deviation of the nasal septum. There is no inflammation of the nasal mucous membranes. Mouth: Mucous membranes of the mouth are moist, tongue is moist. There is no ulcer. There is no bleeding from the gums. Throat: There is no redness of the oropharynx. There are no exudates. SKIN: There are no skin rashes. There is no petechiae or ecchymosis. There are no skin lesions. NECK: Supple. There is no JVD. There is no lymphadenopathy. There is no goiter. Carotids are equal. There is no bruit. There is tracheostomy stoma present. Trachea is central. There is accessory muscle of respirations in use. LUNGS: There is diminished air entry, prolonged expiration. There are is also scattered rhonchi and wheezing bilaterally. There are no rales of CHF. There is hyperresonance on percussion. There is no chest wall tenderness. HEART: S1, S2 is heard. The S1 is of variable intensity. There is no S3 gallop. There is no S4 gallop. There is a systolic murmur in the left sternal border and the apex. There is no rub. ABDOMEN: Soft, nontender. There is no hepatosplenomegaly. Bowel sounds are well heard. There are no tender areas or masses. EXTREMITIES: Femorals are diminished. There are no femoral bruits. Leg pulses are diminished. There is no pedal edema. There is no cyanosis or clubbing. There is no DVT or cellulitis. There is no calf tenderness. CENTRAL NERVOUS SYSTEM: The patient is conscious, awake, alert and oriented x3, although the patient cannot talk he can write down answers to questions appropriately. There are no focal deficits. PSYCHIATRIC: The patient's judgment and insight are intact. His affect is normal. DIAGNOSTICS: The patient's EKG shows atrial fibrillation with rapid ventricular response, right axis deviation, borderline *------*, nonspecific ST-T changes diffuse but there is also a baseline artifact. His chest x-ray shows obstructive lung disease, no acute infiltrates. The patient's ABG showed a pH of 7.29, pCO2 is elevated at 51, pO2 is 130.5, O2 sats are 98.3% on 45% FiO2. The patient's ProTime is 14.1, INR is 1.04, PTT is 35.9. The patient's sodium is 144.5, potassium is 4.8, chloride is 104, CO2 is 27. The patient's BUN is 21, creatinine is 0.88, GFR is greater than 60, glucose is 119. His calcium is 10. His lactic acid is elevated at 2.3. His liver function tests are normal. The patient's troponin I is negative at 0.025. His CPK-MB is negative. His total protein is 7.1, albumin is 4.0. IMPRESSION: 1. Acute respiratory failure with hypercapnia. This is acute on chronic respiratory failure. 2. COPD with acute exacerbation. Possible infected bronchitis. 3. Chronic atrial fibrillation with rapid ventricular response. 4. Diabetes mellitus type 2 noninsulin dependent. 5. Hypothyroidism on replacement. 6. History of laryngeal cancer, status post laryngectomy and tracheostomy. The patient states that the cancer is cured. RECOMMENDATIONS: Would continue respiratory treatments, continue antibiotics. We will start the patient on a Cardizem drip at 15 mg/hour infusion after a bolus given. Continue his thyroid replacement. Continue oxygen. Unfortunately the patient has a tracheostomy and hence CPAP may not help the patient at present. Note that the patient is not a candidate for any type of anticoagulation. Note medical decision making is of high complexity. Discussed with Dr. Ayala. Discussed with the patient. Discussed with the nurse taking care of the patient and also the ab initio etl developer on consult on this case. TIME SPENT: The patient was seen around 9:30 a.m. and a total of 60 minutes spent on this patient with more than 50% of the time spent on direct patient. His EKGs were reviewed by me and interpreted by me. His chest x-ray was also reviewed and interpreted by me. His medications have been reviewed. If the patient's heart rate should continue to be evaluated then would start the patient on digoxin. As mentioned earlier the patient is not a candidate for treatment with any type of anticoagulation. Dr. Maldonado will cover me tomorrow. DICTATING PHYSICIAN: RADAMES GIRON M.D. [id number] [facility]#: [id number] ID: [id number] JOB#: [id number] ACCT: [id number] cc:RADAMES GIRON M.D. >
[2018-03-07] MEDS: FAMOTIDINE INJ/PF 20 MG/2 ML SDV IV SCH (22:31)
[2018-03-07] MEDS: GUAIFENESIN 600 MG TABLET.SA PO SCH (22:33)
[2018-03-08] MEDS: NORMAL SALINE 1000 ML 1,000 ML IV PRN (02:21)
[2018-03-08] MEDS: METHYLPREDNISOLONE INJ 125 MG/2 ML SDV IV SCH ×4 (02:22→20:09)
[2018-03-08] MEDS: LEVALBUTEROL HCL NEB 0.63 MG/3 ML AMPUL NEB SCH ×4 (02:57→20:24)
[2018-03-08] MEDS: TRAMADOL HCL 50 MG TABLET PO PRN ×3 (03:52→20:09)
[2018-03-08] MEDS: LEVOTHYROXINE SODIUM 0.15 MG TABLET PO SCH (05:18)
[2018-03-08 06:37] LABS: ABSOLUTE LYMPHOCYTES (AUTO) 0.7 10^3/uL (0.5-4.7); ABSOLUTE MONOCYTES (AUTO) 0.3 10^3/uL (0.1-1.4); BASOPHILS % (AUTO) 0.5 % (0-2); EOSINOPHILS % (AUTO) 0.1 % (0-6); HEMATOCRIT 42.6 % (37.9-51.0); HEMOGLOBIN 14.1 g/dL (13.5-17.0); LYMPHOCYTES % (AUTO) 7.7 % (13-45); MEAN CORPUSCULAR HEMOGLOBIN 31.7 pg (27.0-33.4); MEAN CORPUSCULAR HGB CONC 33.1 g/dL (32.0-36.0); MEAN CORPUSCULAR VOLUME 96 fl (80-97); MONOCYTES % (AUTO) 2.8 % (3-13); PLATELET COUNT 227 10^3/uL (150-450); RED BLOOD COUNT 4.44 10^6/uL (4.35-5.55); RED CELL DISTRIBUTION WIDTH 15.2 % (11.5-14.0); SEGMENTED NEUTROPHILS % (AUTO) 88.9 % (42-78); TOTAL CELLS COUNTED % (AUTO) 100 %
[2018-03-08 06:57] LABS: ALANINE AMINOTRANSFERASE 38 U/L (21-72); ALBUMIN 3.9 g/dL (3.5-5.0); ALKALINE PHOSPHATASE 74 U/L (38-126); ANION GAP 10 (5-19); ASPARTATE AMINO TRANSFERASE 65 U/L (17-59); BILIRUBIN,DIRECT 0.4 mg/dL (0.0-0.4); BILIRUBIN,TOTAL 0.7 mg/dL (0.2-1.3); BLOOD UREA NITROGEN 27 mg/dL (7-20); CALCIUM 9.6 mg/dL (8.4-10.2); CARBON DIOXIDE 25 mmol/L (22-30); CHLORIDE 106 mmol/L (98-107); GLUCOSE 155 mg/dL (75-110); POTASSIUM 4.6 mmol/L (3.6-5.0)
[2018-03-08] MEDS: BUDESONIDE NEB 0.25 MG/2 ML AMPUL NEB SCH ×2 (08:07→20:24)
[2018-03-08] MEDS ORDERED: NORMAL SALINE 1000 ML 1,000 ML IV PRN (08:50)
--- NOTE | 2018-03-08 08:55 | PDOC PROGRESS REPORT ---
Subjective Progress Note for:: 03/08/18 Subjective:: The patient states to feel slightly better. He is less anxious and less tachypneic. He is breathing comfortably. Reason For Visit: PNEUMONIA,ACUTE COPD EXACERBATION,RAPID A. FIB Physical Exam Vital Signs: Temp Pulse Resp BP Pulse Ox 98.3 F 108 H 19 123/77 100 03/08/18 07:55 03/08/18 07:55 03/08/18 07:55 03/08/18 07:55 03/08/18 07:55 Intake & Output 03/07/18 03/08/18 03/09/18 06:59 06:59 06:59 Intake Total 1684 Output Total 475 Balance 1209 Weight 88.3 kg General appearance: PRESENT: mild distress Eye exam: PRESENT: conjunctiva pink Neck exam: PRESENT: tracheostomy Respiratory exam: PRESENT: rhonchi, tachypnea, wheezes Cardiovascular exam: PRESENT: irregular rhythm, +S1, +S2 GI/Abdominal exam: PRESENT: normal bowel sounds, soft Extremities exam: PRESENT: tenderness Musculoskeletal exam: PRESENT: tenderness Neurological exam: PRESENT: alert, awake Psychiatric exam: PRESENT: anxious Results Laboratory Results: 03/08/18 05:38 03/08/18 05:38 03/07/18 03/07/18 03/08/18 12:26 14:09 05:38 WBC 9.0 RBC 4.44 Hgb 14.1 Hct 42.6 MCV 96 MCH 31.7 MCHC 33.1 RDW 15.2 H Plt Count 227 Seg Neutrophils % 88.9 H Lymphocytes % 7.7 L Monocytes % 2.8 L Eosinophils % 0.1 Basophils % 0.5 Absolute Neutrophils 8.0 Absolute Lymphocytes 0.7 Absolute Monocytes 0.3 Absolute Eosinophils 0.0 Absolute Basophils 0.0 Sodium Potassium Chloride Carbon Dioxide Anion Gap BUN Creatinine Est GFR ( Amer) Est GFR (Non-Af Amer) Glucose Lactic Acid 1.3 Calcium Total Bilirubin AST ALT Alkaline Phosphatase Total Protein Albumin Urine Color YELLOW Urine Appearance SLIGHTLY-CLOUDY Urine pH 5.0 Ur Specific [place] 1.024 Urine Protein NEGATIVE Urine Glucose (UA) NEGATIVE Urine Ketones NEGATIVE Urine Blood LARGE H Urine Nitrite NEGATIVE Ur Leukocyte Esterase TRACE H Urine WBC (Auto) 23 Urine RBC (Auto) 102 03/08/18 05:38 WBC RBC Hgb Hct MCV MCH MCHC RDW Plt Count Seg Neutrophils % Lymphocytes % Monocytes % Eosinophils % Basophils % Absolute Neutrophils Absolute Lymphocytes Absolute Monocytes Absolute Eosinophils Absolute Basophils Sodium 141.0 Potassium 4.6 Chloride 106 Carbon Dioxide 25 Anion Gap 10 BUN 27 H Creatinine 0.83 Est GFR ( Amer) > 60 Est GFR (Non-Af Amer) > 60 Glucose 155 H Lactic Acid Calcium 9.6 Total Bilirubin 0.7 AST 65 H ALT 38 Alkaline Phosphatase 74 Total Protein 7.0 Albumin 3.9 Urine Color Urine Appearance Urine pH Ur Specific [place] Urine Protein Urine Glucose (UA) Urine Ketones Urine Blood Urine Nitrite Ur Leukocyte Esterase Urine WBC (Auto) Urine RBC (Auto) Impressions: Chest X-Ray 03/07/18 07:43 IMPRESSION: Obstructive lung disease No acute infiltrate Assessment & Plan - Diagnosis (1) Acute exacerbation of chronic obstructive pulmonary disease (COPD) Is this a current diagnosis for this admission?: Yes Plan: We will continue with IV steroids and antibiotics (2) Acute on chronic respiratory failure with hypoxemia Is this a current diagnosis for this admission?: Yes Plan: Continue with IV steroids reduced the dose. Continue antibiotics and nebulization treatments (3) Atrial fibrillation with RVR Is this a current diagnosis for this admission?: Yes Plan: Currently rate control will switch from IV to p.o. Cardizem (4) Bacterial pneumonia Is this a current diagnosis for this admission?: Yes Plan: Continue antibiotics. (5) Hypothyroid Qualifiers: Hypothyroidism type: acquired Qualified Code(s): E03.9 - Hypothyroidism, unspecified Is this a current diagnosis for this admission?: Yes Plan: Continue current treatment (6) Diabetes mellitus Qualifiers: Diabetes mellitus type: type 2 Diabetes mellitus complication status: with neurologic complications Diabetes mellitus complication detail: with unspecified neuropathy Is this a current diagnosis for this admission?: Yes Plan: We will continue with Metformin and sliding scale insulin coverage (7) Physical deconditioning Is this a current diagnosis for this admission?: Yes Plan: We will start physical therapy.
[2018-03-08] MEDS: FAMOTIDINE INJ/PF 20 MG/2 ML SDV IV SCH ×2 (09:10→22:37)
[2018-03-08] MEDS: GUAIFENESIN 600 MG TABLET.SA PO SCH ×2 (09:20→22:37)
[2018-03-08] MEDS: METFORMIN HCL 500 MG TABLET PO SCH ×2 (09:21→18:07)
[2018-03-08] MEDS: FUROSEMIDE 20 MG TABLET PO SCH (09:22)
[2018-03-08] MEDS ORDERED: LEVOFLOXACIN 750 MG/D5W RTU 750 MG/150 ML RTUPB IV SCH (10:00)
--- NOTE | 2018-03-08 10:29 | PDOC PROGRESS REPORT ---
Subjective Progress Note for:: 03/08/18 Subjective:: Patient seems to be doing better with gradual improvement. Pt is denying any chest arm or neck discomfort. Patient denying any PND, orthopnea. Patient denied any sustained palpitations, dizziness, syncope, near syncope. Patient denying any fever chills. Patient denying any other significant discomfort. Patient is maintaining atrial fibrillation with controlled ventricular response. Review of systems: Rest review of systems negative. Medications: Medications have been reviewed. Reason For Visit: PNEUMONIA,ACUTE COPD EXACERBATION,RAPID A. FIB Physical Exam Vital Signs: Temp Pulse Resp BP Pulse Ox 98.3 F 108 H 19 123/77 100 03/08/18 07:55 03/08/18 07:55 03/08/18 07:55 03/08/18 07:55 03/08/18 07:55 Intake & Output 03/07/18 03/08/18 03/09/18 06:59 06:59 06:59 Intake Total 1684 Output Total 475 Balance 1209 Weight 88.3 kg Exam: GENERAL: well-nourished and in no acute distress. Alert and oriented x3 HEAD: Atraumatic, normocephalic. EYES: Pupils equal round and reactive to light, extraocular movements intact, sclera anicteric, conjunctiva are normal. ENT: TMs normal, nares patent, oropharynx clear without exudates. Moist mucous membranes. No oral ulcerations or bleeding gums noted NECK: supple without lymphadenopathy. Trachea is central. tracheostomy noted. No cervical or axillary lymphadenopathy noted. Carotids are 2+, JVD WNL LUNGS: Respiration seems nonlabored, no significant accessory muscle action noted. Breath sounds clear to auscultation bilaterally and equal noted. No wheezes rales or rhonchi noted. No significant dullness noted on percussion. CHEST: Palpation of the chest wall shows no significant chest wall tenderness. HEART: Hal[place] DOCK PUMPER, No PSH, 1/6 MAGEN aortic area, 1/6 messer systolic murmur mitral area, no rubs, no gallops. ABDOMEN: Soft, no significant tenderness appreciated, normoactive bowel sounds. No guarding, no rebound. No rigidity noted . No masses appreciated. EXTREMITIES: Pedal pulses are 1-2+, no calf tenderness noted. No clubbing or cyanosis. negative pedal edema noted NEUROLOGICAL: Focused neurological exam showed no significant neurologic deficit. Normal speech, no focal weakness appreciated. PSYCH: Normal mood, normal affect. Judgment and insight within normal limits. SKIN: No significant ecchymosis, skin is noted to be warm. MUSCULOSKELETAL EXAM: No significant acute joint swelling noted. Results Laboratory Results: 03/08/18 05:38 03/08/18 05:38 03/07/18 03/07/18 03/08/18 12:26 14:09 05:38 WBC 9.0 RBC 4.44 Hgb 14.1 Hct 42.6 MCV 96 MCH 31.7 MCHC 33.1 RDW 15.2 H Plt Count 227 Seg Neutrophils % 88.9 H Lymphocytes % 7.7 L Monocytes % 2.8 L Eosinophils % 0.1 Basophils % 0.5 Absolute Neutrophils 8.0 Absolute Lymphocytes 0.7 Absolute Monocytes 0.3 Absolute Eosinophils 0.0 Absolute Basophils 0.0 Sodium Potassium Chloride Carbon Dioxide Anion Gap BUN Creatinine Est GFR ( Amer) Est GFR (Non-Af Amer) Glucose Lactic Acid 1.3 Calcium Total Bilirubin AST ALT Alkaline Phosphatase Total Protein Albumin Urine Color YELLOW Urine Appearance SLIGHTLY-CLOUDY Urine pH 5.0 Ur Specific [place] 1.024 Urine Protein NEGATIVE Urine Glucose (UA) NEGATIVE Urine Ketones NEGATIVE Urine Blood LARGE H Urine Nitrite NEGATIVE Ur Leukocyte Esterase TRACE H Urine WBC (Auto) 23 Urine RBC (Auto) 102 03/08/18 05:38 WBC RBC Hgb Hct MCV MCH MCHC RDW Plt Count Seg Neutrophils % Lymphocytes % Monocytes % Eosinophils % Basophils % Absolute Neutrophils Absolute Lymphocytes Absolute Monocytes Absolute Eosinophils Absolute Basophils Sodium 141.0 Potassium 4.6 Chloride 106 Carbon Dioxide 25 Anion Gap 10 BUN 27 H Creatinine 0.83 Est GFR ( Amer) > 60 Est GFR (Non-Af Amer) > 60 Glucose 155 H Lactic Acid Calcium 9.6 Total Bilirubin 0.7 AST 65 H ALT 38 Alkaline Phosphatase 74 Total Protein 7.0 Albumin 3.9 Urine Color Urine Appearance Urine pH Ur Specific [place] Urine Protein Urine Glucose (UA) Urine Ketones Urine Blood Urine Nitrite Ur Leukocyte Esterase Urine WBC (Auto) Urine RBC (Auto) EKG Comments: Telemetry strip shows atrial fibrillation with controlled ventricular response. Impressions: Chest X-Ray 03/07/18 07:43 IMPRESSION: Obstructive lung disease No acute infiltrate Assessment & Plan - Diagnosis (1) Atrial fibrillation with RVR Is this a current diagnosis for this admission?: Yes (2) Acute exacerbation of chronic obstructive pulmonary disease (COPD) Is this a current diagnosis for this admission?: Yes (3) Acute on chronic respiratory failure with hypoxemia Is this a current diagnosis for this admission?: Yes (4) Diabetes mellitus Qualifiers: Diabetes mellitus type: type 2 Diabetes mellitus complication status: with neurologic complications Diabetes mellitus complication detail: with unspecified neuropathy Is this a current diagnosis for this admission?: Yes (5) Pulmonary hypertension Is this a current diagnosis for this admission?: Yes - Notes Notes: RECOMMENDATIONS: Atrial fibrillation with RVR: Recommend rate control with calcium channel billy such as Cardizem or verapamil. Currently on Cardizem and heart rate seems to be relatively well controlled. Acute exacerbation of COPD: Agree with concurrent management by interactive media specialist. Follow their recommendations. Acute on chronic respiratory failure with hypercapnia and hypoxemia: Currently is stable. Continue oxygenation, bronchodilator therapy and steroid therapy as needed and recommended by interactive media specialist. Diabetes: Currently stable being well managed by composing room machinist apprentice. Pulmonary hypertension: Secondary to COPD and possibly diastolic dysfunction. Patient has prior history of significant bleeding therefore has contraindication to chronic Coumadin therapy. Patient currently a DNR. - Time Time with patient: Greater than 35 minutes - CODE STATUS : was discussed, patient remains DO NOT RESUSCITATE. Surrogate decision-maker unchanged. Multiple medical problems were addressed. More than 50% of the time spent coordinating care, discussing management plans with involved caregivers. Management plans discussed with involved personnels. Medical decision making was of moderate to high complexity, patient's has multiple comorbidities. Medications reviewed and adjusted accordingly: Yes
[2018-03-08] MEDS: DILTIAZEM HCL 30 MG TABLET PO SCH ×2 (11:44→18:06)
--- NOTE | 2018-03-08 11:48 | PDOC PROGRESS REPORT ---
Subjective Progress Note for:: 03/08/18 Subjective:: a lil better Reason For Visit: PNEUMONIA,ACUTE COPD EXACERBATION,RAPID A. FIB Physical Exam Vital Signs: Temp Pulse Resp BP Pulse Ox 98.3 F 104 H 16 123/77 100 03/08/18 07:55 03/08/18 08:07 03/08/18 08:07 03/08/18 07:55 03/08/18 07:55 Intake & Output 03/07/18 03/08/18 03/09/18 06:59 06:59 06:59 Intake Total 1684 Output Total 475 Balance 1209 Weight 88.3 kg General appearance: PRESENT: no acute distress, cooperative, disheveled, thin Head exam: PRESENT: atraumatic, normocephalic Eye exam: PRESENT: conjunctiva pale, EOMI, PERRLA. ABSENT: nystagmus, periorbital swelling, scleral icterus Mouth exam: PRESENT: dry mucosa, neck supple, tongue midline Neck exam: PRESENT: tracheostomy. ABSENT: carotid bruit, JVD, lymphadenopathy, thyromegaly, tracheal deviation Respiratory exam: PRESENT: decreased breath sounds, prolonged expiratory phas, rales, rhonchi, unlabored, wheezes. ABSENT: retraction, stridor, tachypnea Cardiovascular exam: PRESENT: RRR, +S1, +S2 Pulses: PRESENT: normal radial pulses GI/Abdominal exam: PRESENT: normal bowel sounds, soft Extremities exam: ABSENT: calf tenderness, clubbing, joint swelling Musculoskeletal exam: ABSENT: deformity, dislocation Neurological exam: PRESENT: alert, awake Psychiatric exam: PRESENT: normal mood Skin exam: PRESENT: dry, warm Results Laboratory Results: 03/08/18 05:38 03/08/18 05:38 03/07/18 03/07/18 03/08/18 12:26 14:09 05:38 WBC 9.0 RBC 4.44 Hgb 14.1 Hct 42.6 MCV 96 MCH 31.7 MCHC 33.1 RDW 15.2 H Plt Count 227 Seg Neutrophils % 88.9 H Lymphocytes % 7.7 L Monocytes % 2.8 L Eosinophils % 0.1 Basophils % 0.5 Absolute Neutrophils 8.0 Absolute Lymphocytes 0.7 Absolute Monocytes 0.3 Absolute Eosinophils 0.0 Absolute Basophils 0.0 Sodium Potassium Chloride Carbon Dioxide Anion Gap BUN Creatinine Est GFR ( Amer) Est GFR (Non-Af Amer) Glucose Lactic Acid 1.3 Calcium Total Bilirubin AST ALT Alkaline Phosphatase Total Protein Albumin Urine Color YELLOW Urine Appearance SLIGHTLY-CLOUDY Urine pH 5.0 Ur Specific [place] 1.024 Urine Protein NEGATIVE Urine Glucose (UA) NEGATIVE Urine Ketones NEGATIVE Urine Blood LARGE H Urine Nitrite NEGATIVE Ur Leukocyte Esterase TRACE H Urine WBC (Auto) 23 Urine RBC (Auto) 102 03/08/18 05:38 WBC RBC Hgb Hct MCV MCH MCHC RDW Plt Count Seg Neutrophils % Lymphocytes % Monocytes % Eosinophils % Basophils % Absolute Neutrophils Absolute Lymphocytes Absolute Monocytes Absolute Eosinophils Absolute Basophils Sodium 141.0 Potassium 4.6 Chloride 106 Carbon Dioxide 25 Anion Gap 10 BUN 27 H Creatinine 0.83 Est GFR ( Amer) > 60 Est GFR (Non-Af Amer) > 60 Glucose 155 H Lactic Acid Calcium 9.6 Total Bilirubin 0.7 AST 65 H ALT 38 Alkaline Phosphatase 74 Total Protein 7.0 Albumin 3.9 Urine Color Urine Appearance Urine pH Ur Specific [place] Urine Protein Urine Glucose (UA) Urine Ketones Urine Blood Urine Nitrite Ur Leukocyte Esterase Urine WBC (Auto) Urine RBC (Auto) Impressions: Chest X-Ray 03/07/18 07:43 IMPRESSION: Obstructive lung disease No acute infiltrate Assessment & Plan - Diagnosis (1) Acute exacerbation of chronic obstructive pulmonary disease (COPD) Is this a current diagnosis for this admission?: Yes (2) Acute and chronic respiratory failure Qualifiers: Respiratory failure complication: hypoxia Qualified Code(s): J96.21 - Acute and chronic respiratory failure with hypoxia Is this a current diagnosis for this admission?: Yes Plan: Supplemental oxygen, Patient is not a candidate for noninvasive positive pressure ventilation he is a DNR so no intubation, Xopenex 0.63 every 4 hours PRN every 6 hours [id number] Pulmicort 0.25 nebulized every 12 refraining from using high-dose Xopenex as this may exacerbate his atrial fibrillation (3) Do not resuscitate Is this a current diagnosis for this admission?: Yes (4) Respiratory distress Is this a current diagnosis for this admission?: Yes (5) Tracheal carcinoma Is this a current diagnosis for this admission?: Yes (6) Atrial fibrillation with RVR Is this a current diagnosis for this admission?: Yes Plan: As per Mikhail Grimes MD and Dr. Ferreira consider diltiazem and amiodarone and digoxin please do not use a beta-billy if at all possible
[2018-03-08 11:53] LABS: ARTERIAL BLOOD FIO2 28%; ARTERIAL BLOOD H2CO3 0.89 mmol/L (1.05-1.35); ARTERIAL BLOOD HCO3 19.9 mmol/L (20-26); ARTERIAL BLOOD O2 SATURATION 98.1 % (94-98); ARTERIAL BLOOD PCO2 29.7 mmHg (35-45); ARTERIAL BLOOD PH 7.45 (7.35-7.45); ARTERIAL BLOOD PO2 104.5 mmHg (80-100); ARTERIAL BLOOD TOTAL CO2 20.9 mmol/L (23-27)
[2018-03-08] MEDS ORDERED: AZITHROMYCIN 500 MG in DEXTROSE 5%-WATER 250 ML IV SCH (14:00)
[2018-03-08] MEDS: SIMETHICONE 80 MG TAB.CHEW PO PRN (18:07)
[2018-03-08] MEDS: TAMSULOSIN HCL 0.4 MG CAP.SR.24H PO SCH (18:07)
[2018-03-09] MEDS: LEVALBUTEROL HCL NEB 0.63 MG/3 ML AMPUL NEB SCH ×4 (01:14→20:22)
[2018-03-09] MEDS: METHYLPREDNISOLONE INJ 125 MG/2 ML SDV IV SCH (02:32)
[2018-03-09] MEDS: DILTIAZEM HCL 30 MG TABLET PO SCH ×4 (02:32→17:48)
[2018-03-09] MEDS: TRAMADOL HCL 50 MG TABLET PO PRN ×2 (03:47→16:09)
[2018-03-09] MEDS: LEVOTHYROXINE SODIUM 0.15 MG TABLET PO SCH (06:25)
[2018-03-09 07:13] LABS: HEMATOCRIT 43.1 % (37.9-51.0); HEMOGLOBIN 14.1 g/dL (13.5-17.0); MEAN CORPUSCULAR HEMOGLOBIN 31.8 pg (27.0-33.4); MEAN CORPUSCULAR HGB CONC 32.6 g/dL (32.0-36.0); MEAN CORPUSCULAR VOLUME 98 fl (80-97); PLATELET COUNT 281 10^3/uL (150-450); RED BLOOD COUNT 4.42 10^6/uL (4.35-5.55); RED CELL DISTRIBUTION WIDTH 15.4 % (11.5-14.0); WHITE BLOOD COUNT 15.3 10^3/uL (4.0-10.5)
[2018-03-09 07:14] LABS: ALANINE AMINOTRANSFERASE 32 U/L (21-72); ALBUMIN 3.9 g/dL (3.5-5.0); ALKALINE PHOSPHATASE 63 U/L (38-126); ANION GAP 16 (5-19); ASPARTATE AMINO TRANSFERASE 36 U/L (17-59); BILIRUBIN,DIRECT 0.4 mg/dL (0.0-0.4); BILIRUBIN,TOTAL 0.4 mg/dL (0.2-1.3); BLOOD UREA NITROGEN 33 mg/dL (7-20); CALCIUM 9.8 mg/dL (8.4-10.2); CARBON DIOXIDE 21 mmol/L (22-30); CHLORIDE 104 mmol/L (98-107); GLUCOSE 136 mg/dL (75-110); POTASSIUM 4.8 mmol/L (3.6-5.0); SODIUM 141.1 mmol/L (137-145); TOTAL PROTEIN 6.7 g/dL (6.3-8.2)
[2018-03-09 08:04] LABS: ABSOLUTE LYMPHOCYTES# (MANUAL) 0.8 10^3/uL (0.5-4.7); ABSOLUTE MONOCYTES # (MANUAL) 0.3 10^3/uL (0.1-1.4); ABSOLUTE NEUTROPHILS# (MANUAL) 14.2 10^3/uL (1.7-8.2); BASOPHILS % (MANUAL) 0 % (0-2); EOSINOPHILS % (MANUAL) 0 % (0-6); LYMPHOCYTES % (MANUAL) 5 % (13-45); MONOCYTES % (MANUAL) 2 % (3-13); SEGMENTED NEUTROPHILS % (MAN) 93 % (42-78); TOTAL CELLS COUNTED 100
[2018-03-09 08:06] LABS: ANISOCYTOSIS SLIGHT; OVALOCYTES SLIGHT; PLATELET COMMENT ADEQUATE; POIKILOCYTOSIS SLIGHT; TEAR DROP CELLS SLIGHT
[2018-03-09] MEDS: BUDESONIDE NEB 0.25 MG/2 ML AMPUL NEB SCH ×2 (08:34→20:22)
--- NOTE | 2018-03-09 08:52 | PDOC PROGRESS REPORT ---
Subjective Progress Note for:: 03/09/18 Subjective:: The patient appears to be much better. His breathing has improved. He still complaining of being short of breath with exertion Reason For Visit: PNEUMONIA,ACUTE COPD EXACERBATION,RAPID A. FIB Physical Exam Vital Signs: Temp Pulse Resp BP Pulse Ox 97.3 F 83 20 106/60 100 03/09/18 07:05 03/09/18 07:05 03/09/18 07:05 03/09/18 07:05 03/09/18 07:05 Intake & Output 03/08/18 03/09/18 03/10/18 06:59 06:59 06:59 Intake Total 1684 2420 Output Total 475 1400 Balance 1209 1020 Weight 88.3 kg 89.2 kg General appearance: PRESENT: mild distress Neck exam: PRESENT: tracheostomy. ABSENT: JVD Respiratory exam: PRESENT: rhonchi, tachypnea Cardiovascular exam: PRESENT: irregular rhythm, +S1, +S2 GI/Abdominal exam: PRESENT: normal bowel sounds, soft Extremities exam: PRESENT: tenderness Musculoskeletal exam: PRESENT: tenderness Neurological exam: PRESENT: alert, awake Results Laboratory Results: 03/09/18 05:42 03/09/18 05:42 03/08/18 03/09/18 03/09/18 11:28 05:42 05:42 WBC 15.3 H RBC 4.42 Hgb 14.1 Hct 43.1 MCV 98 H MCH 31.8 MCHC 32.6 RDW 15.4 H Plt Count 281 Seg Neutrophils % Not Reportable Lymphocytes % Not Reportable Monocytes % Not Reportable Eosinophils % Not Reportable Basophils % Not Reportable Absolute Neutrophils Not Reportable Absolute Lymphocytes Not Reportable Absolute Monocytes Not Reportable Absolute Eosinophils Not Reportable Absolute Basophils Not Reportable Carbonic Acid 0.89 L HCO3/H2CO3 Ratio 22:1 ABG pH 7.45 ABG pCO2 29.7 L ABG pO2 104.5 H ABG HCO3 19.9 L ABG O2 Saturation 98.1 H ABG Base Excess -3.0 FiO2 28% Sodium 141.1 Potassium 4.8 Chloride 104 Carbon Dioxide 21 L Anion Gap 16 BUN 33 H Creatinine 0.97 Est GFR ( Amer) > 60 Est GFR (Non-Af Amer) > 60 Glucose 136 H Calcium 9.8 Total Bilirubin 0.4 AST 36 ALT 32 Alkaline Phosphatase 63 Total Protein 6.7 Albumin 3.9 Impressions: Chest X-Ray 03/07/18 07:43 IMPRESSION: Obstructive lung disease No acute infiltrate Assessment & Plan - Diagnosis (1) Acute exacerbation of chronic obstructive pulmonary disease (COPD) Is this a current diagnosis for this admission?: Yes Plan: We will continue with IV steroids and antibiotics (2) Acute on chronic respiratory failure with hypoxemia Is this a current diagnosis for this admission?: Yes Plan: Continue with IV steroids reduced the dose. Continue antibiotics and nebulization treatments (3) Atrial fibrillation with RVR Is this a current diagnosis for this admission?: Yes Plan: Currently rate control will switch from IV to p.o. Cardizem (4) Bacterial pneumonia Is this a current diagnosis for this admission?: Yes Plan: Continue antibiotics. (5) Hypothyroid Qualifiers: Hypothyroidism type: acquired Qualified Code(s): E03.9 - Hypothyroidism, unspecified Is this a current diagnosis for this admission?: Yes Plan: Continue current treatment (6) Diabetes mellitus Qualifiers: Diabetes mellitus type: type 2 Diabetes mellitus complication status: with neurologic complications Diabetes mellitus complication detail: with unspecified neuropathy Is this a current diagnosis for this admission?: Yes Plan: We will continue with Metformin and sliding scale insulin coverage (7) Physical deconditioning Is this a current diagnosis for this admission?: Yes Plan: We will obtain physical therapy. Out of bed to chair. We will stop the IV fluids and IV antibiotics and switch to p.o.
[2018-03-09] MEDS: METFORMIN HCL 500 MG TABLET PO SCH ×2 (09:10→17:47)
[2018-03-09] MEDS: FUROSEMIDE 20 MG TABLET PO SCH (09:11)
[2018-03-09] MEDS: GUAIFENESIN 600 MG TABLET.SA PO SCH ×2 (09:12→21:11)
[2018-03-09] MEDS: LEVOFLOXACIN 500 MG TABLET PO SCH (09:16)
[2018-03-09] MEDS: SIMETHICONE 80 MG TAB.CHEW PO PRN (09:17)
[2018-03-09] MEDS: PREDNISONE 20 MG TABLET PO SCH ×2 (09:17→17:47)
[2018-03-09] MEDS: AZITHROMYCIN 250 MG TABLET PO SCH (09:17)
[2018-03-09] MEDS: FAMOTIDINE 20 MG TABLET PO SCH ×2 (09:17→21:11)
--- NOTE | 2018-03-09 11:33 | PDOC PROGRESS REPORT ---
Subjective Progress Note for:: 03/09/18 Subjective:: improving Reason For Visit: PNEUMONIA,ACUTE COPD EXACERBATION,RAPID A. FIB Physical Exam Vital Signs: Temp Pulse Resp BP Pulse Ox 97.3 F 75 16 106/60 100 03/09/18 07:05 03/09/18 08:30 03/09/18 08:30 03/09/18 07:05 03/09/18 08:30 Intake & Output 03/08/18 03/09/18 03/10/18 06:59 06:59 06:59 Intake Total 1684 2420 Output Total 475 1400 Balance 1209 1020 Weight 88.3 kg 89.2 kg General appearance: PRESENT: no acute distress, cooperative, disheveled Head exam: PRESENT: atraumatic, normocephalic Eye exam: PRESENT: conjunctiva pale, EOMI, PERRLA. ABSENT: nystagmus, periorbital swelling, scleral icterus Mouth exam: PRESENT: dry mucosa, neck supple, tongue midline Neck exam: PRESENT: tracheostomy - stoma not tube. ABSENT: carotid bruit, JVD, lymphadenopathy, thyromegaly, tracheal deviation Respiratory exam: PRESENT: decreased breath sounds, prolonged expiratory phas, rales, rhonchi, unlabored, wheezes. ABSENT: retraction, stridor Cardiovascular exam: PRESENT: RRR, +S1, +S2 Pulses: PRESENT: normal radial pulses GI/Abdominal exam: PRESENT: normal bowel sounds, soft Extremities exam: ABSENT: calf tenderness, clubbing, joint swelling Musculoskeletal exam: ABSENT: deformity, dislocation Neurological exam: PRESENT: alert, altered Psychiatric exam: PRESENT: flat affect Skin exam: PRESENT: dry, warm Results Laboratory Results: 03/09/18 05:42 03/09/18 05:42 03/08/18 03/09/18 03/09/18 11:28 05:42 05:42 WBC 15.3 H RBC 4.42 Hgb 14.1 Hct 43.1 MCV 98 H MCH 31.8 MCHC 32.6 RDW 15.4 H Plt Count 281 Seg Neutrophils % Not Reportable Lymphocytes % Not Reportable Monocytes % Not Reportable Eosinophils % Not Reportable Basophils % Not Reportable Absolute Neutrophils Not Reportable Absolute Lymphocytes Not Reportable Absolute Monocytes Not Reportable Absolute Eosinophils Not Reportable Absolute Basophils Not Reportable Carbonic Acid 0.89 L HCO3/H2CO3 Ratio 22:1 ABG pH 7.45 ABG pCO2 29.7 L ABG pO2 104.5 H ABG HCO3 19.9 L ABG O2 Saturation 98.1 H ABG Base Excess -3.0 FiO2 28% Sodium 141.1 Potassium 4.8 Chloride 104 Carbon Dioxide 21 L Anion Gap 16 BUN 33 H Creatinine 0.97 Est GFR ( Amer) > 60 Est GFR (Non-Af Amer) > 60 Glucose 136 H Calcium 9.8 Total Bilirubin 0.4 AST 36 ALT 32 Alkaline Phosphatase 63 Total Protein 6.7 Albumin 3.9 Impressions: Chest X-Ray 03/07/18 07:43 IMPRESSION: Obstructive lung disease No acute infiltrate Assessment & Plan - Diagnosis (1) Acute exacerbation of chronic obstructive pulmonary disease (COPD) Is this a current diagnosis for this admission?: Yes Plan: improving (2) Acute and chronic respiratory failure Qualifiers: Respiratory failure complication: hypoxia Qualified Code(s): J96.21 - Acute and chronic respiratory failure with hypoxia Is this a current diagnosis for this admission?: Yes Plan: Supplemental oxygen, Patient is not a candidate for noninvasive positive pressure ventilation he is a DNR so no intubation, Xopenex 0.63 every 4 hours PRN every 6 hours [id number] Pulmicort 0.25 nebulized every 12 refraining from using high-dose Xopenex as this may exacerbate his atrial fibrillation (3) Do not resuscitate Is this a current diagnosis for this admission?: Yes (4) Respiratory distress Is this a current diagnosis for this admission?: No (5) Tracheal carcinoma Is this a current diagnosis for this admission?: Yes (6) Atrial fibrillation with RVR Is this a current diagnosis for this admission?: Yes Plan: As per Mikhail Grimes MD and Dr. Ferreira consider diltiazem and amiodarone and digoxin please do not use a beta-billy if at all possible
[2018-03-09] MEDS: TAMSULOSIN HCL 0.4 MG CAP.SR.24H PO SCH (17:47)
--- NOTE | 2018-03-09 19:55 | PDOC PROGRESS REPORT ---
Subjective Progress Note for:: 03/09/18 Subjective:: Patient seems to be doing better with gradual improvement. Patient still has shortness of breath and wheezing. Pt is denying any chest arm or neck discomfort. Patient denying any PND, orthopnea. Patient denied any sustained palpitations, dizziness, syncope, near syncope. Patient denying any fever chills. Patient denying any other significant discomfort. Patient is maintaining atrial fibrillation with controlled ventricular response. Review of systems: Rest review of systems negative. Medications: Medications have been reviewed. Reason For Visit: PNEUMONIA,ACUTE COPD EXACERBATION,RAPID A. FIB Physical Exam Vital Signs: Temp Pulse Resp BP Pulse Ox 97.7 F 90 19 99/64 L 100 03/09/18 15:49 03/09/18 15:49 03/09/18 15:49 03/09/18 15:49 03/09/18 16:06 Intake & Output 03/08/18 03/09/18 03/10/18 06:59 06:59 06:59 Intake Total 1684 2420 0 Output Total 475 1400 500 Balance 1209 1020 -500 Weight 88.3 kg 89.2 kg Exam: GENERAL: well-nourished and in no acute distress. Alert and oriented x3 HEAD: Atraumatic, normocephalic. EYES: Pupils equal round and reactive to light, extraocular movements intact, sclera anicteric, conjunctiva are normal. ENT: TMs normal, nares patent, oropharynx clear without exudates. Moist mucous membranes. No oral ulcerations or bleeding gums noted NECK: supple without lymphadenopathy. Trachea is central. Central tracheostomy noted. No cervical or axillary lymphadenopathy noted. Carotids are 2+, JVD WNL LUNGS: Respiration seems nonlabored, no significant accessory muscle action noted. Bilateral scattered fine wheezes rales or rhonchi noted. No significant dullness noted on percussion. CHEST: Palpation of the chest wall shows no significant chest wall tenderness. 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 ABDOMEN: Soft, no significant tenderness appreciated, normoactive bowel sounds. No guarding, no rebound. No rigidity noted . No masses appreciated. EXTREMITIES: Pedal pulses are 1-2+, no calf tenderness noted. No clubbing or cyanosis. negative pedal edema noted NEUROLOGICAL: Focused neurological exam showed no significant neurologic deficit. Normal speech, no focal weakness appreciated. PSYCH: Normal mood, normal affect. Judgment and insight within normal limits. SKIN: No significant ecchymosis, skin is noted to be warm. MUSCULOSKELETAL EXAM: No significant acute joint swelling noted. Results Laboratory Results: 03/09/18 05:42 03/09/18 05:42 03/09/18 03/09/18 05:42 05:42 WBC 15.3 H RBC 4.42 Hgb 14.1 Hct 43.1 MCV 98 H MCH 31.8 MCHC 32.6 RDW 15.4 H Plt Count 281 Seg Neutrophils % Not Reportable Lymphocytes % Not Reportable Monocytes % Not Reportable Eosinophils % Not Reportable Basophils % Not Reportable Absolute Neutrophils Not Reportable Absolute Lymphocytes Not Reportable Absolute Monocytes Not Reportable Absolute Eosinophils Not Reportable Absolute Basophils Not Reportable Sodium 141.1 Potassium 4.8 Chloride 104 Carbon Dioxide 21 L Anion Gap 16 BUN 33 H Creatinine 0.97 Est GFR ( Amer) > 60 Est GFR (Non-Af Amer) > 60 Glucose 136 H Calcium 9.8 Total Bilirubin 0.4 AST 36 ALT 32 Alkaline Phosphatase 63 Total Protein 6.7 Albumin 3.9 Impressions: Chest X-Ray 03/07/18 07:43 IMPRESSION: Obstructive lung disease No acute infiltrate Assessment & Plan - Diagnosis (1) Atrial fibrillation with RVR Is this a current diagnosis for this admission?: Yes (2) Acute exacerbation of chronic obstructive pulmonary disease (COPD) Is this a current diagnosis for this admission?: Yes (3) Acute on chronic respiratory failure with hypoxemia Is this a current diagnosis for this admission?: Yes (4) Diabetes mellitus Qualifiers: Diabetes mellitus type: type 2 Diabetes mellitus complication status: with neurologic complications Diabetes mellitus complication detail: with unspecified neuropathy Is this a current diagnosis for this admission?: Yes (5) Pulmonary hypertension Is this a current diagnosis for this admission?: Yes - Notes Notes: RECOMMENDATIONS: Continue with current medical management plans. No new changes made today. Will assess chronic anticoagulation issue again and review old records. Atrial fibrillation with RVR: Recommend rate control with calcium channel billy such as Cardizem or verapamil. Currently on Cardizem and heart rate seems to be relatively well controlled. There are contraindication to chronic anticoagulation in this gentleman. Acute exacerbation of COPD: Agree with concurrent management by credit collection associate. Follow their recommendations. Acute on chronic respiratory failure with hypercapnia and hypoxemia: Currently is stable. Continue oxygenation, bronchodilator therapy and steroid therapy as needed and recommended by credit collection associate. Diabetes: Currently stable being well managed by eap specialist. Pulmonary hypertension: Secondary to COPD and possibly diastolic dysfunction. Patient has prior history of significant bleeding therefore has contraindication to chronic Coumadin therapy. Patient currently a DNR. - Time Time with patient: 15-25 minutes Medications reviewed and adjusted accordingly: Yes
[2018-03-10] MEDS: DILTIAZEM HCL 30 MG TABLET PO SCH ×4 (00:19→18:01)
[2018-03-10] MEDS: TRAMADOL HCL 50 MG TABLET PO PRN ×3 (00:19→18:03)
[2018-03-10] MEDS: LEVALBUTEROL HCL NEB 0.63 MG/3 ML AMPUL NEB SCH ×4 (01:46→20:07)
[2018-03-10] MEDS: LEVOTHYROXINE SODIUM 0.15 MG TABLET PO SCH (05:07)
[2018-03-10 05:59] LABS: HEMATOCRIT 42.2 % (37.9-51.0); MEAN CORPUSCULAR HEMOGLOBIN 31.8 pg (27.0-33.4); MEAN CORPUSCULAR HGB CONC 33.2 g/dL (32.0-36.0); MEAN CORPUSCULAR VOLUME 96 fl (80-97); PLATELET COUNT 266 10^3/uL (150-450); RED BLOOD COUNT 4.42 10^6/uL (4.35-5.55); RED CELL DISTRIBUTION WIDTH 15.4 % (11.5-14.0); WHITE BLOOD COUNT 11.6 10^3/uL (4.0-10.5)
[2018-03-10 06:19] LABS: ALANINE AMINOTRANSFERASE 36 U/L (21-72); ALBUMIN 3.7 g/dL (3.5-5.0); ALKALINE PHOSPHATASE 62 U/L (38-126); ANION GAP 10 (5-19); ASPARTATE AMINO TRANSFERASE 24 U/L (17-59); BILIRUBIN,DIRECT 0.4 mg/dL (0.0-0.4); BILIRUBIN,TOTAL 0.4 mg/dL (0.2-1.3); BLOOD UREA NITROGEN 41 mg/dL (7-20); CALCIUM 9.9 mg/dL (8.4-10.2); CARBON DIOXIDE 26 mmol/L (22-30); CHLORIDE 105 mmol/L (98-107); GLUCOSE 136 mg/dL (75-110); POTASSIUM 4.6 mmol/L (3.6-5.0); SODIUM 141.1 mmol/L (137-145); TOTAL PROTEIN 6.4 g/dL (6.3-8.2)
[2018-03-10 06:43] LABS: ABSOLUTE LYMPHOCYTES# (MANUAL) 0.6 10^3/uL (0.5-4.7); ABSOLUTE MONOCYTES # (MANUAL) 0.3 10^3/uL (0.1-1.4); ABSOLUTE NEUTROPHILS# (MANUAL) 10.7 10^3/uL (1.7-8.2); BASOPHILS % (MANUAL) 0 % (0-2); EOSINOPHILS % (MANUAL) 0 % (0-6); LYMPHOCYTES % (MANUAL) 5 % (13-45); MONOCYTES % (MANUAL) 3 % (3-13); SEGMENTED NEUTROPHILS % (MAN) 92 % (42-78); TOTAL CELLS COUNTED 100
[2018-03-10 06:45] LABS: TOXIC GRANULATION 1+
[2018-03-10 06:46] LABS: ANISOCYTOSIS 1+; PLATELET COMMENT ADEQUATE
[2018-03-10] MEDS: BUDESONIDE NEB 0.25 MG/2 ML AMPUL NEB SCH ×2 (08:30→20:07)
--- NOTE | 2018-03-10 08:48 | PDOC PROGRESS REPORT ---
Subjective Progress Note for:: 03/10/18 Subjective:: The patient is sitting up in a recliner. He is still very tired and short of breath with exertion. He denies any palpitations or chest pain. He has a lot of mucus coming out of his tracheostomy Reason For Visit: PNEUMONIA,ACUTE COPD EXACERBATION,RAPID A. FIB Physical Exam Vital Signs: Temp Pulse Resp BP Pulse Ox 97.6 F 76 18 99/58 L 98 03/10/18 07:22 03/10/18 07:22 03/10/18 07:22 03/10/18 07:22 03/10/18 07:22 Intake & Output 03/09/18 03/10/18 03/11/18 06:59 06:59 06:59 Intake Total 2420 5 Output Total 1400 1550 Balance 1020 -1545 Weight 89.2 kg 88.8 kg General appearance: PRESENT: mild distress Eye exam: PRESENT: conjunctiva pink Neck exam: ABSENT: JVD Respiratory exam: PRESENT: rhonchi, wheezes Cardiovascular exam: PRESENT: irregular rhythm, +S1, +S2 GI/Abdominal exam: PRESENT: normal bowel sounds, soft Extremities exam: PRESENT: tenderness Musculoskeletal exam: PRESENT: tenderness Neurological exam: PRESENT: alert, awake Results Laboratory Results: 03/10/18 05:22 03/10/18 05:22 03/10/18 03/10/18 05:22 05:22 WBC 11.6 H RBC 4.42 Hgb 14.0 Hct 42.2 MCV 96 MCH 31.8 MCHC 33.2 RDW 15.4 H Plt Count 266 Seg Neutrophils % Not Reportable Lymphocytes % Not Reportable Monocytes % Not Reportable Eosinophils % Not Reportable Basophils % Not Reportable Absolute Neutrophils Not Reportable Absolute Lymphocytes Not Reportable Absolute Monocytes Not Reportable Absolute Eosinophils Not Reportable Absolute Basophils Not Reportable Sodium 141.1 Potassium 4.6 Chloride 105 Carbon Dioxide 26 Anion Gap 10 BUN 41 H Creatinine 0.91 Est GFR ( Amer) > 60 Est GFR (Non-Af Amer) > 60 Glucose 136 H Calcium 9.9 Total Bilirubin 0.4 AST 24 ALT 36 Alkaline Phosphatase 62 Total Protein 6.4 Albumin 3.7 Impressions: Chest X-Ray 03/07/18 07:43 IMPRESSION: Obstructive lung disease No acute infiltrate Assessment & Plan - Diagnosis (1) Acute exacerbation of chronic obstructive pulmonary disease (COPD) Is this a current diagnosis for this admission?: Yes Plan: Continue steroids and nebulization treatments and O2 (2) Acute on chronic respiratory failure with hypoxemia Is this a current diagnosis for this admission?: Yes Plan: Continue with IV steroids reduced the dose. Continue antibiotics and nebulization treatments (3) Atrial fibrillation with RVR Is this a current diagnosis for this admission?: Yes Plan: Presently rate controlled. Will continue with current treatment (4) Bacterial pneumonia Is this a current diagnosis for this admission?: Yes Plan: Awaiting sensitivity. Continue current antibiotics (5) Hypothyroid Qualifiers: Hypothyroidism type: acquired Qualified Code(s): E03.9 - Hypothyroidism, unspecified Is this a current diagnosis for this admission?: Yes Plan: Continue current treatment (6) Diabetes mellitus Qualifiers: Diabetes mellitus type: type 2 Diabetes mellitus complication status: with neurologic complications Diabetes mellitus complication detail: with unspecified neuropathy Is this a current diagnosis for this admission?: Yes Plan: We will continue with Metformin and sliding scale insulin coverage (7) Physical deconditioning Is this a current diagnosis for this admission?: Yes Plan: We will obtain physical therapy. Out of bed to chair. We will stop the IV fluids and IV antibiotics and switch to p.o.
[2018-03-10] MEDS: METFORMIN HCL 500 MG TABLET PO SCH ×2 (09:49→18:01)
[2018-03-10] MEDS: AZITHROMYCIN 250 MG TABLET PO SCH (09:49)
[2018-03-10] MEDS: FUROSEMIDE 20 MG TABLET PO SCH (09:50)
[2018-03-10] MEDS: LEVOFLOXACIN 500 MG TABLET PO SCH (09:50)
[2018-03-10] MEDS: GUAIFENESIN 600 MG TABLET.SA PO SCH ×2 (09:50→22:30)
[2018-03-10] MEDS: PREDNISONE 20 MG TABLET PO SCH ×2 (09:51→18:01)
[2018-03-10] MEDS: FAMOTIDINE 20 MG TABLET PO SCH ×2 (09:52→22:30)
--- NOTE | 2018-03-10 13:22 | PDOC PROGRESS REPORT ---
Subjective Progress Note for:: 03/10/18 Subjective:: improving Reason For Visit: PNEUMONIA,ACUTE COPD EXACERBATION,RAPID A. FIB Physical Exam Vital Signs: Temp Pulse Resp BP Pulse Ox 97.7 F 87 18 113/72 96 03/10/18 12:12 03/10/18 12:12 03/10/18 12:12 03/10/18 12:12 03/10/18 12:20 Intake & Output 03/09/18 03/10/18 03/11/18 06:59 06:59 06:59 Intake Total 2420 5 118 Output Total 1400 1550 300 Balance 1020 1541 -182 Weight 89.2 kg 88.8 kg General appearance: PRESENT: no acute distress, cooperative, disheveled Head exam: PRESENT: atraumatic, normocephalic Eye exam: PRESENT: conjunctiva pale, EOMI. ABSENT: nystagmus, periorbital swelling, scleral icterus Mouth exam: PRESENT: dry mucosa, neck supple, tongue midline Neck exam: PRESENT: tracheostomy. ABSENT: carotid bruit, JVD, lymphadenopathy, thyromegaly, tracheal deviation Respiratory exam: PRESENT: decreased breath sounds, prolonged expiratory phas, rhonchi, unlabored, wheezes. ABSENT: rales, retraction, stridor Cardiovascular exam: PRESENT: irregular rhythm, +S1, +S2 Pulses: PRESENT: normal radial pulses GI/Abdominal exam: PRESENT: normal bowel sounds, soft Extremities exam: ABSENT: calf tenderness, clubbing Musculoskeletal exam: ABSENT: deformity, dislocation Neurological exam: PRESENT: alert, awake Psychiatric exam: PRESENT: flat affect Skin exam: PRESENT: dry, warm Results Laboratory Results: 03/10/18 05:22 03/10/18 05:22 03/10/18 03/10/18 05:22 05:22 WBC 11.6 H RBC 4.42 Hgb 14.0 Hct 42.2 MCV 96 MCH 31.8 MCHC 33.2 RDW 15.4 H Plt Count 266 Seg Neutrophils % Not Reportable Lymphocytes % Not Reportable Monocytes % Not Reportable Eosinophils % Not Reportable Basophils % Not Reportable Absolute Neutrophils Not Reportable Absolute Lymphocytes Not Reportable Absolute Monocytes Not Reportable Absolute Eosinophils Not Reportable Absolute Basophils Not Reportable Sodium 141.1 Potassium 4.6 Chloride 105 Carbon Dioxide 26 Anion Gap 10 BUN 41 H Creatinine 0.91 Est GFR ( Amer) > 60 Est GFR (Non-Af Amer) > 60 Glucose 136 H Calcium 9.9 Total Bilirubin 0.4 AST 24 ALT 36 Alkaline Phosphatase 62 Total Protein 6.4 Albumin 3.7 03/07/18 20:21 Tracheal Aspirate Gram Stain - Final Impressions: Chest X-Ray 03/07/18 07:43 IMPRESSION: Obstructive lung disease No acute infiltrate Assessment & Plan - Diagnosis (1) Acute exacerbation of chronic obstructive pulmonary disease (COPD) Is this a current diagnosis for this admission?: Yes Plan: improving (2) Acute and chronic respiratory failure Qualifiers: Respiratory failure complication: hypoxia Qualified Code(s): J96.21 - Acute and chronic respiratory failure with hypoxia Is this a current diagnosis for this admission?: Yes Plan: Supplemental oxygen, Patient is not a candidate for noninvasive positive pressure ventilation he is a DNR so no intubation, Xopenex 0.63 every 4 hours PRN every 6 hours [id number] Pulmicort 0.25 nebulized every 12 refraining from using high-dose Xopenex as this may exacerbate his atrial fibrillation (3) Do not resuscitate Is this a current diagnosis for this admission?: Yes (4) Respiratory distress Is this a current diagnosis for this admission?: No (5) Tracheal carcinoma Is this a current diagnosis for this admission?: Yes (6) Atrial fibrillation with RVR Is this a current diagnosis for this admission?: Yes Plan: As per Mikhail Grimes MD and Dr. Ferreira consider diltiazem and amiodarone and digoxin please do not use a beta-billy if at all possible
[2018-03-10] MEDS: TAMSULOSIN HCL 0.4 MG CAP.SR.24H PO SCH (18:01)
[2018-03-11] MEDS: DILTIAZEM HCL 30 MG TABLET PO SCH ×4 (00:45→17:05)
[2018-03-11] MEDS: LEVALBUTEROL HCL NEB 0.63 MG/3 ML AMPUL NEB SCH ×4 (01:11→20:12)
[2018-03-11] MEDS: TRAMADOL HCL 50 MG TABLET PO PRN ×2 (03:18→20:16)
[2018-03-11] MEDS: LEVOTHYROXINE SODIUM 0.15 MG TABLET PO SCH (06:38)
[2018-03-11] MEDS: BUDESONIDE NEB 0.25 MG/2 ML AMPUL NEB SCH ×2 (07:53→19:54)
--- NOTE | 2018-03-11 08:21 | PDOC PROGRESS REPORT ---
Subjective Progress Note for:: 03/11/18 Subjective:: The patient states to feel slightly better. He still having some dyspnea with exertion. He categorically refuses to go to or even consider rehab. His breathing has improved. His I & O's are negative. His white count is down Reason For Visit: PNEUMONIA,ACUTE COPD EXACERBATION,RAPID A. FIB Physical Exam Vital Signs: Temp Pulse Resp BP Pulse Ox 98.8 F 86 18 108/72 100 03/11/18 04:00 03/11/18 04:00 03/11/18 04:00 03/11/18 04:00 03/11/18 04:25 Intake & Output 03/10/18 03/11/18 03/12/18 06:59 06:59 06:59 Intake Total 5 362 Output Total 1550 1800 Balance -1545 -1438 Weight 88.8 kg 88.9 kg General appearance: PRESENT: mild distress Head exam: PRESENT: atraumatic Eye exam: PRESENT: conjunctiva pink Neck exam: PRESENT: tracheostomy. ABSENT: carotid bruit, JVD Respiratory exam: PRESENT: rhonchi, tachypnea. ABSENT: wheezes Cardiovascular exam: PRESENT: irregular rhythm, +S1, +S2 GI/Abdominal exam: PRESENT: normal bowel sounds, soft Extremities exam: PRESENT: tenderness Musculoskeletal exam: PRESENT: tenderness Results Laboratory Results: 03/10/18 05:22 03/10/18 05:22 03/07/18 20:21 Tracheal Aspirate Gram Stain - Final Impressions: Chest X-Ray 03/07/18 07:43 IMPRESSION: Obstructive lung disease No acute infiltrate Assessment & Plan - Diagnosis (1) Acute exacerbation of chronic obstructive pulmonary disease (COPD) Is this a current diagnosis for this admission?: Yes Plan: Improving we will reduce the steroids (2) Acute on chronic respiratory failure with hypoxemia Is this a current diagnosis for this admission?: Yes Plan: Continue with IV steroids reduced the dose. Continue antibiotics and nebulization treatments (3) Atrial fibrillation with RVR Is this a current diagnosis for this admission?: Yes Plan: Presently rate controlled. Will continue with current treatment (4) Bacterial pneumonia Is this a current diagnosis for this admission?: Yes Plan: Cultures showing staph aureus and strep B. Sensitive to Levaquin and Bactrim (5) Hypothyroid Qualifiers: Hypothyroidism type: acquired Qualified Code(s): E03.9 - Hypothyroidism, unspecified Is this a current diagnosis for this admission?: Yes Plan: Continue current treatment (6) Diabetes mellitus Qualifiers: Diabetes mellitus type: type 2 Diabetes mellitus complication status: with neurologic complications Diabetes mellitus complication detail: with unspecified neuropathy Is this a current diagnosis for this admission?: Yes Plan: Blood sugars have improved with adjustment of medications (7) Physical deconditioning Is this a current diagnosis for this admission?: Yes Plan: We will need to continue with physical therapy
[2018-03-11] MEDS: GUAIFENESIN 600 MG TABLET.SA PO SCH ×2 (09:35→21:41)
[2018-03-11] MEDS: SULFAMETHOXAZOLE/TRIMETHOPRIM 800-160 MG TABLET PO SCH ×2 (09:35→17:06)
[2018-03-11] MEDS: LEVOFLOXACIN 500 MG TABLET PO SCH (09:35)
[2018-03-11] MEDS: METFORMIN HCL 500 MG TABLET PO SCH ×2 (09:35→17:06)
[2018-03-11] MEDS: FAMOTIDINE 20 MG TABLET PO SCH ×2 (09:36→21:41)
[2018-03-11] MEDS: FUROSEMIDE 20 MG TABLET PO SCH (09:36)
[2018-03-11] MEDS: PREDNISONE 20 MG TABLET PO SCH ×2 (09:36→17:06)
--- NOTE | 2018-03-11 10:19 | PDOC PROGRESS REPORT ---
Subjective Progress Note for:: 03/11/18 Subjective:: improving Reason For Visit: PNEUMONIA,ACUTE COPD EXACERBATION,RAPID A. FIB Physical Exam Vital Signs: Temp Pulse Resp BP Pulse Ox 97.8 F 83 16 109/66 95 03/11/18 07:12 03/11/18 07:53 03/11/18 07:53 03/11/18 07:12 03/11/18 07:12 Intake & Output 03/10/18 03/11/18 03/12/18 06:59 06:59 06:59 Intake Total 5 362 Output Total 1550 1800 Balance -1545 -1438 Weight 88.8 kg 88.9 kg General appearance: PRESENT: no acute distress, cooperative, disheveled, thin Head exam: PRESENT: atraumatic, normocephalic Eye exam: PRESENT: conjunctiva pale, EOMI. ABSENT: nystagmus, periorbital swelling Mouth exam: PRESENT: dry mucosa, neck supple, tongue midline Neck exam: PRESENT: tracheostomy. ABSENT: carotid bruit, JVD, lymphadenopathy, thyromegaly, tracheal deviation Respiratory exam: PRESENT: decreased breath sounds, prolonged expiratory phas, rales, rhonchi, unlabored. ABSENT: retraction, stridor Cardiovascular exam: PRESENT: RRR, +S1, +S2 Pulses: PRESENT: normal radial pulses GI/Abdominal exam: PRESENT: normal bowel sounds, soft Gentrourinary exam: PRESENT: indwelling catheter Extremities exam: ABSENT: calf tenderness, clubbing, joint swelling Musculoskeletal exam: ABSENT: deformity, dislocation Neurological exam: PRESENT: alert, awake Psychiatric exam: PRESENT: flat affect Skin exam: PRESENT: dry, warm Results Laboratory Results: 03/10/18 05:22 03/10/18 05:22 03/07/18 20:21 Tracheal Aspirate Gram Stain - Final 03/07/18 20:21 Tracheal Aspirate Sputum Culture - Final Staphylococcus Aureus Alcaligenes Species Group B Beta Streptococcus Normal Nuria Absent Impressions: Chest X-Ray 03/07/18 07:43 IMPRESSION: Obstructive lung disease No acute infiltrate Assessment & Plan - Diagnosis (1) Acute exacerbation of chronic obstructive pulmonary disease (COPD) Is this a current diagnosis for this admission?: Yes Plan: improving (2) Acute and chronic respiratory failure Qualifiers: Respiratory failure complication: hypoxia Qualified Code(s): J96.21 - Acute and chronic respiratory failure with hypoxia Is this a current diagnosis for this admission?: Yes Plan: Supplemental oxygen, Patient is not a candidate for noninvasive positive pressure ventilation he is a DNR so no intubation, Xopenex 0.63 every 4 hours PRN every 6 hours [id number] Pulmicort 0.25 nebulized every 12 refraining from using high-dose Xopenex as this may exacerbate his atrial fibrillation (3) Do not resuscitate Is this a current diagnosis for this admission?: Yes (4) Respiratory distress Is this a current diagnosis for this admission?: No (5) Tracheal carcinoma Is this a current diagnosis for this admission?: Yes Plan: stable (6) Atrial fibrillation with RVR Is this a current diagnosis for this admission?: Yes Plan: As per Mikhail Grimes MD and Dr. Ferreira consider diltiazem and amiodarone and digoxin please do not use a beta-billy if at all possible
[2018-03-11] MEDS: TAMSULOSIN HCL 0.4 MG CAP.SR.24H PO SCH (17:05)
[2018-03-11] MEDS: LEVALBUTEROL HCL NEB 0.63 MG/3 ML AMPUL NEB PRN (19:57)
--- NOTE | 2018-03-11 20:56 | PDOC PROGRESS REPORT ---
Subjective Progress Note for:: 03/11/18 Subjective:: Patient seems to be doing better. Patient sitting on bedside chair. Patient still has shortness of breath and wheezing. Pt is denying any chest arm or neck discomfort. Patient denying any PND, orthopnea. Patient denied any sustained palpitations, dizziness, syncope, near syncope. Patient denying any fever chills. Patient denying any other significant discomfort. Patient is maintaining atrial fibrillation with controlled ventricular response. Review of systems: Rest review of systems negative. Medications: Medications have been reviewed. Reason For Visit: PNEUMONIA,ACUTE COPD EXACERBATION,RAPID A. FIB Physical Exam Vital Signs: Temp Pulse Resp BP Pulse Ox 98.7 F 92 20 116/74 97 03/11/18 19:17 03/11/18 19:17 03/11/18 19:17 03/11/18 19:17 03/11/18 19:17 Intake & Output 03/10/18 03/11/18 03/12/18 06:59 06:59 06:59 Intake Total 5 362 610 Output Total 1550 1800 875 Balance -1545 -1438 -265 Weight 88.8 kg 88.9 kg Exam: GENERAL: well-nourished and in no acute distress. Alert and oriented x3 HEAD: Atraumatic, normocephalic. EYES: Pupils equal round and reactive to light, extraocular movements intact, sclera anicteric, conjunctiva are normal. ENT: TMs normal, nares patent, oropharynx clear without exudates. Moist mucous membranes. No oral ulcerations or bleeding gums noted NECK: supple without lymphadenopathy. Trachea is central. Tracheostomy is noted. No cervical or axillary lymphadenopathy noted. Carotids are 2+, JVD WNL LUNGS: Respiration seems nonlabored, no significant accessory muscle action noted. Few a scattered wheezes rales or rhonchi noted. No significant dullness noted on percussion. CHEST: Palpation of the chest wall shows no significant chest wall tenderness. 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 ABDOMEN: Soft, no significant tenderness appreciated, normoactive bowel sounds. No guarding, no rebound. No rigidity noted . No masses appreciated. EXTREMITIES: Pedal pulses are 1-2+, no calf tenderness noted. No clubbing or cyanosis. negative pedal edema noted NEUROLOGICAL: Focused neurological exam showed no significant neurologic deficit. Normal speech, no focal weakness appreciated. PSYCH: Normal mood, normal affect. Judgment and insight within normal limits. SKIN: No significant ecchymosis, skin is noted to be warm. MUSCULOSKELETAL EXAM: No significant acute joint swelling noted. Results Laboratory Results: 03/10/18 05:22 03/10/18 05:22 03/07/18 20:21 Tracheal Aspirate Gram Stain - Final 03/07/18 20:21 Tracheal Aspirate Sputum Culture - Final Staphylococcus Aureus Alcaligenes Species Group B Beta Streptococcus Normal Nuria Absent EKG Comments: Telemetry strip shows atrial fibrillation. Heart rate response controlled Impressions: Chest X-Ray 03/07/18 07:43 IMPRESSION: Obstructive lung disease No acute infiltrate Assessment & Plan - Diagnosis (1) Atrial fibrillation with RVR Is this a current diagnosis for this admission?: Yes (2) Acute exacerbation of chronic obstructive pulmonary disease (COPD) Is this a current diagnosis for this admission?: Yes (3) Acute on chronic respiratory failure with hypoxemia Is this a current diagnosis for this admission?: Yes (4) Diabetes mellitus Qualifiers: Diabetes mellitus type: type 2 Diabetes mellitus complication status: with neurologic complications Diabetes mellitus complication detail: with unspecified neuropathy Is this a current diagnosis for this admission?: Yes (5) Pulmonary hypertension Is this a current diagnosis for this admission?: Yes - Notes Notes: RECOMMENDATIONS: Continue with current medical management plans. Had a long discussion with patient. Patient old records were reviewed. It seems patient had bleeding episode when his INR was very high at around 12. Discussed that based on his chads score, chronic anticoagulation is recommended. Discussed that Eliquis should be a better option. This was discussed with Mikhail Grimes MD, who told me that if patient is agreeable, we could place him on Eliquis therapy. Dr. Burnett informed about this decision who is covering for Dr. Grimes. Atrial fibrillation with RVR: Recommend rate control with calcium channel billy such as Cardizem or verapamil. Currently on Cardizem and heart rate seems to be relatively well controlled. Patient placed on Eliquis therapy. Side effects discussed. Risk benefits were discussed. Acute exacerbation of COPD: Agree with concurrent management by irs agent. Follow their recommendations. Acute on chronic respiratory failure with hypercapnia and hypoxemia: Currently is stable. Continue oxygenation, bronchodilator therapy and steroid therapy as needed and recommended by irs agent. Diabetes: Currently stable being well managed by odd jobs day worker. Pulmonary hypertension: Secondary to COPD and possibly diastolic dysfunction. Patient has prior history of significant bleeding therefore has contraindication to chronic Coumadin therapy. Patient currently a DNR. Will sign off. Please reconsult if needed. - Time Time with patient: Greater than 35 minutes - CODE STATUS : was discussed, patient remains DO NOT RESUSCITATE. Surrogate decision-maker unchanged. Multiple medical problems were addressed. More than 50% of the time spent coordinating care, discussing management plans with involved caregivers. Management plans discussed with involved personnels. Medical decision making was of moderate to high complexity, patient's has multiple comorbidities. Medications reviewed and adjusted accordingly: Yes
--- NOTE | 2018-03-11 21:01 | PDOC PROGRESS REPORT ---
Subjective Progress Note for:: 03/10/18 Subjective:: Patient seems to be doing better with gradual improvement. Seems better as regards shortness of breath and wheezing. Pt is denying any chest arm or neck discomfort. Patient denying any PND, orthopnea. Patient denied any sustained palpitations, dizziness, syncope, near syncope. Patient denying any fever chills. Patient denying any other significant discomfort. Patient is maintaining atrial fibrillation with controlled ventricular response. Review of systems: Rest review of systems negative. Medications: Medications have been reviewed. Reason For Visit: PNEUMONIA,ACUTE COPD EXACERBATION,RAPID A. FIB Physical Exam Vital Signs: Temp Pulse Resp BP Pulse Ox 97.8 F 85 18 104/66 99 03/10/18 19:50 03/10/18 19:50 03/10/18 19:50 03/10/18 19:50 03/10/18 19:50 Intake & Output 03/09/18 03/10/18 03/11/18 06:59 06:59 06:59 Intake Total 2420 5 357 Output Total 1400 1550 700 Balance 1020 -1545 -343 Weight 89.2 kg 88.8 kg Exam: GENERAL: well-nourished and in no acute distress. Alert and oriented x3 HEAD: Atraumatic, normocephalic. EYES: Pupils equal round and reactive to light, extraocular movements intact, sclera anicteric, conjunctiva are normal. ENT: TMs normal, nares patent, oropharynx clear without exudates. Moist mucous membranes. No oral ulcerations or bleeding gums noted NECK: supple without lymphadenopathy. Trachea is central. Central tracheostomy noted. No cervical or axillary lymphadenopathy noted. Carotids are 2+, JVD WNL LUNGS: Respiration seems nonlabored, no significant accessory muscle action noted. Bilateral scattered wheezes rales or rhonchi noted. No significant dullness noted on percussion. CHEST: Palpation of the chest wall shows no significant chest wall tenderness. HEART: [place] O[employer]ER, No PSH, 1/6 MAGEN aortic area, 1/6 messer systolic murmur mitral area, no rubs, no gallops. ABDOMEN: Soft, no significant tenderness appreciated, normoactive bowel sounds. No guarding, no rebound. No rigidity noted . No masses appreciated. EXTREMITIES: Pedal pulses are 1-2+, no calf tenderness noted. No clubbing or cyanosis. negative pedal edema noted NEUROLOGICAL: Focused neurological exam showed no significant neurologic deficit. Normal speech, no focal weakness appreciated. PSYCH: Normal mood, normal affect. Judgment and insight within normal limits. SKIN: No significant ecchymosis, skin is noted to be warm. MUSCULOSKELETAL EXAM: No significant acute joint swelling noted. Results Laboratory Results: 03/10/18 05:22 18 05:22 18 03/10/18 05:22 05:22 WBC 11.6 H RBC 4.42 Hgb 14.0 Hct 42.2 MCV 96 MCH 31.8 MCHC 33.2 RDW 15.4 H Plt Count 266 Seg Neutrophils % Not Reportable Lymphocytes % Not Reportable Monocytes % Not Reportable Eosinophils % Not Reportable Basophils % Not Reportable Absolute Neutrophils Not Reportable Absolute Lymphocytes Not Reportable Absolute Monocytes Not Reportable Absolute Eosinophils Not Reportable Absolute Basophils Not Reportable Sodium 141.1 Potassium 4.6 Chloride 105 Carbon Dioxide 26 Anion Gap 10 BUN 41 H Creatinine 0.91 Est GFR ( Amer) > 60 Est GFR (Non-Af Amer) > 60 Glucose 136 H Calcium 9.9 Total Bilirubin 0.4 AST 24 ALT 36 Alkaline Phosphatase 62 Total Protein 6.4 Albumin 3.7 03/07/18 20:21 Tracheal Aspirate Gram Stain - Final EKG Comments: Telemetry shows sinus rhythm without any sustained tachycardia or bradycardia. Impressions: Chest X-Ray 03/07/18 07:43 IMPRESSION: Obstructive lung disease No acute infiltrate Assessment & Plan - Diagnosis (1) Atrial fibrillation with RVR Is this a current diagnosis for this admission?: Yes (2) Acute exacerbation of chronic obstructive pulmonary disease (COPD) Is this a current diagnosis for this admission?: Yes (3) Acute on chronic respiratory failure with hypoxemia Is this a current diagnosis for this admission?: Yes (4) Diabetes mellitus Qualifiers: Diabetes mellitus type: type 2 Diabetes mellitus complication status: with neurologic complications Diabetes mellitus complication detail: with unspecified neuropathy Is this a current diagnosis for this admission?: Yes (5) Pulmonary hypertension Is this a current diagnosis for this admission?: Yes - Notes Notes: Old records were reviewed. Feel that patient could be offered chronic anticoagulation with newer oral anticoagulant. However did not have a chance to discuss this with Mikhail Grimes MD or with the patient. Atrial fibrillation with RVR: Recommend rate control with calcium channel billy such as Cardizem or verapamil. Currently on Cardizem and heart rate seems to be relatively well controlled. Will discuss chronic anticoagulation issue with primary care attending and patient tomorrow. Acute exacerbation of COPD: Agree with concurrent management by oncology patient navigator. Follow their recommendations. Acute on chronic respiratory failure with hypercapnia and hypoxemia: Currently is stable. Continue oxygenation, bronchodilator therapy and steroid therapy as needed and recommended by oncology patient navigator. Diabetes: Currently stable being well managed by hydraulics engineer. Pulmonary hypertension: Secondary to COPD and possibly diastolic dysfunction. Patient currently a DNR. - Time Time with patient: 15-25 minutes - CODE STATUS : was discussed, patient remains DO NOT RESUSCITATE. Surrogate decision-maker unchanged. Multiple medical problems were addressed. More than 50% of the time spent coordinating care, discussing management plans with involved caregivers. Management plans discussed with involved personnels. Medical decision making was of moderate to high complexity, patient's has multiple comorbidities. Medications reviewed and adjusted accordingly: Yes
[2018-03-12] MEDS: DILTIAZEM HCL 30 MG TABLET PO SCH ×5 (00:25→23:56)
[2018-03-12] MEDS: LEVALBUTEROL HCL NEB 0.63 MG/3 ML AMPUL NEB SCH ×4 (02:14→19:53)
[2018-03-12] MEDS: TRAMADOL HCL 50 MG TABLET PO PRN ×3 (04:00→23:58)
[2018-03-12] MEDS: LEVOTHYROXINE SODIUM 0.15 MG TABLET PO SCH (05:34)
[2018-03-12] MEDS: BUDESONIDE NEB 0.25 MG/2 ML AMPUL NEB SCH ×2 (08:29→19:53)
[2018-03-12] MEDS: LEVOFLOXACIN 500 MG TABLET PO SCH (09:16)
[2018-03-12] MEDS: GUAIFENESIN 600 MG TABLET.SA PO SCH ×2 (09:17→21:24)
[2018-03-12] MEDS: SULFAMETHOXAZOLE/TRIMETHOPRIM 800-160 MG TABLET PO SCH ×2 (09:17→17:37)
[2018-03-12] MEDS: FAMOTIDINE 20 MG TABLET PO SCH ×2 (09:17→21:24)
[2018-03-12] MEDS: PREDNISONE 20 MG TABLET PO SCH ×2 (09:17→17:38)
[2018-03-12] MEDS: APIXABAN 5 MG TABLET PO SCH ×2 (09:17→17:38)
[2018-03-12] MEDS: METFORMIN HCL 500 MG TABLET PO SCH ×2 (09:18→17:38)
[2018-03-12] MEDS: FUROSEMIDE 20 MG TABLET PO SCH (09:18)
[2018-03-12] MEDS ORDERED: APIXABAN 2.5 MG TABLET PO SCH (10:00)
--- NOTE | 2018-03-12 12:59 | PDOC PROGRESS REPORT ---
Subjective Progress Note for:: 03/12/18 Subjective:: Covering for the weekend Sitting in the chair, no acute distress, indicates he feels about the same. No new complaints. Reason For Visit: PNEUMONIA,ACUTE COPD EXACERBATION,RAPID A. FIB Physical Exam Vital Signs: Temp Pulse Resp BP Pulse Ox 98.4 F 71 16 104/75 99 03/12/18 11:09 03/12/18 11:09 03/12/18 11:09 03/12/18 11:09 03/12/18 11:09 Intake & Output 03/11/18 03/12/18 03/13/18 05:59 05:59 05:59 Intake Total 357 1215 354 Output Total 1999 2024 200 Balance -1643 -810 154 Weight 195 lb 15.855 oz 191 lb 12.835 oz General appearance: PRESENT: no acute distress Neck exam: PRESENT: tracheostomy - With a trach collar at 8 L Respiratory exam: PRESENT: decreased breath sounds, prolonged expiratory phas, unlabored, other - He has some rattles from his trach, but his lung sounds are clear GI/Abdominal exam: PRESENT: soft Extremities exam: ABSENT: pedal edema Neurological exam: PRESENT: alert Psychiatric exam: PRESENT: flat affect Skin exam: PRESENT: warm Results Laboratory Results: 03/10/18 05:22 03/10/18 05:22 Impressions: Chest X-Ray 03/07/18 07:43 IMPRESSION: Obstructive lung disease No acute infiltrate Assessment & Plan - Diagnosis (1) Chronic a-fib Is this a current diagnosis for this admission?: Yes Plan: Rate controlled, Eliquis started yesterday, no evidence of bleeding. Continue current medications (2) Acute exacerbation of chronic obstructive pulmonary disease (COPD) Is this a current diagnosis for this admission?: Yes Plan: On nebulizers, Levaquin, steroids. Wean oxygen as tolerated (3) Acute on chronic respiratory failure with hypoxemia Is this a current diagnosis for this admission?: Yes (4) Physical deconditioning Is this a current diagnosis for this admission?: Yes Plan: Working with PT.
[2018-03-12] MEDS: TAMSULOSIN HCL 0.4 MG CAP.SR.24H PO SCH (17:37)
[2018-03-13] MEDS: LEVALBUTEROL HCL NEB 0.63 MG/3 ML AMPUL NEB SCH ×4 (02:34→20:13)
[2018-03-13] MEDS: LEVOTHYROXINE SODIUM 0.15 MG TABLET PO SCH (05:12)
[2018-03-13] MEDS: DILTIAZEM HCL 30 MG TABLET PO SCH ×4 (05:12→23:33)
[2018-03-13] MEDS: BUDESONIDE NEB 0.25 MG/2 ML AMPUL NEB SCH ×2 (08:13→20:13)
[2018-03-13] MEDS: SULFAMETHOXAZOLE/TRIMETHOPRIM 800-160 MG TABLET PO SCH ×2 (09:45→18:15)
[2018-03-13] MEDS: METFORMIN HCL 500 MG TABLET PO SCH ×2 (09:45→18:15)
[2018-03-13] MEDS: LEVOFLOXACIN 500 MG TABLET PO SCH (09:45)
[2018-03-13] MEDS: APIXABAN 5 MG TABLET PO SCH ×2 (09:45→18:14)
[2018-03-13] MEDS: FAMOTIDINE 20 MG TABLET PO SCH ×2 (09:46→22:20)
[2018-03-13] MEDS: FUROSEMIDE 20 MG TABLET PO SCH (09:46)
[2018-03-13] MEDS: PREDNISONE 20 MG TABLET PO SCH ×2 (09:46→18:14)
[2018-03-13] MEDS: GUAIFENESIN 600 MG TABLET.SA PO SCH ×2 (09:46→22:20)
[2018-03-13] MEDS ORDERED: NORMAL SALINE 1000 ML 500 ML IV ONE (12:42)
--- NOTE | 2018-03-13 12:47 | PDOC PROGRESS REPORT ---
Subjective Progress Note for:: 03/13/18 Subjective:: Covering for the weekend Lying in bed, no acute distress, indicates he feels about the same. No new complaints. Reason For Visit: PNEUMONIA,ACUTE COPD EXACERBATION,RAPID A. FIB Physical Exam Vital Signs: Temp Pulse Resp BP Pulse Ox 98.2 F 93 14 90/60 L 100 03/13/18 11:08 03/13/18 11:08 03/13/18 11:08 03/13/18 11:08 03/13/18 11:08 Intake & Output 03/12/18 03/13/18 03/14/18 05:59 05:59 05:59 Intake Total 1215 1690 355 Output Total 2024 2200 275 Balance -810 -510 80 Weight 191 lb 12.835 oz 189 lb 2.506 oz General appearance: PRESENT: no acute distress, hard of hearing Neck exam: PRESENT: tracheostomy Respiratory exam: PRESENT: clear to auscultation carmencita, decreased breath sounds, prolonged expiratory phas Cardiovascular exam: PRESENT: other - Irregularly irregular Pulses: PRESENT: other - No edema GI/Abdominal exam: PRESENT: soft Neurological exam: PRESENT: other - Somnolent but arousable Psychiatric exam: PRESENT: flat affect Skin exam: PRESENT: warm Results Laboratory Results: 03/10/18 05:22 03/10/18 05:22 Impressions: Chest X-Ray 03/07/18 07:43 IMPRESSION: Obstructive lung disease No acute infiltrate Assessment & Plan - Diagnosis (1) Chronic a-fib Is this a current diagnosis for this admission?: Yes Plan: Rate controlled, Eliquis started, no evidence of bleeding. His blood pressure is down a little bit, suggesting we may have over diuresed him a little. I will give him a 500 mL bolus, cut back on his Lasix, and recheck his labs in the morning. (2) Acute exacerbation of chronic obstructive pulmonary disease (COPD) Is this a current diagnosis for this admission?: Yes Plan: On nebulizers, Levaquin, steroids. Wean oxygen as tolerated (3) Acute on chronic respiratory failure with hypoxemia Is this a current diagnosis for this admission?: Yes (4) Physical deconditioning Is this a current diagnosis for this admission?: Yes Plan: Working with PT.
[2018-03-13] MEDS: TRAMADOL HCL 50 MG TABLET PO PRN ×2 (14:16→22:19)
[2018-03-13] MEDS: TAMSULOSIN HCL 0.4 MG CAP.SR.24H PO SCH (18:14)
[2018-03-14] MEDS: LEVALBUTEROL HCL NEB 0.63 MG/3 ML AMPUL NEB SCH ×4 (01:53→19:48)
[2018-03-14] MEDS: LEVOTHYROXINE SODIUM 0.15 MG TABLET PO SCH (06:20)
[2018-03-14] MEDS: TRAMADOL HCL 50 MG TABLET PO PRN ×2 (06:20→18:22)
[2018-03-14] MEDS: DILTIAZEM HCL 30 MG TABLET PO SCH ×3 (06:21→17:28)
[2018-03-14] MEDS: BUDESONIDE NEB 0.25 MG/2 ML AMPUL NEB SCH ×2 (08:21→19:50)
[2018-03-14] MEDS: METFORMIN HCL 500 MG TABLET PO SCH ×2 (09:03→17:29)
[2018-03-14] MEDS: GUAIFENESIN 600 MG TABLET.SA PO SCH ×2 (09:04→21:27)
[2018-03-14] MEDS: FUROSEMIDE 20 MG TABLET PO SCH (09:04)
[2018-03-14] MEDS: LEVOFLOXACIN 500 MG TABLET PO SCH (09:04)
[2018-03-14] MEDS: FAMOTIDINE 20 MG TABLET PO SCH ×2 (09:05→21:27)
[2018-03-14] MEDS: PREDNISONE 20 MG TABLET PO SCH ×2 (09:05→17:28)
[2018-03-14] MEDS: APIXABAN 5 MG TABLET PO SCH ×2 (09:05→17:28)
[2018-03-14] MEDS: SULFAMETHOXAZOLE/TRIMETHOPRIM 800-160 MG TABLET PO SCH ×2 (09:05→17:29)
--- NOTE | 2018-03-14 13:13 | PDOC PROGRESS REPORT ---
Subjective Progress Note for:: 03/14/18 Subjective:: Refused labs this morning. He understands this complicates his management. No current complaints or requests. Reason For Visit: PNEUMONIA,ACUTE COPD EXACERBATION,RAPID A. FIB Physical Exam Vital Signs: Temp Pulse Resp BP Pulse Ox 98.4 F 87 14 113/72 100 03/14/18 11:19 03/14/18 11:19 03/14/18 11:19 03/14/18 11:19 03/14/18 11:19 Intake & Output 03/13/18 03/14/18 03/15/18 05:59 05:59 05:59 Intake Total 1690 2418 236 Output Total 2200 1925 200 Balance -510 493 36 Weight 189 lb 2.506 oz 188 lb 7.924 oz General appearance: PRESENT: no acute distress, hard of hearing Neck exam: PRESENT: tracheostomy - With trach collar. ABSENT: JVD Respiratory exam: PRESENT: clear to auscultation carmencita, decreased breath sounds, prolonged expiratory phas Cardiovascular exam: PRESENT: other - Irregularly irregular. ABSENT: tachycardia GI/Abdominal exam: PRESENT: soft Extremities exam: ABSENT: pedal edema Neurological exam: PRESENT: other - Arousable, will answer yes/no questions. Psychiatric exam: PRESENT: flat affect Skin exam: PRESENT: warm Results Laboratory Results: 03/10/18 05:22 03/10/18 05:22 Impressions: Chest X-Ray 03/07/18 07:43 IMPRESSION: Obstructive lung disease No acute infiltrate Assessment & Plan - Diagnosis (1) Chronic a-fib Is this a current diagnosis for this admission?: Yes Plan: Rate controlled, Eliquis started, no evidence of bleeding. (2) Acute exacerbation of chronic obstructive pulmonary disease (COPD) Is this a current diagnosis for this admission?: Yes Plan: On nebulizers, Levaquin, steroids. Wean oxygen as tolerated (3) Acute on chronic respiratory failure with hypoxemia Is this a current diagnosis for this admission?: Yes (4) Physical deconditioning Is this a current diagnosis for this admission?: Yes Plan: Working with PT.
[2018-03-14] MEDS: TAMSULOSIN HCL 0.4 MG CAP.SR.24H PO SCH (17:28)
[2018-03-15] MEDS: DILTIAZEM HCL 30 MG TABLET PO SCH ×2 (00:22→05:06)
[2018-03-15] MEDS: LEVALBUTEROL HCL NEB 0.63 MG/3 ML AMPUL NEB SCH ×2 (02:11→07:51)
[2018-03-15] MEDS: TRAMADOL HCL 50 MG TABLET PO PRN (05:06)
[2018-03-15] MEDS: LEVOTHYROXINE SODIUM 0.15 MG TABLET PO SCH (05:06)
[2018-03-15] MEDS: BUDESONIDE NEB 0.25 MG/2 ML AMPUL NEB SCH (07:53)
--- NOTE | 2018-03-15 08:27 | PDOC DISCHARGE SUMMARY ---
General - Admit/Disc Date/PCP Admission Date/Primary Care Provider: 03/07/18 10:03 WENDY AYALA, Discharge Date: 03/15/18 - Discharge Diagnosis (1) Acute exacerbation of chronic obstructive pulmonary disease (COPD) Is this a current diagnosis for this admission?: Yes Summary: Continue with current medications as recommended by truck shop supervisor (2) Acute on chronic respiratory failure with hypoxemia Is this a current diagnosis for this admission?: Yes Summary: Continue flutter valve and incentive spirometer and O2 (3) Atrial fibrillation with RVR Is this a current diagnosis for this admission?: Yes Summary: Continue to diltiazem and Eliquis (4) Bacterial pneumonia Is this a current diagnosis for this admission?: Yes Summary: Continue Levaquin and Bactrim for 5 more days (5) Hypothyroid Is this a current diagnosis for this admission?: Yes Summary: Continue current dose of Synthroid (6) Diabetes mellitus Is this a current diagnosis for this admission?: Yes Summary: Diet and metformin (7) Physical deconditioning Is this a current diagnosis for this admission?: Yes Summary: Continue home exercise program. We will can consider home health and PT. The patient refuses home health at present time - Additional Information Resuscitation Status: Do Not Resuscitate Discharge Diet: Cardiac, Diabetic Discharge Activity: Activity As Tolerated Prescriptions: Simethicone [Mylicon 80 mg Chewable Tablet] 80 mg PO Q6HP PRN #60 tab.chew PRN Reason: Apixaban [Eliquis 5 mg Tablet] 5 mg PO BID #60 tablet Budesonide [Pulmicort Neb 0.25 mg/2 ml Ampul] 0.25 mg NEB RTQ12 #60 ampul.neb Famotidine [Pepcid 20 mg Tablet] 20 mg PO Q12 #60 tablet Guaifenesin [Mucinex Sr 600 mg Tablet.sa] 600 mg PO Q12 #60 tablet.sa Levalbuterol HCl [Xopenex Neb 0.63 mg/3 ml Ampul] 0.63 mg NEB RTQ4HP PRN #120 vial.neb PRN Reason: Levofloxacin [Levaquin 500 mg Tablet] 500 mg PO DAILY #5 tablet Sulfamethoxazole/Trimethoprim [Septra-Ds 800-160 mg Tablet] 1 tab PO BID #10 tablet Tamsulosin HCl [Flomax 0.4 mg Cap.sr] 0.4 mg PO PCSUPPER #30 cap.sr.24h Home Medications: Diltiazem HCl [Cardizem 30 mg Tablet] 30 mg PO Q6 03/07/18 Furosemide [Lasix 20 mg Tablet] 40 mg PO DAILY 03/07/18 Levothyroxine Sodium [Synthroid 0.15 mg Tablet] 0.15 mg PO Q6AM 03/07/18 Metformin HCl [Glucophage 500 mg Tablet] 1,000 mg PO BID 03/07/18 Prednisone [Deltasone 10 mg Tablet] 10 mg PO BID 03/07/18 Tramadol HCl [Ultram 50 mg Tablet] 50 mg PO Q8HP PRN 03/07/18 Apixaban [Eliquis 5 mg Tablet] 5 mg PO BID #60 tablet 03/15/18 Budesonide [Pulmicort Neb 0.25 mg/2 ml Ampul] 0.25 mg NEB RTQ12 #60 ampul.neb Famotidine [Pepcid 20 mg Tablet] 20 mg PO Q12 #60 tablet 03/15/18 Guaifenesin [Mucinex Sr 600 mg Tablet.sa] 600 mg PO Q12 #60 tablet.sa 03/15/18 Levalbuterol HCl [Xopenex Neb 0.63 mg/3 ml Ampul] 0.63 mg NEB RTQ4HP PRN #120 vial.neb 03/15/18 Levofloxacin [Levaquin 500 mg Tablet] 500 mg PO DAILY #5 tablet 03/15/18 Simethicone [Mylicon 80 mg Chewable Tablet] 80 mg PO Q6HP PRN #60 tab.chew 03/15 Sulfamethoxazole/Trimethoprim [Septra-Ds 800-160 mg Tablet] 1 tab PO BID #10 tablet 03/15/18 Tamsulosin HCl [Flomax 0.4 mg Cap.sr] 0.4 mg PO PCSUPPER #30 cap.sr.24h History of Present Illness History of Present Illness: KARLA PARADA is a 77 year old male Hospital Course Hospital Course: The patient was admitted with an acute exacerbation of COPD with an A. fib with RVR. He was seen by cardiology and pulmonology. He has received Cardizem IV and high doses of steroids. Over the next several days his symptomatology has improved. He was having difficulty urinating and started on Flomax and Smith catheter. His sputum culture grew staph aureus and the second bacteria most probably a contamination. We have started the patient on Levaquin and Bactrim. He did quite well steroids have been weaned off. He had significant amount of diureses. On the day of discharge he appeared comfortable in no acute distress Physical Exam Vital Signs: Temp Pulse Resp BP Pulse Ox 97.5 F 92 16 101/69 90 L 03/15/18 07:46 03/15/18 07:53 03/15/18 07:53 03/15/18 07:46 03/15/18 07:53 Intake & Output 03/14/18 03/15/18 03/16/18 06:59 06:59 06:59 Intake Total 2418 1245 Output Total 1925 1425 Balance 493 -180 Weight 85.5 kg 84.9 kg General appearance: PRESENT: no acute distress Eye exam: PRESENT: conjunctiva pink Neck exam: PRESENT: tracheostomy Respiratory exam: PRESENT: rhonchi. ABSENT: wheezes Cardiovascular exam: PRESENT: irregular rhythm, +S1, +S2 GI/Abdominal exam: PRESENT: normal bowel sounds, soft Extremities exam: PRESENT: tenderness Musculoskeletal exam: PRESENT: tenderness Neurological exam: PRESENT: alert, awake Results Laboratory Results: 03/10/18 05:22 03/10/18 05:22 Impressions: Chest X-Ray 03/07/18 07:43 IMPRESSION: Obstructive lung disease No acute infiltrate Qualifiers - * PATIENT BEING DISCHARGED WITH ANY OF THE FOLLOWING DIAGNOSIS: No VTE patient discharged on overlapping Therapy?: Yes
[2018-03-15 08:41] VITALS: BP 108/72
[2018-03-15] MEDS: SULFAMETHOXAZOLE/TRIMETHOPRIM 800-160 MG TABLET PO SCH (09:31)
[2018-03-15] MEDS: METFORMIN HCL 500 MG TABLET PO SCH (09:31)
[2018-03-15] MEDS: FUROSEMIDE 20 MG TABLET PO SCH (09:31)
[2018-03-15] MEDS: PREDNISONE 20 MG TABLET PO SCH (09:32)
[2018-03-15] MEDS: APIXABAN 5 MG TABLET PO SCH (09:32)
[2018-03-15] MEDS: FAMOTIDINE 20 MG TABLET PO SCH (09:32)
[2018-03-15] MEDS: GUAIFENESIN 600 MG TABLET.SA PO SCH (09:32)
[2018-03-15] MEDS: LEVOFLOXACIN 500 MG TABLET PO SCH (09:32)
--- NOTE | 2018-03-16 14:55 | PDOC PROGRESS REPORT ---
Subjective Progress Note for:: 03/15/18 Subjective:: improving w/o complaint Reason For Visit: PNEUMONIA,ACUTE COPD EXACERBATION,RAPID A. FIB Physical Exam Vital Signs: Temp Pulse Resp BP Pulse Ox 97.5 F 92 16 108/72 90 L 03/15/18 08:27 03/15/18 08:27 03/15/18 08:27 03/15/18 08:27 03/15/18 08:27 Intake & Output 03/15/18 03/16/18 03/17/18 06:59 06:59 06:59 Intake Total 1245 Output Total 1425 Balance -180 Weight 84.9 kg General appearance: PRESENT: no acute distress, cooperative, disheveled, thin Head exam: PRESENT: atraumatic, normocephalic Eye exam: PRESENT: conjunctiva pale, EOMI, PERRLA. ABSENT: nystagmus, periorbital swelling, scleral icterus Mouth exam: PRESENT: dry mucosa, neck supple, tongue midline Neck exam: PRESENT: tracheostomy. ABSENT: carotid bruit, JVD, lymphadenopathy, thyromegaly, tracheal deviation Respiratory exam: PRESENT: decreased breath sounds, prolonged expiratory phas, rhonchi, unlabored. ABSENT: rales, retraction, stridor, tachypnea Cardiovascular exam: PRESENT: RRR, +S1, +S2 Pulses: PRESENT: normal radial pulses GI/Abdominal exam: PRESENT: normal bowel sounds, soft Extremities exam: PRESENT: full ROM. ABSENT: calf tenderness, clubbing, joint swelling Musculoskeletal exam: PRESENT: ambulatory, full ROM. ABSENT: deformity, dislocation Neurological exam: PRESENT: awake Psychiatric exam: PRESENT: flat affect Skin exam: PRESENT: dry, warm Results Laboratory Results: 03/10/18 05:22 03/10/18 05:22 Impressions: Chest X-Ray 03/07/18 07:43 IMPRESSION: Obstructive lung disease No acute infiltrate Assessment & Plan - Diagnosis (1) Acute exacerbation of chronic obstructive pulmonary disease (COPD) Is this a current diagnosis for this admission?: Yes Plan: at/near baseline (2) Acute and chronic respiratory failure Qualifiers: Respiratory failure complication: hypoxia Qualified Code(s): J96.21 - Acute and chronic respiratory failure with hypoxia Is this a current diagnosis for this admission?: Yes Plan: Supplemental oxygen, Patient is not a candidate for noninvasive positive pressure ventilation he is a DNR so no intubation, (3) Do not resuscitate Is this a current diagnosis for this admission?: Yes (4) Respiratory distress Is this a current diagnosis for this admission?: No (5) Tracheal carcinoma Is this a current diagnosis for this admission?: Yes Plan: stable (6) Atrial fibrillation with RVR Is this a current diagnosis for this admission?: Yes Plan: As per Mikhail Grimes MD and Dr. Ferreira consider diltiazem and amiodarone and digoxin please do not use a beta-billy if at all possible
== END 2018-03-15 10:00 | disposition home or self-care (01) | DRG 189 ==
LOC: ER 07:33 → EH 10:03 → 3S 11:20
PROVIDERS: ADMIT Internal Medicine; ATTEND Internal Medicine
DX: J96.21 Acute and chronic respiratory failure with hypoxia (principal); J15.211 Pneumonia due to Methicillin susceptible Staphylococcus aureus; J44.1 Chronic obstructive pulmonary disease with (acute) exacerbation; Z66 Do not resuscitate; J96.22 Acute and chronic respiratory failure with hypercapnia; I48.2 Chronic atrial fibrillation; E11.49 Type 2 diabetes mellitus with other diabetic neurological complication; C32.9 Malignant neoplasm of larynx, unspecified; E03.9 Hypothyroidism, unspecified; Z93.0 Tracheostomy status; Z79.84 Long term (current) use of oral hypoglycemic drugs; Z79.52 Long term (current) use of systemic steroids; Z79.899 Other long term (current) drug therapy; Z87.891 Personal history of nicotine dependence; Z90.02 Acquired absence of larynx; Z79.01 Long term (current) use of anticoagulants
CPT/HCPCS: 36415; 36600; 71045; 80053; 81001; 82550; 82553; 82803; 82962; 83605; 84484; 85025; 85610; 85730; 87040; 87070; 87077; 87186; 87205; 87493; 93005; 93010; 94640; 96365; 96366; 96367; 96368; 96375; 99285; G8978-GP; G8979-GP; J0456; J0744; J1956; J2930; J3475; J3490; J7030; J7060; J7512; J7614; J7620; J7626; S0028

== ENCOUNTER → 2018-05-04 | Outpatient (CLI) | payer MEDICARE, OTHER ==
[2018-05-06 12:56] LABS: ABSOLUTE EOSINOPHILS # (AUTO) 0.1 10^3/uL (0.0-0.6); ABSOLUTE LYMPHOCYTES (AUTO) 1.7 10^3/uL (0.5-4.7); ABSOLUTE MONOCYTES (AUTO) 0.7 10^3/uL (0.1-1.4); ABSOLUTE NEUT (AUTO) 9.1 10^3/uL (1.7-8.2); BASOPHILS % (AUTO) 0.3 % (0-2); EOSINOPHILS % (AUTO) 0.5 % (0-6); HEMATOCRIT 51.9 % (37.9-51.0); HEMOGLOBIN 17.4 g/dL (13.5-17.0); LYMPHOCYTES % (AUTO) 14.9 % (13-45); MEAN CORPUSCULAR HEMOGLOBIN 32.1 pg (27.0-33.4); MEAN CORPUSCULAR HGB CONC 33.4 g/dL (32.0-36.0); MEAN CORPUSCULAR VOLUME 96 fl (80-97); MONOCYTES % (AUTO) 5.8 % (3-13); PLATELET COUNT 288 10^3/uL (150-450); RED CELL DISTRIBUTION WIDTH 16.5 % (11.5-14.0); SEGMENTED NEUTROPHILS % (AUTO) 78.5 % (42-78); TOTAL CELLS COUNTED % (AUTO) 100 %; WHITE BLOOD COUNT 11.6 10^3/uL (4.0-10.5)
[2018-05-06 13:11] LABS: ALANINE AMINOTRANSFERASE 153 U/L (21-72); ALBUMIN 4.8 g/dL (3.5-5.0); ALKALINE PHOSPHATASE 158 U/L (38-126); ANION GAP 19 (5-19); ASPARTATE AMINO TRANSFERASE 158 U/L (17-59); BILIRUBIN,DIRECT 0.5 mg/dL (0.0-0.4); BILIRUBIN,TOTAL 0.8 mg/dL (0.2-1.3); BLOOD UREA NITROGEN 40 mg/dL (7-20); CALCIUM 10.2 mg/dL (8.4-10.2); CARBON DIOXIDE 28 mmol/L (22-30); CHLORIDE 90 mmol/L (98-107); GLUCOSE 214 mg/dL (75-110); POTASSIUM 4.1 mmol/L (3.6-5.0); SODIUM 136.8 mmol/L (137-145); TOTAL PROTEIN 8.2 g/dL (6.3-8.2)
== END ==
LOC: OD 10:36
PROVIDERS: ATTEND Internal Medicine
DX: I48.91 Unspecified atrial fibrillation (principal); E87.79 Other fluid overload; I50.9 Heart failure, unspecified; E03.9 Hypothyroidism, unspecified; J44.9 Chronic obstructive pulmonary disease, unspecified
CPT/HCPCS: 36415; 80053; 83735; 84443; 85025

== ENCOUNTER 2018-06-01 12:18 | Inpatient (IN) | payer MEDICARE, OTHER ==
--- NOTE | 2018-06-01 13:13 | ER Document Report ---
ED General - General Chief Complaint: Swelling of Lower Extremity Stated Complaint: PAIN IN LOWER EXTREMITY Time Seen by Provider: 06/01/18 12:40 Mode of Arrival: Stretcher Information source: Patient Cannot obtain history due to: Other TRAVEL OUTSIDE OF THE [place] IN LAST 30 DAYS: No - HPI Onset: Other Onset/Duration: Gradual, Persistent, Worse Quality of pain: Achy, Burning Severity: Mild Associated symptoms: Fever, Nausea, Shortness of breath Exacerbated by: Denies Relieved by: Denies Similar symptoms previously: Yes Recently seen / treated by doctor: Yes - Today by Dr. 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 fib , coronary artery disease, COPD, type 2 diabetes mellitus, and hypothyroidism presents to the ED via EMS with bilateral leg pain, swelling, and weeping that has progressed over the past week. Also reports abdominal pain and constipation , with last normal bowel movement 5 days ago. History limited due to the patient 's vocal deficits secondary to tracheostomy. - Related Data Allergies/Adverse Reactions: ceftriaxone [From Rocephin] Allergy (Severe, Verified 06/01/18 12:49) Penicillins Allergy (Severe, Verified 06/01/18 12:49) Stiffness in joints Past Medical History - General Information source: Patient - Shaquille in the magnet took off his shoes in his feet, H Records, Outside Facility Records - Social History Smoking Status: Current Every Day Smoker Cigarette use (# per day): Yes Smoking Education Provided: Yes Frequency of alcohol use: None Drug Abuse: None Lives with: Family Family History: DM, Hypertension, Malignancy Patient has suicidal ideation: No Patient has homicidal ideation: No - Medical History Notes: Tracheostomy secondary to throat cancer, atrial fibrillation, coronary artery disease, COPD, respiratory clear, arthritis, hypothyroidism, type 2 diabetes mellitus. - Past Medical History Cardiac Medical History: Reports: Hx Atrial Fibrillation, Hx Coronary Artery Disease Denies: Hx Heart Attack, Hx Hypertension Pulmonary Medical History: Reports: Hx Asthma, Hx COPD, Hx Pneumonia, Hx Respiratory Failure Denies: Hx Bronchitis Neurological Medical History: Denies: Hx Cerebrovascular Accident, Hx Seizures Endocrine Medical History: Reports: Hx Diabetes Mellitus Type 1, Hx Diabetes Mellitus Type 2, Hx Hyperthyroidism, Hx Hypothyroidism Renal/ Medical History: Denies: Hx End Stage Renal Disease, Hx Peritoneal Dialysis Musculoskeletal Medical History: Reports Hx Arthritis - GENERALIZED Skin Medical History: Denies Hx Psoriasis Psychiatric Medical History: Denies: Hx Depression Traumatic Medical History: Denies: Hx Gunshot Wound, Hx Pneumothorax, Hx Traumatic Brain Injury Infectious Medical History: Denies: Hx C-Diff Past Surgical History: Reports: Hx Abdominal Surgery - G-tube, Hx Oral Surgery - Trach, Other - Laryngeal cancer resection with tracheostomy - Immunizations Hx Diphtheria, Pertussis, Tetanus Vaccination: Yes Hx Pneumococcal Vaccination: 10/18/11 Review of Systems - Review of Systems Notes: REVIEW OF SYSTEMS: CONSTITUTIONAL : Denies fever, chills, or sweats. Denies recent illness. EENT: Denies visual changes, eye pain. Denies sore throat, oral lesions, difficulty swallowing. CARDIOVASCULAR: Denies chest pain. Denies palpitations. Denies lower extremity edema. RESPIRATORY: Denies cough, cold, or chest congestion. Denies shortness of breath, wheezing. GASTROINTESTINAL: (+) abdominal pain, constipation. Denies distention. Denies nausea, vomiting, or diarrhea. Denies blood in vomitus, stools, or per rectum. Denies black, tarry stools. GENITOURINARY: Denies difficulty urinating, painful urination, frequency, blood in urine. MUSCULOSKELETAL: (+) joint pain, joint swelling. Denies back or neck pain or stiffness. SKIN: (+) sores, itching, dryness. HEMATOLOGIC : Denies easy bruising or bleeding. LYMPHATIC: Denies swollen glands. NEUROLOGICAL: Denies confusion or altered mental status. Denies passing out or loss of consciousness. Denies dizziness or lightheadedness. Denies headache. Denies weakness or paralysis. Denies problems difficulty with ambulation, slurred speech. Denies sensory loss, numbness, or tingling. Denies seizures. PSYCHIATRIC: Denies anxiety or stress. Denies depression, suicidal ideation, or homicidal ideation. Denies visual or auditory hallucinations. Physical Exam - Vital signs Vitals: Resp 26 H 06/01/18 12:33 - Notes Notes: PHYSICAL EXAMINATION: GENERAL: frail, elderly male in poor hygienic condition with tracheostomy. Pt non-verbal but able to respond to "yes or no" questions. HEAD: Atraumatic, normocephalic. EYES: Pupils equal round and reactive to light, extraocular movements intact, sclera anicteric, conjunctiva are normal. ENT: Tracheostomy patent and bare. Nares patent, oropharynx clear without exudates. Moist mucous membranes. NECK: Normal range of motion, supple without lymphadenopathy LUNGS: Breath sounds clear to auscultation bilaterally and equal. No wheezes rales or rhonchi. Normal work of breathing. HEART: Tachycardic rate and irregular rhythm. No murmurs appreciated. ABDOMEN: Soft, mild tenderness in bilateral lower quadrants, nondistended abdomen. No guarding, no rebound. No masses appreciated. Musculoskeletal: Severe bilateral LE edema with erythema and weeping clear fluid. Multiple open sores present. Multiple maggots present in bilateral toes. NEUROLOGICAL: Cranial nerves grossly intact. Normal speech, normal gait. Normal sensory, motor exams PSYCH: Normal mood, normal affect. SKIN: Bilateral lower extremities-erythematous, weeping, multiple scabbed lesions. DP pulse intact. Foot wounds infested with maggots. Course - Re-evaluation Re-evalutation: 06/01/18 15:15 Laboratory 06/01/18 06/01/18 06/01/18 12:37 12:37 12:37 WBC 5.8 RBC 4.33 L Hgb 14.2 Hct 41.9 MCV 97 MCH 32.8 MCHC 33.9 RDW 17.7 H Plt Count 313 Seg Neutrophils % 68.2 Lymphocytes % 16.6 Monocytes % 13.8 H Eosinophils % 0.3 Basophils % 1.1 Absolute Neutrophils 3.9 Absolute Lymphocytes 1.0 Absolute Monocytes 0.8 Absolute Eosinophils 0.0 Absolute Basophils 0.1 PT 13.2 INR 0.96 APTT 28.3 Sodium 138.2 Potassium 4.9 Chloride 100 Carbon Dioxide 27 Anion Gap 11 BUN 23 H Creatinine 1.26 H Est GFR ( Amer) > 60 Est GFR (Non-Af Amer) 55 L Glucose 61 L Lactic Acid Calcium 9.8 Total Bilirubin 0.8 Direct Bilirubin 0.5 H Neonat Total Bilirubin Not Reportable Neonat Direct Bilirubin Not Reportable Neonat Indirect Bili Not Reportable AST 101 H ALT 107 H Alkaline Phosphatase 243 H Creatine Kinase 64 CK-MB (CK-2) Troponin I NT-Pro-B Natriuret Pep Total Protein 6.5 Albumin 3.8 Lipase 243.2 06/01/18 06/01/18 12:37 12:37 WBC RBC Hgb Hct MCV MCH MCHC RDW Plt Count Seg Neutrophils % Lymphocytes % Monocytes % Eosinophils % Basophils % Absolute Neutrophils Absolute Lymphocytes Absolute Monocytes Absolute Eosinophils Absolute Basophils PT INR APTT Sodium Potassium Chloride Carbon Dioxide Anion Gap BUN Creatinine Est GFR ( Amer) Est GFR (Non-Af Amer) Glucose Lactic Acid 2.8 H Calcium Total Bilirubin Direct Bilirubin Neonat Total Bilirubin Neonat Direct Bilirubin Neonat Indirect Bili AST ALT Alkaline Phosphatase Creatine Kinase CK-MB (CK-2) 4.93 H Troponin I 0.027 NT-Pro-B Natriuret Pep 812 H Total Protein Albumin Lipase Chest X-Ray 06/01/18 13:28 IMPRESSION: Stable chest. No acute findings identified. Probable COPD and scar with cardiomegaly. 06/01/18 20:11 77-year-old male presents via EMS from his primary care physician's sepsis, cellulitis. Upon arrival vital and the patient is afebrile, normotensive. Patient does have mild hypoxia with an oxygen of 91%. Patient does not appear toxic or dehydrated but he does appear ill, he has poor hygiene and when his shoes were removed his feet were covered with maggots. CBC is without leukocytosis. CMP shows mild renal insufficiency. Patient does have an elevated CK-MB and BNP. Patient received IV fluids, vancomycin during his ED course. EKG was obtained which did show the patient to be in atrial fibrillation with a rate of 111. Patient was given his home dose of Cardizem. I did speak to Dr Casper who is admitting the patient. Patient has remained stable throughout his ED course. 06/01/18 20:12 - Vital Signs Vital signs: Temp Pulse Resp BP Pulse Ox 97.8 F 80 14 124/78 98 06/01/18 18:11 06/01/18 16:58 06/01/18 19:00 06/01/18 19:00 06/01/18 19:00 - Laboratory Result Diagrams: 06/01/18 12:37 06/01/18 12:37 Laboratory results interpreted by me: 06/01/18 06/01/18 06/01/18 12:37 12:37 12:37 RBC 4.33 L RDW 17.7 H Monocytes % 13.8 H BUN 23 H Creatinine 1.26 H Est GFR (Non-Af Amer) 55 L Glucose 61 L Lactic Acid Direct Bilirubin 0.5 H AST 101 H ALT 107 H Alkaline Phosphatase 243 H CK-MB (CK-2) 4.93 H NT-Pro-B Natriuret Pep 812 H 06/01/18 12:37 RBC RDW Monocytes % BUN Creatinine Est GFR (Non-Af Amer) Glucose Lactic Acid 2.8 H Direct Bilirubin AST ALT Alkaline Phosphatase CK-MB (CK-2) NT-Pro-B Natriuret Pep - Diagnostic Test Radiology reviewed: Image reviewed, Reports reviewed - EKG Interpretation by Me Rate: Tachycardia Rhythm: A.Fib When compared to previous EKG there are: No significant change Discharge - Discharge Clinical Impression: Hypoxia, Tachycardia, Infestation, maggots, Elevated liver enzymes, Elevated brain natriuretic peptide (BNP) level Sepsis Qualifiers: Sepsis type: methicillin resistant Staphylococcus aureus Qualified Code(s): A41.02 - Sepsis due to Methicillin resistant Staphylococcus aureus Cellulitis, leg Qualifiers: Laterality: left Qualified Code(s): L03.116 - Cellulitis of left lower limb Atrial fibrillation Qualifiers: Atrial fibrillation type: chronic Qualified Code(s): I48.2 - Chronic atrial fibrillation Condition: Fair Disposition: ADMITTED INPATIENT [facility] Provider[facility] Admitted: Telemetry
[2018-06-01 13:22] LABS: INTERNATIONAL RATION (INR) 0.96; PROTHROMBIN TIME 13.2 SEC (11.4-15.4)
[2018-06-01 13:23] LABS: PARTIAL THROMBOPLASTIN TIME 28.3 SEC (23.5-35.8)
[2018-06-01] MEDS ORDERED: VANCOMYCIN HCL INJ 1000 MG VIAL IV ONE (13:24)
[2018-06-01 13:26] LABS: ABSOLUTE BASOPHILS # (AUTO) 0.1 10^3/uL (0.0-0.2); ABSOLUTE MONOCYTES (AUTO) 0.8 10^3/uL (0.1-1.4); ABSOLUTE NEUT (AUTO) 3.9 10^3/uL (1.7-8.2); BASOPHILS % (AUTO) 1.1 % (0-2); EOSINOPHILS % (AUTO) 0.3 % (0-6); HEMATOCRIT 41.9 % (37.9-51.0); HEMOGLOBIN 14.2 g/dL (13.5-17.0); LYMPHOCYTES % (AUTO) 16.6 % (13-45); MEAN CORPUSCULAR HEMOGLOBIN 32.8 pg (27.0-33.4); MEAN CORPUSCULAR HGB CONC 33.9 g/dL (32.0-36.0); MEAN CORPUSCULAR VOLUME 97 fl (80-97); MONOCYTES % (AUTO) 13.8 % (3-13); PLATELET COUNT 313 10^3/uL (150-450); RED BLOOD COUNT 4.33 10^6/uL (4.35-5.55); RED CELL DISTRIBUTION WIDTH 17.7 % (11.5-14.0); SEGMENTED NEUTROPHILS % (AUTO) 68.2 % (42-78); TOTAL CELLS COUNTED % (AUTO) 100 %; WHITE BLOOD COUNT 5.8 10^3/uL (4.0-10.5)
[2018-06-01 13:30] LABS: ALANINE AMINOTRANSFERASE 107 U/L (21-72); ALBUMIN 3.8 g/dL (3.5-5.0); ALKALINE PHOSPHATASE 243 U/L (38-126); ANION GAP 11 (5-19); ASPARTATE AMINO TRANSFERASE 101 U/L (17-59); BILIRUBIN,DIRECT 0.5 mg/dL (0.0-0.4); BILIRUBIN,TOTAL 0.8 mg/dL (0.2-1.3); BLOOD UREA NITROGEN 23 mg/dL (7-20); CALCIUM 9.8 mg/dL (8.4-10.2); CARBON DIOXIDE 27 mmol/L (22-30); CHLORIDE 100 mmol/L (98-107); CREATINE KINASE 64 U/L (55-170); GLUCOSE 61 mg/dL (75-110); LIPASE 243.2 U/L (23-300); POTASSIUM 4.9 mmol/L (3.6-5.0); SODIUM 138.2 mmol/L (137-145); TOTAL PROTEIN 6.5 g/dL (6.3-8.2)
[2018-06-01 13:42] LABS: CREATINE KINASE MB 4.93 ng/mL (<4.55); TROPONIN I 0.027 ng/mL
[2018-06-01] MEDS ORDERED: DILTIAZEM HCL 60 MG TABLET PO ONE (13:49)
[2018-06-01] MEDS ORDERED: NORMAL SALINE 1000 ML 1,000 ML IV ONE (13:49)
--- NOTE | 2018-06-01 15:43 | RADIOLOGY REPORT (SQ) ---
EXAM DESCRIPTION: CHEST SINGLE VIEW COMPLETED DATE/TIME: 06/01/2018 2:55 pm REASON FOR STUDY: fever trach COMPARISON: 03/07/2018. NUMBER OF VIEWS: One view. TECHNIQUE: Single frontal radiographic view of the chest acquired. LIMITATIONS: None. FINDINGS: LUNGS AND PLEURA: Hyperinflated lungs with chronic changes including scarring in the right upper lobe. No definite superimposed acute infiltrate. No pneumothorax or pleural fluid. MEDIASTINUM AND HILAR STRUCTURES: Stable. HEART AND VASCULAR STRUCTURES: Cardiomegaly. BONES: No acute findings. HARDWARE: None in the chest. OTHER: No other significant finding. IMPRESSION: Stable chest. No acute findings identified. Probable COPD and scar with cardiomegaly. TECHNICAL DOCUMENTATION: JOB ID: [id number] [employer]- All Rights Reserved Reading location - IP/workstation name: [email or web address]
[2018-06-01] MEDS ORDERED: ONDANSETRON 4 MG TAB.RAPDIS PO PRN (16:28)
[2018-06-01 16:29] LABS: APPEARANCE,URINE CLEAR; BILIRUBIN,URINE NEGATIVE (NEGATIVE); COLOR,URINE YELLOW; GLUCOSE, URINE NEGATIVE (NEGATIVE); KETONES,URINE NEGATIVE (NEGATIVE); LEUKOCYTE ESTERASE,URINE NEGATIVE (NEGATIVE); NITRITE,URINE NEGATIVE (NEGATIVE); PROTEIN,URINE NEGATIVE (NEGATIVE); URINE SPECIFIC GRAVITY 1.005; UROBILINOGEN,URINE NEGATIVE mg/dL (<2.0)
[2018-06-01] MEDS ORDERED: VANCOMYCIN HCL INJ 1000 MG VIAL IV SCH (16:30)
[2018-06-01] MEDS ORDERED: VANCOMYCIN HCL 0 MG in DEXTROSE 5%-WATER 250 ML IV NR (16:45)
[2018-06-01] MEDS ORDERED: GENTAMICIN SULFATE 0 MG in DEXTROSE 5%-WATER 100 ML IV NR (16:45)
--- NOTE | 2018-06-01 16:51 | PDOC H&P ---
History of Present Illness Admission Date/PCP: 06/01/18 14:11 WENDY AYALA MD Patient complains of: Left leg swelling open sores redness pain and drainage History of Present Illness: KARLA PARADA is a 77 year old male Past Medical History Cardiac Medical History: Reports: Atrial Fibrillation, Coronary Artery Disease Denies: Myocardial Infarction, Hypertension Pulmonary Medical History: Reports: Chronic Obstructive Pulmonary Disease (COPD) , Pneumonia, Respiratory Failure Denies: Bronchitis Neurological Medical History: Denies: Seizures Endocrine Medical History: Reports: Diabetes Mellitus Type 2, Hypothyroidism Renal/ Medical History: Denies: End Stage Renal Disease Malignancy Medical History: Reports: Other GI Medical History: Reports: Gastroesophageal Reflux Disease Musculoskeltal Medical History: Reports: Arthritis - GENERALIZED Skin Medical History: Denies: Psoriasis Psychiatric Medical History: Denies: Depression Traumatic Medical History: Denies: Gunshot Wound, Pneumothorax, Traumatic Brain Injury Hematology: Reports: Bleeding Tendencies Denies: Anemia, Sickle Cell Disease Infectious Medical History: Denies: Clostridium Difficile Past Surgical History Past Surgical History: Reports: Other - Laryngeal cancer resection with tracheostomy Social History Lives with: Family Smoking Status: Current Every Day Smoker Frequency of Alcohol Use: None Hx Recreational Drug Use: No Drugs: None Hx Prescription Drug Abuse: No - Advance Directive Resuscitation Status: Do Not Resuscitate Family History Family History: Reviewed & Not Pertinent, DM, Hypertension, Malignancy Parental Family History Reviewed: Yes Children Family History Reviewed: Yes Sibling(s) Family History Reviewed.: Yes Medication/Allergy Home Medications: Ciprofloxacin HCl [Cipro 500 mg Tablet] 500 mg PO Q12 06/01/18 Docusate Sodium [Colace 100 mg Capsule] 100 mg PO TIDP PRN 06/01/18 Famotidine [Pepcid 20 mg Tablet] 20 mg PO Q12 06/01/18 Finasteride [Proscar 5 mg Tablet] 5 mg PO DAILY 06/01/18 Glimepiride [Amaryl] 2 mg PO [id number] 06/01/18 Levothyroxine Sodium [Synthroid] 200 mcg PO Q6AM 06/01/18 Metronidazole [Flagyl 500 mg Tablet] 250 mg PO [id number] 06/01/18 Prednisone [Deltasone 10 mg Tablet] 10 mg PO BID 06/01/18 Tramadol HCl [Ultram 50 mg Tablet] 50 mg PO Q6HP PRN 06/01/18 Allergies/Adverse Reactions: ceftriaxone [From Rocephin] Allergy (Severe, Verified 06/01/18 12:49) Penicillins Allergy (Severe, Verified 06/01/18 12:49) Stiffness in joints Review of Systems All systems: as per H Physical Exam Vital Signs: Temp Pulse Resp BP Pulse Ox 99.1 F 133 H 14 130/95 H 92 06/01/18 12:44 06/01/18 12:44 06/01/18 14:56 06/01/18 14:56 06/01/18 14:56 General appearance: PRESENT: severe distress Head exam: PRESENT: atraumatic Eye exam: PRESENT: conjunctival injection Teeth exam: PRESENT: edentulous Neck exam: PRESENT: tracheostomy Respiratory exam: PRESENT: rhonchi, wheezes Cardiovascular exam: PRESENT: irregular rhythm, +S1, +S2 GI/Abdominal exam: PRESENT: normal bowel sounds, soft Extremities exam: PRESENT: calf tenderness, pedal edema Musculoskeletal exam: PRESENT: tenderness Neurological exam: PRESENT: alert, awake Skin exam: PRESENT: abrasion, erythema Results Laboratory Results: 06/01/18 16:10 Urine Color YELLOW Urine Appearance CLEAR Urine pH 7.0 Ur Specific [place] 1.005 Urine Protein NEGATIVE Urine Glucose (UA) NEGATIVE Urine Ketones NEGATIVE Urine Blood NEGATIVE Urine Nitrite NEGATIVE Ur Leukocyte Esterase NEGATIVE Urine WBC (Auto) 0 Urine RBC (Auto) 0 06/01/18 15:17 Troponin I 0.027 Impressions: Chest X-Ray 06/01/18 13:28 IMPRESSION: Stable chest. No acute findings identified. Probable COPD and scar with cardiomegaly. Assessment & Plan - Diagnosis (1) Atrial fibrillation Qualifiers: Atrial fibrillation type: chronic Qualified Code(s): I48.2 - Chronic atrial fibrillation Is this a current diagnosis for this admission?: Yes Plan: Continue current medications for rate control (2) Cellulitis, leg Qualifiers: Laterality: left Qualified Code(s): L03.116 - Cellulitis of left lower limb Is this a current diagnosis for this admission?: Yes Plan: We will start vancomycin and gentamicin and readjust antibiotics after the cultures. Surgical consultation (4) Sepsis Qualifiers: Sepsis type: methicillin resistant Staphylococcus aureus Qualified Code(s) : A41.02 - Sepsis due to Methicillin resistant Staphylococcus aureus Is this a current diagnosis for this admission?: Yes Plan: IV antibiotics (5) COPD exacerbation Is this a current diagnosis for this admission?: Yes Plan: Continue nebulization treatments and steroids (7) Diabetes mellitus Qualifiers: Diabetes mellitus type: type 2 Diabetes mellitus complication status: with neurologic complications Diabetes mellitus complication detail: with unspecified neuropathy Is this a current diagnosis for this admission?: Yes Plan: Continue current medications (8) Hypothyroid Qualifiers: Hypothyroidism type: acquired Qualified Code(s): E03.9 - Hypothyroidism, unspecified Is this a current diagnosis for this admission?: Yes Plan: Continue current medications
[2018-06-01] MEDS ORDERED: PREDNISONE 10 MG TABLET PO SCH (18:00)
[2018-06-01] MEDS: FUROSEMIDE INJ/PF 40 MG/4 ML SDV IV SCH (18:49)
[2018-06-01] MEDS: DOCUSATE SODIUM 100 MG CAPSULE PO SCH (18:50)
[2018-06-01] MEDS: DILTIAZEM HCL 30 MG TABLET PO SCH (18:51)
[2018-06-01] MEDS: TRAMADOL HCL 50 MG TABLET PO PRN (18:54)
[2018-06-01] MEDS: GENTAMICIN SULFATE 110 MG in DEXTROSE 5%-WATER 100 ML IV SCH (22:31)
[2018-06-02] MEDS: DILTIAZEM HCL 30 MG TABLET PO SCH ×5 (00:45→23:30)
[2018-06-02] MEDS: MORPHINE SULFATE 10 MG/ML INJ IV PRN ×5 (00:46→21:57)
[2018-06-02] MEDS: FUROSEMIDE INJ/PF 40 MG/4 ML SDV IV SCH ×4 (00:46→21:56)
[2018-06-02] MEDS: VANCOMYCIN HCL 1,000 MG in DEXTROSE 5%-WATER 250 ML IV SCH ×2 (01:04→13:17)
[2018-06-02 05:26] LABS: ABSOLUTE BASOPHILS # (AUTO) 0.1 10^3/uL (0.0-0.2); ABSOLUTE LYMPHOCYTES (AUTO) 0.5 10^3/uL (0.5-4.7); ABSOLUTE MONOCYTES (AUTO) 0.9 10^3/uL (0.1-1.4); ABSOLUTE NEUT (AUTO) 4.6 10^3/uL (1.7-8.2); EOSINOPHILS % (AUTO) 0.2 % (0-6); HEMATOCRIT 44.5 % (37.9-51.0); HEMOGLOBIN 15.2 g/dL (13.5-17.0); MEAN CORPUSCULAR HEMOGLOBIN 32.8 pg (27.0-33.4); MEAN CORPUSCULAR HGB CONC 34.1 g/dL (32.0-36.0); MEAN CORPUSCULAR VOLUME 96 fl (80-97); MONOCYTES % (AUTO) 14.9 % (3-13); PLATELET COUNT 264 10^3/uL (150-450); RED BLOOD COUNT 4.63 10^6/uL (4.35-5.55); RED CELL DISTRIBUTION WIDTH 17.2 % (11.5-14.0); SEGMENTED NEUTROPHILS % (AUTO) 75.9 % (42-78); TOTAL CELLS COUNTED % (AUTO) 100 %; WHITE BLOOD COUNT 6.1 10^3/uL (4.0-10.5)
[2018-06-02 05:41] LABS: ALANINE AMINOTRANSFERASE 95 U/L (21-72); ALBUMIN 3.8 g/dL (3.5-5.0); ALKALINE PHOSPHATASE 255 U/L (38-126); ANION GAP 9 (5-19); ASPARTATE AMINO TRANSFERASE 100 U/L (17-59); BILIRUBIN,DIRECT 0.5 mg/dL (0.0-0.4); BILIRUBIN,TOTAL 0.8 mg/dL (0.2-1.3); BLOOD UREA NITROGEN 22 mg/dL (7-20); CALCIUM 8.9 mg/dL (8.4-10.2); CARBON DIOXIDE 32 mmol/L (22-30); CHLORIDE 98 mmol/L (98-107); GLUCOSE 165 mg/dL (75-110); POTASSIUM 4.5 mmol/L (3.6-5.0); SODIUM 139.3 mmol/L (137-145); TOTAL PROTEIN 6.9 g/dL (6.3-8.2)
[2018-06-02] MEDS: LANSOPRAZOLE 30 MG TAB.RAP.DR PO SCH (05:49)
[2018-06-02] MEDS: LEVOTHYROXINE SODIUM 0.1 MG TABLET PO SCH (05:50)
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
--- NOTE | 2018-06-02 07:28 | EKG REPORT ---
SEVERITY:- ABNORMAL ECG - ATRIAL FIBRILLATION PAIRED VENTRICULAR PREMATURE COMPLEXES NONSPECIFIC ST-T CHANGES- LATERAL LEADS : Confirmed by: Marin Madera MD 02-Jun-2018 07:27:54
--- NOTE | 2018-06-02 08:38 | PDOC PROGRESS REPORT ---
Subjective Progress Note for:: 06/02/18 Subjective:: The patient states to feel better. The leg swelling and the facial swelling have improved with Lasix. He is in negative balance of over 4 L Reason For Visit: CELLULITIS,SEPSIS,CHF,AFIB Physical Exam Vital Signs: Temp Pulse Resp BP Pulse Ox 98.4 F 86 18 101/76 100 06/02/18 04:35 06/02/18 07:45 06/02/18 07:45 06/02/18 04:35 06/02/18 07:45 Intake & Output 06/01/18 06/02/18 06/03/18 06:59 06:59 06:59 Intake Total 757.75 Output Total 4475 Balance -3717.25 Weight 89.7 kg General appearance: PRESENT: mild distress Head exam: PRESENT: atraumatic Eye exam: PRESENT: conjunctiva pink Neck exam: ABSENT: carotid bruit, JVD Respiratory exam: PRESENT: crackles, rhonchi, wheezes Cardiovascular exam: PRESENT: irregular rhythm, +S1, +S2 GI/Abdominal exam: PRESENT: normal bowel sounds, soft Extremities exam: PRESENT: pedal edema, tenderness Musculoskeletal exam: PRESENT: tenderness Neurological exam: PRESENT: awake Skin exam: PRESENT: abrasion Results Laboratory Results: 06/02/18 05:05 06/02/18 05:05 06/01/18 06/01/18 06/02/18 16:10 17:27 05:05 WBC 6.1 RBC 4.63 Hgb 15.2 Hct 44.5 MCV 96 MCH 32.8 MCHC 34.1 RDW 17.2 H Plt Count 264 Seg Neutrophils % 75.9 Lymphocytes % 8.0 L Monocytes % 14.9 H Eosinophils % 0.2 Basophils % 1.0 Absolute Neutrophils 4.6 Absolute Lymphocytes 0.5 Absolute Monocytes 0.9 Absolute Eosinophils 0.0 Absolute Basophils 0.1 Sodium Potassium Chloride Carbon Dioxide Anion Gap BUN Creatinine Est GFR ( Amer) Est GFR (Non-Af Amer) Glucose Lactic Acid 3.4 H Calcium Total Bilirubin AST ALT Alkaline Phosphatase Total Protein Albumin TSH Urine Color YELLOW Urine Appearance CLEAR Urine pH 7.0 Ur Specific [place] 1.005 Urine Protein NEGATIVE Urine Glucose (UA) NEGATIVE Urine Ketones NEGATIVE Urine Blood NEGATIVE Urine Nitrite NEGATIVE Ur Leukocyte Esterase NEGATIVE Urine WBC (Auto) 0 Urine RBC (Auto) 0 06/02/18 06/02/18 05:05 05:05 WBC RBC Hgb Hct MCV MCH MCHC RDW Plt Count Seg Neutrophils % Lymphocytes % Monocytes % Eosinophils % Basophils % Absolute Neutrophils Absolute Lymphocytes Absolute Monocytes Absolute Eosinophils Absolute Basophils Sodium 139.3 Potassium 4.5 Chloride 98 Carbon Dioxide 32 H Anion Gap 9 BUN 22 H Creatinine 1.19 Est GFR ( Amer) > 60 Est GFR (Non-Af Amer) 59 L Glucose 165 H Lactic Acid Calcium 8.9 Total Bilirubin 0.8 AST 100 H ALT 95 H Alkaline Phosphatase 255 H Total Protein 6.9 Albumin 3.8 TSH 0.89 Urine Color Urine Appearance Urine pH Ur Specific [place] Urine Protein Urine Glucose (UA) Urine Ketones Urine Blood Urine Nitrite Ur Leukocyte Esterase Urine WBC (Auto) Urine RBC (Auto) 06/01/18 15:17 Troponin I 0.027 Impressions: Chest X-Ray 06/01/18 13:28 IMPRESSION: Stable chest. No acute findings identified. Probable COPD and scar with cardiomegaly. Assessment & Plan - Diagnosis (1) Atrial fibrillation Qualifiers: Atrial fibrillation type: chronic Qualified Code(s): I48.2 - Chronic atrial fibrillation Is this a current diagnosis for this admission?: Yes Plan: Continue current medications for rate control (2) Cellulitis, leg Qualifiers: Laterality: left Qualified Code(s): L03.116 - Cellulitis of left lower limb Is this a current diagnosis for this admission?: Yes Plan: We will start vancomycin and gentamicin and readjust antibiotics after the cultures. Surgical consultation (4) Sepsis Qualifiers: Sepsis type: methicillin resistant Staphylococcus aureus Qualified Code(s) : A41.02 - Sepsis due to Methicillin resistant Staphylococcus aureus Is this a current diagnosis for this admission?: Yes Plan: IV antibiotics (5) COPD exacerbation Is this a current diagnosis for this admission?: Yes Plan: Continue nebulization treatments and steroids (6) Chronic a-fib Is this a current diagnosis for this admission?: Yes Plan: We will continue with Cardizem for rate control (7) Diabetes mellitus Qualifiers: Diabetes mellitus type: type 2 Diabetes mellitus complication status: with neurologic complications Diabetes mellitus complication detail: with unspecified neuropathy Is this a current diagnosis for this admission?: Yes Plan: Continue current medications (8) Hypothyroid Qualifiers: Hypothyroidism type: acquired Qualified Code(s): E03.9 - Hypothyroidism, unspecified Is this a current diagnosis for this admission?: Yes Plan: Continue current medications
[2018-06-02] MEDS: DOCUSATE SODIUM 100 MG CAPSULE PO SCH ×2 (09:23→17:28)
[2018-06-02] MEDS: GENTAMICIN SULFATE 110 MG in DEXTROSE 5%-WATER 100 ML IV SCH ×2 (09:23→21:56)
[2018-06-02] MEDS: ENOXAPARIN SODIUM INJ 40 MG/0.4 ML DISP.SYRIN SUBCUT SCH (09:24)
[2018-06-02] MEDS: PREDNISONE 10 MG TABLET PO SCH ×3 (09:24→17:26)
[2018-06-02] MEDS: MAGNESIUM HYDROXIDE SUSP 30 ML UDCUP PO PRN (09:24)
[2018-06-02] MEDS: FINASTERIDE 5 MG TABLET PO SCH (09:24)
[2018-06-02] MEDS: GLIMEPIRIDE 1 MG TABLET PO SCH (09:24)
[2018-06-02] MEDS: TRAMADOL HCL 50 MG TABLET PO PRN (09:38)
[2018-06-02] MEDS: PREDNISONE 20 MG TABLET PO SCH (17:28)
[2018-06-03] MEDS: VANCOMYCIN HCL 1,000 MG in DEXTROSE 5%-WATER 250 ML IV SCH (01:27)
[2018-06-03] MEDS: MORPHINE SULFATE 10 MG/ML INJ IV PRN ×2 (01:29→05:15)
[2018-06-03] MEDS: DILTIAZEM HCL 30 MG TABLET PO SCH ×3 (05:13→17:12)
[2018-06-03] MEDS: LEVOTHYROXINE SODIUM 0.1 MG TABLET PO SCH (05:13)
[2018-06-03] MEDS: LANSOPRAZOLE 30 MG TAB.RAP.DR PO SCH (05:14)
[2018-06-03 06:24] LABS: HEMATOCRIT 43.7 % (37.9-51.0); HEMOGLOBIN 14.9 g/dL (13.5-17.0); MEAN CORPUSCULAR HEMOGLOBIN 32.9 pg (27.0-33.4); MEAN CORPUSCULAR VOLUME 97 fl (80-97); PLATELET COUNT 325 10^3/uL (150-450); RED BLOOD COUNT 4.52 10^6/uL (4.35-5.55); RED CELL DISTRIBUTION WIDTH 17.1 % (11.5-14.0); WHITE BLOOD COUNT 8.5 10^3/uL (4.0-10.5)
[2018-06-03 06:31] LABS: ALANINE AMINOTRANSFERASE 96 U/L (21-72); ALBUMIN 3.7 g/dL (3.5-5.0); ALKALINE PHOSPHATASE 244 U/L (38-126); ANION GAP 14 (5-19); ASPARTATE AMINO TRANSFERASE 65 U/L (17-59); BILIRUBIN,DIRECT 0.5 mg/dL (0.0-0.4); BILIRUBIN,TOTAL 0.8 mg/dL (0.2-1.3); BLOOD UREA NITROGEN 22 mg/dL (7-20); CALCIUM 7.8 mg/dL (8.4-10.2); CARBON DIOXIDE 26 mmol/L (22-30); CHLORIDE 96 mmol/L (98-107); GLUCOSE 114 mg/dL (75-110); POTASSIUM 4.3 mmol/L (3.6-5.0); SODIUM 135.5 mmol/L (137-145)
[2018-06-03 07:27] LABS: ABSOLUTE LYMPHOCYTES# (MANUAL) 0.5 10^3/uL (0.5-4.7); ABSOLUTE MONOCYTES # (MANUAL) 0.8 10^3/uL (0.1-1.4); ABSOLUTE NEUTROPHILS# (MANUAL) 7.2 10^3/uL (1.7-8.2); ANISOCYTOSIS 2+; BAND NEUTROPHILS % (MANUAL) 3 % (3-5); BASOPHILS % (MANUAL) 0 % (0-2); EOSINOPHILS % (MANUAL) 0 % (0-6); LYMPHOCYTES % (MANUAL) 6 % (13-45); MONOCYTES % (MANUAL) 9 % (3-13); PLATELET COMMENT ADEQUATE; POLYCHROMASIA SLIGHT; SEGMENTED NEUTROPHILS % (MAN) 82 % (42-78); TOTAL CELLS COUNTED 100; TOXIC GRANULATION 1+
--- NOTE | 2018-06-03 08:02 | PDOC PROGRESS REPORT ---
Subjective Progress Note for:: 06/03/18 Subjective:: The patient states to feel better. He had significant amount of diureses. He still have some shortness of breath. His ankles are not swollen any longer. Reason For Visit: CELLULITIS,SEPSIS,CHF,AFIB Physical Exam Vital Signs: Temp Pulse Resp BP Pulse Ox 98.5 F 89 16 109/71 98 06/03/18 03:48 06/03/18 06:50 06/03/18 03:48 06/03/18 03:48 06/03/18 03:48 Intake & Output 06/02/18 06/03/18 06/04/18 06:59 06:59 06:59 Intake Total 1007.75 1616.75 Output Total 4475 2975 Balance -3467.25 -1358.25 Weight 89.7 kg 82.3 kg General appearance: PRESENT: mild distress Head exam: PRESENT: atraumatic Eye exam: PRESENT: conjunctiva pink Neck exam: ABSENT: carotid bruit, JVD Respiratory exam: PRESENT: crackles, rhonchi. ABSENT: wheezes Cardiovascular exam: PRESENT: irregular rhythm, +S1, +S2 GI/Abdominal exam: PRESENT: normal bowel sounds, soft Extremities exam: PRESENT: tenderness Musculoskeletal exam: PRESENT: tenderness Neurological exam: PRESENT: alert, awake Skin exam: PRESENT: erythema Results Laboratory Results: 06/03/18 05:11 06/03/18 05:11 06/03/18 06/03/18 05:11 05:11 WBC 8.5 RBC 4.52 Hgb 14.9 Hct 43.7 MCV 97 MCH 32.9 MCHC 34.0 RDW 17.1 H Plt Count 325 Seg Neutrophils % Not Reportable Lymphocytes % Not Reportable Monocytes % Not Reportable Eosinophils % Not Reportable Basophils % Not Reportable Absolute Neutrophils Not Reportable Absolute Lymphocytes Not Reportable Absolute Monocytes Not Reportable Absolute Eosinophils Not Reportable Absolute Basophils Not Reportable Sodium 135.5 L Potassium 4.3 Chloride 96 L Carbon Dioxide 26 Anion Gap 14 BUN 22 H Creatinine 0.89 Est GFR ( Amer) > 60 Est GFR (Non-Af Amer) > 60 Glucose 114 H Calcium 7.8 L Total Bilirubin 0.8 AST 65 H ALT 96 H Alkaline Phosphatase 244 H Total Protein 6.0 L Albumin 3.7 06/01/18 15:17 Troponin I 0.027 Impressions: Chest X-Ray 06/01/18 13:28 IMPRESSION: Stable chest. No acute findings identified. Probable COPD and scar with cardiomegaly. Assessment & Plan - Diagnosis (1) Atrial fibrillation Qualifiers: Atrial fibrillation type: chronic Qualified Code(s): I48.2 - Chronic atrial fibrillation Is this a current diagnosis for this admission?: Yes Plan: Right controlled continue current treatment (2) Cellulitis, leg Qualifiers: Laterality: left Qualified Code(s): L03.116 - Cellulitis of left lower limb Is this a current diagnosis for this admission?: Yes Plan: Improved with decreased swelling and local wound care. Will stop the vancomycin and gentamicin and start Bactrim (4) Sepsis Qualifiers: Sepsis type: methicillin resistant Staphylococcus aureus Qualified Code(s) : A41.02 - Sepsis due to Methicillin resistant Staphylococcus aureus Is this a current diagnosis for this admission?: Yes Plan: IV antibiotics (5) COPD exacerbation Is this a current diagnosis for this admission?: Yes Plan: Continue with steroids add chest PT and Levaquin (6) Chronic a-fib Is this a current diagnosis for this admission?: Yes Plan: We will continue with Cardizem for rate control (7) Diabetes mellitus Qualifiers: Diabetes mellitus type: type 2 Diabetes mellitus complication status: with neurologic complications Diabetes mellitus complication detail: with unspecified neuropathy Is this a current diagnosis for this admission?: Yes Plan: Continue current medications (8) Hypothyroid Qualifiers: Hypothyroidism type: acquired Qualified Code(s): E03.9 - Hypothyroidism, unspecified Is this a current diagnosis for this admission?: Yes Plan: Continue current medications
[2018-06-03] MEDS: IPRATROPIUM/ALBUTEROL 0.5-2.5 MG/3 ML AMPUL NEB PRN (09:08)
[2018-06-03] MEDS: PREDNISONE 20 MG TABLET PO SCH ×2 (09:38→17:12)
[2018-06-03] MEDS: DOCUSATE SODIUM 100 MG CAPSULE PO SCH ×2 (09:38→17:12)
[2018-06-03] MEDS: ENOXAPARIN SODIUM INJ 40 MG/0.4 ML DISP.SYRIN SUBCUT SCH (09:38)
[2018-06-03] MEDS: GLIMEPIRIDE 1 MG TABLET PO SCH (09:38)
[2018-06-03] MEDS: FUROSEMIDE 40 MG TABLET PO SCH ×2 (09:38→17:12)
[2018-06-03] MEDS: FINASTERIDE 5 MG TABLET PO SCH (09:38)
[2018-06-03] MEDS: LEVOFLOXACIN 500 MG TABLET PO SCH (11:12)
[2018-06-03] MEDS: SULFAMETHOXAZOLE/TRIMETHOPRIM 800-160 MG TABLET PO SCH ×2 (11:12→21:15)
[2018-06-03] MEDS: TRAMADOL HCL 50 MG TABLET PO PRN ×2 (11:18→21:16)
--- NOTE | 2018-06-03 22:59 | Progress Note ---
Provider Note Provider Note: ID Consult Note Asked by Pharmacy to review patient's chart. Pt not seen or examined. Mr Kitchen is a 77 year old man with PMH including AF, CAD, COPD, Type II DM, hypothyroidism, laryngeal cancer s/p resection and tracheostomy. Per H&P and ED note, pt had complaints of L leg open sores, redness, pain and drainage. According to the ED provider note from 06/01/18 pt's bilateral leg pain, redness and swelling with weeping progressed over 1 week. Pt was found to be afebrile, normotensive. Abrasions and erythema along with pedal edema were appreciated, along with rhonchi and wheezes on lung exam. Pt has no leukocytosis. Vancomycin and gentamicin empirically were started. Surgical consultation was requested, and recommendations were given that the patient would benefit from lower extremity compression and elevation to help his venous stasis ulceration heal. Pt has also been receiving diuretics and has had improvement in pedal edema. BCx on admission has been negative x 48h. A wound swab was submitted for culture on 06/02 and is in process. Vancomycin and gentamicin have been discontinued. For treatment of L leg cellulitis, pt has been described as improving, and vancomycin was switched to Bactrim. The patient has also been diagnosed with COPD exacerbation and is now on Levaquin. Impression/Recommendations For COPD exacerbation, duration of antibiotic therapy is generally 5 days. Levaquin is reasonable considering prior hx of Pseudomonas from a tracheal aspirate in the past. Pt has also been diagnosed with having cellulitis. Whether the addition of Bactrim to Levaquin is necessary depends on suspicion for Staph aureus involvement and more specifically MRSA. Anti-MRSA treatment may not be needed unless pt has risk factors such as MRSA colonization, hx of MRSA infection or pyoderma (e.g. furuncle or soft tissue abscess). Ultimately, the patient's inpatient physician is in the best position to examine the wound, know the patient's history, and assess whether MRSA is a likely consideration that requires Bactrim. The results of the wound swab would have to be interpreted in light of how it was collected. Superficial swabs can reflect colonization and have growth of organisms that are not pathogens that do not all require targeted therapy, and some fastidious organisms might fail to grow even if present. However, if there is no MRSA present, it might suggest that Bactrim is not needed. Duration of treatment for skin/soft tissue infection could range from 5-14 days or so, depending upon severity and response to therapy. With pt reported to be improving, a shorter course may be appropriate. Rudy Larsen MD [facility] Infectious Diseases pager [phone]
[2018-06-04] MEDS: DILTIAZEM HCL 30 MG TABLET PO SCH ×4 (00:13→17:08)
[2018-06-04] MEDS: IPRATROPIUM/ALBUTEROL 0.5-2.5 MG/3 ML AMPUL NEB PRN ×3 (04:02→16:17)
[2018-06-04 05:26] LABS: ABSOLUTE LYMPHOCYTES (AUTO) 0.5 10^3/uL (0.5-4.7); ABSOLUTE MONOCYTES (AUTO) 0.8 10^3/uL (0.1-1.4); ABSOLUTE NEUT (AUTO) 7.6 10^3/uL (1.7-8.2); BASOPHILS % (AUTO) 0.2 % (0-2); HEMATOCRIT 42.4 % (37.9-51.0); HEMOGLOBIN 14.5 g/dL (13.5-17.0); LYMPHOCYTES % (AUTO) 5.8 % (13-45); MEAN CORPUSCULAR HEMOGLOBIN 32.8 pg (27.0-33.4); MEAN CORPUSCULAR HGB CONC 34.2 g/dL (32.0-36.0); MEAN CORPUSCULAR VOLUME 96 fl (80-97); MONOCYTES % (AUTO) 8.7 % (3-13); PLATELET COUNT 324 10^3/uL (150-450); RED BLOOD COUNT 4.42 10^6/uL (4.35-5.55); RED CELL DISTRIBUTION WIDTH 16.7 % (11.5-14.0); SEGMENTED NEUTROPHILS % (AUTO) 85.3 % (42-78); TOTAL CELLS COUNTED % (AUTO) 100 %; WHITE BLOOD COUNT 8.9 10^3/uL (4.0-10.5)
[2018-06-04] MEDS: LEVOTHYROXINE SODIUM 0.1 MG TABLET PO SCH (05:30)
[2018-06-04] MEDS: LANSOPRAZOLE 30 MG TAB.RAP.DR PO SCH (05:31)
[2018-06-04] MEDS: LEVOFLOXACIN 500 MG TABLET PO SCH (09:30)
[2018-06-04] MEDS: GLIMEPIRIDE 1 MG TABLET PO SCH (09:30)
[2018-06-04] MEDS: FUROSEMIDE 40 MG TABLET PO SCH ×2 (09:30→17:08)
[2018-06-04] MEDS: SULFAMETHOXAZOLE/TRIMETHOPRIM 800-160 MG TABLET PO SCH ×2 (09:30→21:23)
[2018-06-04] MEDS: FINASTERIDE 5 MG TABLET PO SCH (09:30)
[2018-06-04] MEDS: PREDNISONE 20 MG TABLET PO SCH ×2 (09:30→17:08)
[2018-06-04] MEDS: DOCUSATE SODIUM 100 MG CAPSULE PO SCH ×2 (09:30→17:08)
[2018-06-04] MEDS: ENOXAPARIN SODIUM INJ 40 MG/0.4 ML DISP.SYRIN SUBCUT SCH (09:30)
[2018-06-04] MEDS ORDERED: DEXTROSE 40% GEL 15 GM TUBE PO PRN (11:41)
[2018-06-04] MEDS ORDERED: DEXTROSE 50%-WATER SYRINGE 12.5 GM/25 ML DOSE IV PRN (11:41)
[2018-06-04] MEDS ORDERED: DEXTROSE 50%-WATER SYRINGE 25 GM/50 ML DOSE IV PRN (11:41)
[2018-06-04] MEDS ORDERED: DEXTROSE 40% GEL 15 GM TUBE X 2 PO PRN (11:41)
[2018-06-04] MEDS ORDERED: INSULIN LISPRO 100 UNIT/ML 3 ML VIAL SUBCUT PRN (11:41)
[2018-06-04] MEDS ORDERED: GLUCAGON,HUMAN RECOMB 1 MG INJ IM PRN (11:41)
[2018-06-04] MEDS: TRAMADOL HCL 50 MG TABLET PO PRN (17:13)
--- NOTE | 2018-06-04 18:02 | PDOC PROGRESS REPORT ---
Subjective Progress Note for:: 06/04/18 Subjective:: Patient is new to me. I am covering for the weekend for Dr. Mikhail Grimes. I seen patient propped up in bed. He is awake alert and responsive. His trach collar is in situ. Reason For Visit: CELLULITIS,SEPSIS,CHF,AFIB Physical Exam Vital Signs: Temp Pulse Resp BP Pulse Ox 98.7 F 96 16 108/68 92 06/04/18 15:58 06/04/18 16:17 06/04/18 16:17 06/04/18 15:58 06/04/18 15:58 Intake & Output 06/03/18 06/04/18 06/05/18 06:59 06:59 06:59 Intake Total 1825.50 1093 237 Output Total 2975 1300 500 Balance -1149.50 -207 -263 Weight 82.3 kg 90.6 kg General appearance: PRESENT: no acute distress Eye exam: PRESENT: conjunctiva pink Neck exam: PRESENT: tracheostomy Respiratory exam: PRESENT: crackles. ABSENT: rales, rhonchi, wheezes Cardiovascular exam: PRESENT: RRR. ABSENT: diastolic murmur, rubs, systolic murmur GI/Abdominal exam: PRESENT: normal bowel sounds, soft. ABSENT: distended, guarding, mass, organolmegaly, rebound, tenderness Neurological exam: PRESENT: alert, awake Results Laboratory Results: 06/04/18 04:49 06/03/18 05:11 06/04/18 04:49 WBC 8.9 RBC 4.42 Hgb 14.5 Hct 42.4 MCV 96 MCH 32.8 MCHC 34.2 RDW 16.7 H Plt Count 324 Seg Neutrophils % 85.3 H Lymphocytes % 5.8 L Monocytes % 8.7 Eosinophils % 0.0 Basophils % 0.2 Absolute Neutrophils 7.6 Absolute Lymphocytes 0.5 Absolute Monocytes 0.8 Absolute Eosinophils 0.0 Absolute Basophils 0.0 06/01/18 15:17 Troponin I 0.027 Impressions: Chest X-Ray 06/01/18 13:28 IMPRESSION: Stable chest. No acute findings identified. Probable COPD and scar with cardiomegaly. Assessment & Plan - Diagnosis (1) Sepsis Qualifiers: Sepsis type: methicillin resistant Staphylococcus aureus Qualified Code(s) : A41.02 - Sepsis due to Methicillin resistant Staphylococcus aureus Is this a current diagnosis for this admission?: Yes Plan: Continue current regimen (2) Cellulitis, leg Qualifiers: Laterality: left Qualified Code(s): L03.116 - Cellulitis of left lower limb Is this a current diagnosis for this admission?: Yes Plan: Continue current antibiotics (3) Atrial fibrillation Qualifiers: Atrial fibrillation type: chronic Qualified Code(s): I48.2 - Chronic atrial fibrillation Is this a current diagnosis for this admission?: Yes Plan: Rate controlled (4) COPD exacerbation Is this a current diagnosis for this admission?: Yes Plan: Continue bronchodilator (5) Type 2 diabetes mellitus Is this a current diagnosis for this admission?: Yes Plan: Continue sliding scale and home medication (6) Hypothyroidism Qualifiers: Hypothyroidism type: acquired Qualified Code(s): E03.9 - Hypothyroidism, unspecified Is this a current diagnosis for this admission?: Yes Plan: Continue Synthroid
[2018-06-04] MEDS: MAGNESIUM HYDROXIDE SUSP 30 ML UDCUP PO PRN (21:23)
[2018-06-05] MEDS: DILTIAZEM HCL 30 MG TABLET PO SCH ×4 (00:28→17:10)
[2018-06-05] MEDS: LANSOPRAZOLE 30 MG TAB.RAP.DR PO SCH (06:23)
[2018-06-05] MEDS: LEVOTHYROXINE SODIUM 0.1 MG TABLET PO SCH (06:23)
[2018-06-05] MEDS: GLIMEPIRIDE 1 MG TABLET PO SCH (07:55)
[2018-06-05] MEDS: IPRATROPIUM/ALBUTEROL 0.5-2.5 MG/3 ML AMPUL NEB PRN (08:35)
[2018-06-05] MEDS: TRAMADOL HCL 50 MG TABLET PO PRN ×2 (09:37→17:13)
[2018-06-05] MEDS: ENOXAPARIN SODIUM INJ 40 MG/0.4 ML DISP.SYRIN SUBCUT SCH (09:39)
[2018-06-05] MEDS: LEVOFLOXACIN 500 MG TABLET PO SCH (09:39)
[2018-06-05] MEDS: FINASTERIDE 5 MG TABLET PO SCH (09:39)
[2018-06-05] MEDS: DOCUSATE SODIUM 100 MG CAPSULE PO SCH ×2 (09:39→17:10)
[2018-06-05] MEDS: FUROSEMIDE 40 MG TABLET PO SCH ×2 (09:39→17:09)
[2018-06-05] MEDS: PREDNISONE 20 MG TABLET PO SCH ×2 (09:39→17:10)
[2018-06-05] MEDS: SULFAMETHOXAZOLE/TRIMETHOPRIM 800-160 MG TABLET PO SCH ×2 (09:39→21:53)
--- NOTE | 2018-06-05 13:54 | PDOC PROGRESS REPORT ---
Subjective Progress Note for:: 06/05/18 Subjective:: No new complaint. No significant event overnight. Reason For Visit: CELLULITIS,SEPSIS,CHF,AFIB Physical Exam Vital Signs: Temp Pulse Resp BP Pulse Ox 97.8 F 91 22 H 92/66 L 100 06/05/18 11:32 06/05/18 11:32 06/05/18 11:32 06/05/18 11:32 06/05/18 11:32 Intake & Output 06/04/18 06/05/18 06/06/18 06:59 06:59 06:59 Intake Total 1093 711 237 Output Total 1300 1150 200 Balance -207 -439 37 Weight 90.6 kg 89.6 kg General appearance: PRESENT: no acute distress Head exam: PRESENT: atraumatic Mouth exam: PRESENT: moist Neck exam: PRESENT: tracheostomy. ABSENT: carotid bruit, JVD, lymphadenopathy, thyromegaly Respiratory exam: PRESENT: clear to auscultation carmencita. ABSENT: rales, rhonchi, wheezes Cardiovascular exam: PRESENT: RRR. ABSENT: diastolic murmur, rubs, systolic murmur Neurological exam: PRESENT: alert, awake Results Laboratory Results: 06/04/18 04:49 06/03/18 05:11 06/01/18 15:17 Troponin I 0.027 Impressions: Chest X-Ray 06/01/18 13:28 IMPRESSION: Stable chest. No acute findings identified. Probable COPD and scar with cardiomegaly. Assessment & Plan - Diagnosis (1) Sepsis Qualifiers: Sepsis type: methicillin resistant Staphylococcus aureus Qualified Code(s) : A41.02 - Sepsis due to Methicillin resistant Staphylococcus aureus Is this a current diagnosis for this admission?: Yes Plan: Continue current regimen (2) Cellulitis, leg Qualifiers: Laterality: left Qualified Code(s): L03.116 - Cellulitis of left lower limb Is this a current diagnosis for this admission?: Yes Plan: Continue current antibiotics (3) Atrial fibrillation Qualifiers: Atrial fibrillation type: chronic Qualified Code(s): I48.2 - Chronic atrial fibrillation Is this a current diagnosis for this admission?: Yes Plan: Rate controlled (4) COPD exacerbation Is this a current diagnosis for this admission?: Yes Plan: Continue bronchodilator (5) Type 2 diabetes mellitus Is this a current diagnosis for this admission?: Yes Plan: Continue sliding scale and home medication (6) Hypothyroidism Qualifiers: Hypothyroidism type: acquired Qualified Code(s): E03.9 - Hypothyroidism, unspecified Is this a current diagnosis for this admission?: Yes Plan: Continue Synthroid
[2018-06-06] MEDS: IPRATROPIUM/ALBUTEROL 0.5-2.5 MG/3 ML AMPUL NEB PRN ×3 (00:34→19:38)
[2018-06-06] MEDS: DILTIAZEM HCL 30 MG TABLET PO SCH ×4 (00:42→17:03)
[2018-06-06] MEDS: TRAMADOL HCL 50 MG TABLET PO PRN ×2 (00:42→22:05)
[2018-06-06] MEDS: LEVOTHYROXINE SODIUM 0.1 MG TABLET PO SCH (05:59)
[2018-06-06] MEDS: LANSOPRAZOLE 30 MG TAB.RAP.DR PO SCH (05:59)
[2018-06-06] MEDS: MAGNESIUM HYDROXIDE SUSP 30 ML UDCUP PO PRN (07:51)
--- NOTE | 2018-06-06 08:36 | PDOC PROGRESS REPORT ---
Subjective Progress Note for:: 06/06/18 Subjective:: The patient states to feel much better. His lower extremity swelling has resolved. The wounds of the lower extremities are healing well. His breathing has improved. Reason For Visit: CELLULITIS,SEPSIS,CHF,AFIB The patient states to feel much better. His legs are feeling much better. There is no more fluid drainage. The wounds are healing well. His breathing has improved. Physical Exam Vital Signs: Temp Pulse Resp BP Pulse Ox 97.9 F 129 H 22 H 105/76 99 06/06/18 07:31 06/06/18 07:31 06/06/18 07:31 06/06/18 07:31 06/06/18 04:40 Intake & Output 06/05/18 06/06/18 06/07/18 06:59 06:59 06:59 Intake Total 711 792 Output Total 1150 1125 Balance -439 -333 Weight 89.6 kg 88.9 kg General appearance: PRESENT: mild distress Head exam: PRESENT: atraumatic Eye exam: PRESENT: conjunctiva pink Neck exam: PRESENT: carotid bruit. ABSENT: JVD Respiratory exam: PRESENT: rhonchi. ABSENT: crackles, wheezes Cardiovascular exam: PRESENT: irregular rhythm, +S1, +S2 GI/Abdominal exam: PRESENT: normal bowel sounds, soft Extremities exam: PRESENT: tenderness. ABSENT: pedal edema Musculoskeletal exam: PRESENT: tenderness Neurological exam: PRESENT: alert, awake Results Laboratory Results: 06/04/18 04:49 06/03/18 05:11 06/01/18 15:17 Troponin I 0.027 Impressions: Chest X-Ray 06/01/18 13:28 IMPRESSION: Stable chest. No acute findings identified. Probable COPD and scar with cardiomegaly. Assessment & Plan - Diagnosis (1) Atrial fibrillation Qualifiers: Atrial fibrillation type: chronic Qualified Code(s): I48.2 - Chronic atrial fibrillation Is this a current diagnosis for this admission?: Yes Plan: Continue rate control (2) Cellulitis, leg Qualifiers: Laterality: left Qualified Code(s): L03.116 - Cellulitis of left lower limb Is this a current diagnosis for this admission?: Yes Plan: Improving. Will need some antibiotics compression and wound care by home health (4) Sepsis Qualifiers: Sepsis type: methicillin resistant Staphylococcus aureus Qualified Code(s) : A41.02 - Sepsis due to Methicillin resistant Staphylococcus aureus Is this a current diagnosis for this admission?: Yes (5) COPD exacerbation Is this a current diagnosis for this admission?: Yes Plan: Stable continue current treatments (6) Chronic a-fib Is this a current diagnosis for this admission?: Yes Plan: We will continue with Cardizem for rate control (7) Diabetes mellitus Qualifiers: Diabetes mellitus type: type 2 Diabetes mellitus complication status: with neurologic complications Diabetes mellitus complication detail: with unspecified neuropathy Is this a current diagnosis for this admission?: Yes (8) Hypothyroid Qualifiers: Hypothyroidism type: acquired Qualified Code(s): E03.9 - Hypothyroidism, unspecified Is this a current diagnosis for this admission?: Yes Plan: We will recheck the TSH as an outpatient
[2018-06-06] MEDS: FINASTERIDE 5 MG TABLET PO SCH (10:05)
[2018-06-06] MEDS: LEVOFLOXACIN 500 MG TABLET PO SCH (10:05)
[2018-06-06] MEDS: GLIMEPIRIDE 1 MG TABLET PO SCH (10:05)
[2018-06-06] MEDS: DOCUSATE SODIUM 100 MG CAPSULE PO SCH ×2 (10:05→17:03)
[2018-06-06] MEDS: FUROSEMIDE 40 MG TABLET PO SCH ×2 (10:05→17:02)
[2018-06-06] MEDS: PREDNISONE 10 MG TABLET PO SCH ×2 (10:06→17:02)
[2018-06-06] MEDS: ENOXAPARIN SODIUM INJ 40 MG/0.4 ML DISP.SYRIN SUBCUT SCH (10:06)
[2018-06-07] MEDS: DILTIAZEM HCL 30 MG TABLET PO SCH ×2 (01:40→06:25)
[2018-06-07] MEDS: IPRATROPIUM/ALBUTEROL 0.5-2.5 MG/3 ML AMPUL NEB PRN (06:03)
[2018-06-07] MEDS: LANSOPRAZOLE 30 MG TAB.RAP.DR PO SCH (06:25)
[2018-06-07] MEDS: LEVOTHYROXINE SODIUM 0.1 MG TABLET PO SCH (06:25)
--- NOTE | 2018-06-07 08:42 | PDOC DISCHARGE SUMMARY ---
General - Admit/Disc Date/PCP Admission Date/Primary Care Provider: 06/01/18 14:11 WENDY AYALA MD Discharge Date: 06/07/18 - Discharge Diagnosis (1) Atrial fibrillation Is this a current diagnosis for this admission?: Yes Summary: Continue Cardizem for rate control (2) Cellulitis, leg Is this a current diagnosis for this admission?: Yes Summary: Restart Bactrim. The culture will resistant to Levaquin and only sensitive to Bactrim (4) Sepsis Is this a current diagnosis for this admission?: Yes (5) COPD exacerbation Is this a current diagnosis for this admission?: Yes Summary: Stable continue nebulization treatments (6) Chronic a-fib Is this a current diagnosis for this admission?: Yes Summary: Continue Cardizem for rate control (7) Diabetes mellitus Is this a current diagnosis for this admission?: Yes Summary: Stable continue diabetic diet and medications (8) Hypothyroid Is this a current diagnosis for this admission?: Yes Summary: Continue current dose of levothyroxine - Additional Information Resuscitation Status: Do Not Resuscitate Discharge Diet: Cardiac, Diabetic Discharge Activity: Activity As Tolerated Prescriptions: Furosemide [Lasix 40 mg Tablet] 40 mg PO BID #60 tablet Levofloxacin [Levaquin 500 mg Tablet] 500 mg PO DAILY #5 tablet Sulfamethoxazole/Trimethoprim [Septra-Ds 800-160 mg Tablet] 1 tab PO Q12 #10 tablet Home Medications: Docusate Sodium [Colace 100 mg Capsule] 100 mg PO TIDP PRN 06/01/18 Famotidine [Pepcid 20 mg Tablet] 20 mg PO Q12 06/01/18 Finasteride [Proscar 5 mg Tablet] 5 mg PO DAILY 06/01/18 Glimepiride [Amaryl] 2 mg PO [id number] 06/01/18 Levothyroxine Sodium [Synthroid] 200 mcg PO Q6AM 06/01/18 Prednisone [Deltasone 10 mg Tablet] 10 mg PO BID 06/01/18 Tramadol HCl [Ultram 50 mg Tablet] 50 mg PO Q6HP PRN 06/01/18 Diltiazem HCl [Cardizem 30 mg Tablet] 30 mg PO Q6 tablet 06/07/18 Docusate Sodium [Colace 100 mg Capsule] 100 mg PO BID capsule 06/07/18 Furosemide [Lasix 40 mg Tablet] 40 mg PO BID #60 tablet 06/07/18 Levofloxacin [Levaquin 500 mg Tablet] 500 mg PO DAILY #5 tablet 06/07/18 Sulfamethoxazole/Trimethoprim [Septra-Ds 800-160 mg Tablet] 1 tab PO Q12 #10 tablet 06/07/18 History of Present Illness History of Present Illness: KARLA PARADA is a 77 year old male Hospital Course Hospital Course: The patient did well after the hospitalization he was placed in bed with leg elevation and diuretics. He was in a negative balance of over 6 L. The wound cultures were taken and have turned positive. She was restarted on Bactrim. He did quite well over the next several days with significant improvement in both the cellulitis, congestive heart failure and COPD and was discharged home with home health Physical Exam Vital Signs: Temp Pulse Resp BP Pulse Ox 98.8 F 104 H 20 99/69 L 93 06/07/18 07:54 06/07/18 07:54 06/07/18 07:54 06/07/18 07:54 06/07/18 07:54 Intake & Output 06/06/18 06/07/18 06/08/18 06:59 06:59 06:59 Intake Total 792 525 Output Total 1125 500 Balance -333 25 Weight 88.9 kg 89 kg General appearance: PRESENT: no acute distress Head exam: PRESENT: atraumatic Eye exam: PRESENT: conjunctiva pink Neck exam: PRESENT: carotid bruit. ABSENT: JVD Respiratory exam: PRESENT: rhonchi. ABSENT: wheezes Cardiovascular exam: PRESENT: irregular rhythm, +S1, +S2 GI/Abdominal exam: PRESENT: normal bowel sounds, soft Extremities exam: PRESENT: tenderness. ABSENT: pedal edema Musculoskeletal exam: PRESENT: other Neurological exam: PRESENT: alert, awake Results Laboratory Results: 06/04/18 04:49 06/03/18 05:11 06/02/18 07:40 Leg - Lower Gram Stain - Final 06/01/18 15:17 Blood Blood Culture - Final NO GROWTH IN 5 DAYS 06/01/18 15:17 Troponin I 0.027 Impressions: Chest X-Ray 06/01/18 13:28 IMPRESSION: Stable chest. No acute findings identified. Probable COPD and scar with cardiomegaly. Qualifiers - * PATIENT BEING DISCHARGED WITH ANY OF THE FOLLOWING DIAGNOSIS: No VTE patient discharged on overlapping Therapy?: No Reason(s) for not prescribing Overlap Therapy:: Medical Contraindication
[2018-06-07] MEDS: DOCUSATE SODIUM 100 MG CAPSULE PO SCH (09:31)
[2018-06-07] MEDS: LEVOFLOXACIN 500 MG TABLET PO SCH (09:31)
[2018-06-07] MEDS: FUROSEMIDE 40 MG TABLET PO SCH (09:31)
[2018-06-07] MEDS: MAGNESIUM HYDROXIDE SUSP 30 ML UDCUP PO PRN (09:31)
[2018-06-07] MEDS: GLIMEPIRIDE 1 MG TABLET PO SCH (09:31)
[2018-06-07] MEDS: PREDNISONE 10 MG TABLET PO SCH (09:32)
[2018-06-07] MEDS: FINASTERIDE 5 MG TABLET PO SCH (09:32)
[2018-06-07] MEDS: ENOXAPARIN SODIUM INJ 40 MG/0.4 ML DISP.SYRIN SUBCUT SCH (09:32)
[2018-06-07 09:52] VITALS: BP 120/72
[2018-06-07] MEDS ORDERED: SULFAMETHOXAZOLE/TRIMETHOPRIM 800-160 MG TABLET PO SCH (10:00)
== END 2018-06-07 10:13 | disposition home health service (06) | DRG 872 ==
LOC: ER 12:18 → UNDOADMIN 14:11 → EH 14:11 → 3W 23:38
PROVIDERS: ADMIT Internal Medicine; ATTEND Internal Medicine
DX: A41.9 Sepsis, unspecified organism (principal); L03.116 Cellulitis of left lower limb; L03.115 Cellulitis of right lower limb; Z66 Do not resuscitate; I48.2 Chronic atrial fibrillation; C32.9 Malignant neoplasm of larynx, unspecified; E03.9 Hypothyroidism, unspecified; E11.40 Type 2 diabetes mellitus with diabetic neuropathy, unspecified; K21.9 Gastro-esophageal reflux disease without esophagitis; I87.8 Other specified disorders of veins; K59.00 Constipation, unspecified; B87.89 Myiasis of other sites; F17.210 Nicotine dependence, cigarettes, uncomplicated; Z93.0 Tracheostomy status; Z79.84 Long term (current) use of oral hypoglycemic drugs; Z79.52 Long term (current) use of systemic steroids; Z79.899 Other long term (current) drug therapy; Z74.01 Bed confinement status
CPT/HCPCS: 36415; 71045; 80053; 81001; 82550; 82553; 82962; 83605; 83690; 83880; 84443; 84484; 85025; 85610; 85730; 87040; 87070; 87077; 87186; 87205; 93005; 93010; 94640; 94667; 94668; 96374; 99285; G8978-GP; G8979-GP; J1580; J1650; J1815; J1940; J2270; J3370; J3490; J7030; J7060; J7512; J7620; S0119

== ENCOUNTER 2018-06-24 17:17 | Inpatient (IN) | payer MEDICARE, OTHER ==
[2018-06-24 18:22] LABS: VENOUS BLOOD BASE EXCESS 2.4 mmol/L; VENOUS BLOOD HCO3 28.2 mmol/L (20-32); VENOUS BLOOD PCO2 48.1 mmHg (35-63); VENOUS BLOOD PH 7.39 (7.30-7.42)
[2018-06-24 18:25] LABS: INTERNATIONAL RATION (INR) 1.04; PROTHROMBIN TIME 14.1 SEC (11.4-15.4)
[2018-06-24 18:32] LABS: HEMATOCRIT 41.5 % (37.9-51.0); HEMOGLOBIN 13.9 g/dL (13.5-17.0); MEAN CORPUSCULAR HEMOGLOBIN 32.7 pg (27.0-33.4); MEAN CORPUSCULAR HGB CONC 33.4 g/dL (32.0-36.0); MEAN CORPUSCULAR VOLUME 98 fl (80-97); PLATELET COUNT 299 10^3/uL (150-450); RED BLOOD COUNT 4.24 10^6/uL (4.35-5.55); RED CELL DISTRIBUTION WIDTH 15.9 % (11.5-14.0); WHITE BLOOD COUNT 9.3 10^3/uL (4.0-10.5)
[2018-06-24 18:38] LABS: ALANINE AMINOTRANSFERASE 166 U/L (21-72); ALBUMIN 3.7 g/dL (3.5-5.0); ALKALINE PHOSPHATASE 417 U/L (38-126); ANION GAP 10 (5-19); ASPARTATE AMINO TRANSFERASE 136 U/L (17-59); BILIRUBIN,DIRECT 1.3 mg/dL (0.0-0.4); BILIRUBIN,TOTAL 1.7 mg/dL (0.2-1.3); BLOOD UREA NITROGEN 45 mg/dL (7-20); CALCIUM 9.7 mg/dL (8.4-10.2); CARBON DIOXIDE 28 mmol/L (22-30); CHLORIDE 95 mmol/L (98-107); GLUCOSE 120 mg/dL (75-110); POTASSIUM 4.7 mmol/L (3.6-5.0); SODIUM 133.3 mmol/L (137-145); TOTAL PROTEIN 6.8 g/dL (6.3-8.2)
[2018-06-24 18:56] LABS: ABSOLUTE LYMPHOCYTES# (MANUAL) 0.1 10^3/uL (0.5-4.7); ABSOLUTE MONOCYTES # (MANUAL) 0.5 10^3/uL (0.1-1.4); ABSOLUTE NEUTROPHILS# (MANUAL) 8.7 10^3/uL (1.7-8.2); BAND NEUTROPHILS % (MANUAL) 1 % (3-5); BASOPHILS % (MANUAL) 0 % (0-2); EOSINOPHILS % (MANUAL) 0 % (0-6); LYMPHOCYTES % (MANUAL) 1 % (13-45); METAMYELOCYTES % (MANUAL) 1 % (0); MONOCYTES % (MANUAL) 5 % (3-13); SEGMENTED NEUTROPHILS % (MAN) 92 % (42-78); TOTAL CELLS COUNTED 100
[2018-06-24 18:59] LABS: ANISOCYTOSIS SLIGHT; PLATELET COMMENT ADEQUATE
--- NOTE | 2018-06-24 19:15 | EKG REPORT ---
SEVERITY:- ABNORMAL ECG - ATRIAL FIBRILLATION, V-RATE 77-129 BORDERLINE T ABNORMALITIES, INFERIOR LEADS : Confirmed by: Marin Madera MD 24-Jun-2018 19:14:06
[2018-06-24] MEDS ORDERED: FUROSEMIDE INJ/PF 40 MG/4 ML SDV IV ONE (19:34)
--- NOTE | 2018-06-24 19:43 | ER Document Report ---
ED General - General Chief Complaint: Leg Pain Stated Complaint: BILATERAL LEG PAIN Time Seen by Provider: 06/24/18 18:19 Cannot obtain history due to: Other - Patient is nonverbal Notes: Patient is a 77-year-old male with a past medical history of venous insufficiency, atrial fibrillation, tracheostomy, who presents with concerns of increasing bilateral lower extremity edema and pain over the last 1 week. The patient is a difficult historian, does not have a voice box, writes very minimal content when asked questions on the paper. Apparently the pain has been ongoing for 1 week and is similar to when he was hospitalized in mid May for similar concerns. He has been taking all medications as prescribed. He has not seen his doctor regarding these concerns. He denies fever at home. Nothing improves or worsens his pain. He denies any increased shortness of breath. TRAVEL OUTSIDE OF THE [place] IN LAST 30 DAYS: No - Related Data Allergies/Adverse Reactions: ceftriaxone [From Rocephin] Allergy (Severe, Verified 06/01/18 12:49) Penicillins Allergy (Severe, Verified 06/01/18 12:49) Stiffness in joints Past Medical History - General Information source: Patient Cannot obtain history due to: Uncooperative - Social History Smoking Status: Current Every Day Smoker Drug Abuse: None Lives with: Alone Family History: DM, Hypertension, Malignancy Patient has suicidal ideation: No Patient has homicidal ideation: No - Past Medical History Cardiac Medical History: Reports: Hx Atrial Fibrillation, Hx Coronary Artery Disease Denies: Hx Heart Attack, Hx Hypertension Pulmonary Medical History: Reports: Hx Asthma, Hx COPD, Hx Pneumonia, Hx Respiratory Failure Denies: Hx Bronchitis Neurological Medical History: Denies: Hx Cerebrovascular Accident, Hx Seizures Endocrine Medical History: Reports: Hx Diabetes Mellitus Type 1, Hx Diabetes Mellitus Type 2, Hx Hyperthyroidism, Hx Hypothyroidism Renal/ Medical History: Denies: Hx End Stage Renal Disease, Hx Peritoneal Dialysis GI Medical History: Reports: Hx Gastroesophageal Reflux Disease Musculoskeletal Medical History: Reports Hx Arthritis - GENERALIZED Skin Medical History: Denies Hx Psoriasis Psychiatric Medical History: Denies: Hx Depression Traumatic Medical History: Denies: Hx Gunshot Wound, Hx Pneumothorax, Hx Traumatic Brain Injury Infectious Medical History: Denies: Hx C-Diff Past Surgical History: Reports: Hx Abdominal Surgery - G-tube, Hx Oral Surgery - Trach, Other - Laryngeal cancer resection with tracheostomy - Immunizations Hx Diphtheria, Pertussis, Tetanus Vaccination: Yes Hx Pneumococcal Vaccination: 10/18/11 Review of Systems - Review of Systems Notes: Constitutional: Negative for fever. HENT: Negative for sore throat. Eyes: Negative for visual changes. Cardiovascular: Negative for chest pain. Respiratory: Negative for shortness of breath. Gastrointestinal: Negative for abdominal pain, vomiting or diarrhea. Genitourinary: Negative for dysuria. Musculoskeletal: Positive for bilateral lower extremity pain and swelling Skin: Negative for rash. Neurological: Negative for headaches, weakness or numbness. 10 point ROS negative except as marked above and in HPI. Physical Exam - Vital signs Vitals: Temp Pulse Resp BP Pulse Ox 98.8 F 114 H 20 94/60 L 98 06/24/18 17:18 06/24/18 17:18 06/24/18 17:18 06/24/18 17:18 06/24/18 17:18 Interpretation: Hypotensive, Tachycardic Notes: PHYSICAL EXAMINATION: GENERAL: Appears chronically ill and but no acute distress HEAD: Atraumatic, normocephalic. EYES: Pupils equal round and reactive to light, extraocular movements intact, sclera anicteric, conjunctiva are normal. ENT: nares patent, oropharynx clear without exudates. Moist mucous membranes. NECK: Normal range of motion, supple without lymphadenopathy LUNGS: Breath sounds clear to auscultation bilaterally and equal. No wheezes rales or rhonchi. HEART: Irregular regular tachycardia ABDOMEN: Soft, nontender, normoactive bowel sounds. No guarding, no rebound. No masses appreciated. EXTREMITIES: Normal range of motion, severe bilateral lower extremity edema greater than 4+, equal and symmetric. NEUROLOGICAL: No focal neurological deficits. Moves all extremities spontaneously and on command. PSYCH: Normal mood, normal affect. SKIN: Warm, Dry, normal turgor, several open superficial cutaneous lesions between webspaces of multiple digits to the bilateral feet that appear to be secondary to the degree of edema Course - Re-evaluation Re-evalutation: 06/24/18 19:42 Patient presents with market edema to the bilateral lower extremity, greater than 4+ equal and symmetric that is so severe that it is causing his superficial epidermal layers to peel away causing bleeding. The patient is on furosemide 40 mg p.o. daily and states that he has been compliant. His weight has not increased relative to the time of discharge but the edema is so severe he is effectively bedbound at this point and is developing wounds on the extremities. In addition the patient arrived his blood pressure was noted to be soft but has corrected without intervention. He is in atrial fibrillation but is currently rate controlled with oral diltiazem that he took prior to arrival. His labs are notable for acute kidney injury not present during his previous hospitalization. Although his lactate is elevated, this appears to be chronic in nature based on previous lactate markers from 06/01. The patient has been given 40 mill grams of IV furosemide. Given the degree of market edema, his effective in mobility at this point, as well as developing wounds due to the degree of the edema I believe he requires hospitalization. I discussed with the hospitalist who is excepted the patient. - Vital Signs Vital signs: Temp Pulse Resp BP Pulse Ox 98.8 F 114 H 19 116/89 H 99 06/24/18 17:18 06/24/18 17:18 06/24/18 21:20 06/24/18 21:20 06/24/18 21:20 - Laboratory Result Diagrams: 06/24/18 18:00 06/24/18 18:00 Laboratory results interpreted by me: 06/24/18 06/24/18 06/24/18 18:00 18:00 18:00 RBC 4.24 L MCV 98 H RDW 15.9 H Seg Neuts % (Manual) 92 H Band Neutrophils % 1 L Lymphocytes % (Manual) 1 L Metamyelocytes % 1 H Abs Neuts (Manual) 8.7 H Abs Lymphs (Manual) 0.1 L Sodium 133.3 L Chloride 95 L BUN 45 H Creatinine 1.62 H Est GFR ( Amer) 50 L Est GFR (Non-Af Amer) 41 L Glucose 120 H Lactic Acid 3.1 H Total Bilirubin 1.7 H Direct Bilirubin 1.3 H AST 136 H ALT 166 H Alkaline Phosphatase 417 H - EKG Interpretation by Me Additional EKG results interpreted by me: 06/24/18 21:52 Atrial fibrillation. Rate 102. No ST elevations or depressions. QTC is 464. Discharge - Discharge Clinical Impression: Bilateral lower extremity edema, Acute kidney injury (nontraumatic), Chronic a- fib Diabetes mellitus Qualifiers: Diabetes mellitus type: type 2 Diabetes mellitus long term care social worker insulin use: without fci use Diabetes mellitus complication status: with circulatory complication Diabetes mellitus complication detail: with other circulatory complications Qualified Code(s): E11.59 - Type 2 diabetes mellitus with other circulatory complications Condition: Fair Disposition: ADMITTED INPATIENT Admitting Provider: Hospitalist Unit Admitted: Telemetry
[2018-06-24] MEDS ORDERED: MAG HYDROX/AL HYDROX/SIMETH SUSP 30 ML UDCUP PO PRN (20:45)
[2018-06-24] MEDS ORDERED: ACETAMINOPHEN 325 MG TABLET PO PRN (20:45)
[2018-06-24 21:07] LABS: APPEARANCE,URINE CLEAR; BILIRUBIN,URINE NEGATIVE (NEGATIVE); GLUCOSE, URINE NEGATIVE (NEGATIVE); KETONES,URINE NEGATIVE (NEGATIVE); LEUKOCYTE ESTERASE,URINE NEGATIVE (NEGATIVE); NITRITE,URINE NEGATIVE (NEGATIVE); PROTEIN,URINE NEGATIVE (NEGATIVE); URINE SPECIFIC GRAVITY 1.019
[2018-06-24 21:21] LABS: COLOR,URINE YELLOW
[2018-06-24] MEDS: CIPROFLOXACIN 400 MG/D5W RTU 400 MG/200 ML RTUPB IV SCH (22:27)
[2018-06-24] MEDS: HEPARIN SOD (PORCINE) 5,000 UNIT/ML 1 ML SYRINGE SUBCUT SCH (22:28)
[2018-06-24] MEDS: FUROSEMIDE INJ/PF 40 MG/4 ML SDV IV SCH (22:28)
[2018-06-24] MEDS: METOCLOPRAMIDE HCL INJ/PF 10 MG/2 ML SDV IV SCH (22:28)
--- NOTE | 2018-06-25 00:21 | PDOC H&P ---
History of Present Illness Admission Date/PCP: 06/24/18 19:56 WENDY AYALA MD Patient complains of: Lower extremity swelling History of Present Illness: KARLA PARADA is a 77 year old male with a past medical history of venous insufficiency, atrial fibrillation, tracheostomy, who presents with concerns of increasing bilateral lower extremity edema and pain over the last 1 week. The patient is a difficult historian, does not have a voice box, writes very minimal content when asked questions on the paper. Apparently the pain has been ongoing for 1 week and is similar to when he was hospitalized in mid May for similar concerns. He has been taking all medications as prescribed. He has not seen his doctor regarding these concerns. He denies fever at home. Nothing improves or worsens his pain. He denies any increased shortness of breath,, chills, nausea or vomiting. Any lower extremity 7/10 intensity. Tells me that when he is at home he keeps his legs elevated when he goes to sleep. Takes tramadol for pain. Past Medical History Cardiac Medical History: Reports: Atrial Fibrillation, Coronary Artery Disease Denies: Myocardial Infarction, Hypertension Pulmonary Medical History: Reports: Asthma, Chronic Obstructive Pulmonary Disease (COPD), Pneumonia, Respiratory Failure Denies: Bronchitis Neurological Medical History: Denies: Seizures Endocrine Medical History: Reports: Diabetes Mellitus Type 1, Diabetes Mellitus Type 2, Hyperthyroidism, Hypothyroidism Renal/ Medical History: Denies: End Stage Renal Disease GI Medical History: Reports: Gastroesophageal Reflux Disease Musculoskeltal Medical History: Reports: Arthritis - GENERALIZED Skin Medical History: Denies: Psoriasis Psychiatric Medical History: Denies: Depression Traumatic Medical History: Denies: Gunshot Wound, Pneumothorax, Traumatic Brain Injury Hematology: Reports: Bleeding Tendencies Denies: Anemia, Sickle Cell Disease Infectious Medical History: Denies: Clostridium Difficile Past Surgical History Past Surgical History: Reports: Other - Laryngeal cancer resection with tracheostomy Social History Lives with: Alone Smoking Status: Current Every Day Smoker Frequency of Alcohol Use: None Hx Recreational Drug Use: No Drugs: None Hx Prescription Drug Abuse: No Family History Family History: DM, Hypertension, Malignancy Parental Family History Reviewed: No Children Family History Reviewed: NA Sibling(s) Family History Reviewed.: NA Medication/Allergy Home Medications: Diltiazem HCl [Cardizem 60 mg Tablet] 60 mg PO Q8 06/24/18 Docusate Sodium [Colace 100 mg Capsule] 100 mg PO Q8HP PRN 06/24/18 Finasteride [Proscar 5 mg Tablet] 5 mg PO DAILY 06/24/18 Furosemide [Lasix 40 mg Tablet] 40 mg PO BID 06/24/18 Levothyroxine Sodium [Synthroid] 200 mcg PO QAM 06/24/18 Metformin HCl [Glucophage] 1,000 mg PO BID 06/24/18 Pantoprazole Sodium [Protonix] 20 mg PO DAILY 06/24/18 Prednisone [Deltasone 10 mg Tablet] 10 mg PO BID 06/24/18 Tramadol HCl [Ultram 50 mg Tablet] 50 mg PO Q6HP PRN 06/24/18 Allergies/Adverse Reactions: ceftriaxone [From Rocephin] Allergy (Severe, Verified 06/01/18 12:49) Penicillins Allergy (Severe, Verified 06/01/18 12:49) Stiffness in joints Review of Systems Review of Systems: As outlined in the HPI, others negative Physical Exam Vital Signs: Temp Pulse Resp BP Pulse Ox 98.8 F 114 H 19 125/80 100 06/24/18 17:18 06/24/18 17:18 06/24/18 22:41 06/24/18 22:41 06/24/18 22:41 Intake & Output 06/23/18 06/24/18 06/25/18 06:59 06:59 06:59 Intake Total 200 Output Total 400 Balance -200 Additional comments: GENERAL: Appears chronically ill and but no acute distress HEAD: Atraumatic, normocephalic. EYES: Pupils equal round and reactive to light, extraocular movements intact, sclera anicteric, conjunctiva are normal. ENT: nares patent, oropharynx clear without exudates. Moist mucous membranes. NECK: Normal range of motion, supple without lymphadenopathy LUNGS: Breath sounds clear to auscultation bilaterally and equal. No wheezes rales or rhonchi. HEART: Irregular regular tachycardia ABDOMEN: Soft, nontender, normoactive bowel sounds. No guarding, no rebound. No masses appreciated. EXTREMITIES: Normal range of motion, severe bilateral lower extremity edema greater than 4+, equal and symmetric. NEUROLOGICAL: No focal neurological deficits. Moves all extremities spontaneously and on command. PSYCH: Normal mood, normal affect. SKIN: Warm, Dry, normal turgor, several open superficial cutaneous lesions between webspaces of multiple digits to the bilateral feet that appear to be secondary to the degree of edema Results Laboratory Results: 06/24/18 20:00 Urine Color YELLOW Urine Appearance CLEAR Urine pH 5.0 Ur Specific [place] 1.019 Urine Protein NEGATIVE Urine Glucose (UA) NEGATIVE Urine Ketones NEGATIVE Urine Blood MODERATE H Urine Nitrite NEGATIVE Ur Leukocyte Esterase NEGATIVE Urine WBC (Auto) 5 Urine RBC (Auto) 7 06/24/18 06/24/18 06/24/18 18:00 18:00 18:00 WBC 9.3 RBC 4.24 L Hgb 13.9 Hct 41.5 MCV 98 H MCH 32.7 MCHC 33.4 RDW 15.9 H Plt Count 299 Total Counted 100 Seg Neuts % (Manual) 92 H Band Neutrophils % 1 L Lymphocytes % (Manual) 1 L Monocytes % (Manual) 5 Metamyelocytes % 1 H Abs Neuts (Manual) 8.7 H Abs Lymphs (Manual) 0.1 L Abs Monocytes (Manual) 0.5 Platelet Comment ADEQUATE Anisocytosis SLIGHT PT 14.1 INR 1.04 VBG pH VBG pCO2 VBG HCO3 VBG Base Excess Sodium 133.3 L Potassium 4.7 Chloride 95 L Carbon Dioxide 28 Anion Gap 10 BUN 45 H Creatinine 1.62 H Est GFR ( Amer) 50 L Est GFR (Non-Af Amer) 41 L Glucose 120 H Lactic Acid Calcium 9.7 Total Bilirubin 1.7 H Direct Bilirubin 1.3 H AST 136 H ALT 166 H Alkaline Phosphatase 417 H Total Protein 6.8 Albumin 3.7 Urine Color Urine Appearance Urine pH Ur Specific [place] Urine Protein Urine Glucose (UA) Urine Ketones Urine Blood Urine Nitrite Urine Bilirubin Urine Urobilinogen Ur Leukocyte Esterase Urine WBC (Auto) Urine RBC (Auto) U Hyaline Cast (Auto) Urine Mucus (Auto) Urine Ascorbic Acid 06/24/18 06/24/18 06/24/18 18:00 18:00 20:00 WBC RBC Hgb Hct MCV MCH MCHC RDW Plt Count Total Counted Seg Neuts % (Manual) Band Neutrophils % Lymphocytes % (Manual) Monocytes % (Manual) Metamyelocytes % Abs Neuts (Manual) Abs Lymphs (Manual) Abs Monocytes (Manual) Platelet Comment Anisocytosis PT INR VBG pH 7.39 VBG pCO2 48.1 VBG HCO3 28.2 VBG Base Excess 2.4 Sodium Potassium Chloride Carbon Dioxide Anion Gap BUN Creatinine Est GFR ( Amer) Est GFR (Non-Af Amer) Glucose Lactic Acid 3.1 H Calcium Total Bilirubin Direct Bilirubin AST ALT Alkaline Phosphatase Total Protein Albumin Urine Color YELLOW Urine Appearance CLEAR Urine pH 5.0 Ur Specific [place] 1.019 Urine Protein NEGATIVE Urine Glucose (UA) NEGATIVE Urine Ketones NEGATIVE Urine Blood MODERATE H Urine Nitrite NEGATIVE Urine Bilirubin NEGATIVE Urine Urobilinogen 2.0 H Ur Leukocyte Esterase NEGATIVE Urine WBC (Auto) 5 Urine RBC (Auto) 7 U Hyaline Cast (Auto) 3 Urine Mucus (Auto) OCC Urine Ascorbic Acid NEGATIVE Assessment & Plan - Diagnosis (1) Bilateral lower extremity edema Is this a current diagnosis for this admission?: Yes Plan: Patient presents with market edema to the bilateral lower extremity, greater than 4+ equal and symmetric that is so severe that it is causing his superficial epidermal layers to peel away causing bleeding. The patient is on furosemide 40 mg p.o. daily and states that he has been compliant. His weight has not increased relative to the time of discharge but the edema is so severe he is effectively bedbound at this point and is developing wounds on the extremities. Will keep lower extremities elevation. Lasix 40 mg IV every 12 hours. Patient declined to have mary wrap (2) Acute kidney injury (nontraumatic) Is this a current diagnosis for this admission?: Yes Plan: BUN 45 and creatinine 1.62 in the setting of normal renal function, unclear if this can be cardiorenal, pre-or post renal, patient may need a Smith catheter apparently is having urinary retention. Will place a Smith catheter order. Blood and output every 8 hours. Reassess renal panel in the morning. (3) Chronic a-fib Is this a current diagnosis for this admission?: Yes Plan: Continue Cardizem. Not on anticoagulation. (4) Type 2 diabetes mellitus Is this a current diagnosis for this admission?: Yes Plan: Continue Amaryl, Accu-Cheks q. before meals and at bedtime, insulin lispro sliding scale, hypoglycemia protocol. (5) Lactic acidosis Is this a current diagnosis for this admission?: Yes Plan: Lactic acid 2.1, seems chronic, similar values in the past - Time Time Spent: 30 to 50 Minutes - Inpatient Certification Based on my medical assessment, after consideration of the patient's comorbidities, presenting symptoms, or acuity I expect that the services needed warrant INPATIENT care.: Yes I certify that my determination is in accordance with my understanding of Medicare's requirements for reasonable and necessary INPATIENT services [42 CFR 412.3e].: Yes Medical Necessity: Risk of Complication if Not Cared For in Hospital
[2018-06-25] MEDS ORDERED: GLUCAGON,HUMAN RECOMB 1 MG INJ IM PRN (00:22)
[2018-06-25] MEDS ORDERED: DEXTROSE 50%-WATER 25 GM/50 ML DISP.SYRIN IV PRN ×2 (00:22)
[2018-06-25] MEDS ORDERED: INSULIN LISPRO 100 UNIT/ML 3 ML VIAL SUBCUT PRN (00:22)
[2018-06-25] MEDS ORDERED: DEXTROSE 40% GEL 15 GM TUBE PO PRN ×2 (00:22)
[2018-06-25 05:36] LABS: HEMATOCRIT 43.3 % (37.9-51.0); HEMOGLOBIN 14.7 g/dL (13.5-17.0); MEAN CORPUSCULAR VOLUME 97 fl (80-97); PLATELET COUNT 240 10^3/uL (150-450); RED BLOOD COUNT 4.47 10^6/uL (4.35-5.55); RED CELL DISTRIBUTION WIDTH 16.3 % (11.5-14.0); WHITE BLOOD COUNT 8.9 10^3/uL (4.0-10.5)
[2018-06-25 05:42] LABS: ANION GAP 11 (5-19); BLOOD UREA NITROGEN 43 mg/dL (7-20); CALCIUM 9.5 mg/dL (8.4-10.2); CARBON DIOXIDE 29 mmol/L (22-30); CHLORIDE 94 mmol/L (98-107); GLUCOSE 131 mg/dL (75-110); PHOSPHORUS 4.1 mg/dL (2.5-4.5); POTASSIUM 4.2 mmol/L (3.6-5.0); SODIUM 134.2 mmol/L (137-145)
[2018-06-25] MEDS: HEPARIN SOD (PORCINE) 5,000 UNIT/ML 1 ML SYRINGE SUBCUT SCH ×3 (06:33→21:48)
[2018-06-25 07:08] LABS: ABSOLUTE LYMPHOCYTES# (MANUAL) 0.7 10^3/uL (0.5-4.7); ABSOLUTE MONOCYTES # (MANUAL) 1.2 10^3/uL (0.1-1.4); ABSOLUTE NEUTROPHILS# (MANUAL) 6.9 10^3/uL (1.7-8.2); BASOPHILS % (MANUAL) 0 % (0-2); EOSINOPHILS % (MANUAL) 0 % (0-6); LYMPHOCYTES % (MANUAL) 7 % (13-45); MONOCYTES % (MANUAL) 14 % (3-13); SEGMENTED NEUTROPHILS % (MAN) 77 % (42-78); TOTAL CELLS COUNTED 100
[2018-06-25 07:10] LABS: TOXIC GRANULATION SLIGHT
[2018-06-25 07:11] LABS: ANISOCYTOSIS 1+; BURR CELLS SLIGHT; PLATELET COMMENT ADEQUATE; POIKILOCYTOSIS 1+; TEAR DROP CELLS SLIGHT
[2018-06-25 07:14] LABS: MYELOCYTES % (MANUAL) 1 % (0)
[2018-06-25] MEDS: OXYCODONE-ACETAMINOPHEN 5-325 MG TABLET PO PRN ×2 (08:40→19:22)
[2018-06-25] MEDS: METOCLOPRAMIDE HCL INJ/PF 10 MG/2 ML SDV IV SCH ×4 (09:18→21:48)
[2018-06-25] MEDS: CIPROFLOXACIN 400 MG/D5W RTU 400 MG/200 ML RTUPB IV SCH ×2 (11:43→21:40)
[2018-06-25] MEDS: FUROSEMIDE INJ/PF 40 MG/4 ML SDV IV SCH ×2 (11:47→21:48)
[2018-06-25] MEDS ORDERED: TRAMADOL HCL 50 MG TABLET PO PRN ×2 (12:49→18:40)
--- NOTE | 2018-06-25 13:40 | PDOC PROGRESS REPORT ---
Subjective Progress Note for:: 06/25/18 Subjective:: The patient is resting comfortably. O2 by trach. No new complaints. Reason For Visit: LOWER EXTREMITIES EDEMA Physical Exam Vital Signs: Temp Pulse Resp BP Pulse Ox 97.5 F 99 18 98/69 L 96 06/25/18 11:12 06/25/18 11:12 06/25/18 11:12 06/25/18 11:12 06/25/18 11:12 Intake & Output 06/24/18 06/25/18 06/26/18 06:59 06:59 06:59 Intake Total 200 Output Total 400 Balance -200 Weight 85.1 kg General appearance: PRESENT: no acute distress, cooperative, other - chronically ill appearing. Neck exam: PRESENT: tracheostomy Respiratory exam: PRESENT: other - No increased work of breathing.. ABSENT: rales, rhonchi, wheezes Cardiovascular exam: PRESENT: RRR. ABSENT: gallop, rubs, systolic murmur Pulses: PRESENT: other - Diminished distal pulses. GI/Abdominal exam: PRESENT: normal bowel sounds, soft. ABSENT: distended, hernia, mass, organolmegaly, tenderness Extremities exam: PRESENT: pedal edema, other - +3-4 pitting edema of lower extremities bilaterally.. ABSENT: clubbing, tenderness Musculoskeletal exam: ABSENT: deformity, dislocation, tenderness Neurological exam: PRESENT: alert, awake, oriented to person, oriented to place , oriented to time, oriented to situation, CN II-XII grossly intact. ABSENT: motor sensory deficit Psychiatric exam: PRESENT: appropriate affect, normal mood Skin exam: PRESENT: dry, intact, warm Results Laboratory Results: 06/25/18 04:46 06/25/18 04:46 06/24/18 06/25/18 06/25/18 20:00 04:46 04:46 WBC 8.9 RBC 4.47 Hgb 14.7 Hct 43.3 MCV 97 MCH 33.0 MCHC 34.0 RDW 16.3 H Plt Count 240 Seg Neutrophils % Not Reportable Lymphocytes % Not Reportable Monocytes % Not Reportable Eosinophils % Not Reportable Basophils % Not Reportable Absolute Neutrophils Not Reportable Absolute Lymphocytes Not Reportable Absolute Monocytes Not Reportable Absolute Eosinophils Not Reportable Absolute Basophils Not Reportable Sodium 134.2 L Potassium 4.2 Chloride 94 L Carbon Dioxide 29 Anion Gap 11 BUN 43 H Creatinine 1.48 H Est GFR ( Amer) 56 L Est GFR (Non-Af Amer) 46 L Glucose 131 H Lactic Acid Calcium 9.5 Phosphorus 4.1 Magnesium 2.5 H Urine Color YELLOW Urine Appearance CLEAR Urine pH 5.0 Ur Specific [place] 1.019 Urine Protein NEGATIVE Urine Glucose (UA) NEGATIVE Urine Ketones NEGATIVE Urine Blood MODERATE H Urine Nitrite NEGATIVE Ur Leukocyte Esterase NEGATIVE Urine WBC (Auto) 5 Urine RBC (Auto) 7 06/25/18 07:38 WBC RBC Hgb Hct MCV MCH MCHC RDW Plt Count Seg Neutrophils % Lymphocytes % Monocytes % Eosinophils % Basophils % Absolute Neutrophils Absolute Lymphocytes Absolute Monocytes Absolute Eosinophils Absolute Basophils Sodium Potassium Chloride Carbon Dioxide Anion Gap BUN Creatinine Est GFR ( Amer) Est GFR (Non-Af Amer) Glucose Lactic Acid 2.5 H Calcium Phosphorus Magnesium Urine Color Urine Appearance Urine pH Ur Specific [place] Urine Protein Urine Glucose (UA) Urine Ketones Urine Blood Urine Nitrite Ur Leukocyte Esterase Urine WBC (Auto) Urine RBC (Auto) 06/24/18 06/25/18 06/25/18 18:00 04:46 04:46 WBC 8.9 RBC 4.47 Hgb 14.7 Hct 43.3 MCV 97 MCH 33.0 MCHC 34.0 RDW 16.3 H Plt Count 240 Total Counted 100 Seg Neuts % (Manual) 77 Lymphocytes % (Manual) 7 L Atypical Lymphs % 1 Monocytes % (Manual) 14 H Myelocytes % 1 H Abs Neuts (Manual) 6.9 Abs Lymphs (Manual) 0.7 Abs Monocytes (Manual) 1.2 Absolute Eos (Manual) 0.0 Abs Basophils (Manual) 0.0 Toxic Granulation SLIGHT WBC Morphology Comment Platelet Comment ADEQUATE Poikilocytosis 1+ Anisocytosis 1+ Tear Drop Cells SLIGHT [place] Cells SLIGHT PT 14.1 INR 1.04 Sodium 134.2 L Potassium 4.2 Chloride 94 L Carbon Dioxide 29 Anion Gap 11 BUN 43 H Creatinine 1.48 H Est GFR ( Amer) 56 L Est GFR (Non-Af Amer) 46 L Glucose 131 H POC Glucose Lactic Acid Calcium 9.5 Phosphorus 4.1 Magnesium 2.5 H 06/25/18 06/25/18 07:38 12:48 WBC RBC Hgb Hct MCV MCH MCHC RDW Plt Count Total Counted Seg Neuts % (Manual) Lymphocytes % (Manual) Atypical Lymphs % Monocytes % (Manual) Myelocytes % Abs Neuts (Manual) Abs Lymphs (Manual) Abs Monocytes (Manual) Absolute Eos (Manual) Abs Basophils (Manual) Toxic Granulation WBC Morphology Comment Platelet Comment Poikilocytosis Anisocytosis Tear Drop Cells [place] Cells PT INR Sodium Potassium Chloride Carbon Dioxide Anion Gap BUN Creatinine Est GFR ( Amer) Est GFR (Non-Af Amer) Glucose POC Glucose 129 H Lactic Acid 2.5 H Calcium Phosphorus Magnesium Assessment & Plan - Diagnosis (1) Acute kidney injury (nontraumatic) Is this a current diagnosis for this admission?: Yes Plan: Likely acute on chronic. The patient's creatinine is slightly decreased this morning. Will continue to monitor volume status, creatinine and electrolytes. (2) Bilateral lower extremity edema Is this a current diagnosis for this admission?: Yes Plan: Diuresis. (3) Chronic a-fib Is this a current diagnosis for this admission?: Yes Plan: Rate is controlled. (4) Diabetes Qualifiers: Diabetes mellitus type: type 2 Diabetes mellitus senior care insulin use: without adjunct faculty for medical terminology use Diabetes mellitus complication status: with circulatory complication Diabetes mellitus complication detail: with other circulatory complications Qualified Code(s): E11.59 - Type 2 diabetes mellitus with other circulatory complications Is this a current diagnosis for this admission?: Yes Plan: FSBS and SSI. (5) Lactic acidosis Is this a current diagnosis for this admission?: Yes Plan: Monitor. - Time Time Spent with patient: 25-34 minutes Medications reviewed and adjusted accordingly: Yes
[2018-06-25] MEDS: IPRATROPIUM/ALBUTEROL 0.5-2.5 MG/3 ML AMPUL NEB PRN (15:52)
[2018-06-25] MEDS ORDERED: (PENDING PHARMACY ID) (Pantoprazole Sodium [Protonix] 20 MG) PO SCH (18:45)
[2018-06-25] MEDS: DILTIAZEM HCL 60 MG TABLET PO SCH (21:39)
[2018-06-25] MEDS: PREDNISONE 10 MG TABLET PO SCH (21:39)
[2018-06-26] MEDS: LEVOTHYROXINE SODIUM 0.1 MG TABLET PO SCH (05:47)
[2018-06-26] MEDS: LANSOPRAZOLE 15 MG TAB.RAP.DR PO SCH (05:47)
[2018-06-26] MEDS: DILTIAZEM HCL 60 MG TABLET PO SCH (05:47)
[2018-06-26] MEDS: HEPARIN SOD (PORCINE) 5,000 UNIT/ML 1 ML SYRINGE SUBCUT SCH ×3 (05:49→23:14)
[2018-06-26 07:08] LABS: ABSOLUTE LYMPHOCYTES (AUTO) 0.5 10^3/uL (0.5-4.7); ABSOLUTE NEUT (AUTO) 7.1 10^3/uL (1.7-8.2); BASOPHILS % (AUTO) 0.2 % (0-2); EOSINOPHILS % (AUTO) 0.1 % (0-6); HEMATOCRIT 40.8 % (37.9-51.0); HEMOGLOBIN 13.8 g/dL (13.5-17.0); LYMPHOCYTES % (AUTO) 5.5 % (13-45); MEAN CORPUSCULAR HGB CONC 33.9 g/dL (32.0-36.0); MEAN CORPUSCULAR VOLUME 97 fl (80-97); PLATELET COUNT 279 10^3/uL (150-450); RED BLOOD COUNT 4.19 10^6/uL (4.35-5.55); RED CELL DISTRIBUTION WIDTH 16.2 % (11.5-14.0); SEGMENTED NEUTROPHILS % (AUTO) 82.2 % (42-78); TOTAL CELLS COUNTED % (AUTO) 100 %; WHITE BLOOD COUNT 8.6 10^3/uL (4.0-10.5)
[2018-06-26 07:28] LABS: ALANINE AMINOTRANSFERASE 168 U/L (21-72); ALBUMIN 3.2 g/dL (3.5-5.0); ALKALINE PHOSPHATASE 423 U/L (38-126); ANION GAP 9 (5-19); ASPARTATE AMINO TRANSFERASE 124 U/L (17-59); BILIRUBIN,DIRECT 1.3 mg/dL (0.0-0.4); BLOOD UREA NITROGEN 34 mg/dL (7-20); CALCIUM 9.4 mg/dL (8.4-10.2); CARBON DIOXIDE 30 mmol/L (22-30); CHLORIDE 94 mmol/L (98-107); GLUCOSE 125 mg/dL (75-110); POTASSIUM 3.6 mmol/L (3.6-5.0); SODIUM 133.2 mmol/L (137-145); TOTAL PROTEIN 5.8 g/dL (6.3-8.2)
[2018-06-26] MEDS ORDERED: FUROSEMIDE 40 MG TABLET PO SCH (10:00)
[2018-06-26] MEDS: METOCLOPRAMIDE HCL INJ/PF 10 MG/2 ML SDV IV SCH ×4 (10:32→23:14)
[2018-06-26] MEDS: CIPROFLOXACIN 400 MG/D5W RTU 400 MG/200 ML RTUPB IV SCH ×2 (10:32→23:13)
[2018-06-26] MEDS: METFORMIN HCL 500 MG TABLET PO SCH ×2 (10:32→17:45)
[2018-06-26] MEDS: FUROSEMIDE INJ/PF 40 MG/4 ML SDV IV SCH ×2 (10:33→23:14)
[2018-06-26] MEDS: PREDNISONE 10 MG TABLET PO SCH ×2 (10:33→23:14)
[2018-06-26] MEDS: FINASTERIDE 5 MG TABLET PO SCH (10:34)
[2018-06-26] MEDS: IPRATROPIUM/ALBUTEROL 0.5-2.5 MG/3 ML AMPUL NEB PRN (10:47)
--- NOTE | 2018-06-26 12:23 | RADIOLOGY REPORT (SQ) ---
EXAM DESCRIPTION: CHEST SINGLE VIEW COMPLETED DATE/TIME: 06/26/2018 10:28 am REASON FOR STUDY: increased oxygen requirements COMPARISON: None. EXAM PARAMETERS: NUMBER OF VIEWS: One view. TECHNIQUE: Single frontal radiographic view of the chest acquired. RADIATION DOSE: NA LIMITATIONS: None. FINDINGS: LUNGS AND PLEURA: Hyperinflation of the lungs suggesting COPD. Fibrotic scarring in the right upper lobe. . MEDIASTINUM AND HILAR STRUCTURES: No masses. Contour normal. HEART AND VASCULAR STRUCTURES: The heart is normal with aortic atherosclerosis. BONES: No acute findings. HARDWARE: None in the chest. OTHER: No other significant finding. IMPRESSION: COPD. Chronic interstitial changes right upper lobe. TECHNICAL DOCUMENTATION: JOB ID: [id number] [employer]- All Rights Reserved Reading location - IP/workstation name: [email or web address]
[2018-06-26] MEDS: OXYCODONE-ACETAMINOPHEN 5-325 MG TABLET PO PRN (13:14)
--- NOTE | 2018-06-26 14:50 | PDOC PROGRESS REPORT ---
Subjective Progress Note for:: 06/26/18 Subjective:: The patient has been refusing his medications today except for his pain meds. He states (writes) that he no longer wants treatment. He wants to peacefully. Reason For Visit: LOWER EXTREMITIES EDEMA Physical Exam Vital Signs: Temp Pulse Resp BP Pulse Ox 98.4 F 106 H 20 100/62 90 L 06/26/18 08:00 06/26/18 08:00 06/26/18 08:00 06/26/18 08:00 06/25/18 23:28 Intake & Output 06/25/18 06/26/18 06/27/18 06:59 06:59 06:59 Intake Total 200 946 236 Output Total 400 2100 Balance -200 -1154 236 Weight 85.1 kg 85.1 kg General appearance: PRESENT: no acute distress, cooperative, thin, other - chronically ill appearing. Respiratory exam: PRESENT: other - No increased work of breathing.. ABSENT: rales, rhonchi, wheezes Cardiovascular exam: PRESENT: RRR. ABSENT: gallop, rubs, systolic murmur Pulses: PRESENT: other - Diminished distal pulses. GI/Abdominal exam: PRESENT: mass, normal bowel sounds, soft. ABSENT: distended , hernia, tenderness Extremities exam: ABSENT: full ROM, pedal edema, tenderness, +1 edema Musculoskeletal exam: PRESENT: normal inspection. ABSENT: deformity, dislocation, tenderness Neurological exam: PRESENT: alert, awake, oriented to person, oriented to place , oriented to time, oriented to situation, CN II-XII grossly intact. ABSENT: motor sensory deficit Psychiatric exam: PRESENT: appropriate affect, normal mood Skin exam: PRESENT: dry, intact, warm Results Laboratory Results: 06/26/18 06:15 06/26/18 06:15 06/26/18 06/26/18 06:15 06:15 WBC 8.6 RBC 4.19 L Hgb 13.8 Hct 40.8 MCV 97 MCH 33.0 MCHC 33.9 RDW 16.2 H Plt Count 279 Seg Neutrophils % 82.2 H Lymphocytes % 5.5 L Monocytes % 12.0 Eosinophils % 0.1 Basophils % 0.2 Absolute Neutrophils 7.1 Absolute Lymphocytes 0.5 Absolute Monocytes 1.0 Absolute Eosinophils 0.0 Absolute Basophils 0.0 Sodium 133.2 L Potassium 3.6 Chloride 94 L Carbon Dioxide 30 Anion Gap 9 BUN 34 H Creatinine 1.28 H Est GFR ( Amer) > 60 Est GFR (Non-Af Amer) 54 L Glucose 125 H Calcium 9.4 Total Bilirubin 2.0 H AST 124 H ALT 168 H Alkaline Phosphatase 423 H Total Protein 5.8 L Albumin 3.2 L 06/24/18 20:00 Catheterized Urine Urine Culture - Final NO GROWTH 2 DAYS 06/24/18 06/25/18 06/25/18 18:00 04:46 04:46 WBC 8.9 RBC 4.47 Hgb 14.7 Hct 43.3 MCV 97 MCH 33.0 MCHC 34.0 RDW 16.3 H Plt Count 240 Total Counted 100 Seg Neutrophils % Seg Neuts % (Manual) 77 Lymphocytes % Lymphocytes % (Manual) 7 L Atypical Lymphs % 1 Monocytes % Monocytes % (Manual) 14 H Eosinophils % Basophils % Myelocytes % 1 H Absolute Neutrophils Abs Neuts (Manual) 6.9 Absolute Lymphocytes Abs Lymphs (Manual) 0.7 Absolute Monocytes Abs Monocytes (Manual) 1.2 Absolute Eosinophils Absolute Eos (Manual) 0.0 Absolute Basophils Abs Basophils (Manual) 0.0 Toxic Granulation SLIGHT WBC Morphology Comment Platelet Comment ADEQUATE Poikilocytosis 1+ Anisocytosis 1+ Tear Drop Cells SLIGHT [place] Cells SLIGHT PT 14.1 INR 1.04 Sodium 134.2 L Potassium 4.2 Chloride 94 L Carbon Dioxide 29 Anion Gap 11 BUN 43 H Creatinine 1.48 H Est GFR ( Amer) 56 L Est GFR (Non-Af Amer) 46 L Glucose 131 H POC Glucose Lactic Acid Calcium 9.5 Phosphorus 4.1 Magnesium 2.5 H Total Bilirubin Direct Bilirubin AST ALT Alkaline Phosphatase Total Protein 06/25/18 06/25/18 06/26/18 07:38 12:48 06:15 WBC 8.6 RBC 4.19 L Hgb 13.8 Hct 40.8 MCV 97 MCH 33.0 MCHC 33.9 RDW 16.2 H Plt Count 279 Total Counted Seg Neutrophils % 82.2 H Seg Neuts % (Manual) Lymphocytes % 5.5 L Lymphocytes % (Manual) Atypical Lymphs % Monocytes % 12.0 Monocytes % (Manual) Eosinophils % 0.1 Basophils % 0.2 Myelocytes % Absolute Neutrophils 7.1 Abs Neuts (Manual) Absolute Lymphocytes 0.5 Abs Lymphs (Manual) Absolute Monocytes 1.0 Abs Monocytes (Manual) Absolute Eosinophils 0.0 Absolute Eos (Manual) Absolute Basophils 0.0 Abs Basophils (Manual) Toxic Granulation WBC Morphology Comment Platelet Comment Poikilocytosis Anisocytosis Tear Drop Cells [place] Cells PT INR Sodium Potassium Chloride Carbon Dioxide Anion Gap BUN Creatinine Est GFR ( Amer) Est GFR (Non-Af Amer) Glucose POC Glucose 129 H Lactic Acid 2.5 H Calcium Phosphorus Magnesium Total Bilirubin Direct Bilirubin AST ALT Alkaline Phosphatase Total Protein 06/26/18 06/26/18 06:15 13:12 WBC RBC Hgb Hct MCV MCH MCHC RDW Plt Count Total Counted Seg Neutrophils % Seg Neuts % (Manual) Lymphocytes % Lymphocytes % (Manual) Atypical Lymphs % Monocytes % Monocytes % (Manual) Eosinophils % Basophils % Myelocytes % Absolute Neutrophils Abs Neuts (Manual) Absolute Lymphocytes Abs Lymphs (Manual) Absolute Monocytes Abs Monocytes (Manual) Absolute Eosinophils Absolute Eos (Manual) Absolute Basophils Abs Basophils (Manual) Toxic Granulation WBC Morphology Comment Platelet Comment Poikilocytosis Anisocytosis Tear Drop Cells [place] Cells PT INR Sodium 133.2 L Potassium 3.6 Chloride 94 L Carbon Dioxide 30 Anion Gap 9 BUN 34 H Creatinine 1.28 H Est GFR ( Amer) > 60 Est GFR (Non-Af Amer) 54 L Glucose 125 H POC Glucose 116 H Lactic Acid Calcium 9.4 Phosphorus Magnesium Total Bilirubin 2.0 H Direct Bilirubin 1.3 H AST 124 H ALT 168 H Alkaline Phosphatase 423 H Total Protein 5.8 L Assessment & Plan - Diagnosis (1) Acute kidney injury (nontraumatic) Is this a current diagnosis for this admission?: Yes (2) Transaminitis Is this a current diagnosis for this admission?: Yes Plan: The creatinine is slowly improving. (3) Chronic a-fib Is this a current diagnosis for this admission?: Yes Plan: Rate is still abit high on the current dose of diltiazem. Will change to CD 240 which will increase his dose. (4) Bilateral lower extremity edema Is this a current diagnosis for this admission?: Yes Plan: Diuresis. Edema is resolving. (5) Diabetes Qualifiers: Diabetes mellitus type: type 2 Diabetes mellitus half-way insulin use: without half-way use Diabetes mellitus complication status: with circulatory complication Diabetes mellitus complication detail: with other circulatory complications Qualified Code(s): E11.59 - Type 2 diabetes mellitus with other circulatory complications Is this a current diagnosis for this admission?: Yes Plan: FSBS and SSI. Fair control. (6) Lactic acidosis Is this a current diagnosis for this admission?: Yes Plan: Resolved. - Time Time Spent with patient: 25-34 minutes Medications reviewed and adjusted accordingly: Yes - Plan Summary Plan Summary: Have consulted palliative care to address the patient's desire to stop therapy for his medical problems.
[2018-06-26] MEDS: HYDROCODONE/ACETAMINOPHEN 10-325 MG TABLET PO PRN (16:37)
[2018-06-26] MEDS: MORPHINE SULFATE SR 15 MG TABLET PO PRN (19:25)
[2018-06-26] MEDS: DILTIAZEM HCL 240 MG CAPSULE.CR PO SCH (23:13)
[2018-06-27] MEDS: HEPARIN SOD (PORCINE) 5,000 UNIT/ML 1 ML SYRINGE SUBCUT SCH ×3 (05:24→21:07)
[2018-06-27] MEDS: LANSOPRAZOLE 15 MG TAB.RAP.DR PO SCH (05:24)
[2018-06-27] MEDS: LEVOTHYROXINE SODIUM 0.1 MG TABLET PO SCH (05:24)
[2018-06-27] MEDS: HYDROCODONE/ACETAMINOPHEN 10-325 MG TABLET PO PRN ×3 (06:07→21:18)
[2018-06-27] MEDS: MORPHINE SULFATE SR 15 MG TABLET PO PRN (08:36)
[2018-06-27] MEDS: METFORMIN HCL 500 MG TABLET PO SCH ×2 (08:37→17:59)
[2018-06-27] MEDS: METOCLOPRAMIDE HCL INJ/PF 10 MG/2 ML SDV IV SCH ×2 (08:37→12:16)
[2018-06-27] MEDS: PREDNISONE 10 MG TABLET PO SCH (12:15)
[2018-06-27] MEDS: CIPROFLOXACIN 400 MG/D5W RTU 400 MG/200 ML RTUPB IV SCH (12:16)
[2018-06-27] MEDS: FINASTERIDE 5 MG TABLET PO SCH (12:16)
[2018-06-27] MEDS: FUROSEMIDE INJ/PF 40 MG/4 ML SDV IV SCH (12:17)
--- NOTE | 2018-06-27 13:23 | PDOC PROGRESS REPORT ---
Subjective Progress Note for:: 06/27/18 Subjective:: The patient is complaining of not feeling well. He states that he is depressed. He cannot walk because of pain and swelling of the lower extremities. Reason For Visit: LOWER EXTREMITIES EDEMA Physical Exam Vital Signs: Temp Pulse Resp BP Pulse Ox 97.5 F 100 18 105/71 98 06/27/18 07:15 06/27/18 08:42 06/27/18 08:42 06/27/18 07:15 06/27/18 08:42 Intake & Output 06/26/18 06/27/18 06/28/18 06:59 06:59 06:59 Intake Total 946 816 Output Total 2100 380 Balance -1154 436 Weight 85.1 kg General appearance: PRESENT: mild distress Eye exam: PRESENT: conjunctival injection Neck exam: PRESENT: carotid bruit. ABSENT: JVD Respiratory exam: PRESENT: rales, rhonchi Cardiovascular exam: PRESENT: irregular rhythm, +S1, +S2 GI/Abdominal exam: PRESENT: normal bowel sounds, soft Extremities exam: PRESENT: pedal edema, tenderness Musculoskeletal exam: ABSENT: ambulatory Neurological exam: PRESENT: alert, awake Psychiatric exam: PRESENT: depressed Skin exam: PRESENT: abrasion Results Laboratory Results: 06/26/18 06:15 06/26/18 06:15 06/24/18 20:00 Catheterized Urine Urine Culture - Final NO GROWTH 2 DAYS Impressions: Chest X-Ray 06/26/18 00:00 IMPRESSION: COPD. Chronic interstitial changes right upper lobe. Assessment & Plan - Diagnosis (1) Major depression Qualifiers: Major depression recurrence: unspecified whether recurrent Active/ Remission status: currently active Is this a current diagnosis for this admission?: Yes Plan: We will start Zoloft (2) Bilateral lower extremity edema Is this a current diagnosis for this admission?: Yes Plan: Leg elevation and diuretics (3) Chronic a-fib Is this a current diagnosis for this admission?: Yes Plan: Continue rate control (4) Diabetes Qualifiers: Diabetes mellitus type: type 2 Diabetes mellitus nursing home insulin use: without termite exterminator helper use Diabetes mellitus complication status: with circulatory complication Diabetes mellitus complication detail: with other circulatory complications Qualified Code(s): E11.59 - Type 2 diabetes mellitus with other circulatory complications Is this a current diagnosis for this admission?: Yes Plan: Continue current treatment (5) Acute and chronic respiratory failure Qualifiers: Respiratory failure complication: hypoxia Qualified Code(s): J96.21 - Acute and chronic respiratory failure with hypoxia Is this a current diagnosis for this admission?: Yes Plan: Continue O2 and steroids (6) Hypothyroid Qualifiers: Hypothyroidism type: acquired Qualified Code(s): E03.9 - Hypothyroidism, unspecified Is this a current diagnosis for this admission?: Yes Plan: Continue current treatment
[2018-06-27 14:15] LABS: PATH REVIEW PATHOLOGIST REVIEWED
[2018-06-27] MEDS: TRAMADOL HCL 50 MG TABLET PO PRN (15:45)
[2018-06-27] MEDS: IPRATROPIUM/ALBUTEROL 0.5-2.5 MG/3 ML AMPUL NEB PRN (20:03)
[2018-06-28] MEDS: PREDNISONE 10 MG TABLET PO SCH ×3 (01:20→22:45)
[2018-06-28] MEDS: DILTIAZEM HCL 240 MG CAPSULE.CR PO SCH ×2 (01:20→22:47)
[2018-06-28] MEDS: FUROSEMIDE INJ/PF 40 MG/4 ML SDV IV SCH (01:20)
[2018-06-28] MEDS: HEPARIN SOD (PORCINE) 5,000 UNIT/ML 1 ML SYRINGE SUBCUT SCH ×3 (05:34→21:21)
[2018-06-28] MEDS: LANSOPRAZOLE 15 MG TAB.RAP.DR PO SCH (05:34)
[2018-06-28] MEDS: LEVOTHYROXINE SODIUM 0.1 MG TABLET PO SCH (05:34)
[2018-06-28] MEDS: TRAMADOL HCL 50 MG TABLET PO PRN ×2 (05:35→15:46)
[2018-06-28 06:03] LABS: ABSOLUTE LYMPHOCYTES (AUTO) 0.6 10^3/uL (0.5-4.7); ABSOLUTE MONOCYTES (AUTO) 0.8 10^3/uL (0.1-1.4); ABSOLUTE NEUT (AUTO) 6.8 10^3/uL (1.7-8.2); BASOPHILS % (AUTO) 0.2 % (0-2); EOSINOPHILS % (AUTO) 0.2 % (0-6); HEMATOCRIT 41.9 % (37.9-51.0); HEMOGLOBIN 14.2 g/dL (13.5-17.0); LYMPHOCYTES % (AUTO) 7.8 % (13-45); MEAN CORPUSCULAR HEMOGLOBIN 33.5 pg (27.0-33.4); MEAN CORPUSCULAR VOLUME 99 fl (80-97); MONOCYTES % (AUTO) 9.3 % (3-13); PLATELET COUNT 281 10^3/uL (150-450); RED BLOOD COUNT 4.25 10^6/uL (4.35-5.55); RED CELL DISTRIBUTION WIDTH 16.1 % (11.5-14.0); SEGMENTED NEUTROPHILS % (AUTO) 82.5 % (42-78); TOTAL CELLS COUNTED % (AUTO) 100 %; WHITE BLOOD COUNT 8.2 10^3/uL (4.0-10.5)
[2018-06-28 06:25] LABS: ALANINE AMINOTRANSFERASE 159 U/L (21-72); ALKALINE PHOSPHATASE 431 U/L (38-126); ANION GAP 10 (5-19); ASPARTATE AMINO TRANSFERASE 120 U/L (17-59); BILIRUBIN,DIRECT 1.8 mg/dL (0.0-0.4); BILIRUBIN,TOTAL 2.2 mg/dL (0.2-1.3); BLOOD UREA NITROGEN 36 mg/dL (7-20); CALCIUM 9.6 mg/dL (8.4-10.2); CARBON DIOXIDE 27 mmol/L (22-30); CHLORIDE 98 mmol/L (98-107); GLUCOSE 113 mg/dL (75-110); POTASSIUM 4.4 mmol/L (3.6-5.0); SODIUM 134.9 mmol/L (137-145); TOTAL PROTEIN 5.5 g/dL (6.3-8.2)
[2018-06-28] MEDS ORDERED: SIMETHICONE 80 MG TAB.CHEW PO PRN (08:13)
--- NOTE | 2018-06-28 08:17 | PDOC PROGRESS REPORT ---
Subjective Progress Note for:: 06/28/18 Subjective:: The patient is complaining of neuropathic pain in his lower extremities. He has not been receiving the gabapentin. He is also complaining of constipation and bloating. He does not want to go to the rehab. His son and him have decided that he is going to go home with home health and hospice Reason For Visit: LOWER EXTREMITIES EDEMA Physical Exam Vital Signs: Temp Pulse Resp BP Pulse Ox 98.0 F 106 H 20 95/57 L 98 06/28/18 00:00 06/28/18 00:00 06/28/18 00:00 06/27/18 19:29 06/28/18 04:20 Intake & Output 06/27/18 06/28/18 06/29/18 06:59 06:59 06:59 Intake Total 816 520 Output Total 380 945 Balance 436 -425 Weight 86.2 kg General appearance: PRESENT: mild distress Head exam: PRESENT: atraumatic Eye exam: PRESENT: conjunctiva pink Neck exam: PRESENT: carotid bruit. ABSENT: JVD Respiratory exam: PRESENT: rhonchi. ABSENT: wheezes Cardiovascular exam: PRESENT: irregular rhythm, +S1, +S2 GI/Abdominal exam: PRESENT: normal bowel sounds, soft Musculoskeletal exam: PRESENT: tenderness Skin exam: PRESENT: abrasion Results Laboratory Results: 06/28/18 05:26 06/28/18 05:26 06/28/18 06/28/18 06/28/18 05:26 05:26 05:26 WBC 8.2 RBC 4.25 L Hgb 14.2 Hct 41.9 MCV 99 H MCH 33.5 H MCHC 34.0 RDW 16.1 H Plt Count 281 Seg Neutrophils % 82.5 H Lymphocytes % 7.8 L Monocytes % 9.3 Eosinophils % 0.2 Basophils % 0.2 Absolute Neutrophils 6.8 Absolute Lymphocytes 0.6 Absolute Monocytes 0.8 Absolute Eosinophils 0.0 Absolute Basophils 0.0 Sodium 134.9 L Potassium 4.4 Chloride 98 Carbon Dioxide 27 Anion Gap 10 BUN 36 H Creatinine 1.26 H Est GFR ( Amer) > 60 Est GFR (Non-Af Amer) 55 L Glucose 113 H Calcium 9.6 Magnesium 2.4 H Total Bilirubin 2.2 H AST 120 H ALT 159 H Alkaline Phosphatase 431 H Total Protein 5.5 L Albumin 3.0 L TSH 1.10 Impressions: Chest X-Ray 06/26/18 00:00 IMPRESSION: COPD. Chronic interstitial changes right upper lobe. Assessment & Plan - Diagnosis (1) Major depression Qualifiers: Major depression recurrence: unspecified whether recurrent Active/ Remission status: currently active Is this a current diagnosis for this admission?: Yes Plan: We will start Zoloft (2) Bilateral lower extremity edema Is this a current diagnosis for this admission?: Yes Plan: Improving continue current treatment (3) Chronic a-fib Is this a current diagnosis for this admission?: Yes Plan: Continue rate control (4) Diabetes Qualifiers: Diabetes mellitus type: type 2 Diabetes mellitus group home insulin use: without long term acute care registered nurse use Diabetes mellitus complication status: with circulatory complication Diabetes mellitus complication detail: with other circulatory complications Qualified Code(s): E11.59 - Type 2 diabetes mellitus with other circulatory complications Is this a current diagnosis for this admission?: Yes Plan: Continue current treatment (5) Acute and chronic respiratory failure Qualifiers: Respiratory failure complication: hypoxia Qualified Code(s): J96.21 - Acute and chronic respiratory failure with hypoxia Is this a current diagnosis for this admission?: Yes (6) Hypothyroid Qualifiers: Hypothyroidism type: acquired Qualified Code(s): E03.9 - Hypothyroidism, unspecified Is this a current diagnosis for this admission?: Yes (7) Peripheral neuropathy Qualifiers: Peripheral neuropathy type: polyneuropathy, unspecified Qualified Code(s): G62.9 - Polyneuropathy, unspecified Is this a current diagnosis for this admission?: Yes Plan: We will restart gabapentin
[2018-06-28] MEDS ORDERED: MAGNESIUM CITRATE 296 ML BOTTLE PO ONE ×2 (09:00→12:00)
[2018-06-28] MEDS ORDERED: SERTRALINE HCL 50 MG TABLET PO SCH (10:00)
[2018-06-28] MEDS: FINASTERIDE 5 MG TABLET PO SCH (11:42)
[2018-06-28] MEDS: METFORMIN HCL 500 MG TABLET PO SCH ×2 (11:42→17:50)
[2018-06-28] MEDS: FUROSEMIDE 40 MG TABLET PO SCH ×2 (11:43→17:50)
[2018-06-28] MEDS: HYDROCODONE/ACETAMINOPHEN 10-325 MG TABLET PO PRN (11:49)
[2018-06-28] MEDS: GABAPENTIN 100 MG CAPSULE PO SCH ×2 (15:46→22:47)
[2018-06-29 00:39] VITALS: BP 108/68
[2018-06-29] MEDS: TRAMADOL HCL 50 MG TABLET PO PRN (00:53)
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
== END 2018-06-29 01:00 | disposition short-term general hospital (02) | DRG 308 ==
LOC: ER 17:17 → EH 19:56 → 4W 06-25 01:22 → 4N 06-26 17:42
PROVIDERS: ADMIT Internal Medicine; ATTEND Internal Medicine
PROC: 3E0F73Z Introduction of Anti-inflammatory into Respiratory Tract, Via Natural or Artificial Opening (ICD-10-PCS; principal; 2018-06-25)
DX: I48.2 Chronic atrial fibrillation (principal); J96.21 Acute and chronic respiratory failure with hypoxia; N17.9 Acute kidney failure, unspecified; E87.2 Acidosis; I25.10 Atherosclerotic heart disease of native coronary artery without angina pectoris; J44.9 Chronic obstructive pulmonary disease, unspecified; K21.9 Gastro-esophageal reflux disease without esophagitis; M15.9 Polyosteoarthritis, unspecified; E11.59 Type 2 diabetes mellitus with other circulatory complications; F17.210 Nicotine dependence, cigarettes, uncomplicated; Z51.5 Encounter for palliative care; E03.9 Hypothyroidism, unspecified; F32.9 Major depressive disorder, single episode, unspecified; E11.42 Type 2 diabetes mellitus with diabetic polyneuropathy; Z90.02 Acquired absence of larynx; Z93.0 Tracheostomy status; Z60.2 Problems related to living alone; Z79.899 Other long term (current) drug therapy; Z88.1 Allergy status to other antibiotic agents; Z88.0 Allergy status to penicillin; Z83.3 Family history of diabetes mellitus; Z82.49 Family history of ischemic heart disease and other diseases of the circulatory system; Z80.9 Family history of malignant neoplasm, unspecified; Z85.21 Personal history of malignant neoplasm of larynx
CPT/HCPCS: 36415; 71045; 80048; 80053; 81001; 82803; 82962; 83605; 83735; 84100; 84443; 85025; 85610; 87040; 87086; 93005; 93010; 99285; C1758; J0744; J1644; J1940; J2765; J3490; J7512; J7620